=== PATIENT | female | born 1975 | race Two or more races ===

== ENCOUNTER → 2020-09-06 09:53 | Outpatient (BNVA) | payer MEDICAID, SELFPAY | PROVIDERS: Visit Provider Internal Medicine Pulmonary Disease | DX: R06.00 Dyspnea, unspecified (principal); R91.8 Other nonspecific abnormal finding of lung field | CPT/HCPCS: 99202 ==

== ENCOUNTER 2020-09-13 10:01 | Outpatient (REF) | payer MEDICAID, SELFPAY ==
--- NOTE | 2020-09-13 10:04 | CT_ITS ---
EXAMINATION: CT CHEST WITHOUT CONTRAST CLINICAL INFORMATION: Abnormal finding in the lung field. COMPARISON: Chest x-ray 01/03/2019 TECHNIQUE: Multidetector volumetric CT imaging of the chest was done. Axial MIP volume rendering provided. Sagittal and coronal reformatted images were obtained. This CT examination was performed using dose optimization techniques as appropriate, variously including the following: *Automated exposure control *Adjustment of mA and/or kV according to patient size (this includes techniques or standardized protocols for targeted exams where dose is matched to indication/reason for exam; i.e. extremities or head) *Use of iterative reconstruction technique DLP: 146 mGy-cm. 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 LUNGS: Lungs are hyperinflated but clear of acute pneumonic process. There is no pulmonary nodule, mass or consolidation. MEDIASTINUM: The heart size and the great vessels are normal caliber. Central trachea and the bronchi are widely patent. The thyroid lobes are symmetrical and normal. No abnormal-sized mediastinal lymph nodes or mass seen. PLEURA: There is no pleural effusion. No pleural mass or thickening. AXILLA: Small shotty lymph nodes are seen in bilateral axilla. UPPER ABDOMEN: Visualized liver, spleen, bilateral adrenal glands, gallbladder and upper kidneys are unremarkable. OSSEOUS STRUCTURES: Minimal ventral spondylosis upper dorsal spine. CT/CT chest wo con IMPRESSION: Essentially unremarkable CT chest exam with no acute process seen.
== END 2020-09-13 10:02 | disposition home or self-care (01) ==
LOC: HO.CT 10:01
PROVIDERS: Visit Provider Internal Medicine Pulmonary Disease
DX: R91.8 Other nonspecific abnormal finding of lung field (principal)
CPT/HCPCS: 71250

== ENCOUNTER 2020-09-27 09:26 | Outpatient (REF) | payer MEDICAID, SELFPAY ==
--- NOTE | 2020-09-27 17:39 | PFT_ITS ---
INDICATIONS: Dyspnea. SPIROMETRY: The FEV1 to FVC of 82% with FEV1 of 2.04 L, which is 68% of predicted and FVC of 2.47 L, which is 68% of predicted. No significant response to bronchodilators noted. Maximal voluntary ventilation is 96% predicted. LUNG VOLUMES: Total lung capacity 79% of predicted with a residual volume of 88% of predicted and the expiratory reserve volume of 65% of predicted. DIFFUSION CAPACITY: DLCO 69% of predicted. It does correct to normal when correcting for the alveolar volume. COMPARISONS: None available. INTERPRETATION: In addition, no obstructive ventilatory defect. No significant response to bronchodilators noted. Normal maximal voluntary ventilation. The patient does have a mild restrictive ventilatory defect of an unclear etiology. In addition to that, there is a mild diffusion impairment. We need to consider underlying parenchymal lung conditions and consider additional imaging studies. Clinical correlation warranted. Sean Martines MD MR/MODL / [id number]
== END 2020-09-27 09:27 | disposition home or self-care (01) ==
LOC: HO.RESP 09:26
PROVIDERS: Visit Provider Internal Medicine Pulmonary Disease
DX: R06.00 Dyspnea, unspecified (principal)
CPT/HCPCS: 94060; 94727; 94729; 99212

== ENCOUNTER → 2020-11-16 09:51 | Outpatient (BNVA) | payer MEDICAID, SELFPAY | PROVIDERS: PCP Internal Medicine; Visit Provider Student in an Organized Health Care Education/Training Program | DX: M79.7 Fibromyalgia (principal) | CPT/HCPCS: 99212 ==

== ENCOUNTER 2021-07-17 11:02 | Outpatient (REF) | payer MEDICAID, SELFPAY | END 2021-07-17 11:03 | disposition home or self-care (01) | LOC: HO.LAB 11:02 | PROVIDERS: Visit Provider Internal Medicine | DX: Z20.822 Contact with and (suspected) exposure to COVID-19 (principal) | CPT/HCPCS: C9803; U0003; U0005 ==

== ENCOUNTER → 2021-11-19 09:47 | Outpatient (BNVA) | payer MEDICAID, SELFPAY | PROVIDERS: PCP Internal Medicine; Visit Provider Nurse Practitioner Family | DX: M79.7 Fibromyalgia (principal); M25.562 Pain in left knee; M54.50 Low back pain, unspecified | CPT/HCPCS: 99212 ==

== ENCOUNTER 2022-02-25 15:32 | Emergency (ER) | payer MEDICAID, SELFPAY ==
[2022-02-25 17:10] VITALS: BP 129/86; PULSE 79; RESP 18; TEMP 37.1; O2SAT 97; BMI 29.7
[2022-02-25 17:44] LABS: MANUAL DIFF FLAG NO
[2022-02-25 17:49] LABS: Basophils Percent Auto 0.2 % (0-2); Eosinophils Absolute Auto 0.1 X10*3/uL (0.0-0.4); Eosinophils Percent Auto 1.8 % (0-4); Hematocrit 35.7 % (37.0-47.0); Hemoglobin 11.7 g/dl (12.0-16.0); Imm Gran Abs Auto 0.01 X10*3/uL (0.00-0.03); Imm Gran Pct Auto 0.2 % (0.0-0.4); Lymphocytes Absolute Auto 1.7 X10*3/uL (1.2-4.9); Mean Corpuscular HGB Conc 32.8 g/dl (31.0-35.0); Mean Corpuscular Hemoglobin 29.5 pg (27.0-33.0); Mean Corpuscular Volume 89.9 fL (80.0-98.0); Mean Platelet Volume 11.7 fL (9.4-12.3); Monocytes Absolute Auto 0.4 X10*3/uL (0.1-1.2); Monocytes Percent Auto 6.6 % (2-11); Neutrophils Absolute Auto 3.9 x10*3/uL (2.0-8.3); Neutrophils Percent Auto 63.2 % (45-73); Platelet Count 253 X10*3/uL (160-400); Red Blood Count 3.97 X10*6/uL (4.20-5.50); Red Cell Distribution Width 13.2 % (11.0-16.0); White Blood Count 6.2 X10*3/uL (4.8-10.8)
[2022-02-25 17:51] LABS: Appearance Urine CLOUDY; Color Urine BROWN; Glucose Urine UA NEG (NEG); Leukocyte Esterase Urine NEG (NEG); Nitrite Urine NEG (NEG); Specific Gravity - Urine 1.025 (1.005-1.025); UACC Culture Trigger NO; Urine Blood 3+ (NEG); Urine Ketones 5 MG/DL (NEG); Urine Protein 1+ MG/DL (NEG-TRACE)
[2022-02-25 17:59] LABS: UPreg QC Valid YES; Urine Pregnancy NEGATIVE (NEGATIVE)
[2022-02-25 18:10] LABS: Alanine Aminotransferase 14 U/L (0-31); Albumin Level 4.2 g/dL (3.5-5.0); Alkaline Phosphatase 46 U/L (39-117); Anion Gap 10 (12-20); Aspartate Amino Transferase 16 U/L (5-31); Bilirubin Total 0.2 mg/dL (0.0-1.0); Blood Urea Nitrogen 11 mg/dL (9-16); Calcium 8.9 mg/dL (8.4-10.2); Carbon Dioxide 27 mmol/L (22-29); Chloride 105 mmol/L (96-108); Creatinine Clr Calc Pharmacy 106.4; Estimated Glomerular Filt Rate > 60; Glucose Random 170 mg/dL (60-115); Potassium 4.2 mmol/L (3.3-5.1); Sodium 138 mmol/L (135-145)
[2022-02-25 18:42] LABS: RBC Urine TNTC /HPF (0); Squamous Epithelial Cell Urine 2+ /LPF; WBC Urine 0 /HPF (0-4)
[2022-02-25 19:17] LABS: Prothrombin Time 11.1 SEC (10.0-13.1)
== END 2022-02-26 01:29 | disposition left against medical advice (07) ==
PROVIDERS: Emergency Provider Emergency Medicine; PCP General Practice
DX: N93.9 Abnormal uterine and vaginal bleeding, unspecified (principal); R42 Dizziness and giddiness
CPT/HCPCS: 36415; 80053; 81001; 81025; 85025; 85610; 99282; 99283

== ENCOUNTER 2022-06-12 15:45 | Outpatient (REF) | payer MEDICAID, SELFPAY ==
--- NOTE | ~2022-06-12 | US_ITS ---
EXAMINATION: US PELVIS COMPLETE CLINICAL INFORMATION: Heavy bleeding COMPARISON: None TECHNIQUE: Transabdominal and transvaginal imaging was performed. FINDINGS: The uterus is of normal size and echogenicity measuring 9.8 x 4.8 x 5.2 cm. A somewhat heterogeneous, thickened endometrium is identified measuring 1.9 cm. Nabothian cysts in the cervix. A 3.6 x 2.5 x 3.4 cm left ovarian physiologic dominant follicle with a daughter cyst is seen, without minimal surrounding parenchymal ovarian tissue. The right ovary was not identified. No right adnexal mass. There is no pelvic free fluid. US/US pelvic and transvaginal IMPRESSION: 1. A 3.6 cm left ovarian physiologic dominant follicle with a daughter cyst, without minimal surrounding parenchymal ovarian tissue. No follow-up imaging recommended. The right ovary was not identified. No right adnexal mass. 2. A somewhat heterogeneous, thickened endometrium measuring 1.9 cm.
== END 2022-06-12 15:46 | disposition home or self-care (01) ==
LOC: HO.US 15:45
PROVIDERS: Visit Provider Internal Medicine
DX: N92.6 Irregular menstruation, unspecified (principal)
CPT/HCPCS: 76830; 76856

== ENCOUNTER 2022-09-30 08:40 | Outpatient (REF) | payer MEDICAID, SELFPAY ==
--- NOTE | ~2022-09-30 | MM_ITS ---
EXAMINATION: MM SCREENING DIGITAL BREAST TOMOSYNTHESIS, BILATERAL CLINICAL INFORMATION: Screening. Asymptomatic. The lifetime risk of breast cancer based on the Tyrer-Cuzick Model is 12%. COMPARISON: Mammography: 04/26/2019, 09/04/2017, 08/27/2017 TECHNIQUE: Digital breast tomosynthesis is performed in both the craniocaudal and mediolateral oblique views along with computer-aided detection (CAD). Synthesized 2D images are generated from the tomosynthesis. FINDINGS: The breasts are heterogeneously dense, which may obscure small masses (ACR BI-RADS breast composition Category c). There are no significant masses, abnormal calcifications, or other abnormalities. No architectural abnormality or developing density or significant change from prior studies. MM/MM tomosynthesis screening BI IMPRESSION: No mammographic evidence of malignancy. ASSESSMENT: BI-RADS 1: Negative RECOMMENDATION: Routine annual mammography screening. This patient's information was entered into a reminder system with a target due date for their next mammogram.
== END 2022-09-30 08:41 | disposition home or self-care (01) ==
LOC: HO.MAMMO 08:40
PROVIDERS: PCP General Practice; Visit Provider General Practice
DX: Z12.31 Encounter for screening mammogram for malignant neoplasm of breast (principal)
CPT/HCPCS: 77063; 77067

== ENCOUNTER → 2022-11-19 09:55 | Outpatient (BNVA) | payer MEDICAID, SELFPAY | PROVIDERS: PCP General Practice; Visit Provider Nurse Practitioner Family | DX: M79.7 Fibromyalgia (principal); M25.562 Pain in left knee; R51.9 Headache, unspecified; R20.2 Paresthesia of skin | CPT/HCPCS: 99212 ==

== ENCOUNTER 2022-11-19 11:11 | Outpatient (REF) | payer MEDICAID, SELFPAY ==
--- NOTE | ~2022-11-19 | XR_ITS ---
EXAMINATION: XR KNEE, LEFT CLINICAL INFORMATION: Reason for Exam M25.562 - Pain in left knee COMPARISON: Knee radiographs 03/23/2018 TECHNIQUE: 3 views of the knee FINDINGS: No acute fracture or dislocation. Mild degenerative changes of the knee with borderline loss of patellofemoral compartment joint space, progressed from prior. No joint effusion. Soft tissues are unremarkable. XR/XR knee LT 3V IMPRESSION: * No acute osseous abnormality. * Mild degenerative changes of the knee.
== END 2022-11-19 11:12 | disposition home or self-care (01) ==
LOC: HO.XRAY 11:11
PROVIDERS: Visit Provider Nurse Practitioner Family
DX: M25.562 Pain in left knee (principal); M79.7 Fibromyalgia; R51.9 Headache, unspecified; R20.2 Paresthesia of skin
CPT/HCPCS: 73562

== ENCOUNTER 2023-01-12 14:36 | Emergency (ER) | payer MEDICAID, SELFPAY ==
--- NOTE | ~2023-01-12 | US_ITS ---
EXAMINATION: US ABDOMEN COMPLETE CLINICAL INFORMATION: Right upper quadrant pain. Question cholecystitis. COMPARISON: None available. TECHNIQUE: Real-time imaging of the abdominal viscera. FINDINGS: PANCREAS: Head and body appear unremarkable. Tail not visualized. ABDOMINAL AORTA: The proximal, mid, and distal segments are normal in caliber. INFERIOR VENA CAVA: Visualized portions are normal. LIVER: The liver is normal in size. The liver contour is normal. Parenchymal echogenicity is normal. No focal hepatic lesion appreciated. There is no intrahepatic biliary duct dilatation seen. GALLBLADDER: Contracted. Cholelithiasis. No evidence of significant gallbladder wall thickening, pericholecystic fluid, or hyperemia. COMMON BILE DUCT: Normal in caliber measuring cm in diameter. RIGHT KIDNEY: No hydronephrosis. No renal calculi or focal parenchymal lesion identified. The kidney measures 10.9 cm in maximum dimension. LEFT KIDNEY: No hydronephrosis. 1.4 x 1.2 x 1.1 cm benign left lower pole parapelvic simple renal cyst for which no further dedicated follow up imaging is indicated. No renal calculi or suspicious focal parenchymal lesion identified. The kidney measures 11.8 cm in maximum dimension. SPLEEN: The spleen measures 12.7 cm in maximum dimension. FREE FLUID: None. US/US abdomen complete IMPRESSION: Cholelithiasis. Spleen upper normal in size to mildly enlarged.
[2023-01-12 14:45] VITALS: BP 123/78; PULSE 66; RESP 18; TEMP 36.6; O2SAT 100; BMI 27.0
--- NOTE | 2023-01-12 14:51 | ED.GENADULT ---
HPI - General Adult General Chief complaint: Abdominal Pain Stated complaint: Liver/ gal bladder problems Time Seen by Provider: 01/12/23 16:04 Source: patient and family Mode of arrival: ambulatory Limitations: language barrier History of Present Illness HPI narrative: Patient is a 47-year-old female with history of fibromyalgia and antiphospholipid antibody positive presenting to the emergency department with complaint of right mid back pain radiating around to her RLQ. She reports that her symptoms began around one month ago but that last Thursday her pain became more severe. She was evaluated in [place] for same symptoms on 01/09, noted to have elevated liver enzymes at that time and CT showed cholelithiasis and hepatic steatosis. She was given morphine in the hospital and discharged home with oxycodone. She reports nausea but denies any vomiting, diarrhea, or constipation. She reports one episode of hematuria and dysuria this morning but states she has not had any further episodes of these symptoms. She denies any fevers since onset of symptoms. She reports that her pain has been tolerable with the oxycodone she was prescribed however the pain returns when the medication wears off. She denies any chest pain, cough, or dyspnea. MD complaint: Right flank and abdominal pain Onset (ago): day(s) Location: back and abdomen Radiation: abdomen Severity: severe Quality: stabbing Pain Consistency: colicky Relieving factors: medication Associated symptoms: nausea/vomiting Treatments prior to arrival: other (oxycodone) Related Data Home Medications Medication Instructions Recorded Confirmed albuterol 90 mcg/actuation aerosol 90 mcg inhalation DAILY PRN 08/23/20 01/16/22 inhaler Wheezing cholecalciferol (vitamin D3) 50 50 mcg PO DAILY 08/23/20 01/16/22 mcg (2,000 unit) tablet (Vitamin D3) ibuprofen 600 mg tablet 600 mg PO Q6H PRN Pain 08/23/20 01/16/22 lidocaine 1.8 % topical patch 1 patch topical DAILY 08/23/20 01/16/22 omeprazole 20 mg capsule,delayed 20 mg PO DAILY 08/23/20 01/16/22 release fluticasone propionate 110 2 puff inhalation BID 09/06/20 01/16/22 mcg/actuation HFA aerosol inhaler (Flovent HFA) propranolol 40 mg tablet 1 tab PO BID migraine 01/16/22 01/16/22 dulaglutide 0.75 mg/0.5 mL 0.75 mg subcut QWEEK 11/19/22 subcutaneous pen injector (Trulicity) Previous Rx's Medication Instructions Recorded cyclobenzaprine 10 mg tablet 10 mg PO BEDTIME PRN muscle spasm 06/06/20 #30 tabs rivaroxaban 20 mg tablet 20 mg PO DAILY #10 tabs 01/16/22 Allergies Allergy/AdvReac Type Severity Reaction Status Date / Time penicillin G [PENICILLIN G] Allergy Unknown RASH, Verified 11/19/22 10:11 swelling, rash Review of Systems Review of Systems: As per HPI Yes all other systems are reviewed and are negative Constitutional: Constitutional: Reports as per HPI [facility] Past Medical History Medical History Antiphospholipid antibody syndrome Asthma Fibromyalgia GERD (gastroesophageal reflux disease) History of gestational diabetes Migraine Vitamin D deficiency Surgical History History of delivery History of elbow surgery Family History Family History Maternal Uncle Colon cancer Paternal Uncle Cancer of internal nose Social History Social History Household Members: Spouse and Children Housing: House Are you a primary healthcare administration intern to a significant other at home: No Do you presently have visiting nurse or other home services: No Alcohol intake: former Patient Tobacco Use Status: Never used Tobacco Advance Directives: No Advance Directives Information Provided: No service: No Current occupational status: employed Physical Exam ED Vital Signs: Vital Signs - 24 hr 01/12/23 14:45 01/12/23 16:42 Temperature 97.8 F 98.2 F Pulse Rate 66 67 Respiratory Rate 18 16 Blood Pressure 123/78 122/76 Pulse Oximetry 100 99 Oxygen Delivery Method Room Air Room Air BMI result Body Mass Index 27.0 Const General: cooperative, healthy appearing and no acute distress Orientation/consciousness: oriented to person, oriented to place, oriented to time and patient oriented x3 Limitations: no limitations HENMT Head: Yes normocephalic and Yes atraumatic Ears: external ears normal General nose exam: Normal external nose present Face and sinus: Yes face symmetric Mouth: oropharynx normal and moist mucous membranes Throat: Yes uvula midline Eyes Pupils: Equal, round and reactive pupils present Neck Neck: Yes normal visual inspection and Yes supple Resp Effort & Inspection: normal respiratory effort and able to speak in complete sentences Auscultation: clear to auscultation bilaterally Cardio Rate: regular rate Rhythm: regular rhythm Heart sounds: S1 normal heart sound present and S2 normal heart sound present GI Inspection: Yes normal to inspection Palpation (GI): Soft to palpation and Tenderness to palpation present (GI) in the RLQ and in the RUQ; with no rebound tenderness Auscultation: normoactive bowel sounds General: Yes CVA tenderness on the right Back/Spine/Pelvis Back: CVA tenderness Skin General skin exam: elasticity normal and turgor normal Neuro General: oriented to person, oriented to place, oriented to time, patient oriented x3, moves all extremities, no focal motor deficits and CN's II-XI intact bilaterally Cranial nerves: Yes Equal, round and reactive pupils present Cognition (Neuro): normal cognition Extrem General: Yes full ROM, Yes no pedal edema and Yes no calf tenderness Psych Mental Status: mental status grossly normal Affect: normal affect Thought process: Normal thought process present Course Course Course Narrative: RME: 47 yold female presents to the ED for Right sided abdominal pain. patient has known gallstones as per note from Krishna Miller. labs and US ordered. labs shows elevated liver enzymes and CT scan shows gallstones as per note from [place]. 17:41 Urine negative for UTI or blood. Ultrasound shows cholelithiasis with normal CBD. Patient's CT scan results from 01/09 show no evidence of renal stones or hydronephrosis. Feel patient is stable for discharge home at this time for follow up with general surgery. All results discussed with patient and and all questions answered. Patient agreeable to plan of care. Medical Decision Making Medical Decision Making MDM Narrative: Patient is a 47-year-old female with history of fibromyalgia and antiphospholipid antibody positive presenting to the emergency department with complaint of right mid back pain radiating around to her RLQ. On exam patient is awake, A+Ox3, nontoxic appearing, abdomen soft, TTP RUQ and RLQ as well as R CVA tenderness. LFTs elevated, labs otherwise unremarkable. Concern for cholecystitis vs choledocolithiasis vs renal colic/pyelonephritis/UTI. Less likely diverticulitis, appendicitis, uterine fibroid, ovarian cyst. Unlikely pneumonia, PE, bowel obstruction. Plan: abdominal US, UA, reassess Please refer to course for remaining clinical decision making. Differential Diagnosis Differential Diagnoses: The differential diagnosis associated with the presentation includes As above Admission/Observation Consideration of admission/observation: Escalation of care including admission/observation considered Lab Data MDM Lab Attestation statement: I reviewed the patient's lab results. 01/12/23 15:08 01/12/23 15:08 Labs: Lab Results 01/12/23 01/12/23 01/12/23 Range/Units 15:08 15:08 15:08 WBC 5.9 (4.8-10.8) X10*3/uL RBC 4.16 L (4.20-5.50) X10*6/uL Hgb 12.0 (12.0-16.0) g/dl Hct 37.5 (37.0-47.0) % MCV 90.1 (80.0-98.0) fL MCH 28.8 (27.0-33.0) pg MCHC 32.0 (31.0-35.0) g/dl RDW 14.3 (11.0-16.0) % Plt Count 213 (160-400) X10*3/uL MPV 11.9 (9.4-12.3) fL Immature Gran % (Auto) 0.5 H (0.0-0.4) % Neut % (Auto) 63.9 (45-73) % Lymph % (Auto) 28.2 (20-40) % [place] % (Auto) 5.7 (2-11) % Eos % (Auto) 1.5 (0-4) % Baso % (Auto) 0.2 (0-2) % Lymph # (Auto) 1.7 (1.2-4.9) X10*3/uL [place] # (Auto) 0.3 (0.1-1.2) X10*3/uL Eos # (Auto) 0.1 (0.0-0.4) X10*3/uL Baso # (Auto) 0.0 (0.0-0.2) X10*3/uL Abs Immat Gran (auto) 0.03 (0.00-0.03) X10*3/uL Absolute Neuts (auto) 3.8 (2.0-8.3) x10*3/uL Absolute Nucleated RBC 0.000 (0.0-0.012) X10*3/uL Nucleated RBC % (auto) 0.0 (0.0-0.2) /100WBC PT 14.0 H (10.0-13.1) SEC INR 1.2 H (0.9-1.1) APTT 38.3 H (26.0-36.4) SEC Sodium 141 (135-145) mmol/L Potassium 4.3 (3.3-5.1) mmol/L Chloride 103 (96-108) mmol/L Carbon Dioxide 29 (22-29) mmol/L Anion Gap 13 (12-20) BUN 10 (9-16) mg/dL Creatinine 0.76 (0.5-1.4) mg/dL Estim Creat Clear Calc 89.8 Estimated GFR > 60 Random Glucose 268 H (60-115) mg/dL Calcium 9.7 D (8.4-10.2) mg/dL Total Bilirubin 0.6 (0.0-1.0) mg/dL AST 33 H (5-31) U/L ALT 325 H (0-31) U/L Alkaline Phosphatase 114 (39-117) U/L Total Protein 6.9 (6.5-8.0) g/dL Albumin 4.1 (3.5-5.0) g/dL Lipase 70 (8-78) U/L Beta HCG, Quant mIU/mL Urine Color Urine Appearance Urine pH (5.0-9.0) Ur Specific [place] (1.005-1.025) Urine Protein (Neg-Trace) mg/dL Urine Glucose (UA) (Negative) mg/dL Urine Ketones (Negative) mg/dL Urine Blood (Negative) Urine Nitrite (Negative) Ur Leukocyte Esterase (Negative) Urine Test (NEGATIVE) 01/12/23 01/12/23 01/12/23 Range/Units 15:08 17:11 17:11 WBC (4.8-10.8) X10*3/uL RBC (4.20-5.50) X10*6/uL Hgb (12.0-16.0) g/dl Hct (37.0-47.0) % MCV (80.0-98.0) fL MCH (27.0-33.0) pg MCHC (31.0-35.0) g/dl RDW (11.0-16.0) % Plt Count (160-400) X10*3/uL MPV (9.4-12.3) fL Immature Gran % (Auto) (0.0-0.4) % Neut % (Auto) (45-73) % Lymph % (Auto) (20-40) % [place] % (Auto) (2-11) % Eos % (Auto) (0-4) % Baso % (Auto) (0-2) % Lymph # (Auto) (1.2-4.9) X10*3/uL [place] # (Auto) (0.1-1.2) X10*3/uL Eos # (Auto) (0.0-0.4) X10*3/uL Baso # (Auto) (0.0-0.2) X10*3/uL Abs Immat Gran (auto) (0.00-0.03) X10*3/uL Absolute Neuts (auto) (2.0-8.3) x10*3/uL Absolute Nucleated RBC (0.0-0.012) X10*3/uL Nucleated RBC % (auto) (0.0-0.2) /100WBC PT (10.0-13.1) SEC INR (0.9-1.1) APTT (26.0-36.4) SEC Sodium (135-145) mmol/L Potassium (3.3-5.1) mmol/L Chloride (96-108) mmol/L Carbon Dioxide (22-29) mmol/L Anion Gap (12-20) BUN (9-16) mg/dL Creatinine (0.5-1.4) mg/dL Estim Creat Clear Calc Estimated GFR Random Glucose (60-115) mg/dL Calcium (8.4-10.2) mg/dL Total Bilirubin (0.0-1.0) mg/dL AST (5-31) U/L ALT (0-31) U/L Alkaline Phosphatase (39-117) U/L Total Protein (6.5-8.0) g/dL Albumin (3.5-5.0) g/dL Lipase (8-78) U/L Beta HCG, Quant < 2 mIU/mL Urine Color Yellow Urine Appearance Clear Urine pH 6.0 (5.0-9.0) Ur Specific [place] 1.020 (1.005-1.025) Urine Protein Negative (Neg-Trace) mg/dL Urine Glucose (UA) Negative (Negative) mg/dL Urine Ketones Trace (Negative) mg/dL Urine Blood Negative (Negative) Urine Nitrite Negative (Negative) Ur Leukocyte Esterase Negative (Negative) Urine Test NEGATIVE (NEGATIVE) Independent Interpretation I performed an independent interpretation of an: Ultrasound Interpretation: I independently reviewed the ultrasound and agree with the radiologist's interpretation. Radiology Impression Discussion of test interpretation with radiology: I have reviewed the radiologist's reading. Radiologist Impression: FINDINGS: PANCREAS: Head and body appear unremarkable. Tail not visualized. ABDOMINAL AORTA: The proximal, mid, and distal segments are normal in caliber. INFERIOR VENA CAVA: Visualized portions are normal. LIVER: The liver is normal in size. The liver contour is normal. Parenchymal echogenicity is normal. No focal hepatic lesion appreciated. There is no intrahepatic biliary duct dilatation seen. GALLBLADDER: Contracted. Cholelithiasis. No evidence of significant gallbladder wall thickening, pericholecystic fluid, or hyperemia. COMMON BILE DUCT: Normal in caliber measuring cm in diameter. RIGHT KIDNEY: No hydronephrosis. No renal calculi or focal parenchymal lesion identified. The kidney measures 10.9 cm in maximum dimension. LEFT KIDNEY: No hydronephrosis. 1.4 x 1.2 x 1.1 cm benign left lower pole parapelvic simple renal cyst for which no further dedicated follow up imaging is indicated. No renal calculi or suspicious focal parenchymal lesion identified. The kidney measures 11.8 cm in maximum dimension. SPLEEN: The spleen measures 12.7 cm in maximum dimension. FREE FLUID: None. US/US abdomen complete IMPRESSION: ? Cholelithiasis. ? Spleen upper normal in size to mildly enlarged. Independent Historian Clinical information obtained from an independent historian. History obtained from or confirmed by: Spouse External Record Review External record reviewed: Inpatient record, Office record, Outpatient record, Prior outpatient labs, Prior outpatient radiology and Outside ED record Discharge Plan Discharge Clinical Impression: Cholelithiasis Patient Disposition: Home, Self-Care Instructions: Gallstones (ED) Additional Instructions: You have been evaluated in the emergency department today for abdominal pain. Your evaluation did not show evidence of medical conditions requiring emergent intervention at this time. Please call the general surgeons tomorrow to schedule an appointment. Return to the emergency department if you experience worsening or uncontrolled pain, fevers 100.4? F or greater, recurrent vomiting, inability to tolerate food or fluids by mouth, bloody stools or vomit, black or tarry stools, or any other concerning symptoms. Prescriptions: No Action cyclobenzaprine 10 mg tablet 10 mg PO BEDTIME PRN (Reason: muscle spasm) Qty: 30 5RF omeprazole 20 mg Capsule,Delayed Release(Dr/Ec) 20 mg PO DAILY ibuprofen 600 mg Tablet 600 mg PO Q6H PRN (Reason: Pain) cholecalciferol (vitamin D3) [Vitamin D3] 50 mcg (2,000 unit) Tablet 50 mcg PO DAILY lidocaine 1.8 % Adhesive Patch,Medicated 1 patch TOPICAL DAILY albuterol 90 mcg/actuation Aerosol 90 mcg INHALATION DAILY PRN (Reason: Wheezing) propranolol 40 mg tablet 1 tab PO BID rivaroxaban 20 mg Tablet 20 mg PO DAILY Qty: 10 0RF Rx Instructions: Take 1 one hour prior to travel. must administer with evening meal Flovent HFA 110 mcg/actuation HFA aerosol inhaler 2 puff inhalation BID Trulicity 0.75 mg/0.5 mL pen injector 0.75 mg subcut QWEEK Referrals: [facility] [place] General Surgeons [Provider Group] Print Language: Estonian
[2023-01-12 15:11] LABS: MANUAL DIFF FLAG NO
[2023-01-12 15:12] LABS: Basophils Percent Auto 0.2 % (0-2); Eosinophils Absolute Auto 0.1 X10*3/uL (0.0-0.4); Eosinophils Percent Auto 1.5 % (0-4); Hematocrit 37.5 % (37.0-47.0); Imm Gran Abs Auto 0.03 X10*3/uL (0.00-0.03); Imm Gran Pct Auto 0.5 % (0.0-0.4); Lymphocytes Absolute Auto 1.7 X10*3/uL (1.2-4.9); Lymphocytes Percent Auto 28.2 % (20-40); Mean Corpuscular Hemoglobin 28.8 pg (27.0-33.0); Mean Corpuscular Volume 90.1 fL (80.0-98.0); Mean Platelet Volume 11.9 fL (9.4-12.3); Monocytes Absolute Auto 0.3 X10*3/uL (0.1-1.2); Monocytes Percent Auto 5.7 % (2-11); Neutrophils Absolute Auto 3.8 x10*3/uL (2.0-8.3); Neutrophils Percent Auto 63.9 % (45-73); Platelet Count 213 X10*3/uL (160-400); Red Blood Count 4.16 X10*6/uL (4.20-5.50); Red Cell Distribution Width 14.3 % (11.0-16.0); White Blood Count 5.9 X10*3/uL (4.8-10.8)
[2023-01-12 15:18] LABS: INTERNATIONAL NORM RATIO 1.2 (0.9-1.1)
[2023-01-12 15:20] LABS: Partial Thromboplastin Time 38.3 SEC (26.0-36.4)
[2023-01-12 15:52] LABS: Alanine Aminotransferase 325 U/L (0-31); Albumin Level 4.1 g/dL (3.5-5.0); Alkaline Phosphatase 114 U/L (39-117); Anion Gap 13 (12-20); Aspartate Amino Transferase 33 U/L (5-31); Bilirubin Total 0.6 mg/dL (0.0-1.0); Blood Urea Nitrogen 10 mg/dL (9-16); Calcium 9.7 mg/dL (8.4-10.2); Carbon Dioxide 29 mmol/L (22-29); Chloride 103 mmol/L (96-108); Creatinine Clr Calc Pharmacy 89.8; Estimated Glomerular Filt Rate > 60; Glucose Random 268 mg/dL (60-115); Lipase 70 U/L (8-78); Potassium 4.3 mmol/L (3.3-5.1); Sodium 141 mmol/L (135-145); Total Protein 6.9 g/dL (6.5-8.0)
[2023-01-12 16:07] LABS: HCG Quantitative < 2 mIU/mL
[2023-01-12 16:42] VITALS: BP 122/76; PULSE 67; RESP 16; TEMP 36.8; O2SAT 99
[2023-01-12 17:27] LABS: Appearance Urine Clear; Color Urine Yellow; Glucose Urine UA Negative (Negative); Leukocyte Esterase Urine Negative (Negative); Nitrite Urine Negative (Negative); Urine Blood Negative (Negative); Urine Ketones Trace mg/dL (Negative); Urine Protein Negative (Neg-Trace)
[2023-01-12 17:31] LABS: Urine Pregnancy NEGATIVE (NEGATIVE)
[2023-01-12 17:32] LABS: UPreg QC Valid YES
== END 2023-01-12 18:14 | disposition home or self-care (01) ==
PROVIDERS: Physician Assistant; Emergency Provider Emergency Medicine; PCP General Practice
DX: K80.20 Calculus of gallbladder without cholecystitis without obstruction (principal); R10.31 Right lower quadrant pain; Z79.899 Other long term (current) drug therapy
CPT/HCPCS: 36415; 76700; 80053; 81003; 81025; 83690; 84702; 85025; 85610; 85730; 99284

== ENCOUNTER → 2023-01-20 09:59 | Outpatient (BNVA) | payer MEDICAID, SELFPAY | PROVIDERS: PCP General Practice; Visit Provider Surgery | DX: K80.50 Calculus of bile duct without cholangitis or cholecystitis without obstruction (principal); Z79.01 Long term (current) use of anticoagulants | CPT/HCPCS: 99202 ==

== ENCOUNTER 2023-01-30 01:41 | Day surgery (SDC) | payer MEDICAID, SELFPAY ==
[2023-01-30] VITALS (15 sets, daily range): BP systolic 116–191; BP diastolic 69–101; PULSE 56–72; RESP 12–20; TEMP 36.3–36.9; O2SAT 97–100; BMI 26.6
--- NOTE | ~2023-01-30 | US_ITS ---
EXAMINATION: US ABDOMEN LIMITED CLINICAL INFORMATION: Pain. COMPARISON: 01/12/2023 TECHNIQUE: Real-time imaging of the right upper quadrant abdominal viscera. FINDINGS: GALLBLADDER: Mobile stones present within the gallbladder. No significant gallbladder wall thickening or pericholecystic inflammation. COMMON BILE DUCT: Normal in caliber measuring 0.6 cm in diameter. No choledocholithiasis is evident. FREE FLUID: None. US/US abdomen limited IMPRESSION: Cholelithiasis without sonographic evidence of cholecystitis. No choledocholithiasis is evident, however the distal common bile duct is not well seen.
[2023-01-30] MEDS: ondansetron HCL 4 MG/2 ML VIAL IVPUSH (02:08)
[2023-01-30] MEDS: 0.9 % Sodium Chloride 1,000 ML 999 ML IV (02:09)
[2023-01-30] MEDS: Morphine Sulfate 4 MG/ML CARTRIDGE IVPUSH ×2 (02:09→06:33)
[2023-01-30 02:10] LABS: MANUAL DIFF FLAG NO
[2023-01-30 02:11] LABS: Basophils Percent Auto 0.1 % (0-2); Eosinophils Absolute Auto 0.1 X10*3/uL (0.0-0.4); Eosinophils Percent Auto 0.9 % (0-4); Hematocrit 35.6 % (37.0-47.0); Hemoglobin 11.8 g/dl (12.0-16.0); Imm Gran Abs Auto 0.02 X10*3/uL (0.00-0.03); Imm Gran Pct Auto 0.3 % (0.0-0.4); Lymphocytes Absolute Auto 1.7 X10*3/uL (1.2-4.9); Lymphocytes Percent Auto 24.7 % (20-40); Mean Corpuscular HGB Conc 33.1 g/dl (31.0-35.0); Mean Corpuscular Hemoglobin 29.4 pg (27.0-33.0); Mean Corpuscular Volume 88.6 fL (80.0-98.0); Mean Platelet Volume 11.9 fL (9.4-12.3); Monocytes Absolute Auto 0.4 X10*3/uL (0.1-1.2); Monocytes Percent Auto 5.3 % (2-11); Neutrophils Absolute Auto 4.7 x10*3/uL (2.0-8.3); Neutrophils Percent Auto 68.7 % (45-73); Platelet Count 229 X10*3/uL (160-400); Red Blood Count 4.02 X10*6/uL (4.20-5.50); Red Cell Distribution Width 13.8 % (11.0-16.0); White Blood Count 6.9 X10*3/uL (4.8-10.8)
[2023-01-30 02:27] LABS: Alanine Aminotransferase 23 U/L (0-31); Albumin Level 3.8 g/dL (3.5-5.0); Alkaline Phosphatase 63 U/L (39-117); Anion Gap 12 (12-20); Aspartate Amino Transferase 49 U/L (5-31); Bilirubin Total 0.5 mg/dL (0.0-1.0); Blood Urea Nitrogen 12 mg/dL (9-16); Calcium 9.1 mg/dL (8.4-10.2); Carbon Dioxide 29 mmol/L (22-29); Chloride 107 mmol/L (96-108); Creatinine Clr Calc Pharmacy 109.5; Estimated Glomerular Filt Rate > 60; Glucose Random 182 mg/dL (60-115); Lipase 58 U/L (8-78); Potassium 3.7 mmol/L (3.3-5.1); Sodium 144 mmol/L (135-145); Total Protein 6.6 g/dL (6.5-8.0)
[2023-01-30] MEDS: Ketorolac Tromethamine 30 MG/ML VIAL IVPUSH (03:23)
--- NOTE | 2023-01-30 04:08 | ED.ABDPAIN ---
HPI - Abdominal Pain General Chief Complaint: Urogenital-Female Stated Complaint: Kidney stone? Time Seen by Provider: 01/30/23 01:55 Source: patient Mode of arrival: ambulatory Limitations: no limitations History of Present Illness HPI narrative: Patient history of cholelithiasis in the scene in ultrasound done on 01/12 plan for surgery next week comes here for continuation of pain since then getting worse in last few days associated with nausea, patient vomited once when she arrived to the ER ,no fever no chills no urinary symptom Related Data Home Medications Medication Instructions Recorded Confirmed albuterol 90 mcg/actuation aerosol 90 mcg inhalation DAILY PRN 08/23/20 01/28/23 inhaler Wheezing cholecalciferol (vitamin D3) 50 50 mcg PO DAILY 08/23/20 01/28/23 mcg (2,000 unit) tablet (Vitamin D3) ibuprofen 600 mg tablet 600 mg PO Q6H PRN Pain 08/23/20 01/28/23 lidocaine 1.8 % topical patch 1 patch topical DAILY 08/23/20 01/28/23 omeprazole 20 mg capsule,delayed 20 mg PO DAILY 08/23/20 01/28/23 release fluticasone propionate 110 2 puff inhalation BID 09/06/20 01/28/23 mcg/actuation HFA aerosol inhaler (Flovent HFA) propranolol 40 mg tablet 1 tab PO BID migraine 01/16/22 01/28/23 dulaglutide 0.75 mg/0.5 mL 0.75 mg subcut QWEEK 11/19/22 01/28/23 subcutaneous pen injector (Trulicity) rivaroxaban 20 mg tablet (Xarelto) 20 mg PO DAILY PRN when traveling 01/20/23 01/20/23 Previous Rx's Medication Instructions Recorded cyclobenzaprine 10 mg tablet 10 mg PO BEDTIME PRN muscle spasm 06/06/20 #30 tabs Allergies Allergy/AdvReac Type Severity Reaction Status Date / Time penicillin G [PENICILLIN G] Allergy Unknown RASH, Verified 01/20/23 10:08 swelling, rash Review of Systems Review of Systems Yes all other systems are reviewed and are negative [facility] Past Medical History Medical History Abnormal uterine bleeding Antiphospholipid antibody syndrome Asthma Diabetes Fibromyalgia Fibromyalgia GERD (gastroesophageal reflux disease) Gingivitis History of gestational diabetes HTN (hypertension) Migraine Vitamin D deficiency Surgical History History of delivery History of elbow surgery Family History Family History Maternal Uncle Colon cancer Paternal Uncle Cancer of internal nose Social History Social History Household Members: Spouse and Children Housing: House Are you a primary care information associate to a significant other at home: No Do you presently have visiting nurse or other home services: No Alcohol intake: never Patient Tobacco Use Status: Never used Tobacco Smoked in Last 30 Days: No Use of substances other than those prescribed or required for medical reasons: No Advance Directives: No Advance Directives Information Provided: No Patient : No service: No Current occupational status: employed Physical Exam ED Vital Signs: Vital Signs - 24 hr 01/30/23 01:44 01/30/23 02:00 01/30/23 05:25 Temperature 98 F 98.2 F Pulse Rate 68 60 58 Respiratory Rate 18 18 18 Blood Pressure 157/81 H 132/79 116/69 Pulse Oximetry 100 98 98 Oxygen Delivery Method Room Air Room Air Room Air BMI result Body Mass Index 26.6 Appearance: Alert. Oriented X3. In moderate distress Eyes: No pallor or icterus ENT: Pharynx normal. Oral Mucosa moist Neck: Normal inspection. Neck supple. CVS: Normal heart rate and rhythm. Pulses normal. Respiratory: No respiratory distress. Equal air entry bilateral, no wheezing/rales/rhonchi Abdomen: Soft tender right upper quadrant with guarding. Bowel sounds are present, no mass palpable, no CVA tenderness Skin: Skin warm and dry. Normal skin color. Normal skin turgor. Extremities: No lower extremity edema. No calf tenderness Neuro: Oriented X 3. No motor deficit. Medical Decision Making Medical Decision Making MDM Narrative: Patient with biliary colic with cholelithiasis a normal WBC count normal liver function tests and lipase ultrasound showed cholelithiasis without any cholecystitis no significant CBD dilatation size 0.6 cm. Patient is still having pain 12/24 requesting to get the surgery sooner instead of waiting till 02/[address] Madsen. Case with Dr. Jeffrey surgeon will let Dr. Perez know who will see patient at 07:30 Lab Data MDM Lab Attestation statement: I reviewed the patient's lab results. 01/30/23 02:06 01/30/23 02:06 Labs: Lab Results 01/30/23 01/30/23 Range/Units 02:06 02:06 WBC 6.9 (4.8-10.8) X10*3/uL RBC 4.02 L (4.20-5.50) X10*6/uL Hgb 11.8 L (12.0-16.0) g/dl Hct 35.6 L (37.0-47.0) % MCV 88.6 (80.0-98.0) fL MCH 29.4 (27.0-33.0) pg MCHC 33.1 (31.0-35.0) g/dl RDW 13.8 (11.0-16.0) % Plt Count 229 (160-400) X10*3/uL MPV 11.9 (9.4-12.3) fL Immature Gran % (Auto) 0.3 (0.0-0.4) % Neut % (Auto) 68.7 (45-73) % Lymph % (Auto) 24.7 (20-40) % [place] % (Auto) 5.3 (2-11) % Eos % (Auto) 0.9 (0-4) % Baso % (Auto) 0.1 (0-2) % Lymph # (Auto) 1.7 (1.2-4.9) X10*3/uL [place] # (Auto) 0.4 (0.1-1.2) X10*3/uL Eos # (Auto) 0.1 (0.0-0.4) X10*3/uL Baso # (Auto) 0.0 (0.0-0.2) X10*3/uL Abs Immat Gran (auto) 0.02 (0.00-0.03) X10*3/uL Absolute Neuts (auto) 4.7 (2.0-8.3) x10*3/uL Absolute Nucleated RBC 0.000 (0.0-0.012) X10*3/uL Nucleated RBC % (auto) 0.0 (0.0-0.2) /100WBC Sodium 144 (135-145) mmol/L Potassium 3.7 (3.3-5.1) mmol/L Chloride 107 (96-108) mmol/L Carbon Dioxide 29 (22-29) mmol/L Anion Gap 12 (12-20) BUN 12 (9-16) mg/dL Creatinine 0.62 (0.5-1.4) mg/dL Estim Creat Clear Calc 109.5 Estimated GFR > 60 Random Glucose 182 H (60-115) mg/dL Calcium 9.1 D (8.4-10.2) mg/dL Total Bilirubin 0.5 (0.0-1.0) mg/dL AST 49 H (5-31) U/L ALT 23 (0-31) U/L Alkaline Phosphatase 63 (39-117) U/L Total Protein 6.6 (6.5-8.0) g/dL Albumin 3.8 (3.5-5.0) g/dL Lipase 58 (8-78) U/L Radiology Impression Discussion of test interpretation with radiology: I have reviewed the radiologist's reading. Radiologist Impression: [place] [id number] Ultrasound Report Signed Patient: Adriana Smith MR#: [id number] : 1975 Acct:[id number] Age/Sex: 47 / F ADM Date: 01/30/23 Loc: .ED Attending Dr: Ordering Physician: Chino Leiva MD Date of Service: 01/30/23 Procedure(s): US abdomen limited Accession Number(s): [id number] cc: Chino Leiva MD~ EXAMINATION: US ABDOMEN LIMITED CLINICAL INFORMATION: Pain. COMPARISON: 01/12/2023 TECHNIQUE: Real-time imaging of the right upper quadrant abdominal viscera. FINDINGS: GALLBLADDER: Mobile stones present within the gallbladder. No significant gallbladder wall thickening or pericholecystic inflammation. COMMON BILE DUCT: Normal in caliber measuring 0.6 cm in diameter. No choledocholithiasis is evident. FREE FLUID: None. US/US abdomen limited IMPRESSION: Cholelithiasis without sonographic evidence of cholecystitis. No choledocholithiasis is evident, however the distal common bile duct is not well seen. ? Dictated By: Ousmane Hinton MD Signed By: <Electronically signed by Ousmane Hinton MD in [place]> Medications Administered Discontinued Medications Generic Name Dose Route Start Last Admin Trade Name Freq PRN Reason Stop Dose Admin Sodium Chloride 1,000 mls @ 999 mls/hr 01/30/23 01:58 01/30/23 03:58 Ns IV 01/30/23 02:58 Infused .Q1H1M ONE Infusion Ketorolac Tromethamine 30 mg 01/30/23 03:18 01/30/23 03:23 Ketorolac Tromethamine 30 Mg/Ml Vial IVPUSH 01/30/23 03:19 30 mg ONCE ONE Administration Morphine Sulfate 4 mg 01/30/23 01:59 01/30/23 02:09 Morphine Sulfate 4 Mg/Ml Cartridge IVPUSH 01/30/23 02:00 4 mg ONCE ONE Administration Protocol Ondansetron HCl 4 mg 01/30/23 01:59 01/30/23 02:08 Ondansetron Hcl 4 Mg/2 Ml Vial IVPUSH 01/30/23 02:00 4 mg ONCE ONE Administration Discharge Plan Discharge Clinical Impression: Cholelithiasis, Biliary colic Patient Disposition: Still a Patient Prescriptions: No Action cyclobenzaprine 10 mg tablet 10 mg PO BEDTIME PRN (Reason: muscle spasm) Qty: 30 5RF omeprazole 20 mg Capsule,Delayed Release(Dr/Ec) 20 mg PO DAILY ibuprofen 600 mg Tablet 600 mg PO Q6H PRN (Reason: Pain) cholecalciferol (vitamin D3) [Vitamin D3] 50 mcg (2,000 unit) Tablet 50 mcg PO DAILY lidocaine 1.8 % Adhesive Patch,Medicated 1 patch TOPICAL DAILY albuterol 90 mcg/actuation Aerosol 90 mcg INHALATION DAILY PRN (Reason: Wheezing) propranolol 40 mg tablet 1 tab PO BID Flovent HFA 110 mcg/actuation HFA aerosol inhaler 2 puff inhalation BID Trulicity 0.75 mg/0.5 mL pen injector 0.75 mg subcut QWEEK Xarelto 20 mg tablet 20 mg PO DAILY PRN (Reason: when traveling) Rx Instructions: must administer with evening meal
--- NOTE | 2023-01-30 07:51 | PC.NURSE ---
pt changed into hospital attire, met with surgeon aware she is waiting to go to the OR this morning.
--- NOTE | 2023-01-30 08:01 | PC.NURSE ---
report given to surgery, pt to be taken shortly
--- NOTE | 2023-01-30 08:11 | PC.NURSE ---
pt taken to surgery at 0810
[2023-01-30 08:32] LABS: Glucose, Whole Blood 121 mg/dL (60-115)
[2023-01-30 08:34] LABS: UPreg QC Valid YES; Urine Pregnancy NEGATIVE (NEGATIVE)
--- NOTE | 2023-01-30 08:38 | P.CONAN_ITS ---
HPI - Anesthesia Eval Consult details Narrative: for reese musa PMFSH Active Problems Active Problems: All Active Problems (Updated 01/30/23 @ 04:59 by Chino Leiva MD) Antiphospholipid antibody positive (Acute) Dyspnea (Acute) Pulmonary nodules (Acute) Easy bruising (Acute) Biliary colic (Acute) Cholelithiasis (Acute) Biliary colic (Acute) Fibromyalgia (Acute) Past Medical History Medical History Abnormal uterine bleeding Antiphospholipid antibody syndrome Asthma Diabetes Fibromyalgia Fibromyalgia GERD (gastroesophageal reflux disease) Gingivitis History of gestational diabetes HTN (hypertension) Migraine Vitamin D deficiency Family History Family History Maternal Uncle Colon cancer Paternal Uncle Cancer of internal nose Family history of problems with anesthesia: No Surgical History Surgical History History of delivery History of elbow surgery History of Problems with Anesthesia: No Social History Social History Household Members: Spouse and Children Housing: House Are you a primary mall plant caretaker to a significant other at home: No Do you presently have visiting nurse or other home services: No Alcohol intake: never Patient Tobacco Use Status: Never used Tobacco Smoked in Last 30 Days: No Use of substances other than those prescribed or required for medical reasons: No Are you DNR?: No Advance Directives: No Advance Directives Information Provided: No Nutrition Risks: No Nutritional Risk Patient : No service: No Current occupational status: employed Meds Allergies Allergy/AdvReac Type Severity Reaction Status Date / Time penicillin G [PENICILLIN G] Allergy Unknown RASH, Verified 01/20/23 10:08 swelling, rash Home Medications Medication Instructions Recorded Confirmed Last Taken Type albuterol 90 mcg/actuation aerosol 90 mcg inhalation DAILY PRN 08/23/20 01/28/23 Unknown History inhaler Wheezing cholecalciferol (vitamin D3) 50 50 mcg PO DAILY 08/23/20 01/28/23 Unknown History mcg (2,000 unit) tablet (Vitamin D3) ibuprofen 600 mg tablet 600 mg PO Q6H PRN Pain 08/23/20 01/28/23 Unknown History lidocaine 1.8 % topical patch 1 patch topical DAILY 08/23/20 01/28/23 Unknown History omeprazole 20 mg capsule,delayed 20 mg PO DAILY 08/23/20 01/28/23 Unknown History release fluticasone propionate 110 2 puff inhalation BID 09/06/20 01/28/23 Unknown History mcg/actuation HFA aerosol inhaler (Flovent HFA) propranolol 40 mg tablet 1 tab PO BID migraine 01/16/22 01/28/23 Unknown History dulaglutide 0.75 mg/0.5 mL 0.75 mg subcut QWEEK 11/19/22 01/28/23 Unknown History subcutaneous pen injector (Trulicity) rivaroxaban 20 mg tablet (Xarelto) 20 mg PO DAILY PRN when traveling 01/20/23 01/20/23 Unknown History metformin 500 mg tablet 500 mg PO BID 01/30/23 01/30/23 Unknown History Exam Exam Date and Time: January 30, 2023 0838 Height,Weight and Vital Signs: Height 5 ft 5 in Weight 72.575 kg Last Vital Signs Temp 98.4 F 01/30/23 08:18 Pulse 57 01/30/23 08:18 Resp 20 01/30/23 08:18 BP 167/89 H 01/30/23 08:18 Pulse Ox 97 01/30/23 08:18 O2 Del Method Room Air 01/30/23 08:18 Pertinent Lab Results Pertinent Lab Results: Laboratory Tests 01/30/23 01/30/23 01/30/23 02:06 02:06 08:15 WBC 6.9 RBC 4.02 L Hgb 11.8 L Hct 35.6 L MCV 88.6 MCH 29.4 MCHC 33.1 RDW 13.8 Plt Count 229 MPV 11.9 Immature Gran % (Auto) 0.3 Neut % (Auto) 68.7 Lymph % (Auto) 24.7 [place] % (Auto) 5.3 Eos % (Auto) 0.9 Baso % (Auto) 0.1 Lymph # (Auto) 1.7 [place] # (Auto) 0.4 Eos # (Auto) 0.1 Baso # (Auto) 0.0 Abs Immat Gran (auto) 0.02 Absolute Neuts (auto) 4.7 Absolute Nucleated RBC 0.000 Nucleated RBC % (auto) 0.0 Sodium 144 Potassium 3.7 Chloride 107 Carbon Dioxide 29 Anion Gap 12 BUN 12 Creatinine 0.62 Estim Creat Clear Calc 109.5 Estimated GFR > 60 POC Glucose Random Glucose 182 H Calcium 9.1 D Total Bilirubin 0.5 AST 49 H ALT 23 Alkaline Phosphatase 63 Total Protein 6.6 Albumin 3.8 Lipase 58 Urine Test NEGATIVE 01/30/23 08:26 WBC RBC Hgb Hct MCV MCH MCHC RDW Plt Count MPV Immature Gran % (Auto) Neut % (Auto) Lymph % (Auto) [place] % (Auto) Eos % (Auto) Baso % (Auto) Lymph # (Auto) [place] # (Auto) Eos # (Auto) Baso # (Auto) Abs Immat Gran (auto) Absolute Neuts (auto) Absolute Nucleated RBC Nucleated RBC % (auto) Sodium Potassium Chloride Carbon Dioxide Anion Gap BUN Creatinine Estim Creat Clear Calc Estimated GFR POC Glucose 121 H Random Glucose Calcium Total Bilirubin AST ALT Alkaline Phosphatase Total Protein Albumin Lipase Urine Test Airway Mallampati Class: II TM Dist: >3cm Neck ROM: Full Heart: rrr Lungs: cta Assessment and Plan Assessment Anesthesia Assessment: Anesthesia Plan Discussed and Chart Reviewed Final Anesthetic Review Family History of Problems with Anesthesia: No History of Problems with Anesthesia: No NPO: Yes ASA Class: II Final Preanesthetic Review: No Changes in Pt Med Stat, Meds/Allgs Chart Reviewed, Consent Obtained/Reviewed and Anes Risks/Benef Reviewed Patient Risk: Intermediate Procedure Risk: Intermediate Anesthetic Plan Anesthetic Plan: GA Disposition: Standard PACU
[2023-01-30 08:44] LABS: Appearance Urine Clear; Color Urine Dark Yellow; Glucose Urine UA Negative (Negative); Leukocyte Esterase Urine Trace (Negative); Nitrite Urine Negative (Negative); PH 7.5 (5.0-9.0); Specific Gravity - Urine 1.025 (1.005-1.025); UMIC TRIGGER UA YES; Urine Blood Large (3+) (Negative); Urine Ketones Negative (Negative); Urine Protein Trace mg/dL (Neg-Trace)
[2023-01-30 08:45] LABS: Bacteria Urine None Seen (None Seen); Hyaline Casts Urine 0-2 /LPF (0-2); RBC Urine >20 /HPF (0-2); WBC Urine 0-5 /HPF (0-5)
--- NOTE | 2023-01-30 08:56 | MHC.SHP ---
Pre-Procedural Eval Section A Date of Service: 01/30/23 The patient is an INPATIENT: No Changes since office visit: No Cold of Flu in the past 2 weeks, No New Medical Problems, No Changes in Medication and No Patient answered all questions The History & Physical has been completed within 30 days and I have reviewed it.: Yes Section B Chief Complaint: Kidney stone? Allergies: Allergies Allergy/AdvReac Type Severity Reaction Status Date / Time penicillin G [PENICILLIN G] Allergy Unknown RASH, Verified 01/20/23 10:08 swelling, rash Plan I have reviewed the history and physical and performed a pertinent physical examination on my patient. No changes have occurred unless specified. Time Spent With Patient Time: Total time managing care of this patient today ____ minutes.
--- NOTE | 2023-01-30 10:14 | W.PM.OPN ---
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 She presented to the emergency department last evening because of a bout of acute cholecystitis. procedure. Patient had incidental finding of incarcerated umbilical hernia measuring approximately 2 cm which was used as the umbilical port The patient was brought to the operating room, placed on the operating table in supine position, and after an adequate level of general anesthesia was induced, the patient's abdomen was prepped and draped in usual sterile fashion. Using an infraumbilical curvilinear incision, this was carried down through skin, subcutaneous tissue with incarcerated hernia was encountered. Sac was from the posterior aspect of the umbilicus and dissected down to the fascia. Sac was opened were incarcerated omental contents along with the sac were amputated using Bovie. Using a sound technique, through the hernia defect, the abdominal cavity was infiltrated with 15 mm of CO2. Upper midline and right subcostal ports were placed under direct laparoscopic view, and the patient placed in reverse Trendelenburg position, and tilted to the left. Findings were as noted above. Gallbladder was grasped using laparoscopic graspers, and retracted superiorly and laterally. Soft omental adhesions were swept off the gallbladder . [place]um of the gallbladder was approached where the cystic artery, cystic duct, and, common Bile duct were all identified, the latter of which was preserved throughout the procedure. Cystic artery and cystic duct were each circumferentially skeletonized, traced directly to the gallbladder, and critical view obtained. Each was clipped proximally x2, distally x1, and transected. Gallbladder which was moderately intrahepatic was cauterized from the gallbladder fossa using Bovie.A small posterior ascending artery was encountered during dissection In the gallbladder fossa and similarly clipped uneventfully. Specimen was placed in an Endo-Catch bag, and retrieved through the umbilical port. The abdominal cavity was copiously irrigated, and secured hemostasis. All ports were removed under direct laparoscopic view. Wounds were closed in the following manner; umbilical wound which was also the site of the Incarcerated umbilical hernia was closed primarily using interrupted 0 Vicryl sutures. The skin wounds were closed using subcuticular 4-0 Vicryl sutures followed by Steri-Strips and sterile dressings. Wounds were infiltrated 0.5% Marcaine at completion. Sponge, needle, and instrument counts were reported to be correct. Patient tolerated procedure well emerged from anesthesia stable condition. EBL minimal
--- NOTE | 2023-01-30 10:57 | PC.NURSE ---
Dr. Madsen called from OR to inform that patient will be discharged home and will not be admitted
[2023-01-30] MEDS: fentaNYL citrate/PF 100 MCG/2 ML VIAL 25 MCG IVPUSH (11:11)
== END 2023-01-30 12:15 | disposition home or self-care (01) ==
LOC: HO.ED 04:59 → HO.SSS 07:40
PROVIDERS: Anesthesiology; Surgery; Emergency Provider Internal Medicine; PCP General Practice; Visit Provider Physician Assistant
PROC: 0FT44ZZ Resection of Gallbladder, Percutaneous Endoscopic Approach (ICD-10-PCS; CPT 47562; principal; 2023-01-30 09:00)
DX: K80.12 Calculus of gallbladder with acute and chronic cholecystitis without obstruction (principal); K82.8 Other specified diseases of gallbladder; K42.0 Umbilical hernia with obstruction, without gangrene; K21.9 Gastro-esophageal reflux disease without esophagitis; D68.61 Antiphospholipid syndrome; N93.9 Abnormal uterine and vaginal bleeding, unspecified; J45.909 Unspecified asthma, uncomplicated; I10 Essential (primary) hypertension; R06.00 Dyspnea, unspecified; R91.8 Other nonspecific abnormal finding of lung field; M79.7 Fibromyalgia; E55.9 Vitamin D deficiency, unspecified; E11.9 Type 2 diabetes mellitus without complications; Z79.85 Long-term (current) use of injectable non-insulin antidiabetic drugs; Z79.84 Long term (current) use of oral hypoglycemic drugs; Z79.01 Long term (current) use of anticoagulants; Z79.899 Other long term (current) drug therapy; Z79.1 Long term (current) use of non-steroidal anti-inflammatories (NSAID); Z79.51 Long term (current) use of inhaled steroids; Z88.0 Allergy status to penicillin
CPT/HCPCS: 47562; 49592; 36415; 76705; 80053; 81001; 81025; 82947; 83690; 85025; 88302; 88304; 96361; 96374; 96375; 96376; 99284; 99285; J1100; J1885; J2250; J2270; J2405; J3010

== ENCOUNTER → 2023-02-11 08:10 | Outpatient (BNVA) | payer MEDICAID, SELFPAY | PROVIDERS: PCP General Practice; Visit Provider Surgery ==

== ENCOUNTER 2023-02-23 14:57 | Outpatient (REF) | payer MEDICAID, SELFPAY ==
[2023-02-23 17:48] LABS: Appearance Urine Turbid; Color Urine Yellow; Glucose Urine UA Negative (Negative); Leukocyte Esterase Urine Negative (Negative); Nitrite Urine Negative (Negative); PH 5.5 (5.0-9.0); Specific Gravity - Urine >= 1.030 (1.005-1.025); Urine Blood Negative (Negative); Urine Ketones Trace mg/dL (Negative); Urine Protein Negative (Neg-Trace)
== END 2023-02-23 14:58 | disposition home or self-care (01) ==
LOC: HO.HHCL 14:57
PROVIDERS: Visit Provider General Practice
DX: R31.29 Other microscopic hematuria (principal)
CPT/HCPCS: 81003; 87086; 87147

== ENCOUNTER 2023-04-05 16:05 | Observation (INO) | payer MEDICAID, SELFPAY ==
--- NOTE | ~2023-04-05 | XR_ITS ---
EXAMINATION: XR CHEST CLINICAL INFORMATION: Chest pain COMPARISON: None available. TECHNIQUE: Frontal view of the chest was obtained. FINDINGS: No significant abnormality is noted involving the heart, lungs, mediastinum, bony thorax or soft tissues. XR/XR chest 1V IMPRESSION: Unremarkable examination.
--- NOTE | ~2023-04-05 | US_ITS ---
EXAMINATION: US VENOUS ULTRASOUND WITH DOPPLER LOWER EXTREMITY, LEFT CLINICAL INFORMATION: Left calf pain. COMPARISON: None available. TECHNIQUE: Ultrasound of the deep veins is performed from the hip to the calf with compression sonography and color and pulse Doppler assessment. Spectral analysis with color-flow imaging is performed. FINDINGS: There is normal venous compression and respiratory variation and augmented flow. The visualized common femoral vein, superficial femoral vein, profunda femoral vein, popliteal vein, and the trifurcation region shows no evidence of deep venous thrombosis. There is no significant popliteal fossa cyst. The right common femoral vein is widely patent. If the patient's symptoms persist, followup ultrasound in 5 days 7 days might be of value to exclude proximal propagation from a non-visualized calf vein. US/US venous duplex LE IMPRESSION: No DVT demonstrated in the left lower extremity.
--- NOTE | ~2023-04-05 | MR_ITS ---
EXAMINATION: MR ABDOMEN WITHOUT CONTRAST CLINICAL INFORMATION: Right upper quadrant pain. Elevated liver function tests. Postcholecystectomy. Rule out common bile duct stone. COMPARISON: Previous CT of the abdomen and pelvis from yesterday and chest CT August 2020 TECHNIQUE: MR abdomen is performed without gadolinium contrast. MRCP sequences were also performed. FINDINGS: LUNG BASES: The visualized lung bases are unremarkable. LIVER, GALLBLADDER, AND BILIARY TREE: The liver is normal in size, smooth in contour, and normal in signal. No focal hepatic lesion or biliary ductal dilatation is present. The gallbladder has been removed. No fluid collection in the gallbladder fossa is seen. There is no intra or extrahepatic biliary duct dilatation. The common bile duct measures 7 to 8 mm. No common bile duct stone is seen. PANCREAS: The body and tail the pancreas appear prominent, measuring up to 2.7 cm in AP dimension, upper normal in AP dimensions in this region is 1 cm. This does not appear appreciably changed from older chest chest CT August 2020 and may be a normal variant for this patient. The pancreas appears normal in signal. The main pancreatic duct appears normal. The peripancreatic fat is normal. SPLEEN: Unremarkable. ADRENAL GLANDS: Unremarkable. KIDNEYS AND URETERS: The kidneys are normal in size and shape. Mild hydronephrosis/fullness of the right renal collecting system. The right ureter does not appear dilated and appearance is questionable for mild congenital UPJ obstruction. The kidneys are otherwise normal. GASTROINTESTINAL TRACT: No bowel obstruction. No ascites or fluid collection. ABDOMINAL WALL: No significant hernia is appreciated. LYMPH NODES: No lymphadenopathy. VASCULAR: Unremarkable. Partially visualized right ovarian cyst on coronal T2 sequences and localizer sequences only. This is better visualized on yesterday's CT scan. OSSEOUS STRUCTURES: Marrow signal normal. MR/MR MRCP IMPRESSION: No common bile duct stone seen. Normal caliber intrahepatic and extrahepatic bile ducts, common bile duct measuring 7 to 8 mm. No fluid collection post cholecystectomy. Prominent body and tail the pancreas measuring up to 2.7 cm in AP dimension, upper normal in this region is 1 cm. This is unchanged from older chest CT from 2020 and may be a normal variant for this patient. Clinically correlate for pancreatitis. 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
--- NOTE | ~2023-04-05 | CT_ITS ---
EXAMINATION: CT ABDOMEN AND PELVIS WITH CONTRAST CLINICAL INFORMATION: Right-sided abdominal pain status post cholecystectomy. COMPARISON: Ultrasound of the pelvis dated 06/12/2022. CT of the abdomen dated 01/30/2023 TECHNIQUE: Multidetector volumetric images were obtained from the superior aspect of the liver through the pubic symphysis following administration 85 mL of Omnipaque 350 intravenous contrast. Sagittal and coronal reformatted images were obtained on the technologist's workstation. Oral contrast: No This CT examination was performed using dose optimization techniques as appropriate, variously including the following: *Automated exposure control *Adjustment of mA and/or kV according to patient size (this includes techniques or standardized protocols for targeted exams where dose is matched to indication/reason for exam; i.e. extremities or head) *Use of iterative reconstruction technique DLP: 566 mGy-cm FINDINGS: LUNG BASES: Mild dependent atelectasis. LIVER, GALLBLADDER, AND BILIARY TREE: The liver is normal in size, shape, and attenuation. No focal hepatic lesion. Gallbladder is surgically absent. Common bile duct measures 1 cm in diameter. PANCREAS: Unremarkable. SPLEEN: Unremarkable. ADRENAL GLANDS: Unremarkable. KIDNEYS AND URETERS: The kidneys are normal in size, shape, and attenuation. No hydronephrosis, hydroureter, or calculi seen. No perinephric stranding. BLADDER: Unremarkable. GASTROINTESTINAL TRACT: Stomach, small bowel, and colon are normal in caliber. No bowel wall thickening or surrounding inflammatory changes. Moderate volume of fecal material throughout the colon. Appendix is normal. No intraperitoneal free fluid or free air. ABDOMINAL WALL: No significant hernia is appreciated. Postoperative changes in the ventral abdomen in the pelvis, likely related to prior . LYMPH NODES: Normal. VASCULAR: Unremarkable. PELVIC VISCERA: There is a 5.2 cm right ovarian cyst which is simple in appearance on these images. Adnexa are otherwise unremarkable. Multiple nabothian cysts are noted in the first . scar is noted in the anterior uterine segment. OSSEOUS STRUCTURES: No acute osseous findings. Minimal left convex lumbar scoliosis. No acute fracture or malalignment. 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 CT/CT abdomen pelvis w IV con IMPRESSION: 1. No acute intra-abdominal or intrapelvic abnormalities are identified. 2. A 5.2 cm right ovarian cyst. This is simple in appearance on this contrast enhanced study. Follow-up pelvic ultrasound in 6-12 weeks is advised. 3. Moderate volume of fecal material throughout the colon. Fleischner guidelines were followed.
--- NOTE | 2023-04-05 16:10 | ECG_ITS ---
Test Reason : cp Blood Pressure : / mmHG Vent. Rate : 061 BPM Atrial Rate : 061 BPM P-R Int : 154 ms QRS Dur : 096 ms QT Int : 454 ms P-R-T Axes : 037 031 021 degrees QTc Int : 457 ms Normal sinus rhythm Normal ECG When compared with ECG of 03-JAN-2019 16:31, No significant change was found Referred By: Hector Latif Electronically Signed By:BLANCA RYAN
[2023-04-05 16:21] VITALS: BP 128/77; PULSE 62; RESP 18; TEMP 36.3; O2SAT 99; BMI 26.1
--- NOTE | 2023-04-05 16:23 | ED.GENADULT ---
HPI - General Adult General Chief complaint: Chest Pain Stated complaint: Chest pain/abd pain/v/n/d Time Seen by Provider: 04/05/23 20:51 Source: patient Mode of arrival: ambulatory Limitations: no limitations History of Present Illness HPI narrative: Patient is status post cholecystectomy and repair of a incarcerated umbilical hernia on 01/30/2023 comes in for 4 days of pain in the right upper quadrant with nausea and vomiting got worse in last 2 days also complained of pain in the left leg no shortness of breath no fever no chills patient was doing okay since the surgery done except for last few days no use of Tylenol. Related Data Home Medications Medication Instructions Recorded Confirmed cholecalciferol (vitamin D3) 50 50 mcg PO DAILY 08/23/20 04/06/23 mcg (2,000 unit) tablet (Vitamin D3) fluticasone propionate 110 2 puff inhalation BID 09/06/20 04/06/23 mcg/actuation HFA aerosol inhaler (Flovent HFA) propranolol 40 mg tablet 40 mg PO BID migraine 01/16/22 04/06/23 dulaglutide 0.75 mg/0.5 mL 0.75 mg subcut OZUNA 11/19/22 04/06/23 subcutaneous pen injector (Trulicity) rivaroxaban 20 mg tablet (Xarelto) 20 mg PO DAILY PRN when traveling 01/20/23 04/06/23 albuterol sulfate 90 mcg/actuation 1 inh inhalation DAILY PRN Wheezing 01/30/23 04/06/23 aerosol inhaler lidocaine 5 % topical patch 1 patch topical DAILY PRN Pain 01/30/23 04/06/23 metformin 500 mg tablet 500 mg PO BID 01/30/23 04/06/23 toxlooylac-bfbxpiwvgeluq-limgvxgh 1 tab PO Q12H PRN MIGRAINES 04/06/23 04/06/23 50 mg-325 mg-40 mg tablet Allergies Allergy/AdvReac Type Severity Reaction Status Date / Time penicillin G [PENICILLIN G] Allergy Unknown RASH, Verified 02/11/23 08:17 swelling, rash Review of Systems Review of Systems: Yes all other systems are reviewed and are negative [facility] Past Medical History Medical History Abnormal uterine bleeding Antiphospholipid antibody syndrome Asthma Diabetes Fibromyalgia Fibromyalgia GERD (gastroesophageal reflux disease) Gingivitis History of gestational diabetes HTN (hypertension) Migraine Vitamin D deficiency Surgical History History of delivery History of elbow surgery History of laparoscopic cholecystectomy (01/30/23) Family History Family History Maternal Uncle Colon cancer Paternal Uncle Cancer of internal nose Social History Social History Household Members: Spouse and Children Housing: House Are you a primary child care provider to a significant other at home: No Do you presently have visiting nurse or other home services: No Alcohol intake: never Patient Tobacco Use Status: Never used Tobacco Smoked in Last 30 Days: No Use of substances other than those prescribed or required for medical reasons: No Advance Directives: No Advance Directives Information Provided: No Nutrition Risks: No Nutritional Risk Patient : No service: No Current occupational status: employed Physical Exam ED Vital Signs: Vital Signs - 24 hr 04/05/23 16:21 04/05/23 19:36 04/05/23 22:49 Temperature 97.4 F 97.9 F 98.7 F Pulse Rate 62 58 58 Respiratory Rate 18 17 17 Blood Pressure 128/77 137/84 166/96 H Pulse Oximetry 99 99 100 Oxygen Delivery Method Room Air Room Air Room Air 04/05/23 23:11 Temperature Pulse Rate Respiratory Rate 16 Blood Pressure Pulse Oximetry Oxygen Delivery Method BMI result Body Mass Index 26.1 Appearance: Alert. Oriented X3. No acute distress. Eyes: PERRLA, No Nystagmus no icterus ENT: Pharynx normal. Oral Mucosa moist Neck: Normal inspection. Neck supple. CVS: Normal heart rate and rhythm. Pulses normal. Respiratory: No respiratory distress. Equal air entry bilateral, no wheezing/rales/rhonchi Abdomen: Soft , diffuse tenderness right upper quadrant area Bowel sounds are present, no mass palpable, no CVA tenderness Skin: Skin warm and dry. Normal skin color. Normal skin turgor. Extremities: No lower extremity edema. No calf tenderness Neuro: Oriented X 3. No motor deficit. No sensory deficit.No cerebellar signs , cranial nerves II-XII intact Course Course Course Narrative: RME: 47 yold daisha presents to the ED for chest pain, right sided flank/abdominal pain, and left calf pain since . Positive for left calf tendernes on palpation. labs ULtrasound of llq ordered. CHest xray ordered. Patient had Gall Bladder removal this past january. Medications Administered Generic Name Dose Route Start Last Admin Trade Name Freq PRN Reason Stop Dose Admin Enoxaparin Sodium 40 mg 04/06/23 09:00 04/06/23 10:34 Enoxaparin Sodium 40 Mg/0.4 Ml Syringe SUBCUT Not Given Q24H PENDING SALE TO [facility] Insulin Human Lispro 0 unit 04/06/23 07:30 04/06/23 07:32 Insulin Lispro 100 Unit/Ml 3 Ml Vial SUBCUT Not Given QIDACHS PENDING SALE TO [facility] Protocol Morphine Sulfate 4 mg 04/06/23 02:11 04/06/23 03:27 Morphine Sulfate 4 Mg/Ml Cartridge IVPUSH 4 mg Q4H PRN Administration Pain, Severe (Pain Scale 7-10) Protocol Sodium Chloride 3 ml 04/06/23 08:00 04/06/23 10:33 0.9 % Sodium Chloride Flush 3 Ml Syringe IVFLUSH 3 ml QSHIFT PENDING SALE TO [facility] Administration Discontinued Medications Generic Name Dose Route Start Last Admin Trade Name Freq PRN Reason Stop Dose Admin Hydromorphone HCl 1 mg 04/06/23 06:26 04/06/23 07:08 Hydromorphone Hcl 1 Mg/Ml Syringe IVPUSH 04/06/23 06:27 1 mg ONCE ONE Administration Protocol Sodium Chloride 1,000 mls @ 999 mls/hr 04/05/23 22:49 04/06/23 00:59 Ns IV 04/05/23 23:49 Infused .Q1H1M ONE Infusion Iohexol 85 ml 04/05/23 23:51 04/05/23 23:51 Iohexol 350 Mg/Ml 100 Ml Infus..Btl IV 04/05/23 23:52 85 ml ONCE ONE Administration Morphine Sulfate 4 mg 04/05/23 22:49 04/05/23 23:11 Morphine Sulfate 4 Mg/Ml Cartridge IVPUSH 04/05/23 22:50 4 mg ONCE ONE Administration Protocol Ondansetron HCl 4 mg 04/05/23 22:49 04/05/23 23:11 Ondansetron Hcl 4 Mg/2 Ml Vial IVPUSH 04/05/23 22:50 4 mg ONCE ONE Administration Medical Decision Making Medical Decision Making [facility] Narrative: Patient has elevated LFTs without hyperbilirubinemia etiology not very clear CT scan negative for acute except for the ovarian cyst with get ultrasound of the abdomen to rule out obstruction likely patient has autoimmune hepatitis plan to admit for evaluation hospitalist aware for possible admission Differential Diagnosis Differential Diagnoses: The differential diagnosis associated with the presentation includes CBD stone/hepatitis/colitis Consult Healthcare Provider Management of the patient was discussed with: Hospitalist Lab Data [facility] Lab Attestation statement: I reviewed the patient's lab results. 04/05/23 16:36 04/05/23 16:36 Labs: Lab Results 04/05/23 04/05/23 04/05/23 Range/Units 16:36 16:36 16:36 WBC 7.2 (4.8-10.8) X10*3/uL RBC 4.29 (4.20-5.50) X10*6/uL Hgb 12.7 (12.0-16.0) g/dl Hct 37.9 (37.0-47.0) % MCV 88.3 (80.0-98.0) fL MCH 29.6 (27.0-33.0) pg MCHC 33.5 (31.0-35.0) g/dl RDW 13.2 (11.0-16.0) % Plt Count TNP MPV 12.8 H (9.4-12.3) fL Immature Gran % (Auto) 0.4 (0.0-0.4) % Neut % (Auto) 62.3 (45-73) % Lymph % (Auto) 29.6 (20-40) % [place] % (Auto) 6.3 (2-11) % Eos % (Auto) 1.0 (0-4) % Baso % (Auto) 0.4 (0-2) % Lymph # (Auto) 2.1 (1.2-4.9) X10*3/uL [place] # (Auto) 0.5 (0.1-1.2) X10*3/uL Eos # (Auto) 0.1 (0.0-0.4) X10*3/uL Baso # (Auto) 0.0 (0.0-0.2) X10*3/uL Abs Immat Gran (auto) 0.03 (0.00-0.03) X10*3/uL Absolute Neuts (auto) 4.5 (2.0-8.3) x10*3/uL Absolute Nucleated RBC 0.000 (0.0-0.012) X10*3/uL Nucleated RBC % (auto) 0.0 (0.0-0.2) /100WBC Smear Tech's Comments VERIFIED PT 12.0 (11.1-13.3) SEC INR 1.0 (0.9-1.1) APTT 25.6 L D (26.0-36.4) SEC Sodium 138 (135-145) mmol/L Potassium 3.7 (3.3-5.1) mmol/L Chloride 107 (96-108) mmol/L Carbon Dioxide 21 L (22-29) mmol/L Anion Gap 14 (12-20) BUN 11 (9-16) mg/dL Creatinine 0.67 (0.5-1.4) mg/dL Estim Creat Clear Calc 100.5 Estimated GFR > 60 Random Glucose 148 H (60-115) mg/dL Calcium 9.5 (8.4-10.2) mg/dL Total Bilirubin 0.8 (0.0-1.0) mg/dL AST 512 H (5-31) U/L ALT 242 H (0-31) U/L Alkaline Phosphatase 89 (39-117) U/L Troponin I High Sens (<3.5-17.0) ng/L B-Natriuretic Peptide (<100) pg/mL Total Protein 7.0 (6.5-8.0) g/dL Albumin 4.0 (3.5-5.0) g/dL Lipase (8-78) U/L Urine Color Urine Appearance Urine pH (5.0-9.0) Ur Specific [place] (1.005-1.025) Urine Protein (Neg-Trace) mg/dL Urine Glucose (UA) (Negative) mg/dL Urine Ketones (Negative) mg/dL Urine Blood (Negative) Urine Nitrite (Negative) Ur Leukocyte Esterase (Negative) Urine Test (NEGATIVE) 04/05/23 04/05/23 04/05/23 Range/Units 16:36 16:36 16:36 WBC (4.8-10.8) X10*3/uL RBC (4.20-5.50) X10*6/uL Hgb (12.0-16.0) g/dl Hct (37.0-47.0) % MCV (80.0-98.0) fL MCH (27.0-33.0) pg MCHC (31.0-35.0) g/dl RDW (11.0-16.0) % Plt Count MPV (9.4-12.3) fL Immature Gran % (Auto) (0.0-0.4) % Neut % (Auto) (45-73) % Lymph % (Auto) (20-40) % [place] % (Auto) (2-11) % Eos % (Auto) (0-4) % Baso % (Auto) (0-2) % Lymph # (Auto) (1.2-4.9) X10*3/uL [place] # (Auto) (0.1-1.2) X10*3/uL Eos # (Auto) (0.0-0.4) X10*3/uL Baso # (Auto) (0.0-0.2) X10*3/uL Abs Immat Gran (auto) (0.00-0.03) X10*3/uL Absolute Neuts (auto) (2.0-8.3) x10*3/uL Absolute Nucleated RBC (0.0-0.012) X10*3/uL Nucleated RBC % (auto) (0.0-0.2) /100WBC Smear Tech's Comments PT (11.1-13.3) SEC INR (0.9-1.1) APTT (26.0-36.4) SEC Sodium (135-145) mmol/L Potassium (3.3-5.1) mmol/L Chloride (96-108) mmol/L Carbon Dioxide (22-29) mmol/L Anion Gap (12-20) BUN (9-16) mg/dL Creatinine (0.5-1.4) mg/dL Estim Creat Clear Calc Estimated GFR Random Glucose (60-115) mg/dL Calcium (8.4-10.2) mg/dL Total Bilirubin (0.0-1.0) mg/dL AST (5-31) U/L ALT (0-31) U/L Alkaline Phosphatase (39-117) U/L Troponin I High Sens < 2.7 (<3.5-17.0) ng/L B-Natriuretic Peptide 61 (<100) pg/mL Total Protein (6.5-8.0) g/dL Albumin (3.5-5.0) g/dL Lipase 49 (8-78) U/L Urine Color Urine Appearance Urine pH (5.0-9.0) Ur Specific [place] (1.005-1.025) Urine Protein (Neg-Trace) mg/dL Urine Glucose (UA) (Negative) mg/dL Urine Ketones (Negative) mg/dL Urine Blood (Negative) Urine Nitrite (Negative) Ur Leukocyte Esterase (Negative) Urine Test (NEGATIVE) 04/05/23 04/05/23 Range/Units 19:39 19:39 WBC (4.8-10.8) X10*3/uL RBC (4.20-5.50) X10*6/uL Hgb (12.0-16.0) g/dl Hct (37.0-47.0) % MCV (80.0-98.0) fL MCH (27.0-33.0) pg MCHC (31.0-35.0) g/dl RDW (11.0-16.0) % Plt Count MPV (9.4-12.3) fL Immature Gran % (Auto) (0.0-0.4) % Neut % (Auto) (45-73) % Lymph % (Auto) (20-40) % [place] % (Auto) (2-11) % Eos % (Auto) (0-4) % Baso % (Auto) (0-2) % Lymph # (Auto) (1.2-4.9) X10*3/uL [place] # (Auto) (0.1-1.2) X10*3/uL Eos # (Auto) (0.0-0.4) X10*3/uL Baso # (Auto) (0.0-0.2) X10*3/uL Abs Immat Gran (auto) (0.00-0.03) X10*3/uL Absolute Neuts (auto) (2.0-8.3) x10*3/uL Absolute Nucleated RBC (0.0-0.012) X10*3/uL Nucleated RBC % (auto) (0.0-0.2) /100WBC Smear Tech's Comments PT (11.1-13.3) SEC INR (0.9-1.1) APTT (26.0-36.4) SEC Sodium (135-145) mmol/L Potassium (3.3-5.1) mmol/L Chloride (96-108) mmol/L Carbon Dioxide (22-29) mmol/L Anion Gap (12-20) BUN (9-16) mg/dL Creatinine (0.5-1.4) mg/dL Estim Creat Clear Calc Estimated GFR Random Glucose (60-115) mg/dL Calcium (8.4-10.2) mg/dL Total Bilirubin (0.0-1.0) mg/dL AST (5-31) U/L ALT (0-31) U/L Alkaline Phosphatase (39-117) U/L Troponin I High Sens (<3.5-17.0) ng/L B-Natriuretic Peptide (<100) pg/mL Total Protein (6.5-8.0) g/dL Albumin (3.5-5.0) g/dL Lipase (8-78) U/L Urine Color Dark Yellow Urine Appearance Clear Urine pH 8.5 (5.0-9.0) Ur Specific [place] 1.025 (1.005-1.025) Urine Protein Negative (Neg-Trace) mg/dL Urine Glucose (UA) Negative (Negative) mg/dL Urine Ketones Trace (Negative) mg/dL Urine Blood Negative (Negative) Urine Nitrite Negative (Negative) Ur Leukocyte Esterase Negative (Negative) Urine Test NEGATIVE (NEGATIVE) Discharge Plan Discharge Clinical Impression: Transaminitis Patient Disposition: Admitted As Inpatient
[2023-04-05 16:51] LABS: Basophils Percent Auto 0.4 % (0-2); Eosinophils Absolute Auto 0.1 X10*3/uL (0.0-0.4); Hematocrit 37.9 % (37.0-47.0); Hemoglobin 12.7 g/dl (12.0-16.0); Imm Gran Abs Auto 0.03 X10*3/uL (0.00-0.03); Imm Gran Pct Auto 0.4 % (0.0-0.4); Lymphocytes Absolute Auto 2.1 X10*3/uL (1.2-4.9); Lymphocytes Percent Auto 29.6 % (20-40); MANUAL DIFF FLAG SCAN; Mean Corpuscular HGB Conc 33.5 g/dl (31.0-35.0); Mean Corpuscular Hemoglobin 29.6 pg (27.0-33.0); Mean Corpuscular Volume 88.3 fL (80.0-98.0); Mean Platelet Volume 12.8 fL (9.4-12.3); Monocytes Absolute Auto 0.5 X10*3/uL (0.1-1.2); Monocytes Percent Auto 6.3 % (2-11); Neutrophils Absolute Auto 4.5 x10*3/uL (2.0-8.3); Neutrophils Percent Auto 62.3 % (45-73); PLT CLUMP 1; Red Blood Count 4.29 X10*6/uL (4.20-5.50); Red Cell Distribution Width 13.2 % (11.0-16.0); SCAN SMEAR FLAG 1
[2023-04-05 16:55] LABS: Partial Thromboplastin Time 25.6 SEC (26.0-36.4)
[2023-04-05 16:59] LABS: Lipase 49 U/L (8-78)
[2023-04-05 17:01] LABS: Alanine Aminotransferase 242 U/L (0-31); Alkaline Phosphatase 89 U/L (39-117); Anion Gap 14 (12-20); Aspartate Amino Transferase 512 U/L (5-31); Bilirubin Total 0.8 mg/dL (0.0-1.0); Blood Urea Nitrogen 11 mg/dL (9-16); Calcium 9.5 mg/dL (8.4-10.2); Carbon Dioxide 21 mmol/L (22-29); Chloride 107 mmol/L (96-108); Creatinine Clr Calc Pharmacy 100.5; Estimated Glomerular Filt Rate > 60; Glucose Random 148 mg/dL (60-115); Potassium 3.7 mmol/L (3.3-5.1); Sodium 138 mmol/L (135-145)
[2023-04-05 17:05] LABS: White Blood Count 7.2 X10*3/uL (4.8-10.8)
[2023-04-05 17:06] LABS: B Type Natriuretic Peptide 61 pg/mL (<100)
[2023-04-05 17:12] LABS: Troponin-I High Sensitivity < 2.7 ng/L (<3.5-17.0)
[2023-04-05 18:18] LABS: SLIDE REVIEW VERIFIED
[2023-04-05 19:36] VITALS: BP 137/84; PULSE 58; RESP 17; TEMP 36.6; O2SAT 99
[2023-04-05 19:47] LABS: Appearance Urine Clear; Color Urine Dark Yellow; Glucose Urine UA Negative (Negative); Leukocyte Esterase Urine Negative (Negative); Nitrite Urine Negative (Negative); PH 8.5 (5.0-9.0); Specific Gravity - Urine 1.025 (1.005-1.025); UPreg QC Valid YES; Urine Blood Negative (Negative); Urine Ketones Trace mg/dL (Negative); Urine Pregnancy NEGATIVE (NEGATIVE); Urine Protein Negative (Neg-Trace)
--- NOTE | 2023-04-05 22:00 | PC.NURSE ---
Pt brought back from [facility], Pt A&Ox4, reports constant 10/10 right upper flank pain radiating to RUQ into umbilical region, reports pain is stabbing worsening x last Thursday, now N/V denies diarrhea. ABD tender to touch to RUQ, denies any pain/burning with urination. IV line established.
[2023-04-05 22:49] VITALS: BP 166/96; PULSE 58; RESP 17; TEMP 37.1; O2SAT 100
[2023-04-05 23:11] VITALS: RESP 16
[2023-04-05] MEDS: ondansetron HCL 4 MG/2 ML VIAL IVPUSH (23:11)
[2023-04-05] MEDS: Morphine Sulfate 4 MG/ML CARTRIDGE IVPUSH (23:11)
[2023-04-05] MEDS: 0.9 % Sodium Chloride 1,000 ML 999 ML IV (23:25)
[2023-04-05] MEDS: iohexoL 350 MG/ML 100 ML INFUS..BTL 85 ML IV (23:51)
[2023-04-06] VITALS (7 sets, daily range): BP systolic 108–145; BP diastolic 58–91; PULSE 53–57; RESP 14–18; TEMP 36.4–36.9; O2SAT 94–100; BMI 26.5
--- NOTE | 2023-04-06 02:13 | PM.IMHP ---
History of Present Illness Date of Service: 04/06/23 Chief Complaint: Abdominal Pain This is a 47-year-old female with pertinent history of antiphospholipid syndrome, fibromyalgia, cyl-tjxmgnb-udmstghyv diabetes mellitus who presents to the emergency department for evaluation of abdominal pain. Patient states it started about 5-6 days prior to presentation. It is located in the right upper quadrant, constant, progressive and without any relieving factors. No association with p.o. intake. Patient states she has associated nausea and generalized fatigability. Is status post cholecystectomy. Patient's states she takes p.r.n. Xarelto when traveling due to antiphospholipid syndrome. No fever or chills, chest discomfort, palpitations, shortness of breath, diarrhea, changes in urinary habits. In the emergency department, AST/ALT found to be elevated Review of Systems Constitutional: Constitutional: Reports fatigue, Reports lethargy and Reports malaise Cardiovascular: Cardiovascular: Reports no additional cardiovascular complaints Respiratory: Respiratory: Reports no additional respiratory complaints Gastrointestinal: Gastrointestinal: Reports abdominal pain and Reports nausea Genitourinary: Genitourinary: Reports no additional female genitourinary complaints Endocrine: Endocrine: Reports fatigue [facility] Medical History Abnormal uterine bleeding Antiphospholipid antibody syndrome Asthma Diabetes Fibromyalgia Fibromyalgia GERD (gastroesophageal reflux disease) Gingivitis History of gestational diabetes HTN (hypertension) Migraine Vitamin D deficiency Family History Maternal Uncle Colon cancer Paternal Uncle Cancer of internal nose Surgical History History of delivery History of elbow surgery History of laparoscopic cholecystectomy (01/30/23) Social History Household Members: Spouse and Children Housing: House Are you a primary acute care clinical nurse specialist to a significant other at home: No Do you presently have visiting nurse or other home services: No Alcohol intake: never Patient Tobacco Use Status: Never used Tobacco Smoked in Last 30 Days: No Use of substances other than those prescribed or required for medical reasons: No Advance Directives: No Advance Directives Information Provided: No Patient : No service: No Current occupational status: employed Meds Allergies Allergy/AdvReac Type Severity Reaction Status Date / Time penicillin G [PENICILLIN G] Allergy Unknown RASH, Verified 02/11/23 08:17 swelling, rash Home Medications Medication Instructions Recorded Confirmed Last Taken Type cholecalciferol (vitamin D3) 50 50 mcg PO DAILY 08/23/20 01/30/23 Unknown History mcg (2,000 unit) tablet (Vitamin D3) fluticasone propionate 110 2 puff inhalation BID 09/06/20 01/30/23 Unknown History mcg/actuation HFA aerosol inhaler (Flovent HFA) propranolol 40 mg tablet 40 mg PO BID migraine 01/16/22 01/30/23 Unknown History dulaglutide 0.75 mg/0.5 mL 0.75 mg subcut QWEEK 11/19/22 01/30/23 Unknown History subcutaneous pen injector (Trulicity) rivaroxaban 20 mg tablet (Xarelto) 20 mg PO DAILY PRN when traveling 01/20/23 01/20/23 01/13/23 History albuterol sulfate 90 mcg/actuation 1 inh inhalation DAILY PRN Wheezing 01/30/23 01/30/23 Unknown History aerosol inhaler ibuprofen 800 mg tablet 800 mg PO TIDWM 01/30/23 01/30/23 Unknown History lidocaine 5 % topical patch 1 patch topical DAILY 01/30/23 01/30/23 Unknown History metformin 500 mg tablet 500 mg PO BID 01/30/23 01/30/23 Unknown History Physical Exam Vital Signs and Narrative: Vital Signs: Last Vital Signs Temp 98.7 F 04/05/23 22:49 Pulse 58 04/05/23 22:49 Resp 16 04/05/23 23:11 BP 166/96 H 04/05/23 22:49 Pulse Ox 100 04/05/23 22:49 O2 Del Method Room Air 04/05/23 22:49 BMI result Body Mass Index 26.1 Middle-aged female lying in bed in no distress Neck supple, no JVD Regular rate and rhythm, S1-S2 heard Regular breath sounds bilaterally, no wheezing or crackles appreciated Abdomen with right upper quadrant tenderness, no guarding, no rigidity, no rebound tenderness Patient is awake, alert and oriented to self, place, time and person ; no focal motor deficit Psych: Normal mood No pedal edema Results Labs 04/05/23 16:36 04/05/23 16:36 Labs: Laboratory Results - last 24 hr 04/05/23 04/05/23 04/05/23 16:36 16:36 16:36 MCV 88.3 MCH 29.6 MCHC 33.5 RDW 13.2 Plt Count TNP MPV 12.8 H Immature Gran % (Auto) 0.4 Neut % (Auto) 62.3 Lymph % (Auto) 29.6 [place] % (Auto) 6.3 Eos % (Auto) 1.0 Baso % (Auto) 0.4 Lymph # (Auto) 2.1 [place] # (Auto) 0.5 Eos # (Auto) 0.1 Baso # (Auto) 0.0 Abs Immat Gran (auto) 0.03 Absolute Neuts (auto) 4.5 Absolute Nucleated RBC 0.000 Nucleated RBC % (auto) 0.0 Smear Tech's Comments VERIFIED PT 12.0 INR 1.0 APTT 25.6 L D Anion Gap 14 Estim Creat Clear Calc 100.5 Estimated GFR > 60 Random Glucose 148 H Calcium 9.5 Total Bilirubin 0.8 AST 512 H ALT 242 H Alkaline Phosphatase 89 B-Natriuretic Peptide Total Protein 7.0 Albumin 4.0 Lipase Urine Color Urine Appearance Urine pH Ur Specific [place] Urine Protein Urine Glucose (UA) Urine Ketones Urine Blood Urine Nitrite Ur Leukocyte Esterase Urine Test 04/05/23 04/05/23 04/05/23 16:36 16:36 19:39 MCV MCH MCHC RDW Plt Count MPV Immature Gran % (Auto) Neut % (Auto) Lymph % (Auto) [place] % (Auto) Eos % (Auto) Baso % (Auto) Lymph # (Auto) [place] # (Auto) Eos # (Auto) Baso # (Auto) Abs Immat Gran (auto) Absolute Neuts (auto) Absolute Nucleated RBC Nucleated RBC % (auto) Smear Tech's Comments PT INR APTT Anion Gap Estim Creat Clear Calc Estimated GFR Random Glucose Calcium Total Bilirubin AST ALT Alkaline Phosphatase B-Natriuretic Peptide 61 Total Protein Albumin Lipase 49 Urine Color Dark Yellow Urine Appearance Clear Urine pH 8.5 Ur Specific [place] 1.025 Urine Protein Negative Urine Glucose (UA) Negative Urine Ketones Trace Urine Blood Negative Urine Nitrite Negative Ur Leukocyte Esterase Negative Urine Test 04/05/23 19:39 MCV MCH MCHC RDW Plt Count MPV Immature Gran % (Auto) Neut % (Auto) Lymph % (Auto) [place] % (Auto) Eos % (Auto) Baso % (Auto) Lymph # (Auto) [place] # (Auto) Eos # (Auto) Baso # (Auto) Abs Immat Gran (auto) Absolute Neuts (auto) Absolute Nucleated RBC Nucleated RBC % (auto) Smear Tech's Comments PT INR APTT Anion Gap Estim Creat Clear Calc Estimated GFR Random Glucose Calcium Total Bilirubin AST ALT Alkaline Phosphatase B-Natriuretic Peptide Total Protein Albumin Lipase Urine Color Urine Appearance Urine pH Ur Specific [place] Urine Protein Urine Glucose (UA) Urine Ketones Urine Blood Urine Nitrite Ur Leukocyte Esterase Urine Test NEGATIVE Imaging Radiologist's Impressions: Impressions Chest X-Ray 04/05/23 16:45 IMPRESSION: Unremarkable examination. Venous Duplex 04/05/23 17:04 IMPRESSION: No DVT demonstrated in the left lower extremity. Abdomen/Pelvis CT 04/05/23 23:59 IMPRESSION: 1. No acute intra-abdominal or intrapelvic abnormalities are identified. 2. A 5.2 cm right ovarian cyst. This is simple in appearance on this contrast enhanced study. Follow-up pelvic ultrasound in 6-12 weeks is advised. 3. Moderate volume of fecal material throughout the colon. Fleischner guidelines were followed. Assessment and Plan (1) Transaminitis: Status: Acute Plan This is a 47-year-old female with pertinent history of antiphospholipid syndrome, fibromyalgia, xlv-wcwqstb-yjvpruavz diabetes mellitus who presents to the emergency department for evaluation of abdominal pain. #. Abdominal pain with transaminitis. Unclear etiology. With admit for pain control and consult Gastroenterology, appreciate assistance. CT abdomen without acute abnormalities. Repeat liver enzymes in a.m.. Patient not septic #. Qgx-dvxdxdx-gymlwymbj diabetes mellitus. Initiating Accu-Cheks with sliding scale insulin Med rec pending DVT prophylaxis: Lovenox Full code Time Spent With Patient Time: Total time managing care of this patient today ____ minutes. Quality Stroke Does the patient have a stroke diagnosis?: No VTE Prior VTE?: No VTE Risk Level:: Medical - moderate - high VTE Device Contraindication: Treatment Not Indicated VTE Drug Contraindication: N/A - Med Ordered
[2023-04-06] MEDS: Morphine Sulfate 4 MG/ML CARTRIDGE IVPUSH (03:27)
--- NOTE | 2023-04-06 04:14 | PC.NURSE ---
Pt reports 10/10 ABD pain, medicated per MAR, reports some effectiveness.
[2023-04-06 05:14] LABS: MANUAL DIFF FLAG NO
[2023-04-06 05:15] LABS: Basophils Percent Auto 0.5 % (0-2); Eosinophils Absolute Auto 0.1 X10*3/uL (0.0-0.4); Eosinophils Percent Auto 2.3 % (0-4); Hematocrit 36.6 % (37.0-47.0); Hemoglobin 11.9 g/dl (12.0-16.0); Imm Gran Abs Auto 0.01 X10*3/uL (0.00-0.03); Imm Gran Pct Auto 0.2 % (0.0-0.4); Lymphocytes Absolute Auto 1.8 X10*3/uL (1.2-4.9); Lymphocytes Percent Auto 30.3 % (20-40); Mean Corpuscular HGB Conc 32.5 g/dl (31.0-35.0); Mean Corpuscular Hemoglobin 29.8 pg (27.0-33.0); Mean Corpuscular Volume 91.7 fL (80.0-98.0); Mean Platelet Volume 12.7 fL (9.4-12.3); Monocytes Absolute Auto 0.4 X10*3/uL (0.1-1.2); Monocytes Percent Auto 6.1 % (2-11); Neutrophils Absolute Auto 3.5 x10*3/uL (2.0-8.3); Neutrophils Percent Auto 60.6 % (45-73); Platelet Count 184 X10*3/uL (160-400); Red Blood Count 3.99 X10*6/uL (4.20-5.50); Red Cell Distribution Width 13.5 % (11.0-16.0); White Blood Count 5.8 X10*3/uL (4.8-10.8)
[2023-04-06 05:34] LABS: Alanine Aminotransferase 348 U/L (0-31); Albumin Level 3.6 g/dL (3.5-5.0); Alkaline Phosphatase 85 U/L (39-117); Anion Gap 12 (12-20); Aspartate Amino Transferase 411 U/L (5-31); Bilirubin Total 0.3 mg/dL (0.0-1.0); Blood Urea Nitrogen 7 mg/dL (9-16); Calcium 8.6 mg/dL (8.4-10.2); Carbon Dioxide 23 mmol/L (22-29); Chloride 111 mmol/L (96-108); Creatinine Clr Calc Pharmacy 103.5; Estimated Glomerular Filt Rate > 60; Glucose Random 104 mg/dL (60-115); Sodium 142 mmol/L (135-145); Total Protein 6.2 g/dL (6.5-8.0)
--- NOTE | 2023-04-06 06:28 | PC.NURSE ---
Pt reports increasing worsening frontal headache, with tingling to face states she recently got a CT scan at [facility] and was put on a new medication and has not been taking, Provider Dr. Mcgrath notified.
[2023-04-06] MEDS: HYDROmorphone HCl 1 MG/ML SYRINGE IVPUSH (07:08)
[2023-04-06 07:30] LABS: Glucose, Whole Blood 114 mg/dL (60-115)
--- NOTE | 2023-04-06 07:36 | PHA.MEDREC ---
Pharmacy Consult ? Medication Reconciliation Pharmacy has completed the medication reconciliation. Pt takes prn xarelto when traveling [facility]
[2023-04-06] MEDS: 0.9 % Sodium Chloride Flush 3 ML SYRINGE IVFLUSH ×2 (10:33→23:54)
--- NOTE | 2023-04-06 11:55 | PC.NURSE ---
MRI called, clarifying with nursing when pt became NPO, alerted pt eating breakfast at 8am, which means she can be scanned after 2pm. MRI screening form also filled out
--- NOTE | 2023-04-06 12:22 | P.PNIM_ITS ---
Subjective Subjective Date of Service: 04/07/23 Review of Systems Follow-up abdominal pain, transaminitis Still reports some nausea but no vomiting or diarrhea Physical Exam Vital Signs: Vital Signs: Last Vital Signs Temp 98.1 F 04/06/23 08:30 Pulse 54 04/06/23 08:30 Resp 18 04/06/23 08:30 BP 145/91 H 04/06/23 08:30 Pulse Ox 94 04/06/23 08:30 O2 Del Method Room Air 04/06/23 08:30 BMI result Body Mass Index 26.1 Appearing in no acute distress lung sounds are clear to auscultation heart regular rate rhythm, clear S1, S2 positive bowel sounds, abdomen is soft, nontender neuro patient is alert x3, no focal deficits Objective Data Active Medications Acetaminophen (Acetaminophen 325 Mg Tablet) 650 mg PO Q6H PRN PRN Reason: Pain, Mild (Pain Scale 1-3) Dextrose (Dextrose 50 % 25 Gm/50 Ml Syringe) 25 gm IVPUSH Q15M PRN; Protocol PRN Reason: per Hypoglycemia Standing Ord. Enoxaparin Sodium (Enoxaparin Sodium 40 Mg/0.4 Ml Syringe) 40 mg SUBCUT Q24H [facility] Last Admin: 04/06/23 10:34 Dose: Not Given Documented By: VENUS Non-Admin Reason: Patient Refused Comments: risks explained to pt, pt refused. Glucose (Glucose Gel 15 Gm Gel..Gram.) 15 gm PO Q15M PRN; Protocol PRN Reason: per Hypoglycemia Standing Ord. Insulin Human Lispro (Insulin Lispro 100 Unit/Ml 3 Ml Vial) 0 unit SUBCUT QIDACHS [facility]; Protocol Last Admin: 04/06/23 07:32 Dose: Not Given Documented By: VENUS Non-Admin Reason: No Insulin Coverage Comments: POC 113. Melatonin (Melatonin 3 Mg Tablet) 6 mg PO BEDTIME PRN PRN Reason: Insomnia Morphine Sulfate (Morphine Sulfate 4 Mg/Ml Cartridge) 4 mg IVPUSH Q4H PRN; Protocol PRN Reason: Pain, Severe (Pain Scale 7-10) Last Admin: 04/06/23 03:27 Dose: 4 mg Documented By: LARA Ondansetron HCl (Ondansetron Hcl 4 Mg/2 Ml Vial) 4 mg IVPUSH Q8H PRN PRN Reason: Nausea and Vomiting Pharmacy Consult (Consult Rx Perform Med Rec) 1 each MISCELLANE ONCE PRN PRN Reason: Consult order Sodium Chloride (0.9 % Sodium Chloride Flush 3 Ml Syringe) 3 ml [facility]USH [facility] Last Admin: 04/06/23 10:33 Dose: 3 ml Documented By: VENUS Labs 04/06/23 04:57 04/06/23 04:57 Labs: Laboratory Results - last 24 hr 04/05/23 04/05/23 04/05/23 16:36 16:36 16:36 MCV 88.3 MCH 29.6 MCHC 33.5 RDW 13.2 Plt Count TNP MPV 12.8 H Immature Gran % (Auto) 0.4 Neut % (Auto) 62.3 Lymph % (Auto) 29.6 [place] % (Auto) 6.3 Eos % (Auto) 1.0 Baso % (Auto) 0.4 Lymph # (Auto) 2.1 [place] # (Auto) 0.5 Eos # (Auto) 0.1 Baso # (Auto) 0.0 Abs Immat Gran (auto) 0.03 Absolute Neuts (auto) 4.5 Absolute Nucleated RBC 0.000 Nucleated RBC % (auto) 0.0 Smear Tech's Comments VERIFIED PT 12.0 INR 1.0 APTT 25.6 L D Anion Gap 14 Estim Creat Clear Calc 100.5 Estimated GFR > 60 POC Glucose Random Glucose 148 H Calcium 9.5 Total Bilirubin 0.8 AST 512 H ALT 242 H Alkaline Phosphatase 89 B-Natriuretic Peptide Total Protein 7.0 Albumin 4.0 Lipase Urine Color Urine Appearance Urine pH Ur Specific [place] Urine Protein Urine Glucose (UA) Urine Ketones Urine Blood Urine Nitrite Ur Leukocyte Esterase Urine Test 04/05/23 04/05/23 04/05/23 16:36 16:36 19:39 MCV MCH MCHC RDW Plt Count MPV Immature Gran % (Auto) Neut % (Auto) Lymph % (Auto) [place] % (Auto) Eos % (Auto) Baso % (Auto) Lymph # (Auto) [place] # (Auto) Eos # (Auto) Baso # (Auto) Abs Immat Gran (auto) Absolute Neuts (auto) Absolute Nucleated RBC Nucleated RBC % (auto) Smear Tech's Comments PT INR APTT Anion Gap Estim Creat Clear Calc Estimated GFR POC Glucose Random Glucose Calcium Total Bilirubin AST ALT Alkaline Phosphatase B-Natriuretic Peptide 61 Total Protein Albumin Lipase 49 Urine Color Dark Yellow Urine Appearance Clear Urine pH 8.5 Ur Specific [place] 1.025 Urine Protein Negative Urine Glucose (UA) Negative Urine Ketones Trace Urine Blood Negative Urine Nitrite Negative Ur Leukocyte Esterase Negative Urine Test 04/05/23 04/06/23 04/06/23 19:39 04:57 04:57 MCV 91.7 MCH 29.8 MCHC 32.5 RDW 13.5 Plt Count 184 MPV 12.7 H Immature Gran % (Auto) 0.2 Neut % (Auto) 60.6 Lymph % (Auto) 30.3 [place] % (Auto) 6.1 Eos % (Auto) 2.3 Baso % (Auto) 0.5 Lymph # (Auto) 1.8 [place] # (Auto) 0.4 Eos # (Auto) 0.1 Baso # (Auto) 0.0 Abs Immat Gran (auto) 0.01 Absolute Neuts (auto) 3.5 Absolute Nucleated RBC 0.000 Nucleated RBC % (auto) 0.0 Smear Tech's Comments PT INR APTT Anion Gap 12 Estim Creat Clear Calc 103.5 Estimated GFR > 60 POC Glucose Random Glucose 104 Calcium 8.6 D Total Bilirubin 0.3 AST 411 H ALT 348 H Alkaline Phosphatase 85 B-Natriuretic Peptide Total Protein 6.2 L Albumin 3.6 Lipase Urine Color Urine Appearance Urine pH Ur Specific [place] Urine Protein Urine Glucose (UA) Urine Ketones Urine Blood Urine Nitrite Ur Leukocyte Esterase Urine Test NEGATIVE 04/06/23 07:27 MCV MCH MCHC RDW Plt Count MPV Immature Gran % (Auto) Neut % (Auto) Lymph % (Auto) [place] % (Auto) Eos % (Auto) Baso % (Auto) Lymph # (Auto) [place] # (Auto) Eos # (Auto) Baso # (Auto) Abs Immat Gran (auto) Absolute Neuts (auto) Absolute Nucleated RBC Nucleated RBC % (auto) Smear Tech's Comments PT INR APTT Anion Gap Estim Creat Clear Calc Estimated GFR POC Glucose 114 Random Glucose Calcium Total Bilirubin AST ALT Alkaline Phosphatase B-Natriuretic Peptide Total Protein Albumin Lipase Urine Color Urine Appearance Urine pH Ur Specific [place] Urine Protein Urine Glucose (UA) Urine Ketones Urine Blood Urine Nitrite Ur Leukocyte Esterase Urine Test Assessment and Plan (1) Transaminitis: Status: Acute Plan This is a 47-year-old female with pertinent history of antiphospholipid syndrome, fibromyalgia, fnl-tkewehv-jsyqjvcxa diabetes mellitus who presents to the emergency department for evaluation of abdominal pain.? Abdominal pain with transaminitis.? Unclear etiology.? consult Gastroenterology CT abdomen without acute abnormalities.? Repeat liver enzymes trending down Jab-jrlogkh-bnarzvymn diabetes mellitus.? Sliding scale, ADA diet Mild intermittent asthma No exacerbation Continue inhalers History of antiphospholipid antibody on Eliquis only during travel DVT prophylaxis: Shmuel attending Dr. Pugh Full code Time Spent With Patient Time: Total time managing care of this patient today ____ minutes. Quality Stroke Does the patient have a stroke diagnosis?: No VTE Prior VTE?: No VTE Risk Level:: Medical - moderate - high VTE Device Contraindication: Treatment Not Indicated VTE Drug Contraindication: N/A - Med Ordered
--- NOTE | 2023-04-06 12:33 | MHC.CM.PN ---
This sign writer letterer or painter met with patient and for CM assessment. From home no services prior to hospitalization. Obs notice delivered. HCP requestd. Patient and report being behind 1 month on rent- resources provided. Independent @ baseline. DCP- home no services, to transport.
[2023-04-06 12:34] LABS: Glucose, Whole Blood 106 mg/dL (60-115)
[2023-04-06] MEDS: LORazepam 2 MG/ML VIAL 0.5 MG IVPUSH (14:47)
--- NOTE | 2023-04-06 14:49 | PC.NURSE ---
Attempted to call report to Nurse taking patient, nurse currently changing shift, new nurse will call for report when done with hand over
--- NOTE | 2023-04-06 16:22 | PM.EVENT ---
Event Note Date of Service: 04/06/23 Event Note: GI consult dictated EGD planned for further evaluation of abdominal discomfort, pt understands risks and benefits and agrees to proceed. Time Spent With Patient Time: Total time managing care of this patient today ____ minutes.
[2023-04-06 16:24] LABS: Glucose, Whole Blood 83 mg/dL (60-115)
[2023-04-06] MEDS: oxyCODONE HCl Immed Release 5 MG TABLET PO ×2 (16:43→20:55)
[2023-04-06] MEDS: Omeprazole 40 MG CAPSULE.DR PO (16:43)
[2023-04-06] MEDS: Propranolol HCL 40 MG TABLET PO (16:44)
[2023-04-06] MEDS: Butalb/Acetamin/Caff 50/325/40 TABLET 1 TAB PO (16:45)
[2023-04-06] MEDS: Fluticasone Propionate 100 MCG BLST.W.DEV 2 PUFF INHALE (20:25)
[2023-04-06 20:32] LABS: Glucose, Whole Blood 166 mg/dL (60-115)
[2023-04-06] MEDS: Melatonin 3 MG TABLET 6 MG PO (20:55)
[2023-04-07] VITALS (9 sets, daily range): BP systolic 98–155; BP diastolic 51–80; PULSE 48–56; RESP 16; TEMP 36–36.2; O2SAT 96–100
[2023-04-07 01:16] LABS: Amphetamine Screen Urine Not Detected (Not Detect); Barbiturates, Urine POSITIVE (Not Detect); Benzodiazepines Screen Urine Not Detected (Not Detect); Cannabinoid Screen Urine Not Detected (Not Detect); Cocaine Screen Urine Not Detected (Not Detect); Opiate Screen Urine POSITIVE (Not Detect); Phencyclidine Screen Urine Not Detected (Not Detect)
[2023-04-07 01:26] LABS: Fentanyl, urine Not Detected (Not Detect)
--- NOTE | 2023-04-07 02:54 | CONS_ITS ---
DATE OF SERVICE: 04/06/2023 REFERRING PHYSICIAN: George Mcgrath MD REASON FOR CONSULTATION: Abdominal pain and elevated liver enzymes. HISTORY OF PRESENT ILLNESS: The patient is a pleasant 47-year-old woman who was admitted to the hospital after presenting to the emergency room with complaints of abdominal pain. She was found to have elevated liver function tests. She states she had right upper quadrant pain radiating from the back to the front, which waxed and waned over a period of several months. She finally underwent laparoscopic cholecystectomy with repair of an umbilical hernia on January 30, 2023. After that, she felt well, but then gradually developed right upper quadrant pain radiating from the back to the front. The pain is sometimes worse with food, but not any specific type. There are no other precipitating or relieving factors. Pathology from her gallbladder surgery showed acute on chronic cholecystitis with cholelithiasis. She has had some associated nausea and vomiting, but no fevers or chills. She has not noticed any jaundice. In the emergency room, she was evaluated with laboratory studies showing elevation of her chemistries with AST of 512 and ALT of 242. Repeat laboratory testing this morning showed improvement in her AST and a slight worsening of her ALT, bilirubin and alkaline phosphatase have been normal. Imaging was undertaken with CT scanning and MRI imaging, both of which are reviewed. No common bile duct stone is identified and the bile ducts are normal by MR imaging. PAST MEDICAL HISTORY: 1. Hypertension. 2. Fibromyalgia. 3. Gastroesophageal reflux disease. 4. Asthma. 5. Antiphospholipid antibody syndrome. 6. Migraine headaches. CURRENT MEDICATIONS: List is reviewed in the chart. ALLERGIES: PENICILLIN G. FAMILY HISTORY: This is reviewed with the patient and is noncontributory. SOCIAL HISTORY: There is no current tobacco, alcohol, or substance abuse. REVIEW OF SYSTEMS: SKIN: No pruritus. HEENT: Negative. CARDIOPULMONARY: No shortness of breath or chest pain. GASTROINTESTINAL: As above. GENITOURINARY: Negative. NEUROPSYCHIATRIC: Negative. PHYSICAL EXAMINATION: GENERAL: A pleasant female, lying comfortably in bed. VITAL SIGNS: Reviewed in the electronic medical record and are stable. SKIN: Anicteric. HEENT: Shows no scleral icterus. NECK: Without lymphadenopathy or thyromegaly. LUNGS: Clear. HEART: Shows a regular rate and rhythm. S1, S2. No murmur. ABDOMEN: Soft without focal masses or tenderness. She has well-healed incisions from her recent surgery. Bowel sounds are present. There is no organomegaly. EXTREMITIES: Without edema. LABORATORY DATA AND IMAGING STUDIES: Reviewed. IMPRESSION: Abdominal pain with elevated liver function tests. At this time, she appears to be stable with no evidence of GI bleeding. Her liver function test elevation is mostly hepatocellular and no common bile duct stone has been identified on imaging studies. She does have a history of peptic ulcer disease and has been using some ibuprofen, and I would recommend she undergo upper endoscopy to rule out peptic ulcer disease. I have discussed the risks and benefits of the procedure with her. She understands these and agrees to proceed. In the interim, I agree with treating her with a proton pump inhibitor. Thanks for asking me to see her. I will follow her in the hospital as needed. MD LAURA Richter/MARY / [phone]
[2023-04-07 07:07] LABS: Glucose, Whole Blood 128 mg/dL (60-115)
[2023-04-07 07:33] LABS: Alanine Aminotransferase 230 U/L (0-31); Albumin Level 3.5 g/dL (3.5-5.0); Alkaline Phosphatase 74 U/L (39-117); Anion Gap 11 (12-20); Aspartate Amino Transferase 129 U/L (5-31); Bilirubin Direct 0.2 mg/dL (0.0-0.5); Bilirubin Total 0.3 mg/dL (0.0-1.0); Blood Urea Nitrogen 9 mg/dL (9-16); Calcium 9.2 mg/dL (8.4-10.2); Carbon Dioxide 28 mmol/L (22-29); Chloride 107 mmol/L (96-108); Creatinine Clr Calc Pharmacy 96.7; Estimated Glomerular Filt Rate > 60; Glucose Random 128 mg/dL (60-115); Potassium 4.3 mmol/L (3.3-5.1); Sodium 142 mmol/L (135-145); Total Protein 6.2 g/dL (6.5-8.0)
[2023-04-07] MEDS: Morphine Sulfate 4 MG/ML CARTRIDGE IVPUSH ×2 (07:44→11:21)
[2023-04-07] MEDS: Propranolol HCL 40 MG TABLET PO (07:44)
[2023-04-07] MEDS: 0.9 % Sodium Chloride Flush 3 ML SYRINGE IVFLUSH ×2 (07:45→16:30)
[2023-04-07] MEDS: Omeprazole 40 MG CAPSULE.DR PO (07:45)
[2023-04-07] MEDS: Butalb/Acetamin/Caff 50/325/40 TABLET 1 TAB PO (08:06)
[2023-04-07] MEDS: ondansetron HCL 4 MG/2 ML VIAL IVPUSH (08:06)
[2023-04-07] MEDS: Fluticasone Propionate 100 MCG BLST.W.DEV 2 PUFF INHALE (08:45)
--- NOTE | 2023-04-07 11:00 | PM.OP ---
Brief Operative Note Date of Service: 04/07/23 <Pastor Riddle - Last Filed: 04/07/23 14:53> Pre-op diagnosis: ruq pain <Pastor Riddle - Last Filed: 04/07/23 14:53> Post-op diagnosis: same <Pastor Riddle - Last Filed: 04/07/23 14:53> Procedure: EGD <Pastor Riddle - Last Filed: 04/07/23 14:53> Surgeon: Pastor Riddle <Pastor Riddle - Last Filed: 04/07/23 14:53> Anesthesia: MAC <Pastor Riddle - Last Filed: 04/07/23 14:53> Was an Armature Winder Repairer used for this Procedure?: No <Aimee Houston MD - Last Filed: 04/07/23 12:42> No <Pastor Riddle - Last Filed: 04/07/23 14:53> Estimated blood loss (mL): 2 <Pastor Riddle - Last Filed: 04/07/23 14:53> Pathology: other <Pastor Riddle - Last Filed: 04/07/23 14:53> Condition: stable <Pastor Riddle - Last Filed: 04/07/23 14:53> Disposition: PACU <Pastor Riddle - Last Filed: 04/07/23 14:53>
[2023-04-07 11:25] LABS: Glucose, Whole Blood 122 mg/dL (60-115)
--- NOTE | 2023-04-07 12:43 | P.CONAN_ITS ---
[facility] Active Problems Active Problems: All Active Problems Transaminitis (Acute) Antiphospholipid antibody positive (Acute) Dyspnea (Acute) Pulmonary nodules (Acute) Easy bruising (Acute) Biliary colic (Acute) Fibromyalgia (Acute) Past Medical History Medical History Abnormal uterine bleeding Antiphospholipid antibody syndrome Asthma Diabetes Fibromyalgia Fibromyalgia GERD (gastroesophageal reflux disease) Gingivitis History of gestational diabetes HTN (hypertension) Migraine Vitamin D deficiency Family History Family History Maternal Uncle Colon cancer Paternal Uncle Cancer of internal nose Family history of problems with anesthesia: No Surgical History Surgical History History of delivery History of elbow surgery History of laparoscopic cholecystectomy (01/30/23) History of Problems with Anesthesia: No Social History Social History Household Members: Spouse and Children Housing: House Are you a primary youth care professional to a significant other at home: No Do you presently have visiting nurse or other home services: No Alcohol intake: never Patient Tobacco Use Status: Never used Tobacco Smoked in Last 30 Days: No Use of substances other than those prescribed or required for medical reasons: No Are you DNR?: No Advance Directives: No Advance Directives Information Provided: No Nutrition Risks: No Nutritional Risk Patient : No service: No Current occupational status: employed Meds Allergies Allergy/AdvReac Type Severity Reaction Status Date / Time penicillin G [PENICILLIN G] Allergy Unknown RASH, Verified 04/07/23 12:00 swelling, rash Active Medications: Current Medications Acetaminophen (Acetaminophen 325 Mg Tablet) 650 mg PO Q6H PRN PRN Reason: Pain, Mild (Pain Scale 1-3) Acetaminophen/Butalbital/Caffeine (Butalb/Acetamin/Caff 50/325/40 Tablet) 1 tab PO Q12H PRN PRN Reason: MIGRAINES Last Admin: 04/07/23 08:06 Dose: 1 tab Albuterol Sulfate (Albuterol Sulfate 90 Mcg 8 Gm Inhaler) 1 puff INHALE DAILY PRN PRN Reason: Wheezing Dextrose (Dextrose 50 % 25 Gm/50 Ml Syringe) 25 gm IVPUSH Q15M PRN; Protocol PRN Reason: per Hypoglycemia Standing Ord. Enoxaparin Sodium (Enoxaparin Sodium 40 Mg/0.4 Ml Syringe) 40 mg SUBCUT Q24H [facility] Last Admin: 04/06/23 10:34 Dose: Not Given Fluticasone Propionate (Fluticasone Propionate 100 Mcg Blst.W.Dev) 2 puff INHALE RBID [facility] Last Admin: 04/07/23 08:45 Dose: 2 puff Glucose (Glucose Gel 15 Gm Gel..Gram.) 15 gm PO Q15M PRN; Protocol PRN Reason: per Hypoglycemia Standing Ord. Insulin Human Lispro (Insulin Lispro 100 Unit/Ml 3 Ml Vial) 0 unit SUBCUT QIDACHS [facility]; Protocol Last Admin: 04/07/23 12:20 Dose: Not Given Melatonin (Melatonin 3 Mg Tablet) 6 mg PO BEDTIME PRN PRN Reason: Insomnia Last Admin: 04/06/23 20:55 Dose: 6 mg Morphine Sulfate (Morphine Sulfate 4 Mg/Ml Cartridge) 4 mg IVPUSH Q4H PRN; Protocol PRN Reason: Pain, Severe (Pain Scale 7-10) Last Admin: 04/07/23 11:21 Dose: 4 mg Omeprazole (Omeprazole 40 Mg Capsule.Dr) 40 mg PO DAILY@0630 [facility] Last Admin: 04/07/23 07:45 Dose: 40 mg Ondansetron HCl (Ondansetron Hcl 4 Mg/2 Ml Vial) 4 mg IVPUSH Q8H PRN PRN Reason: Nausea and Vomiting Last Admin: 04/07/23 08:06 Dose: 4 mg Oxycodone HCl (Oxycodone Hcl Immed Release 5 Mg Tablet) 5 mg PO Q4H PRN PRN Reason: Pain, Mild (Pain Scale 1-3) Last Admin: 04/06/23 20:55 Dose: 5 mg Propranolol HCl (Propranolol Hcl 40 Mg Tablet) 40 mg PO BID [facility]; Protocol Last Admin: 04/07/23 07:44 Dose: 40 mg Sodium Chloride (0.9 % Sodium Chloride Flush 3 Ml Syringe) 3 ml IVFLUSH QSHIFT [facility] Last Admin: 04/07/23 07:45 Dose: 3 ml Vitamin D (Cholecalciferol (Vitamin D3) 25 Mcg Tablet) 50 mcg PO DAILY [facility] Last Admin: 04/07/23 09:38 Dose: Not Given Home Medications Medication Instructions Recorded Confirmed Last Taken Type cholecalciferol (vitamin D3) 50 50 mcg PO DAILY 08/23/20 04/06/23 Unknown History mcg (2,000 unit) tablet (Vitamin D3) fluticasone propionate 110 2 puff inhalation BID 09/06/20 04/06/23 Unknown History mcg/actuation HFA aerosol inhaler (Flovent HFA) propranolol 40 mg tablet 40 mg PO BID migraine 01/16/22 04/06/23 Unknown History dulaglutide 0.75 mg/0.5 mL 0.75 mg subcut OZUNA 11/19/22 04/06/23 Unknown History subcutaneous pen injector (Trulicity) rivaroxaban 20 mg tablet (Xarelto) 20 mg PO DAILY PRN when traveling 01/20/23 04/06/23 01/13/23 History albuterol sulfate 90 mcg/actuation 1 inh inhalation DAILY PRN Wheezing 01/30/23 04/06/23 Unknown History aerosol inhaler lidocaine 5 % topical patch 1 patch topical DAILY PRN Pain 01/30/23 04/06/23 Unknown History metformin 500 mg tablet 500 mg PO BID 01/30/23 04/06/23 Unknown History [id number] 1 tab PO Q12H PRN MIGRAINES 04/06/23 04/06/23 Unknown History 50 mg-325 mg-40 mg tablet Exam Exam Date and Time: April 07, 2023 1243 Height,Weight and Vital Signs: Height 5 ft 5 in Weight 72.2 kg Last Vital Signs Temp 96.9 F 04/07/23 12:02 Pulse 48 L 04/07/23 12:02 Resp 16 04/07/23 12:02 BP 126/79 04/07/23 12:02 Pulse Ox 99 04/07/23 12:02 O2 Del Method Room Air 04/07/23 12:02 Pertinent Lab Results Pertinent Lab Results: Laboratory Tests 04/05/23 04/05/23 04/05/23 16:36 16:36 16:36 WBC 7.2 RBC 4.29 Hgb 12.7 Hct 37.9 MCV 88.3 MCH 29.6 MCHC 33.5 RDW 13.2 Plt Count TNP MPV 12.8 H Immature Gran % (Auto) 0.4 Neut % (Auto) 62.3 Lymph % (Auto) 29.6 [place] % (Auto) 6.3 Eos % (Auto) 1.0 Baso % (Auto) 0.4 Lymph # (Auto) 2.1 [place] # (Auto) 0.5 Eos # (Auto) 0.1 Baso # (Auto) 0.0 Abs Immat Gran (auto) 0.03 Absolute Neuts (auto) 4.5 Absolute Nucleated RBC 0.000 Nucleated RBC % (auto) 0.0 Smear Tech's Comments VERIFIED PT 12.0 INR 1.0 APTT 25.6 L D Sodium 138 Potassium 3.7 Chloride 107 Carbon Dioxide 21 L Anion Gap 14 BUN 11 Creatinine 0.67 Estim Creat Clear Calc 100.5 Estimated GFR > 60 POC Glucose Random Glucose 148 H Calcium 9.5 Total Bilirubin 0.8 Direct Bilirubin AST 512 H ALT 242 H Alkaline Phosphatase 89 Troponin I High Sens B-Natriuretic Peptide Total Protein 7.0 Albumin 4.0 Lipase Urine Color Urine Appearance Urine pH Ur Specific [place] Urine Protein Urine Glucose (UA) Urine Ketones Urine Blood Urine Nitrite Ur Leukocyte Esterase Urine Test Urine Opiates Screen Urine Fentanyl Screen Ur Barbiturates Screen Ur Phencyclidine Scrn Ur Amphetamines Screen U Benzodiazepines Scrn Urine Cocaine Screen U Marijuana (THC) Screen 04/05/23 04/05/23 04/05/23 16:36 16:36 16:36 WBC RBC Hgb Hct MCV MCH MCHC RDW Plt Count MPV Immature Gran % (Auto) Neut % (Auto) Lymph % (Auto) [place] % (Auto) Eos % (Auto) Baso % (Auto) Lymph # (Auto) [place] # (Auto) Eos # (Auto) Baso # (Auto) Abs Immat Gran (auto) Absolute Neuts (auto) Absolute Nucleated RBC Nucleated RBC % (auto) Smear Tech's Comments PT INR APTT Sodium Potassium Chloride Carbon Dioxide Anion Gap BUN Creatinine Estim Creat Clear Calc Estimated GFR POC Glucose Random Glucose Calcium Total Bilirubin Direct Bilirubin AST ALT Alkaline Phosphatase Troponin I High Sens < 2.7 B-Natriuretic Peptide 61 Total Protein Albumin Lipase 49 Urine Color Urine Appearance Urine pH Ur Specific [place] Urine Protein Urine Glucose (UA) Urine Ketones Urine Blood Urine Nitrite Ur Leukocyte Esterase Urine Test Urine Opiates Screen Urine Fentanyl Screen Ur Barbiturates Screen Ur Phencyclidine Scrn Ur Amphetamines Screen U Benzodiazepines Scrn Urine Cocaine Screen U Marijuana (THC) Screen 04/05/23 04/05/23 04/05/23 19:39 19:39 19:39 WBC RBC Hgb Hct MCV MCH MCHC RDW Plt Count MPV Immature Gran % (Auto) Neut % (Auto) Lymph % (Auto) [place] % (Auto) Eos % (Auto) Baso % (Auto) Lymph # (Auto) [place] # (Auto) Eos # (Auto) Baso # (Auto) Abs Immat Gran (auto) Absolute Neuts (auto) Absolute Nucleated RBC Nucleated RBC % (auto) Smear Tech's Comments PT INR APTT Sodium Potassium Chloride Carbon Dioxide Anion Gap BUN Creatinine Estim Creat Clear Calc Estimated GFR POC Glucose Random Glucose Calcium Total Bilirubin Direct Bilirubin AST ALT Alkaline Phosphatase Troponin I High Sens B-Natriuretic Peptide Total Protein Albumin Lipase Urine Color Dark Yellow Urine Appearance Clear Urine pH 8.5 Ur Specific [place] 1.025 Urine Protein Negative Urine Glucose (UA) Negative Urine Ketones Trace Urine Blood Negative Urine Nitrite Negative Ur Leukocyte Esterase Negative Urine Test NEGATIVE Urine Opiates Screen POSITIVE H Urine Fentanyl Screen Not Detected Ur Barbiturates Screen POSITIVE H Ur Phencyclidine Scrn Not Detected Ur Amphetamines Screen Not Detected U Benzodiazepines Scrn Not Detected Urine Cocaine Screen Not Detected U Marijuana (THC) Screen Not Detected 04/06/23 04/06/23 04/06/23 04:57 04:57 07:27 WBC 5.8 RBC 3.99 L Hgb 11.9 L Hct 36.6 L MCV 91.7 MCH 29.8 MCHC 32.5 RDW 13.5 Plt Count 184 MPV 12.7 H Immature Gran % (Auto) 0.2 Neut % (Auto) 60.6 Lymph % (Auto) 30.3 [place] % (Auto) 6.1 Eos % (Auto) 2.3 Baso % (Auto) 0.5 Lymph # (Auto) 1.8 [place] # (Auto) 0.4 Eos # (Auto) 0.1 Baso # (Auto) 0.0 Abs Immat Gran (auto) 0.01 Absolute Neuts (auto) 3.5 Absolute Nucleated RBC 0.000 Nucleated RBC % (auto) 0.0 Smear Tech's Comments PT INR APTT Sodium 142 Potassium 4.0 Chloride 111 H Carbon Dioxide 23 Anion Gap 12 BUN 7 L Creatinine 0.65 Estim Creat Clear Calc 103.5 Estimated GFR > 60 POC Glucose 114 Random Glucose 104 Calcium 8.6 D Total Bilirubin 0.3 Direct Bilirubin AST 411 H ALT 348 H Alkaline Phosphatase 85 Troponin I High Sens B-Natriuretic Peptide Total Protein 6.2 L Albumin 3.6 Lipase Urine Color Urine Appearance Urine pH Ur Specific [place] Urine Protein Urine Glucose (UA) Urine Ketones Urine Blood Urine Nitrite Ur Leukocyte Esterase Urine Test Urine Opiates Screen Urine Fentanyl Screen Ur Barbiturates Screen Ur Phencyclidine Scrn Ur Amphetamines Screen U Benzodiazepines Scrn Urine Cocaine Screen U Marijuana (THC) Screen 04/06/23 04/06/23 04/06/23 12:29 16:20 20:28 WBC RBC Hgb Hct MCV MCH MCHC RDW Plt Count MPV Immature Gran % (Auto) Neut % (Auto) Lymph % (Auto) [place] % (Auto) Eos % (Auto) Baso % (Auto) Lymph # (Auto) [place] # (Auto) Eos # (Auto) Baso # (Auto) Abs Immat Gran (auto) Absolute Neuts (auto) Absolute Nucleated RBC Nucleated RBC % (auto) Smear Tech's Comments PT INR APTT Sodium Potassium Chloride Carbon Dioxide Anion Gap BUN Creatinine Estim Creat Clear Calc Estimated GFR POC Glucose 106 83 166 H Random Glucose Calcium Total Bilirubin Direct Bilirubin AST ALT Alkaline Phosphatase Troponin I High Sens B-Natriuretic Peptide Total Protein Albumin Lipase Urine Color Urine Appearance Urine pH Ur Specific [place] Urine Protein Urine Glucose (UA) Urine Ketones Urine Blood Urine Nitrite Ur Leukocyte Esterase Urine Test Urine Opiates Screen Urine Fentanyl Screen Ur Barbiturates Screen Ur Phencyclidine Scrn Ur Amphetamines Screen U Benzodiazepines Scrn Urine Cocaine Screen U Marijuana (THC) Screen 04/07/23 04/07/23 04/07/23 05:44 05:44 06:57 WBC RBC Hgb Hct MCV MCH MCHC RDW Plt Count MPV Immature Gran % (Auto) Neut % (Auto) Lymph % (Auto) [place] % (Auto) Eos % (Auto) Baso % (Auto) Lymph # (Auto) [place] # (Auto) Eos # (Auto) Baso # (Auto) Abs Immat Gran (auto) Absolute Neuts (auto) Absolute Nucleated RBC Nucleated RBC % (auto) Smear Tech's Comments PT INR APTT Sodium 142 Potassium 4.3 Chloride 107 Carbon Dioxide 28 Anion Gap 11 L BUN 9 Creatinine 0.70 Estim Creat Clear Calc 96.7 Estimated GFR > 60 POC Glucose 128 H Random Glucose 128 H Calcium 9.2 D Total Bilirubin 0.3 Cancelled Direct Bilirubin 0.2 Cancelled AST 129 H Cancelled ALT 230 H Cancelled Alkaline Phosphatase 74 Cancelled Troponin I High Sens B-Natriuretic Peptide Total Protein 6.2 L Cancelled Albumin 3.5 Cancelled Lipase Urine Color Urine Appearance Urine pH Ur Specific [place] Urine Protein Urine Glucose (UA) Urine Ketones Urine Blood Urine Nitrite Ur Leukocyte Esterase Urine Test Urine Opiates Screen Urine Fentanyl Screen Ur Barbiturates Screen Ur Phencyclidine Scrn Ur Amphetamines Screen U Benzodiazepines Scrn Urine Cocaine Screen U Marijuana (THC) Screen 04/07/23 11:19 WBC RBC Hgb Hct MCV MCH MCHC RDW Plt Count MPV Immature Gran % (Auto) Neut % (Auto) Lymph % (Auto) [place] % (Auto) Eos % (Auto) Baso % (Auto) Lymph # (Auto) [place] # (Auto) Eos # (Auto) Baso # (Auto) Abs Immat Gran (auto) Absolute Neuts (auto) Absolute Nucleated RBC Nucleated RBC % (auto) Smear Tech's Comments PT INR APTT Sodium Potassium Chloride Carbon Dioxide Anion Gap BUN Creatinine Estim Creat Clear Calc Estimated GFR POC Glucose 122 H Random Glucose Calcium Total Bilirubin Direct Bilirubin AST ALT Alkaline Phosphatase Troponin I High Sens B-Natriuretic Peptide Total Protein Albumin Lipase Urine Color Urine Appearance Urine pH Ur Specific [place] Urine Protein Urine Glucose (UA) Urine Ketones Urine Blood Urine Nitrite Ur Leukocyte Esterase Urine Test Urine Opiates Screen Urine Fentanyl Screen Ur Barbiturates Screen Ur Phencyclidine Scrn Ur Amphetamines Screen U Benzodiazepines Scrn Urine Cocaine Screen U Marijuana (THC) Screen Airway Mallampati Class: II TM Dist: >3cm Neck ROM: Full Loose/Missing/Broken Teeth: No (RRR) Heart: RRR Lungs: CTA Assessment and Plan Assessment Anesthesia Assessment: Anesthesia Plan Discussed and Chart Reviewed Final Anesthetic Review Family History of Problems with Anesthesia: No History of Problems with Anesthesia: No NPO: Yes ASA Class: II Final Preanesthetic Review: Meds/Allgs Chart Reviewed, Consent Obtained/Reviewed and Anes Risks/Benef Reviewed Patient Risk: Low Procedure Risk: Intermediate Anesthetic Plan Anesthetic Plan: MAC: Disposition: Standard PACU
--- NOTE | 2023-04-07 13:55 | PM.EVENT ---
Event Note Date of Service: 04/07/23 Event Note: EGD note dictated EGD shows antral gastritis. Bx's obtained to r/o H pylori Rec: reg diet continue ppi add bentyl f/u bx results. Time Spent With Patient Time: Total time managing care of this patient today ____ minutes.
--- NOTE | 2023-04-07 14:17 | PM.DS ---
DS: Providers Provider Date of Service: 04/07/23 Date of admission: 04/06/23 02:11 Primary care physician: Yecenia Mauro MD Consults: 04/06/23 02:11 Consult to Gastroenterology Routine Consulting Provider: Cb Ramsay Reason for consultation: Abdominal pain and transamnitis DS: Diagnosis Discharge Diagnosis (1) Transaminitis: Status: Acute DS: Summary Hospital Course Hospital Course: history and physical as per admitting provider. This is a 47-year-old female with pertinent history of antiphospholipid syndrome, fibromyalgia, hhb-yoicdyw-bekdtiasl diabetes mellitus who presents to the emergency department for evaluation of abdominal pain.? Patient states it started about 5-6 days prior to presentation.? It is located in the right upper quadrant, constant, progressive and without any relieving factors.? No association with p.o. intake.? Patient states she has associated nausea and generalized fatigability.? Is status post cholecystectomy.? Patient's states she takes p.r.n. Xarelto when traveling due to antiphospholipid syndrome.? No fever or chills, chest discomfort, palpitations, shortness of breath, diarrhea, changes in urinary habits.In the emergency department, AST/ALT found to be elevated 47-year-old woman treated for abdominal pain likely secondary to gastritis. She is status post EGD today. Sample taken for H pylori sent and she can follow-up with her primary care provider for this. Her liver enzymes were quite elevated on admission possibly related to a stone that passed as no stone was seen on MRCP. Today her liver enzymes had trended down significantly and pain has decreased. She will continue on PPI and be started on Bentyl. Diabetes mellitus type 2. Continue home medications mild intermittent Asthma. No exacerbation. Continue medications History of migraine headaches. Continue home medications History of antiphospholipid antibody. On Eliquis as needed Time Spent with Patient Time attestation: Total time managing care of this patient today ____ minutes. Discharge coordination time: Greater than 30 minutes Quality: Safe Use of Opioids Does Pt have an Active Cancer Diagnosis on the Problem List?: No Quality: Stroke Does the patient have a stroke diagnosis?: No Physical Exam Vital Signs: Vital Signs: Last Vital Signs Temp 97.2 F 04/07/23 13:55 Pulse 50 04/07/23 14:10 Resp 16 04/07/23 14:10 BP 100/58 L 04/07/23 14:10 Pulse Ox 99 04/07/23 14:10 O2 Del Method Room Air 04/07/23 14:10 BMI result Body Mass Index 26.5 Appearing in no acute distress head is normocephalic atraumatic eyes pupils are PERRLA sclera is anicteric mouth throat mucous membranes are intact and moist neck is supple no lymphadenopathy, no JVD noted lung sounds are clear to auscultation heart regular rate rhythm, clear S1, S2 positive bowel sounds, abdomen is soft, nontender neuro patient is alert x3, no focal deficits DS: Data Data Completed and Pending Pending studies at discharge: Pending at discharge 04/07/23 13:41 Surgical [PTH] Routine Labs on day of discharge: Laboratory Results - last 24 hr 04/05/23 04/06/23 04/06/23 19:39 16:20 20:28 Sodium Potassium Chloride Carbon Dioxide Anion Gap BUN Creatinine Estim Creat Clear Calc Estimated GFR POC Glucose 83 166 H Random Glucose Calcium Total Bilirubin Direct Bilirubin AST ALT Alkaline Phosphatase Total Protein Albumin Urine Opiates Screen POSITIVE H Urine Fentanyl Screen Not Detected Ur Barbiturates Screen POSITIVE H Ur Phencyclidine Scrn Not Detected Ur Amphetamines Screen Not Detected U Benzodiazepines Scrn Not Detected Urine Cocaine Screen Not Detected U Marijuana (THC) Screen Not Detected 04/07/23 04/07/23 04/07/23 05:44 05:44 06:57 Sodium 142 Potassium 4.3 Chloride 107 Carbon Dioxide 28 Anion Gap 11 L BUN 9 Creatinine 0.70 Estim Creat Clear Calc 96.7 Estimated GFR > 60 POC Glucose 128 H Random Glucose 128 H Calcium 9.2 D Total Bilirubin 0.3 Cancelled Direct Bilirubin 0.2 Cancelled AST 129 H Cancelled ALT 230 H Cancelled Alkaline Phosphatase 74 Cancelled Total Protein 6.2 L Cancelled Albumin 3.5 Cancelled Urine Opiates Screen Urine Fentanyl Screen Ur Barbiturates Screen Ur Phencyclidine Scrn Ur Amphetamines Screen U Benzodiazepines Scrn Urine Cocaine Screen U Marijuana (THC) Screen 04/07/23 11:19 Sodium Potassium Chloride Carbon Dioxide Anion Gap BUN Creatinine Estim Creat Clear Calc Estimated GFR POC Glucose 122 H Random Glucose Calcium Total Bilirubin Direct Bilirubin AST ALT Alkaline Phosphatase Total Protein Albumin Urine Opiates Screen Urine Fentanyl Screen Ur Barbiturates Screen Ur Phencyclidine Scrn Ur Amphetamines Screen U Benzodiazepines Scrn Urine Cocaine Screen U Marijuana (THC) Screen Discharge Plan Discharge Anticipated Discharge Date/Time: 04/07/23 14:14 Patient Disposition: Home, Self-Care Discharge Diagnosis: abdominal pain Transaminitis Antral gastritis Referrals: Yecenia Mauro MD [Primary Care Provider] - 1 Week Discharge Medications: New omeprazole 40 mg Capsule,Delayed Release(Dr/Ec) 40 mg PO DAILY@0630 Qty: 30 0RF dicyclomine 10 mg Capsule 10 mg PO QIDACHS Qty: 40 0RF Continued cholecalciferol (vitamin D3) [Vitamin D3] 50 mcg (2,000 unit) Tablet 50 mcg PO DAILY propranolol 40 mg tablet 40 mg PO BID metformin 500 mg tablet 500 mg PO BID lidocaine 5 % adhesive patch,medicated 1 patch topical DAILY PRN (Reason: Pain) Rx Instructions: on 12 hrs off 12 hrs albuterol sulfate 90 mcg/actuation Hfa Aerosol Inhaler 1 inh INHALATION DAILY PRN (Reason: Wheezing) [id number]-vpqhegqfclteh-fcjv 50-325-40 mg tablet 1 tab PO Q12H PRN (Reason: MIGRAINES) Flovent HFA 110 mcg/actuation HFA aerosol inhaler 2 puff inhalation BID Trulicity 0.75 mg/0.5 mL pen injector 0.75 mg subcut OZUNA Xarelto 20 mg tablet 20 mg PO DAILY PRN (Reason: when traveling) Rx Instructions: must administer with evening meal Discharge Orders: Discharge Order (Routine); Ordered 04/07/23 Ordered By: Peng Mackenzie Diet: Advance to usual diet Activity on Discharge: As tolerated Stand Alone Forms: Patient Portal Discharge page Care Plan Goals: complete resolution of symptoms Health Concerns: abdominal pain Transaminitis Antral gastritis Plan of Treatment: Follow-up primary care provider as needed Take all medications as prescribed Assessment: see discharge summary Discharge Date/Time: 04/07/23 18:43
--- NOTE | 2023-04-07 15:36 | HO.PM.IMPN ---
Subjective Subjective Date of Service: 04/08/23 Review of Systems Follow-up abdominal pain, transaminitis some abd pain, no nausea Physical Exam Vital Signs: Vital Signs: Last Vital Signs Temp 97.2 F 04/07/23 14:24 Pulse 48 L 04/07/23 14:24 Resp 16 04/07/23 14:24 BP 122/69 04/07/23 14:24 Pulse Ox 100 04/07/23 14:24 O2 Del Method Room Air 04/07/23 14:24 BMI result Body Mass Index 26.5 Appearing in no acute distress lung sounds are clear to auscultation heart regular rate rhythm, clear S1, S2 positive bowel sounds, abdomen is soft, nontender neuro patient is alert x3, no focal deficits Objective Data Active Medications Acetaminophen (Acetaminophen 325 Mg Tablet) 650 mg PO Q6H PRN PRN Reason: Pain, Mild (Pain Scale 1-3) Acetaminophen/Butalbital/Caffeine (Butalb/Acetamin/Caff 50/325/40 Tablet) 1 tab PO Q12H PRN PRN Reason: MIGRAINES Last Admin: 04/07/23 08:06 Dose: 1 tab Documented By: SUE Albuterol Sulfate (Albuterol Sulfate 90 Mcg 8 Gm Inhaler) 1 puff INHALE DAILY PRN PRN Reason: Wheezing Dextrose (Dextrose 50 % 25 Gm/50 Ml Syringe) 25 gm IVPUSH Q15M PRN; Protocol PRN Reason: per Hypoglycemia Standing Ord. Dicyclomine HCl (Dicyclomine Hcl 10 Mg Capsule) 10 mg PO QIDACHS [facility] Enoxaparin Sodium (Enoxaparin Sodium 40 Mg/0.4 Ml Syringe) 40 mg SUBCUT Q24H [facility] Last Admin: 04/06/23 10:34 Dose: Not Given Documented By: VENUS Non-Admin Reason: Patient Refused Comments: risks explained to pt, pt refused. Fluticasone Propionate (Fluticasone Propionate 100 Mcg Blst.W.Dev) 2 puff INHALE RBID [facility] Last Admin: 04/07/23 08:45 Dose: 2 puff Documented By: ORIANA Glucose (Glucose Gel 15 Gm Gel..Gram.) 15 gm PO Q15M PRN; Protocol PRN Reason: per Hypoglycemia Standing Ord. Insulin Human Lispro (Insulin Lispro 100 Unit/Ml 3 Ml Vial) 0 unit SUBCUT QIDACHS [facility]; Protocol Last Admin: 04/07/23 12:20 Dose: Not Given Documented By: SUE Non-Admin Reason: No Insulin Coverage Melatonin (Melatonin 3 Mg Tablet) 6 mg PO BEDTIME PRN PRN Reason: Insomnia Last Admin: 04/06/23 20:55 Dose: 6 mg Documented By: SHITAL Morphine Sulfate (Morphine Sulfate 4 Mg/Ml Cartridge) 4 mg IVPUSH Q4H PRN; Protocol PRN Reason: Pain, Severe (Pain Scale 7-10) Last Admin: 04/07/23 11:21 Dose: 4 mg Documented By: SUE Omeprazole (Omeprazole 40 Mg Capsule.Dr) 40 mg PO DAILY@0630 [facility] Last Admin: 04/07/23 07:45 Dose: 40 mg Documented By: SUE Ondansetron HCl (Ondansetron Hcl 4 Mg/2 Ml Vial) 4 mg IVPUSH Q8H PRN PRN Reason: Nausea and Vomiting Last Admin: 04/07/23 08:06 Dose: 4 mg Documented By: SUE Oxycodone HCl (Oxycodone Hcl Immed Release 5 Mg Tablet) 5 mg PO Q4H PRN PRN Reason: Pain, Mild (Pain Scale 1-3) Last Admin: 04/06/23 20:55 Dose: 5 mg Documented By: SHITAL Propranolol HCl (Propranolol Hcl 40 Mg Tablet) 40 mg PO BID [facility]; Protocol Last Admin: 04/07/23 07:44 Dose: 40 mg Documented By: SUE Sodium Chloride (0.9 % Sodium Chloride Flush 3 Ml Syringe) [facility] Last Admin: 04/07/23 07:45 Dose: 3 ml Documented By: SUE Vitamin D (Cholecalciferol (Vitamin D3) 25 Mcg Tablet) 50 mcg PO DAILY [facility] Last Admin: 04/07/23 09:38 Dose: Not Given Documented By: SUE Non-Admin Reason: NPO Labs 04/06/23 04:57 04/07/23 05:44 Labs: Laboratory Results - last 24 hr 04/05/23 04/06/23 04/06/23 19:39 16:20 20:28 Anion Gap Estim Creat Clear Calc Estimated GFR POC Glucose 83 166 H Random Glucose Calcium Total Bilirubin Direct Bilirubin AST ALT Alkaline Phosphatase Total Protein Albumin Urine Opiates Screen POSITIVE H Urine Fentanyl Screen Not Detected Ur Barbiturates Screen POSITIVE H Ur Phencyclidine Scrn Not Detected Ur Amphetamines Screen Not Detected U Benzodiazepines Scrn Not Detected Urine Cocaine Screen Not Detected U Marijuana (THC) Screen Not Detected 04/07/23 04/07/23 04/07/23 05:44 05:44 06:57 Anion Gap 11 L Estim Creat Clear Calc 96.7 Estimated GFR > 60 POC Glucose 128 H Random Glucose 128 H Calcium 9.2 D Total Bilirubin 0.3 Cancelled Direct Bilirubin 0.2 Cancelled AST 129 H Cancelled ALT 230 H Cancelled Alkaline Phosphatase 74 Cancelled Total Protein 6.2 L Cancelled Albumin 3.5 Cancelled Urine Opiates Screen Urine Fentanyl Screen Ur Barbiturates Screen Ur Phencyclidine Scrn Ur Amphetamines Screen U Benzodiazepines Scrn Urine Cocaine Screen U Marijuana (THC) Screen 04/07/23 11:19 Anion Gap Estim Creat Clear Calc Estimated GFR POC Glucose 122 H Random Glucose Calcium Total Bilirubin Direct Bilirubin AST ALT Alkaline Phosphatase Total Protein Albumin Urine Opiates Screen Urine Fentanyl Screen Ur Barbiturates Screen Ur Phencyclidine Scrn Ur Amphetamines Screen U Benzodiazepines Scrn Urine Cocaine Screen U Marijuana (THC) Screen Assessment and Plan (1) Transaminitis: Status: Acute Plan This is a 47-year-old female with pertinent history of antiphospholipid syndrome, fibromyalgia, jwr-poxjbgr-nexaxfotp diabetes mellitus who presents to the emergency department for evaluation of abdominal pain.? Abdominal pain with transaminitis.? possibly related to stone that moved .? s/p EGD>showing gastritis Repeat liver enzymes trending down continue PPI added bentyl for pain Fgx-htkjqfy-pnywzpgmx diabetes mellitus.? Sliding scale, ADA diet Mild intermittent asthma No exacerbation Continue inhalers History of antiphospholipid antibody on Eliquis only during travel DVT prophylaxis: Lovenox attending Dr. Pugh Full code Continue hospitalization for treatment of abdominal pain and transaminitis Time Spent With Patient Time: Total time managing care of this patient today ____ minutes. Quality Stroke Does the patient have a stroke diagnosis?: No VTE Prior VTE?: No VTE Risk Level:: Medical - moderate - high VTE Device Contraindication: Treatment Not Indicated VTE Drug Contraindication: N/A - Med Ordered
[2023-04-07] MEDS: Dicyclomine HCl 10 MG CAPSULE PO (16:29)
[2023-04-07 16:48] LABS: Glucose, Whole Blood 131 mg/dL (60-115)
--- NOTE | 2023-04-08 00:30 | OP_ITS ---
DATE OF SERVICE: 04/07/2023 SURGEON: Pastor Riddle MD INDICATIONS: Right upper quadrant pain. PREOPERATIVE DIAGNOSIS: POSTOPERATIVE DIAGNOSIS: PROCEDURE PERFORMED: Upper endoscopy with biopsy. ESTIMATED BLOOD LOSS: COMPLICATIONS: ANESTHESIA: Monitored anesthesia care. ASSISTANTS: SPECIMENS: DESCRIPTION OF PROCEDURE: A history and physical was performed. The risks and benefits of the procedure were explained to the patient. An informed consent was obtained. The patient was placed in the left lateral decubitus position. The Olympus video gastroscope was introduced into the esophagus, stomach, and duodenum. Examination was performed. The scope was removed. She tolerated the procedure well, was returned to the recovery area in stable condition. FINDINGS: Esophagus: The esophagus was normal. Stomach: The stomach showed antral gastritis with a few very small superficial erosions. Antral biopsies were obtained to evaluate for H pylori. Duodenum: The bulb and second portion were normal. IMPRESSION: Gastritis. RECOMMENDATION: 1. Continue proton pump inhibitor. 2. Add dicyclomine for better control of right upper quadrant discomfort. 3. Follow up the biopsy results. MD LAURA Richter/GENIEL / [id number]
== END 2023-04-07 18:43 | disposition home or self-care (01) ==
LOC: HO.ED 04-06 02:10 → HO.EDOVER 04-06 03:04 → HO.S3 04-06 14:03
PROVIDERS: Internal Medicine Gastroenterology; Physician Assistant; Admitting Provider Student in an Organized Health Care Education/Training Program; Emergency Provider Internal Medicine; PCP General Practice; Visit Provider Nurse Practitioner Acute Care
PROC: 0DJ08ZZ Inspection of Upper Intestinal Tract, Via Natural or Artificial Opening Endoscopic (ICD-10-PCS; CPT 43235; principal; 2023-04-07 11:30)
DX: R74.01 Elevation of levels of liver transaminase levels (principal); K29.70 Gastritis, unspecified, without bleeding; R10.11 Right upper quadrant pain; R07.9 Chest pain, unspecified; R11.2 Nausea with vomiting, unspecified; E11.9 Type 2 diabetes mellitus without complications; I10 Essential (primary) hypertension; M79.605 Pain in left leg; N83.201 Unspecified ovarian cyst, right side; D68.61 Antiphospholipid syndrome; Z79.84 Long term (current) use of oral hypoglycemic drugs; Z79.899 Other long term (current) drug therapy
CPT/HCPCS: 43239; 36415; 71045; 74177; 74181; 80048; 80053; 80076; 80307; 81003; 81025; 82947; 83690; 83880; 84484; 85025; 85610; 85730; 88305; 88342; 93005; 93971; 94640; 96365; 96366; 96375; 96376; 99221; 99285; J1170; J2060; J2270; J2405; Q9967

== ENCOUNTER → 2023-04-05 16:30 | Outpatient (BNV) | payer MEDICAID, SELFPAY | PROVIDERS: Emergency Provider Internal Medicine; PCP General Practice; Visit Provider Student in an Organized Health Care Education/Training Program | DX: R74.01 Elevation of levels of liver transaminase levels (principal) | CPT/HCPCS: 99222; 99239; 99499 ==

== ENCOUNTER 2023-04-28 11:12 | Outpatient (REF) | payer MEDICAID, SELFPAY ==
[2023-04-28 12:48] LABS: C Reactive Protein 0.84 mg/dL (< or = 0.50)
[2023-04-28 12:53] LABS: Erythrocyte Sedimentation Rate 8 MM/HR (0-20)
== END 2023-04-28 11:13 | disposition home or self-care (01) ==
LOC: HO.LAB 11:12
PROVIDERS: Visit Provider Nurse Practitioner Family
DX: M25.50 Pain in unspecified joint (principal)
CPT/HCPCS: 36415; 85652; 86140

== ENCOUNTER 2023-04-30 09:14 | Outpatient (AMB) | payer MEDICAID, SELFPAY ==
[2023-04-30 09:27] VITALS: BP 120/64; PULSE 62; TEMP 36.5; O2SAT 98; BMI 25.3
--- NOTE | 2023-04-30 09:27 | A.OFFVIS_ITS ---
Intake Vital Signs 04/30/23 09:27 Height 5 ft 6 in Weight 156 lb 8.451 oz BMI 25.3 BP 120/64 Blood Pressure Location Rt brachial Position Sitting Pulse 62 Pulse Source Pulse Oximeter Temp 97.7 F Temp Source Skin Pulse Oximetry (%) 98 Intake Visit Reasons: Fibromyalgia Intake Note: Pt seen today for follow up. She states she manages pain with ibuprofen and cyclobenzaprine, however cyclobenzaprine was d/c by another office on 01/30/23 as it was reported pt not taking. Last time rx was written was 2019. She claims she is still taking this, unsure who the prescriber is. Prefinish Operator Required: Yes Prefinish Operator Name: Jose Alfredo Segura242 Accompanied by: Self / Same As Patient Allergies penicillin G [PENICILLIN G] Allergy (Unknown, Verified 04/30/23 09:28) RASH, swelling, rash Medication List - Last Reconciled 04/30/23 by Ishmael Kingsley MD albuterol sulfate 90 mcg/actuation 1 inh inhalation DAILY PRN dvlblynyhn-cpuqicesbdilu-gwmr 50-325-40 mg 1 tab PO Q12H PRN cholecalciferol (vitamin D3) 50 mcg PO QAM dicyclomine 10 mg PO QIDACHS dulaglutide (Trulicity) 0.75 mg subcut OZUNA fluticasone propionate 110 mcg/actuation (Flovent HFA) 2 puffs inhalation BID ibuprofen 800 mg PO TID lidocaine 5% 1 patch topical DAILY PRN metformin 500 mg PO BID PRN omeprazole 40 mg PO DAILY@0630 propranolol 40 mg PO BID rivaroxaban (Xarelto) 20 mg PO DAILY PRN HPI HPI Comments History of Present Illness Details 47-year-old female with fibromyalgia ret urns for follow-up. States that she continues to have diffuse pain from head to toe. She also gets intermittent pain and swelling in her knuckles. Her main complaint today is left knee burning and tingling pain. She uses a lidocaine patch and sometimes uses ibuprofen when needed. [facility] Medical History Diabetes Gingivitis Fibromyalgia HTN (hypertension) Abnormal uterine bleeding History of gestational diabetes GERD (gastroesophageal reflux disease) Vitamin D deficiency Migraine Asthma Fibromyalgia Antiphospholipid antibody syndrome Surgical History History of laparoscopic cholecystectomy (01/30/23) History of elbow surgery History of delivery Family History Maternal Uncle Colon cancer Paternal Uncle Cancer of internal nose Social History Household Members: Spouse and Children Housing: House Are you a primary pediatric care coordinator to a significant other at home: No Do you presently have visiting nurse or other home services: No Alcohol intake: never Patient Tobacco Use Status: Never used Tobacco service: No Current occupational status: employed Review of Systems Const Reports headache(s) ENT Reports headache(s) Musc Reports arthralgias and Reports tingling Neuro Reports headache(s) and Reports tingling Physical Exam Vital Signs: Last Vital Signs Temp 97.7 F 04/30/23 09:27 Pulse 62 04/30/23 09:27 BP 120/64 04/30/23 09:27 Pulse Ox 98 04/30/23 09:27 BMI result Body Mass Index 25.3 Const General: cooperative, healthy appearing and comfortable Nutritional Appearance: average body habitus Orientation/consciousness: patient oriented x3 Limitations: no limitations HEENT Head: Yes normocephalic and Yes atraumatic Mouth: moist mucous membranes Resp Effort & Inspection: normal respiratory effort and able to speak in complete sentences Auscultation: clear to auscultation bilaterally Cardio Rate: regular rate Rhythm: regular rhythm Neuro General: patient oriented x3 Extrem Other: No active synovitis Normal nailfold capillaroscopy No knee pain with full flexion bilaterally multiple fibromyalgia tender points Results Reviewed Results Reviewed: Laboratory Tests 02/25/22 02/25/22 17:40 17:40 WBC 6.2 Hgb 11.7 L Hct 35.7 L Plt Count 253 Sodium 138 Potassium 4.2 Chloride 105 Carbon Dioxide 27 BUN 11 Creatinine 0.68 Random Glucose 170 H Calcium 8.9 D AST 16 ALT 14 Laboratory Tests 09/07/18 01/16/22 Unknown 09:00 CARYN Screen Negative Anti-Cardiolipin IgG Ab 2.3 Anti-Cardiolipin IgM Ab <2.0 [facility] 04/02/2018 Rheumatoid factor <15.0, CCP <16, CARYN negative, normal complements, Sjogren's antibodies negative, double-stranded DNA negative. Assessment & Plan Assessment & Plan (1) Fibromyalgia: Code(s): M79.7 - Fibromyalgia Plan: This is a 47-year-old female with fibromyalgia who presents for follow-up. Symptoms are stable. Patient takes cyclobenzaprine as needed. Prescribed by PCP. Can continue use cyclobenzaprine if helpful. I recommended measures to help her sleep, reduce stress and try to incorporate light exercises. Follow-up with PCP Patient states that she gets intermittent swelling of her knuckles. I do not see any active synovitis on exam today. Patient was evaluated multiple times for autoimmune rheumatic disease. With negative serologies. Follow-up as needed ? (2) Left knee pain: Code(s): M25.562 - Pain in left knee Plan: Mild left knee osteoarthritis on exam. I suggested Tylenol Arthritis, Voltaren gel, can use ibuprofen sparingly Plan I spent 26 minutes reviewing patient's chart, evaluating patient, counseling patient and documenting in the chart Coding Level of Care Code Est Pt Level 4 (66663) Diagnoses Fibromyalgia M79.7 Left knee pain M25.562
== END 2023-04-30 10:09 | disposition home or self-care (01) ==
PROVIDERS: PCP General Practice; Visit Provider Student in an Organized Health Care Education/Training Program
DX: M79.7 Fibromyalgia (principal); M25.562 Pain in left knee
CPT/HCPCS: 99214

== ENCOUNTER → 2023-04-30 09:14 | Outpatient (BNVA) | payer MEDICAID, SELFPAY | PROVIDERS: PCP General Practice; Visit Provider Student in an Organized Health Care Education/Training Program | DX: M79.7 Fibromyalgia (principal); M25.562 Pain in left knee | CPT/HCPCS: 99212 ==

== ENCOUNTER 2023-06-15 12:15 | Outpatient (REF) | payer MEDICAID, SELFPAY ==
[2023-06-15 12:22] LABS: MANUAL DIFF FLAG NO
[2023-06-15 12:34] LABS: Basophils Percent Auto 0.3 % (0-2); Eosinophils Absolute Auto 0.1 X10*3/uL (0.0-0.4); Eosinophils Percent Auto 1.4 % (0-4); Hematocrit 42.5 % (37.0-47.0); Hemoglobin 13.6 g/dl (12.0-16.0); Imm Gran Abs Auto 0.02 X10*3/uL (0.00-0.03); Imm Gran Pct Auto 0.3 % (0.0-0.4); Lymphocytes Absolute Auto 1.9 X10*3/uL (1.2-4.9); Lymphocytes Percent Auto 31.8 % (20-40); Mean Corpuscular Hemoglobin 29.1 pg (27.0-33.0); Mean Platelet Volume 11.7 fL (9.4-12.3); Monocytes Absolute Auto 0.4 X10*3/uL (0.1-1.2); Monocytes Percent Auto 6.4 % (2-11); Neutrophils Absolute Auto 3.5 x10*3/uL (2.0-8.3); Neutrophils Percent Auto 59.8 % (45-73); Platelet Count 279 X10*3/uL (160-400); Red Blood Count 4.67 X10*6/uL (4.20-5.50); Red Cell Distribution Width 13.3 % (11.0-16.0); White Blood Count 5.9 X10*3/uL (4.8-10.8)
[2023-06-15 13:11] LABS: Erythrocyte Sedimentation Rate 7 MM/HR (0-20)
[2023-06-15 13:23] LABS: C Reactive Protein 0.83 mg/dL (< or = 0.50)
== END 2023-06-15 12:16 | disposition home or self-care (01) ==
LOC: HO.LAB 12:15
PROVIDERS: PCP General Practice; Visit Provider Psychiatry & Neurology Neurology
DX: G43.909 Migraine, unspecified, not intractable, without status migrainosus (principal)
CPT/HCPCS: 36415; 85025; 85652; 86140

== ENCOUNTER 2023-08-31 16:22 | Inpatient (IN) | payer MEDICAID, SELFPAY ==
--- NOTE | ~2023-08-31 | MR_ITS ---
EXAMINATION: MR ABDOMEN WITHOUT CONTRAST CLINICAL INFORMATION: Abdominal pain, transaminitis. COMPARISON: CT abdomen/pelvis 09/01/2023 at 12:06 AM. MRCP 04/06/2023. TECHNIQUE: MR abdomen is performed without gadolinium contrast. 3D MRCP images were processed on an independent workstation under concurrent supervision. FINDINGS: Examination is limited by motion. LUNG BASES: Lung bases are clear. LIVER, GALLBLADDER, AND BILIARY TREE: The noncontrast liver is normal in size, shape and signal intensity without lesion. Cholecystectomy. No biliary ductal dilatation. No choledocholithiasis, though MRCP images are essentially nondiagnostic due to motion. PANCREAS: Limited examination secondary to motion and lack of IV contrast. No significant peripancreatic fat stranding or free fluid. No main ductal dilatation. SPLEEN: Normal size. No lesion. ADRENAL GLANDS: No adrenal mass. KIDNEYS AND URETERS: Bilateral peripelvic simple cysts for which no imaging followup is recommended. No hydronephrosis. No perinephric fat stranding. GASTROINTESTINAL TRACT: No bowel obstruction. No ascites. ABDOMINAL WALL: No significant hernia is appreciated. LYMPH NODES: No lymphadenopathy. VASCULAR: Normal caliber abdominal aorta. OSSEOUS STRUCTURES: No acute or aggressive-appearing osseous findings. MR/MR MRCP IMPRESSION: The examination is very limited due to motion, although accounting for this limitation, no discrete acute abdominal finding is seen.
--- NOTE | ~2023-08-31 | FL_ITS ---
EXAMINATION: XR FLUOROSCOPY WITH IMAGES CLINICAL INFORMATION: Nondiagnostic MRCP. COMPARISON: MRCP/MRI abdomen 09/01/2023. TECHNIQUE: Fluoroscopy Supervised By: Dr. Riddle. Fluoroscopy Time: 273.4. Cumulative Dose: 70.67 mGy. Images: 2. FINDINGS: There are 2 digital images obtained during ERCP. There is contrast opacifying the CBD, right and left hepatic ducts. No intraluminal filling defects seen on these limited images. There are surgical mono in the right upper quadrant from previous cholecystectomy. FL/FL guidance in OR IMPRESSION: Fluoroscopy was provided to referring physician during ERCP.
--- NOTE | ~2023-08-31 | CT_ITS ---
EXAMINATION: CT ABDOMEN AND PELVIS WITH CONTRAST CLINICAL INFORMATION: 04/05/2023. COMPARISON: None available. TECHNIQUE: Multidetector volumetric images were obtained from the superior aspect of the liver through the pubic symphysis following administration 85 mL of Omnipaque 350 intravenous contrast. Sagittal and coronal reformatted images were obtained on the technologist's workstation. Oral contrast: No This CT examination was performed using dose optimization techniques as appropriate, variously including the following: *Automated exposure control *Adjustment of mA and/or kV according to patient size (this includes techniques or standardized protocols for targeted exams where dose is matched to indication/reason for exam; i.e. extremities or head) *Use of iterative reconstruction technique DLP: 563 mGy-cm FINDINGS: LUNG BASES: The visualized lung bases are unremarkable. LIVER, GALLBLADDER, AND BILIARY TREE: The liver is normal in size, shape, and attenuation. No focal hepatic lesion or biliary ductal dilatation is present. There has been a prior cholecystectomy. PANCREAS: Unremarkable. SPLEEN: Unremarkable. ADRENAL GLANDS: Unremarkable. KIDNEYS AND URETERS: The kidneys are normal in size, shape, and attenuation. No hydronephrosis, hydroureter, or calculi seen. No perinephric stranding. BLADDER: Unremarkable. GASTROINTESTINAL TRACT: The small and large bowel are unremarkable. The appendix is unremarkable. ABDOMINAL WALL: No significant hernia is appreciated. LYMPH NODES: Normal. VASCULAR: Unremarkable. PELVIC VISCERA: Unremarkable. OSSEOUS STRUCTURES: Unremarkable. CT/CT abdomen pelvis w IV con IMPRESSION: No significant abnormality. Fleischner guidelines were followed.
[2023-08-31 17:01] VITALS: BP 132/67; PULSE 82; RESP 18; TEMP 36.3; O2SAT 100; BMI 25.6
[2023-08-31 18:07] LABS: MANUAL DIFF FLAG NO
[2023-08-31 18:08] LABS: Basophils Percent Auto 0.1 % (0-2); Eosinophils Percent Auto 0.2 % (0-4); Hematocrit 30.8 % (37.0-47.0); Hemoglobin 10.1 g/dl (12.0-16.0); Imm Gran Abs Auto 0.03 X10*3/uL (0.00-0.03); Imm Gran Pct Auto 0.4 % (0.0-0.4); Lymphocytes Absolute Auto 1.3 X10*3/uL (1.2-4.9); Lymphocytes Percent Auto 15.5 % (20-40); Mean Corpuscular HGB Conc 32.8 g/dl (31.0-35.0); Mean Corpuscular Hemoglobin 28.9 pg (27.0-33.0); Mean Corpuscular Volume 88.3 fL (80.0-98.0); Mean Platelet Volume 11.5 fL (9.4-12.3); Monocytes Absolute Auto 0.4 X10*3/uL (0.1-1.2); Monocytes Percent Auto 4.4 % (2-11); Neutrophils Absolute Auto 6.5 x10*3/uL (2.0-8.3); Neutrophils Percent Auto 79.4 % (45-73); Platelet Count 256 X10*3/uL (160-400); Red Blood Count 3.49 X10*6/uL (4.20-5.50); Red Cell Distribution Width 12.2 % (11.0-16.0); White Blood Count 8.2 X10*3/uL (4.8-10.8)
[2023-08-31 18:21] LABS: Alanine Aminotransferase 253 U/L (0-31); Albumin Level 4.1 g/dL (3.5-5.0); Alkaline Phosphatase 110 U/L (39-117); Anion Gap 12 (12-20); Aspartate Amino Transferase 611 U/L (5-31); Bilirubin Total 0.8 mg/dL (0.0-1.0); Blood Urea Nitrogen 9 mg/dL (9-16); Calcium 9.2 mg/dL (8.4-10.2); Carbon Dioxide 27 mmol/L (22-29); Chloride 107 mmol/L (96-108); Creatinine Clr Calc Pharmacy 104.7; Estimated Glomerular Filt Rate > 60; Glucose Random 129 mg/dL (60-115); Lipase 52 U/L (8-78); Potassium 3.5 mmol/L (3.3-5.1); Sodium 142 mmol/L (135-145)
[2023-08-31 22:50] VITALS: BP 147/94; PULSE 72; RESP 20; TEMP 36.9; O2SAT 100
[2023-08-31 23:35] LABS: C Reactive Protein 0.82 mg/dL (< or = 0.50)
[2023-08-31] MEDS: droPERidol 5 MG/2 ML VIAL 0.625 MG IVPUSH (23:44)
[2023-08-31] MEDS: 0.9 % Sodium Chloride 1,000 ML 999 ML IV (23:48)
[2023-09-01] VITALS (7 sets, daily range): BP systolic 112–145; BP diastolic 64–80; PULSE 59–88; RESP 18; TEMP 36.3–36.7; O2SAT 96–100; BMI 26.6
[2023-09-01] MEDS: iohexoL 350 MG/ML 100 ML INFUS..BTL 85 ML IV (00:11)
--- NOTE | 2023-09-01 00:28 | ED_ITS ---
HPI - General Adult General Chief complaint: Abdominal Pain Stated complaint: abd pain Time Seen by Provider: 08/31/23 23:14 History of Present Illness HPI narrative: The patient is a 48-year-old female who had a cholecystectomy in January of [address] Madsen. Two months later the patient was hospitalized for abdominal pain similar to her biliary pain and had abnormal LFTs. During that hospitalization she had an MRCP that showed no ductal stones. No definite explanation for the patient's pain or elevated LFTs was made. The presumption was that she might have passed a stone prior to the MRCP. The patient says that since that hospitalization she continues to have fairly frequent abdominal pain of the same nature. She says this fairly chronic pain became much worse 2 days ago and finally she came to the emergency room today because of this pain. She feels the pain in her right upper abdomen radiating to the right side of her back. She has had nausea and vomiting. No diarrhea. No urinary symptoms. The patient says she has never used alcohol. Related Data Home Medications Medication Instructions Recorded Confirmed fluticasone propionate 110 2 puff inhalation BID 09/06/20 04/06/23 mcg/actuation HFA aerosol inhaler (Flovent HFA) propranolol 40 mg tablet 40 mg PO BID migraine 01/16/22 04/06/23 dulaglutide 0.75 mg/0.5 mL 0.75 mg subcut OZUNA 11/19/22 04/06/23 subcutaneous pen injector (Trulicity) rivaroxaban 20 mg tablet (Xarelto) 20 mg PO DAILY PRN when traveling 01/20/23 04/06/23 albuterol sulfate 90 mcg/actuation 1 inh inhalation DAILY PRN Wheezing 01/30/23 04/06/23 aerosol inhaler lidocaine 5 % topical patch 1 patch topical DAILY PRN Pain 01/30/23 04/06/23 raftvsmmlg-nmlgvenjbwafp-ugyvlygt 1 tab PO Q12H PRN MIGRAINES 04/06/23 04/06/23 50 mg-325 mg-40 mg tablet cholecalciferol (vitamin D3) 50 50 mcg PO QAM 04/30/23 mcg (2,000 unit) capsule ibuprofen 800 mg tablet 800 mg PO TID 04/30/23 metformin 500 mg tablet 500 mg PO BID PRN 04/30/23 Previous Rx's Medication Instructions Recorded dicyclomine 10 mg capsule 10 mg PO QIDACHS #40 caps 04/07/23 omeprazole 40 mg capsule,delayed 40 mg PO DAILY@0630 #30 caps 04/07/23 release Allergies Allergy/AdvReac Type Severity Reaction Status Date / Time penicillin G [PENICILLIN G] Allergy Unknown RASH, Verified 08/31/23 17:01 swelling, rash Review of Systems 2 Review of Systems: Yes all other systems are reviewed and are negative PMFSH Past Medical History Onset Date is defined in the Problem List Problems that require an onset date and time if occurred within 24 hrs of arrival to the ED Aortic Dissection and Rupture; Neurologic impairment; Cardiopulmonary Arrest; Endotracheal Intubation; Insertion or Replacement of Mechanical Circulatory Assist Device Medical History Diabetes Gingivitis Fibromyalgia HTN (hypertension) Abnormal uterine bleeding History of gestational diabetes GERD (gastroesophageal reflux disease) Vitamin D deficiency Migraine Asthma Fibromyalgia Antiphospholipid antibody syndrome Surgical History History of laparoscopic cholecystectomy (01/30/23) History of elbow surgery History of delivery Family History Family History Maternal Uncle Colon cancer Paternal Uncle Cancer of internal nose Social History Social History Household Members: Spouse and Children Housing: House Are you a primary respite care provider to a significant other at home: No Do you presently have visiting nurse or other home services: No Alcohol intake: never Patient Tobacco Use Status: Never used Tobacco Smoked in Last 30 Days: No Use of substances other than those prescribed or required for medical reasons: No Advance Directives: No Advance Directives Information Provided: No service: No Current occupational status: employed Physical Exam ED Vital Signs: Vital Signs - 24 hr 08/31/23 17:01 08/31/23 22:50 09/01/23 00:30 Temperature 97.3 F 98.4 F 97.9 F Pulse Rate 82 72 88 Respiratory Rate 18 20 18 Blood Pressure 132/67 147/94 H 140/80 H Pulse Oximetry 100 100 96 Oxygen Delivery Method Room Air Room Air Room Air BMI result Body Mass Index 25.6 Const Other: The patient is awake and alert looks uncomfortable. HENMT Other: The face is symmetrical. ?Mucous membranes moist. Eyes Other: Pupils are round equal, conjunctivae are clear, extraocular movements intact Neck Neck: Yes no JVD Resp Effort & Inspection: normal respiratory effort Auscultation: clear to auscultation bilaterally Cardio Rate: regular rate Rhythm: regular rhythm Heart sounds: S1 normal heart sound present and S2 normal heart sound present GI Other: The abdomen is quite tender diffusely. Most tender in the right upper quadrant. Back/Spine/Pelvis Other: No CVA percussion tenderness Skin Other: Skin is pale and dry Neuro Other: Awake and alert, speech clear, face symmetrical, moving her extremities normally, grossly neurologically intact Extrem Other: No peripheral edema Medications Administered Discontinued Medications Generic Name Dose Route Start Last Admin Trade Name Issaq PRN Reason Stop Dose Admin Droperidol 0.625 mg 08/31/23 23:23 08/31/23 23:44 Droperidol 5 Mg/2 Ml Vial IVPUSH 08/31/23 23:24 0.625 mg ONCE ONE Administration Sodium Chloride 1,000 mls @ 999 mls/hr 08/31/23 23:30 09/01/23 00:58 Ns IV 09/01/23 00:30 Infused .Q1H1M ASHLIE Infusion Iohexol 85 ml 09/01/23 00:07 09/01/23 00:11 Iohexol 350 Mg/Ml 100 Ml Infus..Btl IV 09/01/23 00:08 85 ml ONCE ONE Administration Ketorolac Tromethamine 15 mg 08/31/23 23:59 09/01/23 00:54 Ketorolac Tromethamine 15 Mg/Ml Vial IVPUSH 09/01/23 00:00 15 mg ONCE ONE Administration Morphine Sulfate 4 mg 08/31/23 23:23 09/01/23 00:57 Morphine Sulfate 4 Mg/Ml Cartridge IVPUSH 08/31/23 23:24 Not Given ONCE ONE Protocol Medical Decision Making Medical Decision Making MDM Narrative: The patient is a 48-year-old woman who had her gallbladder out 7 months ago in January of 2023. Subsequent to the surgery she was hospitalized 2 months later for right upper quadrant pain and was found to have elevated transaminases. She was his then had a negative MRCP and an unremarkable upper endoscopy. She was assumed to possibly have had a passed ductal stone. The patient now presents with 2 days of pain that I believe is quite similar to the pain for which she was hospitalized in March. Again her transaminases are elevated. Her AST is 600 and her ALT is 253. However her bilirubin is not elevated and her lipase is normal. She was quite tender in the right upper quadrant on exam. A CT scan of the abdomen and pelvis shows no ductal stones, ductal dilation, or other explanation for her symptoms. The patient felt better after a dose of ketorolac but remained quite tender in the right upper quadrant. Given the elevated transaminases and the degree of discomfort I think that hospitalization for observation and further evaluation by Gastroenterology is not unreasonable. The patient will therefore be admitted to the hospitalist service. Lab Data 08/31/23 18:02 08/31/23 18:02 Labs: Lab Results 08/31/23 Range/Units 18:02 WBC 8.2 (4.8-10.8) X10*3/uL RBC 3.49 L D (4.20-5.50) X10*6/uL Hgb 10.1 L D (12.0-16.0) g/dl Hct 30.8 L D (37.0-47.0) % MCV 88.3 (80.0-98.0) fL MCH 28.9 (27.0-33.0) pg MCHC 32.8 (31.0-35.0) g/dl RDW 12.2 (11.0-16.0) % Plt Count 256 (160-400) X10*3/uL MPV 11.5 (9.4-12.3) fL Immature Gran % (Auto) 0.4 (0.0-0.4) % Neut % (Auto) 79.4 H (45-73) % Lymph % (Auto) 15.5 L (20-40) % [place] % (Auto) 4.4 (2-11) % Eos % (Auto) 0.2 (0-4) % Baso % (Auto) 0.1 (0-2) % Lymph # (Auto) 1.3 (1.2-4.9) X10*3/uL [place] # (Auto) 0.4 (0.1-1.2) X10*3/uL Eos # (Auto) 0.0 (0.0-0.4) X10*3/uL Baso # (Auto) 0.0 (0.0-0.2) X10*3/uL Abs Immat Gran (auto) 0.03 (0.00-0.03) X10*3/uL Absolute Neuts (auto) 6.5 (2.0-8.3) x10*3/uL Absolute Nucleated RBC 0.000 (0.0-0.012) X10*3/uL Nucleated RBC % (auto) 0.0 (0.0-0.2) /100WBC Sodium 142 (135-145) mmol/L Potassium 3.5 (3.3-5.1) mmol/L Chloride 107 (96-108) mmol/L Carbon Dioxide 27 (22-29) mmol/L Anion Gap 12 (12-20) BUN 9 (9-16) mg/dL Creatinine 0.63 (0.5-1.4) mg/dL Estim Creat Clear Calc 104.7 Estimated GFR > 60 Random Glucose 129 H (60-115) mg/dL Calcium 9.2 (8.4-10.2) mg/dL Total Bilirubin 0.8 (0.0-1.0) mg/dL AST 611 H (5-31) U/L ALT 253 H (0-31) U/L Alkaline Phosphatase 110 (39-117) U/L C-Reactive Protein 0.82 H (< or = 0.50) mg/dL Total Protein 7.0 (6.5-8.0) g/dL Albumin 4.1 (3.5-5.0) g/dL Lipase 52 (8-78) U/L Ethyl Alcohol < 10 mg/dL Discharge Plan Discharge Clinical Impression: Right upper quadrant abdominal pain, Transaminitis Patient Disposition: Admitted As Inpatient
[2023-09-01] MEDS: Ketorolac Tromethamine 15 MG/ML VIAL IVPUSH (00:54)
[2023-09-01 01:35] LABS: Ethanol < 10 mg/dL
--- NOTE | 2023-09-01 02:00 | PM.IMHP ---
History of Present Illness Date of Service: 09/01/23 Chief Complaint: Abdominal Pain This is a 48-year-old female with pertinent history of antiphospholipid syndrome, fibromyalgia, vxq-dfrednw-cwtmnitua diabetes mellitus who presents to the emergency department for evaluation of abdominal discomfort. Patient had a cholecystectomy in January 2023. She was admitted in March 2023 for evaluation of abdominal discomfort and elevated transaminases. It was thought to be due to gastritis and elevated liver enzymes possibly related to a stone that passed as no stones seen on MRCP. Liver enzymes trended prior to discharge in March 2023. Patient states she has had similar pain that she had in March 2023 that started 2 days prior to presentation. It is in the epigastric /right upper quadrant region and radiates to the back. It is intermittent and without any relieving or aggravating factors. No relation of pain to food. Patient also has associated nausea and vomiting. It has been progressive over the last 48 hours. No fever or chills or diarrhea. No chest discomfort, palpitations, shortness of breath, changes in urinary habits. Denies alcohol use In the emergency department, AST/ ALT found to be elevated Review of Systems Constitutional: Constitutional: Reports no additional constitutional complaints Cardiovascular: Cardiovascular: Reports no additional cardiovascular complaints Respiratory: Respiratory: Reports no additional respiratory complaints Gastrointestinal: Gastrointestinal: Reports abdominal pain, Reports nausea and Reports vomiting Genitourinary: Genitourinary: Reports no additional female genitourinary complaints [facility] Medical History Diabetes Gingivitis Fibromyalgia HTN (hypertension) Abnormal uterine bleeding History of gestational diabetes GERD (gastroesophageal reflux disease) Vitamin D deficiency Migraine Asthma Fibromyalgia Antiphospholipid antibody syndrome Family History Maternal Uncle Colon cancer Paternal Uncle Cancer of internal nose Surgical History History of laparoscopic cholecystectomy (01/30/23) History of elbow surgery History of delivery Social History Household Members: Spouse and Children Housing: House Are you a primary ocular care technologist to a significant other at home: No Do you presently have visiting nurse or other home services: No Alcohol intake: never Patient Tobacco Use Status: Never used Tobacco Smoked in Last 30 Days: No Use of substances other than those prescribed or required for medical reasons: No Advance Directives: No Advance Directives Information Provided: No service: No Current occupational status: employed Meds Allergies Allergy/AdvReac Type Severity Reaction Status Date / Time penicillin G [PENICILLIN G] Allergy Unknown RASH, Verified 08/31/23 17:01 swelling, rash Home Medications Medication Instructions Recorded Confirmed Last Taken Type fluticasone propionate 110 2 puff inhalation BID 09/06/20 04/06/23 Unknown History mcg/actuation HFA aerosol inhaler (Flovent HFA) propranolol 40 mg tablet 40 mg PO BID migraine 01/16/22 04/06/23 Unknown History dulaglutide 0.75 mg/0.5 mL 0.75 mg subcut OZUNA 11/19/22 04/06/23 Unknown History subcutaneous pen injector (Trulicity) rivaroxaban 20 mg tablet (Xarelto) 20 mg PO DAILY PRN when traveling 01/20/23 04/06/23 01/13/23 History albuterol sulfate 90 mcg/actuation 1 inh inhalation DAILY PRN Wheezing 01/30/23 04/06/23 Unknown History aerosol inhaler lidocaine 5 % topical patch 1 patch topical DAILY PRN Pain 01/30/23 04/06/23 Unknown History qgjytdilua-pfqwyofsiymrn-dxzwkray 1 tab PO Q12H PRN MIGRAINES 04/06/23 04/06/23 Unknown History 50 mg-325 mg-40 mg tablet cholecalciferol (vitamin D3) 50 50 mcg PO QAM 04/30/23 Unknown History mcg (2,000 unit) capsule ibuprofen 800 mg tablet 800 mg PO TID 04/30/23 Unknown History metformin 500 mg tablet 500 mg PO BID PRN 04/30/23 Unknown History Physical Exam Vital Signs and Narrative: Vital Signs: Last Vital Signs Temp 97.9 F 09/01/23 00:30 Pulse 88 09/01/23 00:30 Resp 18 09/01/23 00:30 BP 140/80 H 09/01/23 00:30 Pulse Ox 96 09/01/23 00:30 O2 Del Method Room Air 09/01/23 00:30 BMI result Body Mass Index 25.6 Middle-aged female lying in bed in no distress Neck supple, no JVD Regular rate and rhythm, S1-S2 heard Regular breath sounds bilaterally, no wheezing or crackles appreciated Abdomen with epigastric/right upper quadrant tenderness to deep palpation, no guarding, no rigidity, no rebound tenderness Patient is awake, alert and oriented to self, place, time and person ; no focal motor deficit Psych: Normal mood No pedal edema Results Labs 08/31/23 18:02 08/31/23 18:02 Labs: Laboratory Results - last 24 hr 08/31/23 18:02 MCV 88.3 MCH 28.9 MCHC 32.8 RDW 12.2 Plt Count 256 MPV 11.5 Immature Gran % (Auto) 0.4 Neut % (Auto) 79.4 H Lymph % (Auto) 15.5 L [place] % (Auto) 4.4 Eos % (Auto) 0.2 Baso % (Auto) 0.1 Lymph # (Auto) 1.3 [place] # (Auto) 0.4 Eos # (Auto) 0.0 Baso # (Auto) 0.0 Abs Immat Gran (auto) 0.03 Absolute Neuts (auto) 6.5 Absolute Nucleated RBC 0.000 Nucleated RBC % (auto) 0.0 Anion Gap 12 Estim Creat Clear Calc 104.7 Estimated GFR > 60 Random Glucose 129 H Calcium 9.2 Total Bilirubin 0.8 AST 611 H ALT 253 H Alkaline Phosphatase 110 C-Reactive Protein 0.82 H Total Protein 7.0 Albumin 4.1 Lipase 52 Ethyl Alcohol < 10 Imaging Radiologist's Impressions: Impressions Abdomen/Pelvis CT 09/01/23 00:13 IMPRESSION: No significant abnormality. Fleischner guidelines were followed. Assessment and Plan (1) Transaminitis: Status: Acute Plan This is a 48-year-old female with pertinent history of antiphospholipid syndrome, fibromyalgia, yxq-sjubypl-zazahaygd diabetes mellitus who presents to the emergency department for evaluation of abdominal discomfort. #. Abdominal pain with elevated transaminases. Unclear etiology. With admit for pain control and consult Gastroenterology, appreciate assistance. CT abdomen without acute abnormalities. Repeat liver enzymes in a.m.. Patient not septic. Obtaining CK #. Wzx-wzbxsok-hlffpxufi diabetes mellitus. Initiating Accu-Cheks with sliding scale insulin #. Mild intermittent asthma : No exacerbation. Continue inhalers #. History of antiphospholipid antibody: on Xarelto prn during travel Med rec pending DVT prophylaxis: Mechanical Full code Quality Stroke Does the patient have a stroke diagnosis?: No VTE Prior VTE?: No VTE Risk Level:: Medical - moderate - high VTE Device Contraindication: N/A - Device Ordered VTE Drug Contraindication: Treatment Not Indicated
[2023-09-01 02:13] LABS: Glucose, Whole Blood 98 mg/dL (60-115)
[2023-09-01 07:16] LABS: MANUAL DIFF FLAG NO
[2023-09-01 07:26] LABS: Glucose, Whole Blood 113 mg/dL (60-115)
[2023-09-01] MEDS: 0.9 % Sodium Chloride Flush 3 ML SYRINGE IVFLUSH ×2 (07:26→23:29)
[2023-09-01 07:32] LABS: Basophils Percent Auto 0.4 % (0-2); Eosinophils Absolute Auto 0.1 X10*3/uL (0.0-0.4); Hematocrit 27.7 % (37.0-47.0); Imm Gran Abs Auto 0.01 X10*3/uL (0.00-0.03); Imm Gran Pct Auto 0.2 % (0.0-0.4); Lymphocytes Absolute Auto 1.4 X10*3/uL (1.2-4.9); Lymphocytes Percent Auto 26.9 % (20-40); Mean Corpuscular HGB Conc 32.5 g/dl (31.0-35.0); Mean Corpuscular Hemoglobin 28.8 pg (27.0-33.0); Mean Corpuscular Volume 88.8 fL (80.0-98.0); Mean Platelet Volume 12.9 fL (9.4-12.3); Monocytes Absolute Auto 0.3 X10*3/uL (0.1-1.2); Monocytes Percent Auto 6.4 % (2-11); Neutrophils Absolute Auto 3.4 x10*3/uL (2.0-8.3); Neutrophils Percent Auto 65.1 % (45-73); Platelet Count 205 X10*3/uL (160-400); Red Blood Count 3.12 X10*6/uL (4.20-5.50); Red Cell Distribution Width 12.6 % (11.0-16.0); White Blood Count 5.2 X10*3/uL (4.8-10.8)
[2023-09-01 07:50] LABS: Alanine Aminotransferase 517 U/L (0-31); Albumin Level 3.5 g/dL (3.5-5.0); Alkaline Phosphatase 103 U/L (39-117); Anion Gap 11 (12-20); Aspartate Amino Transferase 839 U/L (5-31); Bilirubin Total 0.5 mg/dL (0.0-1.0); Blood Urea Nitrogen 8 mg/dL (9-16); Calcium 8.3 mg/dL (8.4-10.2); Carbon Dioxide 24 mmol/L (22-29); Chloride 111 mmol/L (96-108); Creatinine Clr Calc Pharmacy 110.1; Estimated Glomerular Filt Rate > 60; Glucose Random 91 mg/dL (60-115); Potassium 3.7 mmol/L (3.3-5.1); Sodium 142 mmol/L (135-145); Total Protein 5.9 g/dL (6.5-8.0)
--- NOTE | 2023-09-01 09:03 | PHA.MEDREC ---
Pharmacy Consult ? Medication Reconciliation Pharmacy has completed the medication reconciliation. Utilized print production coordinator services. Pt confirmed meds. Pt states they take Provera 10 days a month - finished with this month's dose regimen. Leaving Provera off med rec.
--- NOTE | 2023-09-01 10:34 | PM.EVENT ---
Event Note Date of Service: 09/01/23 Event Note: This is a 48-year-old female with pertinent history of antiphospholipid syndrome, fibromyalgia, lzr-xnxghkf-yricgsxoj diabetes mellitus who presents to the emergency department for evaluation of abdominal discomfort. Had previous hospitalization with similar symptoms in 03/2023 with no obvious etiology. Previos CCY on 01/2023 Abdominal pain with elevated transaminases. Unclear etiology. consult Gastroenterology CT abdomen without acute abnormalities. MRCP ordered pain management NPO for now Transaminitis no obvious etiology Unremarkable pancreas on CT, no obvious abnormality noted on CT scan check hep panel Cmv-peuwpud-pozodtpqv diabetes mellitus. ss, ada diet when no longer NPO Mild intermittent asthma No exacerbation. Continue inhalers History of antiphospholipid antibody on Xarelto prn during travel DVT prophylaxis: Mechanical Attending Dr. Rush Full code Continue hospitalization for treatment of acute abdominal pain with transaminitis of unclear etiology pending specialty consultation Time Spent With Patient Time: Total time managing care of this patient today ____ minutes.
[2023-09-01] MEDS: diazePAM 10 MG/2 ML CARTRIDGE 2.5 MG IVPUSH (10:53)
--- NOTE | 2023-09-01 12:26 | MHC.CM.PN ---
CM met with patient, search specialist assisting. RUSSELL delivered. Patient is from home w/ . Functionally independent. PCP: Yecenia Mauro MD No HCP. CM provided education and offered assistance. Patient declined. DP: Goal is home self care. to transport. CM will continue to follow.
[2023-09-01] MEDS: Acetaminophen 325 MG TABLET 650 MG PO ×2 (13:21→23:29)
[2023-09-01 13:33] LABS: Glucose, Whole Blood 80 mg/dL (60-115)
[2023-09-01 13:39] LABS: Appearance Urine Clear; Color Urine Dark Yellow; Glucose Urine UA Negative (Negative); Leukocyte Esterase Urine Negative (Negative); Nitrite Urine Negative (Negative); PH 5.5 (5.0-9.0); Specific Gravity - Urine >= 1.030 (1.005-1.025); UMIC TRIGGER UACC YES; Urine Blood Small (1+) (Negative); Urine Ketones Trace mg/dL (Negative); Urine Protein Trace mg/dL (Neg-Trace)
[2023-09-01 13:46] LABS: Bacteria Urine None Seen (None Seen); Hyaline Casts Urine 0-2 /LPF (0-2); WBC Urine 0-5 /HPF (0-5)
[2023-09-01] MEDS: oxyCODONE HCl Immed Release 5 MG TABLET PO ×2 (14:47→23:29)
[2023-09-01 16:43] LABS: Prothrombin Time 12.1 SEC (11.1-13.3)
[2023-09-01 16:47] LABS: Acetaminophen LAB 7 mcg/mL (<30)
[2023-09-01 16:58] LABS: Monotest Negative (Negative)
--- NOTE | 2023-09-01 19:31 | PM.EVENT ---
Event Note Date of Service: 09/01/23 Event Note: GI Consult-Full note dictated-History from the patient with a medical billing manager, and from the EMR Imp: Biliary-type RUQ pain with associated elevated liver enzymes, although in a hepatocellular pattern with a normal TBili and Alk phos. She describes this as identical to her gallbladder pain prior to her CCY in 01/2023. She does describe yellow eyes at home last week. She had an admission in 03/2023 with RUQ pain and elevated LFT's with a negative MRCP and basically unremarkable EGD with Dr. Riddle. She describes that this pain has been intermittent since her CCY, but much more often than not.She currently appears well and her abdomen is benign. However, her LFT's remain higher today that on admission. Rec: Given her clinical history of the RUQ pain and significantly elevated LFT's, as well as self-reported jaundice last week, I suspect a biliary cause of her pain despite negative imaging studies. This may reperesent a CBD stone(s) or sphincter of Oddi disease with biliary dyskinesia. Given her ongoing symptoms since her CCY and this being her 2nd admission, I would recommend an ERCP with me or Dr. Riddle. Full consent has been obtained for this, including risks of bleeding, perforation, cholangitis, and pancreatitis. We will try to get this done on 09/02 or 09/03 depending on the OR schedule. D/W patient in detail and she is comfortable with this plan. Thanks Time Spent With Patient Time: Total time managing care of this patient today ____ minutes.
--- NOTE | 2023-09-01 19:43 | MHC.SHP ---
Pre-Procedural Eval Section A Date of Service: 09/02/23 The patient is an INPATIENT: Yes The History & Physical has been completed within 30 days and I have reviewed it.: Yes Section B Chief Complaint: abd pain Allergies: Allergies Allergy/AdvReac Type Severity Reaction Status Date / Time penicillin G [PENICILLIN G] Allergy Unknown RASH, Verified 08/31/23 17:01 swelling, rash Plan I have reviewed the history and physical and performed a pertinent physical examination on my patient. No changes have occurred unless specified. Time Spent With Patient Time: Total time managing care of this patient today ____ minutes.
[2023-09-01] MEDS: Insulin Lispro 100 UNIT/ML 3 ML VIAL SUBCUT (23:28)
[2023-09-01] MEDS: Melatonin 3 MG TABLET 6 MG PO (23:29)
[2023-09-01 23:32] LABS: Glucose, Whole Blood 172 mg/dL (60-115)
[2023-09-02] VITALS (12 sets, daily range): BP systolic 120–166; BP diastolic 62–95; PULSE 60–84; RESP 14–20; TEMP 36–37.2; O2SAT 96–100
--- NOTE | 2023-09-02 01:20 | CONS_ITS ---
DATE OF SERVICE: 09/01/2023 REASON FOR CONSULTATION: Right upper quadrant abdominal pain and elevated LFTs. HISTORY OF PRESENT ILLNESS: This has been obtained from the patient with a hospital medical biller, and from the medical record. The patient is a 48-year-old female who was admitted with right upper quadrant abdominal pain and elevated liver enzymes. Her history is notable for undergoing a cholecystectomy in January of 2023 for symptomatic gallstones. At that time, she had a preoperative ultrasound describing her gallstones and a normal common bile duct. At that time, the ultrasound described multiple stones in the gallbladder and the common duct of 6 mm. Laboratories preoperatively revealed a normal total bilirubin, normal liver enzymes, and a normal alkaline phosphatase. She describes that since her surgery, she was continuing to have right upper quadrant abdominal pain similar to her preoperative symptoms. She describes that the right upper quadrant pain was almost daily, although she would have occasional days in which the pain would go away. The pain was usually low-grade, but at times would become quite severe. She was admitted here in March with an episode of more severe pain, and at that time, had elevated LFTs with an AST of over 500 and ALT of over 300. At that time, her total bilirubin was normal, as was the alkaline phosphatase. Imaging studies at that time included a nonrevealing MRCP without any sign of choledocholithiasis and a nonrevealing CT scan as well. She did undergo an upper endoscopy in March during that admission, which was unremarkable other than some very minimal gastritis and gastric biopsies that were negative for H pylori. She was discharged with improving LFTs. However, she was readmitted currently due to recurrent symptoms and significant elevation of the liver enzymes. She denies any use of alcohol. She denies any previous history of liver disease in herself nor immediate relatives. She denies any significant heartburn nor dysphagia. She does have intermittent vomiting. She reports that her bowel movements have been regular and without melena nor hematochezia. She denies any fevers nor chills. However, she does describe an episode of yellow eyes last week at home. She did not notice any darkened urine, however. She denies using any new medication either by prescription or [id number]. She does take occasional ibuprofen, but not on a daily basis. She does not use any significant amounts of acetaminophen. She does not use any illicit drugs. MEDICATIONS: Medications at home included albuterol inhaler p.r.n., butalbital with acetaminophen. Vitamin D. Trulicity once a week. Medications here in the hospital include oxycodone p.r.n., Zofran p.r.n., morphine p.r.n., melatonin p.r.n., sliding scale insulin. PAST MEDICAL HISTORY: section, elbow surgery, cholecystectomy, and lipoma on her scalp. She has an underlying history of antiphospholipid syndrome, fibromyalgia, diabetes mellitus. She denies any history of RI, stroke, nor kidney disease. She does have asthma. Hypertension. Abnormal uterine bleeding, for which she is being followed by the erp specialist. Migraines. Vitamin D deficiency. SOCIAL HISTORY: She does not smoke nor use any significant amounts of alcohol. FAMILY HISTORY: Noncontributory. REVIEW OF SYSTEMS: CONSTITUTIONAL: In general, she feels well with good appetite. SKIN: No rash. No pruritus. CARDIAC: No chest pain. PULMONARY: No coughing or hemoptysis. GI: As above. URINARY: No dysuria. No hematuria. NEUROLOGIC: No seizures. She does have migraines. PHYSICAL EXAMINATION: GENERAL: The patient is a pleasant, alert, comfortable-appearing female. SKIN: Warm and dry. HEENT: Anicteric sclerae. NECK: Supple without lymphadenopathy. CHEST: Clear. CARDIAC: Normal S1, S2. ABDOMEN: Soft, nondistended, normal bowel sounds. She does have some mild right upper quadrant tenderness, but without palpable mass, rebound, nor guarding. EXTREMITIES: Without edema. LABORATORY DATA: As above. On this admission, she had a CT scan of the abdomen and pelvis, which again was nonrevealing. She also had another MRCP, which the report describes as somewhat suboptimal due to movement artifact, which did not yield optimal MRCP images. I did review the scan and do not visualize any definitive biliary filling defects. Her laboratories are notable for white blood cell count of 5.2, hemoglobin 9.0, MCV 89, platelets 205,000; PT 12.1 with INR 1.0; normal bilirubin and alkaline phosphatase, AST on admission was 611 and today was 839, ALT on admission was 253 and today was 517. Albumin 3.5. Lipase was 52. Monospot was negative. Ethanol level was nondetectable. Acetaminophen level is only 7. CARYN is pending. She had negative CARYN in 2019. Hepatitis C was negative in 2019. Hepatitis serology is currently pending. IMPRESSION: Overall given her clinical history of intermittent right upper quadrant pain, that she describes as similar to her previous gallbladder pain, and coupled with significant elevation of her liver enzymes on each admission, I am most suspicious for some biliary disease despite the negative imaging studies. I would want to rule out a common bile duct stone or stones and/or a component of sphincter of Oddi disease with associated biliary dyskinesia. Her significantly elevated liver enzymes with normal total bilirubin and alkaline phosphatase is atypical for biliary disease, but nonetheless given her ongoing history of the right upper quadrant pain, previous history of gallstones, and significantly elevated liver enzymes on each occasion, I am still most suspicious for some biliary process. As such, given no other clear etiology of her presentations, I did recommend she undergo endoscopic retrograde cholangiopancreatography with either myself or Dr. Riddle sometime later this week. This has been reviewed with her in detail with the hospital medical biller. Full consent has been obtained from her for this, including risks of bleeding, perforation, cholangitis, and pancreatitis. She will have followup laboratories tomorrow. This has all been discussed in detail with the patient. She is currently comfortable with the plan. Thank you for the consultation. MD GLADIS Haro/MARY / [id number] MTDD
[2023-09-02 05:55] LABS: Glucose, Whole Blood 136 mg/dL (60-115)
[2023-09-02 07:38] LABS: Glucose, Whole Blood 129 mg/dL (60-115)
[2023-09-02 08:07] LABS: Alanine Aminotransferase 347 U/L (0-31); Albumin Level 3.3 g/dL (3.5-5.0); Alkaline Phosphatase 86 U/L (39-117); Aspartate Amino Transferase 223 U/L (5-31); Bilirubin Direct < 0.2 mg/dL (0.0-0.5); Bilirubin Total 0.2 mg/dL (0.0-1.0); Total Protein 5.9 g/dL (6.5-8.0)
[2023-09-02 08:19] LABS: HBS Num1 35.43 mIU/mL (0-7.99); HBc Num1 0.06 S/CO (0.00-0.79); HBsAGNum1 0.26 S/CO (0.00-0.99); Hepatitis B Core Antibody Nonreactive (Nonreactive); Hepatitis B Surface Antigen Negative (Negative); ~HepC Num1 0.09 S/CO (0.00-0.79); ~Hepatitis A Antibody IgM Nonreactive (Nonreactive); ~Hepatitis B Surface Antibody REACTIVE (Nonreactive); ~Hepatitis C Antibody Nonreactive (Nonreactive)
[2023-09-02] MEDS: ondansetron HCL 4 MG/2 ML VIAL IVPUSH (09:20)
[2023-09-02] MEDS: oxyCODONE HCl Immed Release 5 MG TABLET PO (09:20)
[2023-09-02] MEDS: 0.9 % Sodium Chloride Flush 3 ML SYRINGE IVFLUSH ×2 (09:21→19:36)
--- NOTE | 2023-09-02 09:29 | HO.PM.IMPN ---
Subjective Subjective Date of Service: 09/02/23 Review of Systems Follow-up abdominal pain, transaminitis Still reports some nausea but no vomiting or diarrhea Physical Exam Vital Signs: Vital Signs: Last Vital Signs Temp 96.8 F 09/02/23 07:32 Pulse 63 09/02/23 07:32 Resp 18 09/02/23 07:32 BP 120/70 09/02/23 07:32 Pulse Ox 98 09/02/23 07:32 O2 Del Method Room Air 09/02/23 07:32 BMI result Body Mass Index 26.6 Appearing in no acute distress lung sounds are clear to auscultation heart regular rate rhythm, clear S1, S2 positive bowel sounds, abdomen is soft, nontender neuro patient is alert x3, no focal deficits Objective Data Active Medications Acetaminophen (Acetaminophen 325 Mg Tablet) 650 mg PO Q6H PRN PRN Reason: Pain, Mild (Pain Scale 1-3) Last Admin: 09/01/23 23:29 Dose: 650 mg Documented By: ANALI Dextrose (Dextrose 50 % 25 Gm/50 Ml Syringe) 25 gm IVPUSH Q15M PRN; Protocol PRN Reason: per Hypoglycemia Standing Ord. Glucose (Glucose Gel 15 Gm Gel..Gram.) 15 gm PO Q15M PRN; Protocol PRN Reason: per Hypoglycemia Standing Ord. Levofloxacin (Levaquin) 500 mg in 100 mls @ 100 mls/hr IV PREOP ONE Stop: 09/02/23 14:59 Insulin Human Lispro (Insulin Lispro 100 Unit/Ml 3 Ml Vial) 0 unit SUBCUT 0000,0600,1200,1800 ASHLIE; Protocol Last Admin: 09/02/23 05:53 Dose: Not Given Documented By: ANALI Non-Admin Reason: NPO Melatonin (Melatonin 3 Mg Tablet) 6 mg PO BEDTIME PRN PRN Reason: Insomnia Last Admin: 09/01/23 23:29 Dose: 6 mg Documented By: ANALI Ondansetron HCl (Ondansetron Hcl 4 Mg/2 Ml Vial) 4 mg IVPUSH Q8H PRN PRN Reason: Nausea and Vomiting Last Admin: 09/02/23 09:20 Dose: 4 mg Documented By: CHARIS Oxycodone HCl (Oxycodone Hcl Immed Release 5 Mg Tablet) 5 mg PO Q6H PRN PRN Reason: Pain, Moderate(Pain Scale 4-6) Last Admin: 09/02/23 09:20 Dose: 5 mg Documented By: CHARIS Sodium Chloride (0.9 % Sodium Chloride Flush 3 Ml Syringe) 3 ml IVFLUSH QSHIFT [facility] Last Admin: 09/02/23 09:21 Dose: 3 ml Documented By: CHARIS Labs 09/01/23 05:42 09/01/23 05:42 Labs: Laboratory Results - last 24 hr 09/01/23 09/01/23 09/01/23 12:29 13:29 13:31 Hold Purple Top PT INR POC Glucose 80 Total Bilirubin Direct Bilirubin AST ALT Alkaline Phosphatase Total Protein Albumin Urine Color Dark Yellow Urine Appearance Clear Urine pH 5.5 Ur Specific [place] >= 1.030 H Urine Protein Trace Urine Glucose (UA) Negative Urine Ketones Trace Urine Blood Small (1+) H Urine Nitrite Negative Ur Leukocyte Esterase Negative Urine RBC 3-5 H Urine WBC 0-5 Ur Squamous Epith Cells 3-5 Urine Bacteria None Seen Hyaline Casts 0-2 Acetaminophen Hepatitis A IgM Ab Nonreactive Hep Bs Antigen Negative Hep Bs Antibody REACTIVE Hep B Core Total Ab Nonreactive Hepatitis C Ab (EIA) Nonreactive Monoscreen 09/01/23 09/01/23 09/02/23 16:13 23:20 05:51 Hold Purple Top PT 12.1 INR 1.0 POC Glucose 172 H 136 H Total Bilirubin Direct Bilirubin AST ALT Alkaline Phosphatase Total Protein Albumin Urine Color Urine Appearance Urine pH Ur Specific [place] Urine Protein Urine Glucose (UA) Urine Ketones Urine Blood Urine Nitrite Ur Leukocyte Esterase Urine RBC Urine WBC Ur Squamous Epith Cells Urine Bacteria Hyaline Casts Acetaminophen 7 Hepatitis A IgM Ab Hep Bs Antigen Hep Bs Antibody Hep B Core Total Ab Hepatitis C Ab (EIA) Monoscreen Negative 09/02/23 09/02/23 07:10 07:31 Hold Purple Top SEE NOTE PT INR POC Glucose 129 H Total Bilirubin 0.2 Direct Bilirubin < 0.2 AST 223 H ALT 347 H Alkaline Phosphatase 86 Total Protein 5.9 L Albumin 3.3 L Urine Color Urine Appearance Urine pH Ur Specific [place] Urine Protein Urine Glucose (UA) Urine Ketones Urine Blood Urine Nitrite Ur Leukocyte Esterase Urine RBC Urine WBC Ur Squamous Epith Cells Urine Bacteria Hyaline Casts Acetaminophen Hepatitis A IgM Ab Hep Bs Antigen Hep Bs Antibody Hep B Core Total Ab Hepatitis C Ab (EIA) Monoscreen Assessment and Plan (1) Transaminitis: Status: Resolved Plan This is a 48-year-old female with pertinent history of antiphospholipid syndrome, fibromyalgia, log-shyewqs-uglyqpvqw diabetes mellitus who presents to the emergency department for evaluation of abdominal discomfort. Had previous hospitalization with similar symptoms in 03/2023 with no obvious etiology. Previos CCY on 01/2023 Abdominal pain with elevated transaminases. Unclear etiology. CT abdomen without acute abnormalities. MRCP neg pain management NPO for now consult Gastroenterology>rec ERCP symptoms seem likely biliary process despite neg imaging Transaminitis trending down no obvious etiology Unremarkable pancreas on CT, no obvious abnormality noted on CT scan hep panel negative Yza-dxmegmn-oglhzmwki diabetes mellitus. ss, ada diet when no longer NPO Mild intermittent asthma No exacerbation. Continue inhalers History of antiphospholipid antibody on Xarelto prn during travel DVT prophylaxis: Mechanical Attending Dr. Rush Full code Continue hospitalization for treatment of acute abdominal pain with transaminitis of unclear etiology pending specialty consultation Quality Stroke Does the patient have a stroke diagnosis?: No VTE Prior VTE?: No VTE Risk Level:: Medical - moderate - high VTE Device Contraindication: N/A - Device Ordered VTE Drug Contraindication: Treatment Not Indicated
[2023-09-02 11:39] LABS: Glucose, Whole Blood 100 mg/dL (60-115)
[2023-09-02 13:37] LABS: Glucose, Whole Blood 89 mg/dL (60-115)
--- NOTE | 2023-09-02 14:10 | PC.NURSE ---
pt states took last dose of trulicity on thursday08/30/22. dr king made aware and was told to refer to anesthesiologist that's going to do case. dr caro made aware and said ok'd to proceed.
--- NOTE | 2023-09-02 17:36 | P.CONAN_ITS ---
HPI - Anesthesia Eval Consult details Narrative: 48 yo female patient for ERCP. Only off dulaglutide for 3 days. Procedure deemed urgent by surgeon. Will proceed with full stomach precautions- RSI. Discussed with patient. Anesthesia Pre-Procedure Meds Is the patient on any of the following meds?: Dulaglutide (Trulicity) (Last dose 08/30/23) If Yes to any meds - educate patient: Pt education - increased risk of aspiration PMFSH Active Problems Active Problems: All Active Problems (Updated 09/02/23 @ 15:15 by Charo Chávez MD) Transaminitis (Acute) Right upper quadrant abdominal pain (Acute) Antiphospholipid antibody positive (Acute) Dyspnea (Acute) Pulmonary nodules (Acute) Easy bruising (Acute) Biliary colic (Acute) Fibromyalgia (Acute) Migraines HTN- Not taking medication as BP becomes too low DM. On trulicity (more for weight loss) Past Medical History Medical History Diabetes Gingivitis Fibromyalgia HTN (hypertension) Abnormal uterine bleeding History of gestational diabetes GERD (gastroesophageal reflux disease) Vitamin D deficiency Migraine Asthma Fibromyalgia Antiphospholipid antibody syndrome Family History Family History Maternal Uncle Colon cancer Paternal Uncle Cancer of internal nose Family history of problems with anesthesia: No Surgical History Surgical History History of laparoscopic cholecystectomy (01/30/23) History of elbow surgery History of delivery History of Problems with Anesthesia: No Social History Social History Household Members: Spouse and Children Housing: House Are you a primary home care companion to a significant other at home: No Do you presently have visiting nurse or other home services: No Alcohol intake: never Patient Tobacco Use Status: Never used Tobacco service: No Current occupational status: employed Meds Allergies Allergy/AdvReac Type Severity Reaction Status Date / Time penicillin G [PENICILLIN G] Allergy Unknown RASH, Verified 08/31/23 17:01 swelling, rash Active Medications: Current Medications Acetaminophen (Acetaminophen 325 Mg Tablet) 650 mg PO Q6H PRN PRN Reason: Pain, Mild (Pain Scale 1-3) Last Admin: 09/01/23 23:29 Dose: 650 mg Dextrose (Dextrose 50 % 25 Gm/50 Ml Syringe) 25 gm IVPUSH Q15M PRN; Protocol PRN Reason: per Hypoglycemia Standing Ord. Fentanyl (Fentanyl Citrate/Pf 100 Mcg/2 Ml Vial) 25 mcg IVPUSH Q5M PRN; Protocol PRN Reason: Pain, Moderate(Pain Scale 4-6) Glucose (Glucose Gel 15 Gm Gel..Gram.) 15 gm PO Q15M PRN; Protocol PRN Reason: per Hypoglycemia Standing Ord. Insulin Human Lispro (Insulin Lispro 100 Unit/Ml 3 Ml Vial) 0 unit SUBCUT 0000,0600,1200,1800 ASHLIE; Protocol Last Admin: 09/02/23 17:11 Dose: Not Given Melatonin (Melatonin 3 Mg Tablet) 6 mg PO BEDTIME PRN PRN Reason: Insomnia Last Admin: 09/01/23 23:29 Dose: 6 mg Morphine Sulfate (Morphine Sulfate 2 Mg/Ml Cartridge) 1 mg IVPUSH Q6H PRN; Protocol PRN Reason: Pain, Moderate(Pain Scale 4-6) Ondansetron HCl (Ondansetron Hcl 4 Mg/2 Ml Vial) 4 mg IVPUSH Q8H PRN PRN Reason: Nausea and Vomiting Last Admin: 09/02/23 09:20 Dose: 4 mg Ondansetron HCl (Ondansetron Hcl 4 Mg/2 Ml Vial) 4 mg IVPUSH ONCE PRN PRN Reason: Nausea and Vomiting Oxycodone HCl (Oxycodone Hcl Immed Release 5 Mg Tablet) 5 mg PO Q6H PRN PRN Reason: Pain, Moderate(Pain Scale 4-6) Last Admin: 09/02/23 09:20 Dose: 5 mg Sodium Chloride (0.9 % Sodium Chloride Flush 3 Ml Syringe) 3 ml IVFLUSH QSHIFT [facility] Last Admin: 09/02/23 15:34 Dose: Not Given Home Medications Medication Instructions Recorded Confirmed Last Taken Type fluticasone propionate 110 2 puff inhalation BID PRN 09/06/20 09/01/23 Unknown History mcg/actuation HFA aerosol inhaler Shortness Of Breath Or Wheezing (Flovent HFA) dulaglutide 0.75 mg/0.5 mL 0.75 mg subcut OZUNA@0900 11/19/22 09/01/23 08/30/23 History subcutaneous pen injector (Trulicity) rivaroxaban 20 mg tablet (Xarelto) 20 mg PO DAILY PRN when traveling 01/20/23 09/01/23 01/13/23 History albuterol sulfate 90 mcg/actuation 1 inh inhalation DAILY PRN Wheezing 01/30/23 09/01/23 Unknown History aerosol inhaler vrnxhcaumi-obggljwupyicl-xhaartpu 1 tab PO Q12H PRN MIGRAINES 04/06/23 09/01/23 Unknown History 50 mg-325 mg-40 mg tablet cholecalciferol (vitamin D3) 50 50 mcg PO DAILY 04/30/23 09/01/23 Unknown History mcg (2,000 unit) capsule ibuprofen 800 mg tablet 800 mg PO TID PRN Pain 04/30/23 09/01/23 08/27/23 History metformin 500 mg tablet 500 mg PO BID PRN high glucose 04/30/23 09/01/23 1 Month Ago History ~08/01/23 omeprazole 40 mg capsule,delayed 40 mg PO DAILY@0630 PRN Acid Reflux 09/01/23 09/01/23 Unknown History release Exam Height,Weight and Vital Signs: Height 5 ft 5 in Weight 72.5 kg Last Vital Signs Temp 97.8 F 09/02/23 13:25 Pulse 62 09/02/23 13:25 Resp 15 09/02/23 13:25 BP 139/85 09/02/23 13:25 Pulse Ox 98 09/02/23 13:25 O2 Del Method Room Air 09/02/23 13:25 Vital Signs Temp Pulse Resp BP Pulse Ox O2 Del Method 09/02/23 13:25 97.8 F 62 15 139/85 98 Room Air 09/02/23 07:32 96.8 F 63 18 120/70 98 Room Air 09/02/23 03:59 97.2 F 70 18 130/62 96 Room Air 09/01/23 23:15 97.3 F 74 18 119/65 98 Room Air 09/01/23 19:32 97.7 F 67 18 129/75 98 Room Air Pertinent Lab Results Pertinent Lab Results: Laboratory Tests 08/31/23 09/01/23 09/01/23 18:02 02:00 02:09 WBC 8.2 RBC 3.49 L D Hgb 10.1 L D Hct 30.8 L D MCV 88.3 MCH 28.9 MCHC 32.8 RDW 12.2 Plt Count 256 MPV 11.5 Immature Gran % (Auto) 0.4 Neut % (Auto) 79.4 H Lymph % (Auto) 15.5 L [place] % (Auto) 4.4 Eos % (Auto) 0.2 Baso % (Auto) 0.1 Lymph # (Auto) 1.3 [place] # (Auto) 0.4 Eos # (Auto) 0.0 Baso # (Auto) 0.0 Abs Immat Gran (auto) 0.03 Absolute Neuts (auto) 6.5 Absolute Nucleated RBC 0.000 Nucleated RBC % (auto) 0.0 Hold Purple Top PT INR Sodium 142 Potassium 3.5 Chloride 107 Carbon Dioxide 27 Anion Gap 12 BUN 9 Creatinine 0.63 Estim Creat Clear Calc 104.7 Estimated GFR > 60 POC Glucose 98 Random Glucose 129 H Calcium 9.2 Total Bilirubin 0.8 Direct Bilirubin AST 611 H ALT 253 H Alkaline Phosphatase 110 Total Creatine Kinase 44 C-Reactive Protein 0.82 H Total Protein 7.0 Albumin 4.1 Lipase 52 Urine Color Urine Appearance Urine pH Ur Specific [place] Urine Protein Urine Glucose (UA) Urine Ketones Urine Blood Urine Nitrite Ur Leukocyte Esterase Urine RBC Urine WBC Ur Squamous Epith Cells Urine Bacteria Hyaline Casts Acetaminophen Ethyl Alcohol < 10 Hepatitis A IgM Ab Hep Bs Antigen Hep Bs Antibody Hep B Core Total Ab Hepatitis C Ab (EIA) Monoscreen 09/01/23 09/01/23 09/01/23 05:42 07:20 12:29 WBC 5.2 RBC 3.12 L Hgb 9.0 L Hct 27.7 L MCV 88.8 MCH 28.8 MCHC 32.5 RDW 12.6 Plt Count 205 MPV 12.9 H Immature Gran % (Auto) 0.2 Neut % (Auto) 65.1 Lymph % (Auto) 26.9 [place] % (Auto) 6.4 Eos % (Auto) 1.0 Baso % (Auto) 0.4 Lymph # (Auto) 1.4 [place] # (Auto) 0.3 Eos # (Auto) 0.1 Baso # (Auto) 0.0 Abs Immat Gran (auto) 0.01 Absolute Neuts (auto) 3.4 Absolute Nucleated RBC 0.000 Nucleated RBC % (auto) 0.0 Hold Purple Top PT INR Sodium 142 Potassium 3.7 Chloride 111 H Carbon Dioxide 24 Anion Gap 11 L BUN 8 L Creatinine 0.61 Estim Creat Clear Calc 110.1 Estimated GFR > 60 POC Glucose 113 Random Glucose 91 Calcium 8.3 L D Total Bilirubin 0.5 Direct Bilirubin AST 839 H ALT 517 H Alkaline Phosphatase 103 Total Creatine Kinase C-Reactive Protein Total Protein 5.9 L Albumin 3.5 Lipase Urine Color Urine Appearance Urine pH Ur Specific [place] Urine Protein Urine Glucose (UA) Urine Ketones Urine Blood Urine Nitrite Ur Leukocyte Esterase Urine RBC Urine WBC Ur Squamous Epith Cells Urine Bacteria Hyaline Casts Acetaminophen Ethyl Alcohol Hepatitis A IgM Ab Nonreactive Hep Bs Antigen Negative Hep Bs Antibody REACTIVE Hep B Core Total Ab Nonreactive Hepatitis C Ab (EIA) Nonreactive Monoscreen 09/01/23 09/01/23 09/01/23 13:29 13:31 16:13 WBC RBC Hgb Hct MCV MCH MCHC RDW Plt Count MPV Immature Gran % (Auto) Neut % (Auto) Lymph % (Auto) [place] % (Auto) Eos % (Auto) Baso % (Auto) Lymph # (Auto) [place] # (Auto) Eos # (Auto) Baso # (Auto) Abs Immat Gran (auto) Absolute Neuts (auto) Absolute Nucleated RBC Nucleated RBC % (auto) Hold Purple Top PT 12.1 INR 1.0 Sodium Potassium Chloride Carbon Dioxide Anion Gap BUN Creatinine Estim Creat Clear Calc Estimated GFR POC Glucose 80 Random Glucose Calcium Total Bilirubin Direct Bilirubin AST ALT Alkaline Phosphatase Total Creatine Kinase C-Reactive Protein Total Protein Albumin Lipase Urine Color Dark Yellow Urine Appearance Clear Urine pH 5.5 Ur Specific [place] >= 1.030 H Urine Protein Trace Urine Glucose (UA) Negative Urine Ketones Trace Urine Blood Small (1+) H Urine Nitrite Negative Ur Leukocyte Esterase Negative Urine RBC 3-5 H Urine WBC 0-5 Ur Squamous Epith Cells 3-5 Urine Bacteria None Seen Hyaline Casts 0-2 Acetaminophen 7 Ethyl Alcohol Hepatitis A IgM Ab Hep Bs Antigen Hep Bs Antibody Hep B Core Total Ab Hepatitis C Ab (EIA) Monoscreen Negative 09/01/23 09/02/23 09/02/23 23:20 05:51 07:10 WBC RBC Hgb Hct MCV MCH MCHC RDW Plt Count MPV Immature Gran % (Auto) Neut % (Auto) Lymph % (Auto) [place] % (Auto) Eos % (Auto) Baso % (Auto) Lymph # (Auto) [place] # (Auto) Eos # (Auto) Baso # (Auto) Abs Immat Gran (auto) Absolute Neuts (auto) Absolute Nucleated RBC Nucleated RBC % (auto) Hold Purple Top SEE NOTE PT INR Sodium Potassium Chloride Carbon Dioxide Anion Gap BUN Creatinine Estim Creat Clear Calc Estimated GFR POC Glucose 172 H 136 H Random Glucose Calcium Total Bilirubin 0.2 Direct Bilirubin < 0.2 AST 223 H ALT 347 H Alkaline Phosphatase 86 Total Creatine Kinase C-Reactive Protein Total Protein 5.9 L Albumin 3.3 L Lipase Urine Color Urine Appearance Urine pH Ur Specific [place] Urine Protein Urine Glucose (UA) Urine Ketones Urine Blood Urine Nitrite Ur Leukocyte Esterase Urine RBC Urine WBC Ur Squamous Epith Cells Urine Bacteria Hyaline Casts Acetaminophen Ethyl Alcohol Hepatitis A IgM Ab Hep Bs Antigen Hep Bs Antibody Hep B Core Total Ab Hepatitis C Ab (EIA) Monoscreen 09/02/23 09/02/23 09/02/23 07:31 11:35 13:22 WBC RBC Hgb Hct MCV MCH MCHC RDW Plt Count MPV Immature Gran % (Auto) Neut % (Auto) Lymph % (Auto) [place] % (Auto) Eos % (Auto) Baso % (Auto) Lymph # (Auto) [place] # (Auto) Eos # (Auto) Baso # (Auto) Abs Immat Gran (auto) Absolute Neuts (auto) Absolute Nucleated RBC Nucleated RBC % (auto) Hold Purple Top PT INR Sodium Potassium Chloride Carbon Dioxide Anion Gap BUN Creatinine Estim Creat Clear Calc Estimated GFR POC Glucose 129 H 100 89 Random Glucose Calcium Total Bilirubin Direct Bilirubin AST ALT Alkaline Phosphatase Total Creatine Kinase C-Reactive Protein Total Protein Albumin Lipase Urine Color Urine Appearance Urine pH Ur Specific [place] Urine Protein Urine Glucose (UA) Urine Ketones Urine Blood Urine Nitrite Ur Leukocyte Esterase Urine RBC Urine WBC Ur Squamous Epith Cells Urine Bacteria Hyaline Casts Acetaminophen Ethyl Alcohol Hepatitis A IgM Ab Hep Bs Antigen Hep Bs Antibody Hep B Core Total Ab Hepatitis C Ab (EIA) Monoscreen Airway Mallampati Class: II TM Dist: >3cm Neck ROM: Full Loose/Missing/Broken Teeth: Yes (Missing molars and some teeth back) Heart: RRR Lungs: CTAB Assessment and Plan Assessment Anesthesia Assessment: Anesthesia Plan Discussed and Chart Reviewed Final Anesthetic Review Family History of Problems with Anesthesia: No History of Problems with Anesthesia: No NPO: Yes ASA Class: III and Emergency Final Preanesthetic Review: No Changes in Pt Med Stat, Meds/Allgs Chart Reviewed, Consent Obtained/Reviewed and Anes Risks/Benef Reviewed Patient Risk: Intermediate Procedure Risk: Intermediate Assessment/Block/Sedation in SS: Assess/Block/Sedation-SS Anesthetic Plan Anesthetic Plan: GA Disposition: Standard PACU
--- NOTE | 2023-09-02 18:23 | P.BOP_ITS ---
Brief Operative Note Date of Service: 09/02/23 Pre-op diagnosis: ruq pain elevated lfts Post-op diagnosis: same Procedure: ERCP Surgeon: Pastor Riddle MD Anesthesia: GETA Was an Mail List Librarian used for this Procedure?: No Estimated blood loss (mL): 0 Pathology: none sent Condition: stable Disposition: PACU
--- NOTE | 2023-09-02 18:24 | PM.EVENT ---
Event Note Date of Service: 09/02/23 Event Note: ERCP dictated normal papilla with good bile drainage pancreatogram shows mild ductal dilation and no stricture. cbd could not be cannulated, no sphincterotomy done Rec: clear liquids tonight advance diet and dc in am if stable. I will arrange outpt f/u at tertiary care center for consideration of repeat ERCP. Time Spent With Patient Time: Total time managing care of this patient today ____ minutes.
[2023-09-02] MEDS: fentaNYL citrate/PF 100 MCG/2 ML VIAL 25 MCG IVPUSH ×2 (18:40→18:45)
[2023-09-02] MEDS: Lactated Ringers 1,000 ML 100 ML IVCONT (19:28)
[2023-09-02 20:09] LABS: Glucose, Whole Blood 169 mg/dL (60-115)
[2023-09-02] MEDS: Morphine Sulfate 2 MG/ML CARTRIDGE 1 MG IVPUSH (20:43)
--- NOTE | 2023-09-02 21:54 | OP_ITS ---
DATE OF SERVICE: 09/02/2023 SURGEON: Pastor Riddle MD INDICATIONS: Elevated liver function tests and right upper quadrant pain. PREOPERATIVE DIAGNOSIS: POSTOPERATIVE DIAGNOSIS: PROCEDURE PERFORMED: ERCP. ESTIMATED BLOOD LOSS: COMPLICATIONS: ANESTHESIA: General anesthesia. ASSISTANTS: SPECIMENS: DESCRIPTION OF PROCEDURE: A history and physical was performed. The risks and benefits of the procedure were explained to the patient and informed consent was obtained. The patient was placed in the left lateral decubitus position with a wedge under the right shoulder. The Olympus therapeutic duodenum scope was introduced into the esophagus, stomach, and duodenum. Examination was performed. The scope was removed. She tolerated the procedure well and was taken to the recovery area in stable condition. FINDINGS: Endoscopy: Limited examination of the esophagus, stomach, and duodenum was within normal limits. The major papilla was identified and clear yellow bile was noted to drain from the major papilla during the procedure. Cannulation of the common bile duct was attempted. Fluoroscopy showed a probable dilated pancreatic duct without stone or stricture. No sphincterotomy was performed. IMPRESSION: 1. Abdominal pain. 2. Elevated liver enzymes. RECOMMENDATION: Clear liquids tonight. Advance diet and discharge in the morning if stable. I will arrange for outpatient followup at a tertiary care center for consideration of repeat ERCP. MD LAURA Richter/MODL / [id number] Addendum: I have reviewed the imaging studies, and based on this, the CBD likely was imaged at the time of ERCP with no filling of the right hepatic duct and a dominant left hepatic duct system that extended across the midline. No stones were seen, but the suspicion of SOD is still high. Tertiary care referral is to be arranged. JEANA
[2023-09-02 23:32] LABS: Glucose, Whole Blood 177 mg/dL (60-115)
[2023-09-03] VITALS (7 sets, daily range): BP systolic 95–136; BP diastolic 54–78; PULSE 56–71; RESP 16–18; TEMP 35.9–36.9; O2SAT 96–98
[2023-09-03] MEDS: oxyCODONE HCl Immed Release 5 MG TABLET PO ×2 (00:07→05:41)
[2023-09-03] MEDS: Acetaminophen 325 MG TABLET 650 MG PO ×3 (00:07→21:49)
--- NOTE | 2023-09-03 00:11 | MHC.PIE ---
p; pt c/o gas, asking for medication to help with gas i; dr wakefield notified e; will cont to monitor
[2023-09-03] MEDS: Morphine Sulfate 2 MG/ML CARTRIDGE 1 MG IVPUSH ×2 (04:24→13:23)
[2023-09-03] MEDS: Calcium Carbonate 750 MG TAB.CHEW PO (04:24)
[2023-09-03] MEDS: Lactated Ringers 1,000 ML 100 ML IVCONT ×2 (04:25→13:23)
[2023-09-03 05:48] LABS: Glucose, Whole Blood 117 mg/dL (60-115)
[2023-09-03 06:37] LABS: Hemoglobin 8.6 g/dl (12.0-16.0); Mean Corpuscular HGB Conc 33.1 g/dl (31.0-35.0); Mean Corpuscular Hemoglobin 28.8 pg (27.0-33.0); Mean Platelet Volume 12.2 fL (9.4-12.3); Platelet Count 240 X10*3/uL (160-400); Red Blood Count 2.99 X10*6/uL (4.20-5.50); Red Cell Distribution Width 11.9 % (11.0-16.0); White Blood Count 5.9 X10*3/uL (4.8-10.8)
[2023-09-03 06:51] LABS: Alanine Aminotransferase 342 U/L (0-31); Albumin Level 3.5 g/dL (3.5-5.0); Alkaline Phosphatase 109 U/L (39-117); Aspartate Amino Transferase 271 U/L (5-31); Bilirubin Direct 0.2 mg/dL (0.0-0.5); Bilirubin Total 0.3 mg/dL (0.0-1.0)
[2023-09-03 07:18] LABS: Glucose, Whole Blood 182 mg/dL (60-115)
[2023-09-03] MEDS: ondansetron HCL 4 MG/2 ML VIAL IVPUSH (08:48)
[2023-09-03] MEDS: 0.9 % Sodium Chloride Flush 3 ML SYRINGE IVFLUSH ×2 (08:50→16:09)
--- NOTE | 2023-09-03 09:05 | PM.DS ---
DS: Providers Provider Date of Service: 09/03/23 Date of admission: 09/01/23 01:59 Date of discharge: 09/03/23 Primary care physician: Yecenia Mauro MD Attending physician on admission: George Mcgrath Consults: 09/01/23 01:59 Consult to Gastroenterology Routine Consulting Provider: Cb Ramsay Reason for consultation: Abdominal Pain with transamnitis Attending physician on discharge: [facility] Discharging clinician: Tamela Rodriguez DS: Diagnosis Discharge Diagnosis (1) Transaminitis: Status: Resolved DS: Summary Hospital Course Hospital Course: HPI on admission by Dr. Mcgrath on 09/01: Chief Complaint: Abdominal Pain This is a 48-year-old female with pertinent history of antiphospholipid syndrome, fibromyalgia, yjf-yvdwhnz-evxvrfcyf diabetes mellitus who presents to the emergency department for evaluation of abdominal discomfort. Patient had a cholecystectomy in January 2023. She was admitted in March 2023 for evaluation of abdominal discomfort and elevated transaminases. It was thought to be due to gastritis and elevated liver enzymes possibly related to a stone that passed as no stones seen on MRCP. Liver enzymes trended prior to discharge in March 2023. Patient states she has had similar pain that she had in March 2023 that started 2 days prior to presentation. It is in the epigastric /right upper quadrant region and radiates to the back. It is intermittent and without any relieving or aggravating factors. No relation of pain to food. Patient also has associated nausea and vomiting. It has been progressive over the last 48 hours. No fever or chills or diarrhea. No chest discomfort, palpitations, shortness of breath, changes in urinary habits. Denies alcohol use In the emergency department, AST/ ALT found to be elevated Hospital course: Pt observed for elevated transaminases and RUQ pain ongoing for several months intermittently but worsening over several days. On admission, AST 611, ALT 252. LFTs gradually trended down. GI as consulted and patinet underwent ERCP on 09/02 showing normal papilla with good bile drainage. Pancreatogram shows mild ductal dilation wihtout stricture. CBD unable to be dilated, no sphincterectomy performed. Diet was advanced with good tolerance. Patient will be discharged home and GI will arrange for outpt ERCP at tertiary care facility. Will discahrge with short course oxycodone for severe pain only as well as zofran. Follow up with GI and PCP soon. Hospital course otherwise uneventful. Continue all other home medications. Abdominal pain with elevated transaminases. Unclear etiology. CT abdomen without acute abnormalities. MRCP neg pain management NPO for now consult Gastroenterology> ERCP as above. OUpt follow up to consider referral to tertiary care center for repeat ERCP repeat liver panel 1 week Transaminitis trending down no obvious etiology Unremarkable pancreas on CT, no obvious abnormality noted on CT scan hep panel negative Acute on chronic normocytic anemia above transfusion threshold repeat cbc 1 week Uwz-xhifkgn-savkifpbj diabetes mellitus. ss, ada diet when no longer NPO Mild intermittent asthma No exacerbation. Continue inhalers History of antiphospholipid antibody on Xarelto prn during travel Status at Discharge Functional status at discharge: independent ambulation Overall status at discharge: patient is progressing back to baseline Time Attestation Discharge coordination time: Greater than 30 minutes Quality: Safe Use of Opioids Does Pt have an Active Cancer Diagnosis on the Problem List?: No Quality: Stroke Does the patient have a stroke diagnosis?: No Physical Exam Vital Signs: Vital Signs: Last Vital Signs Temp 97.4 F 09/03/23 07:00 Pulse 56 09/03/23 07:00 Resp 16 09/03/23 07:00 BP 101/56 L 09/03/23 07:00 Pulse Ox 96 09/03/23 07:00 O2 Del Method Room Air 09/03/23 07:00 BMI result Body Mass Index 26.6 DS: Data Data Completed and Pending Labs on day of discharge: Laboratory Results - last 24 hr 09/02/23 09/02/23 09/02/23 11:35 13:22 19:27 WBC RBC Hgb Hct MCV MCH MCHC RDW Plt Count MPV Absolute Nucleated RBC Nucleated RBC % (auto) POC Glucose 100 89 169 H Total Bilirubin Direct Bilirubin AST ALT Alkaline Phosphatase Total Protein Albumin 09/02/23 09/03/23 09/03/23 23:27 05:41 05:43 WBC 5.9 RBC 2.99 L Hgb 8.6 L Hct 26.0 L MCV 87.0 MCH 28.8 MCHC 33.1 RDW 11.9 Plt Count 240 MPV 12.2 Absolute Nucleated RBC 0.000 Nucleated RBC % (auto) 0.0 POC Glucose 177 H 117 H Total Bilirubin 0.3 Direct Bilirubin 0.2 AST 271 H ALT 342 H Alkaline Phosphatase 109 Total Protein 6.0 L Albumin 3.5 09/03/23 07:12 WBC RBC Hgb Hct MCV MCH MCHC RDW Plt Count MPV Absolute Nucleated RBC Nucleated RBC % (auto) POC Glucose 182 H Total Bilirubin Direct Bilirubin AST ALT Alkaline Phosphatase Total Protein Albumin Discharge Plan Discharge Anticipated Discharge Date/Time: 09/03/23 10:48 Patient Disposition: Home, Self-Care Discharge Diagnosis: RUQ pain, transaminitis Referrals: Yecenia Mauro MD [Primary Care Provider] - 1 Week Cb Ramsay MD [Physician] - 1 Week Discharge Medications: New oxycodone 5 mg Tablet 5 mg PO Q6H PRN (Reason: Pain, Moderate(Pain Scale 4-6)) Qty: 10 0RF Rx Instructions: Partial Fill upon patient request. ondansetron 4 mg tablet,disintegrating 4 mg PO Q8H PRN (Reason: nausea and vomiting) Qty: 20 0RF Continued albuterol sulfate 90 mcg/actuation Hfa Aerosol Inhaler 1 inh INHALATION DAILY PRN (Reason: Wheezing) metformin 500 mg tablet 500 mg PO BID PRN (Reason: high glucose) yevhsqnqvn-tvbhsnmmrwrwg-phkd 50-325-40 mg tablet 1 tab PO Q12H PRN (Reason: MIGRAINES) omeprazole 40 mg capsule,delayed release(DR/EC) 40 mg PO DAILY@0630 PRN (Reason: Acid Reflux) Flovent HFA 110 mcg/actuation HFA aerosol inhaler 2 puff inhalation BID PRN (Reason: Shortness Of Breath Or Wheezing) Trulicity 0.75 mg/0.5 mL pen injector 0.75 mg subcut OZUNA@0900 ibuprofen 800 mg tablet 800 mg PO TID PRN (Reason: Pain) cholecalciferol (vitamin D3) 50 mcg (2,000 unit) capsule 50 mcg PO DAILY Xarelto 20 mg tablet 20 mg PO DAILY PRN (Reason: when traveling) Rx Instructions: must administer with evening meal Diet: Advance to usual diet Activity on Discharge: As tolerated Stand Alone Forms: Patient Portal Discharge page Other Ambulatory Orders: Complete Blood Count Auto Diff (Routine) Timeframe: 1 Week Facility: [facility] - Location: Laboratory Ordered By: Tamela Rodriguez Liver Panel (Routine) Timeframe: 1 Week Facility: [facility] - Location: Laboratory Ordered By: Tamela Rodriguez Care Plan Goals: resolve pain Health Concerns: Right upper quadrant pain of unclear etiology Elevated liver enzymes Plan of Treatment: Follow up soon with Dr. Ramsay/Venkatesh who will be setting up an outpatient ERCP at a tertiary care hospital (such as [facility]) wt additional resources Take pain medication and zofran only as needed Advance diet as tolerated Assessment: See above. See discharge summary Patient Instructions: ERCP (Endoscopic Retrograde Cholangiopancreatography) (GEN)
[2023-09-03 11:05] LABS: Glucose, Whole Blood 117 mg/dL (60-115)
--- NOTE | 2023-09-03 11:05 | P.PNGI_ITS ---
Subjective Subjective Date of Service: 09/03/23 Interval History: some nausea this am tolerating diet Critical Care Time (minutes): 0 Physical Exam 2 Vital Signs: Vital Signs: Last Vital Signs Temp 97.9 F 09/03/23 10:54 Pulse 71 09/03/23 10:54 Resp 16 09/03/23 10:54 BP 95/54 L 09/03/23 10:54 Pulse Ox 98 09/03/23 10:54 O2 Del Method Room Air 09/03/23 10:54 BMI result Body Mass Index 26.6 GI: Other: abdomen is soft, mild epigastric tenderness Objective Data Labs 09/03/23 05:41 09/01/23 05:42 Labs: Laboratory Results - last 24 hr 09/02/23 09/02/23 09/02/23 11:35 13:22 19:27 WBC RBC Hgb Hct MCV MCH MCHC RDW Plt Count MPV Absolute Nucleated RBC Nucleated RBC % (auto) POC Glucose 100 89 169 H Total Bilirubin Direct Bilirubin AST ALT Alkaline Phosphatase Total Protein Albumin 09/02/23 09/03/23 09/03/23 23:27 05:41 05:43 WBC 5.9 RBC 2.99 L Hgb 8.6 L Hct 26.0 L MCV 87.0 MCH 28.8 MCHC 33.1 RDW 11.9 Plt Count 240 MPV 12.2 Absolute Nucleated RBC 0.000 Nucleated RBC % (auto) 0.0 POC Glucose 177 H 117 H Total Bilirubin 0.3 Direct Bilirubin 0.2 AST 271 H ALT 342 H Alkaline Phosphatase 109 Total Protein 6.0 L Albumin 3.5 09/03/23 07:12 WBC RBC Hgb Hct MCV MCH MCHC RDW Plt Count MPV Absolute Nucleated RBC Nucleated RBC % (auto) POC Glucose 182 H Total Bilirubin Direct Bilirubin AST ALT Alkaline Phosphatase Total Protein Albumin Procedures Date of Service Date of Service: 09/03/23 Progress Note: A&P Assessment and plan (1) Transaminitis: Start date: 09/03/23 Status: Acute Plan lfts are stable zofran for nausea advance diet as tolerated. Time Spent With Patient Time: Total time managing care of this patient today ____ minutes. Quality Stroke Does the patient have a stroke diagnosis?: No VTE Prior VTE?: No VTE Risk Level:: Medical - moderate - high VTE Device Contraindication: N/A - Device Ordered VTE Drug Contraindication: Treatment Not Indicated
[2023-09-03] MEDS: Butalb/Acetamin/Caff 50/325/40 TABLET 1 TAB PO (11:52)
--- NOTE | 2023-09-03 12:43 | HO.POSTANES ---
Post Anesthesia Evaluation Post Anesthesia Evaluation Date of Service: 09/03/23 Vital Signs: Vital Signs Temp Pulse Resp BP Pulse Ox O2 Del Method 09/03/23 10:54 97.9 F 71 16 95/54 L 98 Room Air 09/03/23 07:00 97.4 F 56 16 101/56 L 96 Room Air 09/03/23 03:00 96.7 F L 59 16 136/77 97 Room Air Anesthesia: General Endotracheal-GETA Mental Status: Awake Pain Control: Satisfactory Nausea/Vomiting: Mild Hydration: Adequate Anesthesia-Related Issues: No Anes. Related Issues
[2023-09-03] MEDS: Omeprazole 20 MG CAPSULE.DR PO (14:33)
--- NOTE | 2023-09-03 14:51 | HO.PM.IMPN ---
Subjective Subjective Date of Service: 09/03/23 Interval History: Review of Systems Follow-up abdominal pain, transaminitis Still reports some nausea but no vomiting or diarrhea. Worse with diet advancement Review of Systems: Yes all other systems are reviewed and are negative Physical Exam Vital Signs: Vital Signs: Last Vital Signs Temp 97.9 F 09/03/23 10:54 Pulse 71 09/03/23 10:54 Resp 16 09/03/23 10:54 BP 95/54 L 09/03/23 10:54 Pulse Ox 98 09/03/23 14:32 O2 Del Method Room Air 09/03/23 14:32 BMI result Body Mass Index 26.6 Constitutional - Awake and Alert, No apparent distress Eyes - PERRLA, EOMI Cardiovascular - S1S2, RRR, No edema Respiratory - Normal lung expansion, Normal respiratory effort, No respiratory distress, CTA bilaterally Gastrointestinal - RUQ and epigastric ttp, ND; +BS; No rebound or guarding Extremities - no calf tenderness bilaterally, no swelling Skin - Warm/Dry Neurological - Alert & oriented x3 Psychological - Appropriate affect Objective Data Active Medications Acetaminophen (Acetaminophen 325 Mg Tablet) 650 mg PO Q6H PRN PRN Reason: Pain, Mild (Pain Scale 1-3) Last Admin: 09/03/23 05:40 Dose: 650 mg Documented By: ANALI Acetaminophen/Butalbital/Caffeine (Butalb/Acetamin/Caff 50/325/40 Tablet) 1 tab PO Q12H PRN PRN Reason: MIGRAINES Last Admin: 09/03/23 11:52 Dose: 1 tab Documented By: DOUGLAS Calcium Carbonate (Calcium Carbonate 750 Mg Tab.Chew) 750 mg PO Q6H PRN PRN Reason: Gas Last Admin: 09/03/23 04:24 Dose: 750 mg Documented By: ANALI Dextrose (Dextrose 50 % 25 Gm/50 Ml Syringe) 25 gm IVPUSH Q15M PRN; Protocol PRN Reason: per Hypoglycemia Standing Ord. Fentanyl (Fentanyl Citrate/Pf 100 Mcg/2 Ml Vial) 25 mcg IVPUSH Q5M PRN; Protocol PRN Reason: Pain, Moderate(Pain Scale 4-6) Last Admin: 09/02/23 18:45 Dose: 25 mcg Documented By: DELMA Glucose (Glucose Gel 15 Gm Gel..Gram.) 15 gm PO Q15M PRN; Protocol PRN Reason: per Hypoglycemia Standing Ord. Lactated Ringer's (Lr) 1,000 mls @ 100 mls/hr IVCONT .Q10H [facility] Last Admin: 09/03/23 13:23 Dose: 100 mls/hr Documented By: DOUGLAS Insulin Human Lispro (Insulin Lispro 100 Unit/Ml 3 Ml Vial) 0 unit SUBCUT 0000,0600,1200,1800 [facility]; Protocol Last Admin: 09/03/23 11:18 Dose: Not Given Documented By: DOUGLAS Non-Admin Reason: No Insulin Coverage Melatonin (Melatonin 3 Mg Tablet) 6 mg PO BEDTIME PRN PRN Reason: Insomnia Last Admin: 09/01/23 23:29 Dose: 6 mg Documented By: ANALI Morphine Sulfate (Morphine Sulfate 2 Mg/Ml Cartridge) 1 mg IVPUSH Q6H PRN; Protocol PRN Reason: Pain, Moderate(Pain Scale 4-6) Last Admin: 09/03/23 13:23 Dose: 1 mg Documented By: DOUGLAS Omeprazole (Omeprazole 20 Mg Capsule.Dr) 20 mg PO BID@0630,1630 [facility] Last Admin: 09/03/23 14:33 Dose: 20 mg Documented By: DOUGLAS Ondansetron HCl (Ondansetron Hcl 4 Mg/2 Ml Vial) 4 mg IVPUSH Q8H PRN PRN Reason: Nausea and Vomiting Last Admin: 09/03/23 08:48 Dose: 4 mg Documented By: DOUGLAS Ondansetron HCl (Ondansetron Hcl 4 Mg/2 Ml Vial) 4 mg IVPUSH ONCE PRN PRN Reason: Nausea and Vomiting Oxycodone HCl (Oxycodone Hcl Immed Release 5 Mg Tablet) 5 mg PO Q6H PRN PRN Reason: Pain, Moderate(Pain Scale 4-6) Last Admin: 09/03/23 05:41 Dose: 5 mg Documented By: ANALI Sodium Chloride (0.9 % Sodium Chloride Flush 3 Ml Syringe) [address] [facility] Last Admin: 09/03/23 08:50 Dose: 3 ml Documented By: DOUGLAS Labs 09/03/23 05:41 09/01/23 05:42 Labs: Laboratory Results - last 24 hr 09/02/23 09/02/23 09/03/23 19:27 23:27 05:41 MCV 87.0 MCH 28.8 MCHC 33.1 RDW 11.9 Plt Count 240 MPV 12.2 Absolute Nucleated RBC 0.000 Nucleated RBC % (auto) 0.0 POC Glucose 169 H 177 H Total Bilirubin 0.3 Direct Bilirubin 0.2 AST 271 H ALT 342 H Alkaline Phosphatase 109 Total Protein 6.0 L Albumin 3.5 09/03/23 09/03/23 09/03/23 05:43 07:12 10:54 MCV MCH MCHC RDW Plt Count MPV Absolute Nucleated RBC Nucleated RBC % (auto) POC Glucose 117 H 182 H 117 H Total Bilirubin Direct Bilirubin AST ALT Alkaline Phosphatase Total Protein Albumin Assessment and Plan (1) Transaminitis: Status: Resolved Plan This is a 48-year-old female with pertinent history of antiphospholipid syndrome, fibromyalgia, nez-nfcapuo-uixrukxol diabetes mellitus who presents to the emergency department for evaluation of abdominal discomfort. Had previous hospitalization with similar symptoms in 03/2023 with no obvious etiology. Pre[facility]ios CCY on 01/2023 Abdominal pain with elevated transaminases. Unclear etiology. CT abdomen without acute abnormalities. MRCP neg pain management NPO for now consult Gastroenterology>rec ERCP symptoms seem likely biliary process despite neg imaging. May need outpt ECRP at tertiary care center for possible sphincterecomy Transaminitis trending down no obvious etiology Unremarkable pancreas on CT, no obvious abnormality noted on CT scan hep panel negative Post-ERCP pancreatitis -increase LR to 125ml/hr -downgrade to clear liquid diet. -check amylase/lipase -pain management Qsw-herlmxf-hodtmfhmj diabetes mellitus. ss, ada diet when no longer NPO Mild intermittent asthma No exacerbation. Continue inhalers History of antiphospholipid antibody on Xarelto prn during travel DVT prophylaxis: Mechanical Attending Dr. Rush Full code Continue hospitalization for treatment of acute abdominal pain with transaminitis with post ercp pancreatitis requiring aggressive IVF resuscitation as well as diet downgrade due to intolerance Quality Stroke Does the patient have a stroke diagnosis?: No VTE Prior VTE?: No VTE Risk Level:: Medical - moderate - high VTE Device Contraindication: N/A - Device Ordered VTE Drug Contraindication: Treatment Not Indicated
[2023-09-03 15:30] LABS: Lipase 92 U/L (8-78)
[2023-09-03 15:37] LABS: Amylase 76 U/L (28-100)
[2023-09-03] MEDS: Lactated Ringers 1,000 ML 125 ML IVCONT ×2 (16:10→23:49)
[2023-09-03 16:59] LABS: Glucose, Whole Blood 130 mg/dL (60-115)
[2023-09-03 19:56] LABS: Glucose, Whole Blood 140 mg/dL (60-115)
[2023-09-04] VITALS (8 sets, daily range): BP systolic 109–145; BP diastolic 60–73; PULSE 57–84; RESP 16–20; TEMP 36.1–36.9; O2SAT 96–99
[2023-09-04 00:26] LABS: Glucose, Whole Blood 176 mg/dL (60-115)
[2023-09-04] MEDS: Insulin Lispro 100 UNIT/ML 3 ML VIAL SUBCUT (00:31)
[2023-09-04] MEDS: oxyCODONE HCl Immed Release 5 MG TABLET PO ×2 (00:33→14:36)
[2023-09-04] MEDS: Morphine Sulfate 2 MG/ML CARTRIDGE 1 MG IVPUSH (05:46)
[2023-09-04 05:53] LABS: MANUAL DIFF FLAG NO
[2023-09-04 06:07] LABS: Glucose, Whole Blood 96 mg/dL (60-115)
[2023-09-04 06:12] LABS: Basophils Percent Auto 0.2 % (0-2); Eosinophils Absolute Auto 0.1 X10*3/uL (0.0-0.4); Hematocrit 27.2 % (37.0-47.0); Hemoglobin 8.5 g/dl (12.0-16.0); Imm Gran Abs Auto 0.02 X10*3/uL (0.00-0.03); Imm Gran Pct Auto 0.4 % (0.0-0.4); Lymphocytes Absolute Auto 1.9 X10*3/uL (1.2-4.9); Lymphocytes Percent Auto 36.5 % (20-40); Mean Corpuscular HGB Conc 31.3 g/dl (31.0-35.0); Mean Corpuscular Hemoglobin 28.6 pg (27.0-33.0); Mean Corpuscular Volume 91.6 fL (80.0-98.0); Mean Platelet Volume 12.5 fL (9.4-12.3); Monocytes Absolute Auto 0.3 X10*3/uL (0.1-1.2); Monocytes Percent Auto 6.6 % (2-11); Neutrophils Absolute Auto 2.8 x10*3/uL (2.0-8.3); Neutrophils Percent Auto 55.3 % (45-73); Platelet Count 201 X10*3/uL (160-400); Red Blood Count 2.97 X10*6/uL (4.20-5.50); Red Cell Distribution Width 12.4 % (11.0-16.0); White Blood Count 5.1 X10*3/uL (4.8-10.8)
[2023-09-04 06:22] LABS: Alanine Aminotransferase 213 U/L (0-31); Albumin Level 3.3 g/dL (3.5-5.0); Alkaline Phosphatase 83 U/L (39-117); Anion Gap 8 (12-20); Aspartate Amino Transferase 64 U/L (5-31); Bilirubin Direct < 0.2 mg/dL (0.0-0.5); Bilirubin Total 0.2 mg/dL (0.0-1.0); Blood Urea Nitrogen 12 mg/dL (9-16); Calcium 8.2 mg/dL (8.4-10.2); Carbon Dioxide 29 mmol/L (22-29); Chloride 111 mmol/L (96-108); Creatinine Clr Calc Pharmacy 103.3; Estimated Glomerular Filt Rate > 60; Glucose Random 93 mg/dL (60-115); Lipase 112 U/L (8-78); Sodium 144 mmol/L (135-145); Total Protein 5.6 g/dL (6.5-8.0)
[2023-09-04 07:14] LABS: Glucose, Whole Blood 106 mg/dL (60-115)
--- NOTE | 2023-09-04 08:51 | PM.GIPN ---
Subjective Subjective Date of Service: 09/04/23 Interval History: feels better mild discomfort Critical Care Time (minutes): 0 Physical Exam Vital Signs: Vital Signs: Last Vital Signs Temp 97.9 F 09/04/23 07:09 Pulse 57 09/04/23 07:09 Resp 16 09/04/23 07:09 BP 136/73 09/04/23 07:09 Pulse Ox 98 09/04/23 07:09 O2 Del Method Room Air 09/04/23 07:09 BMI result Body Mass Index 26.6 GI: Other: abdomen is soft and nontendedr Objective Data Labs 09/04/23 05:13 09/04/23 05:13 Labs: Laboratory Results - last 24 hr 09/03/23 09/03/23 09/03/23 05:41 10:54 16:08 WBC RBC Hgb Hct MCV MCH MCHC RDW Plt Count MPV Immature Gran % (Auto) Neut % (Auto) Lymph % (Auto) Bremer % (Auto) Eos % (Auto) Baso % (Auto) Lymph # (Auto) Bremer # (Auto) Eos # (Auto) Baso # (Auto) Abs Immat Gran (auto) Absolute Neuts (auto) Absolute Nucleated RBC Nucleated RBC % (auto) Sodium Potassium Chloride Carbon Dioxide Anion Gap BUN Creatinine Estim Creat Clear Calc Estimated GFR POC Glucose 117 H 130 H Random Glucose Calcium Total Bilirubin Direct Bilirubin AST ALT Alkaline Phosphatase Total Protein Albumin Amylase 76 Lipase 92 H 09/03/23 09/04/23 09/04/23 19:52 00:17 05:13 WBC 5.1 RBC 2.97 L Hgb 8.5 L Hct 27.2 L MCV 91.6 MCH 28.6 MCHC 31.3 RDW 12.4 Plt Count 201 MPV 12.5 H Immature Gran % (Auto) 0.4 Neut % (Auto) 55.3 Lymph % (Auto) 36.5 Bremer % (Auto) 6.6 Eos % (Auto) 1.0 Baso % (Auto) 0.2 Lymph # (Auto) 1.9 Bremer # (Auto) 0.3 Eos # (Auto) 0.1 Baso # (Auto) 0.0 Abs Immat Gran (auto) 0.02 Absolute Neuts (auto) 2.8 Absolute Nucleated RBC 0.000 Nucleated RBC % (auto) 0.0 Sodium 144 Potassium 4.0 Chloride 111 H Carbon Dioxide 29 Anion Gap 8 L BUN 12 Creatinine 0.65 Estim Creat Clear Calc 103.3 Estimated GFR > 60 POC Glucose 140 H 176 H Random Glucose 93 Calcium 8.2 L Total Bilirubin 0.2 Direct Bilirubin < 0.2 AST 64 H ALT 213 H Alkaline Phosphatase 83 Total Protein 5.6 L Albumin 3.3 L Amylase Lipase 112 H 09/04/23 09/04/23 06:03 07:07 WBC RBC Hgb Hct MCV MCH MCHC RDW Plt Count MPV Immature Gran % (Auto) Neut % (Auto) Lymph % (Auto) Bremer % (Auto) Eos % (Auto) Baso % (Auto) Lymph # (Auto) Bremer # (Auto) Eos # (Auto) Baso # (Auto) Abs Immat Gran (auto) Absolute Neuts (auto) Absolute Nucleated RBC Nucleated RBC % (auto) Sodium Potassium Chloride Carbon Dioxide Anion Gap BUN Creatinine Estim Creat Clear Calc Estimated GFR POC Glucose 96 106 Random Glucose Calcium Total Bilirubin Direct Bilirubin AST ALT Alkaline Phosphatase Total Protein Albumin Amylase Lipase Procedures Date of Service Date of Service: 09/04/23 Progress Note: A&P Assessment and plan (1) Transaminitis: Status: Acute Assessment and Plan: clinically doing well labs stable advance diet to lo fat, if tolerated, ok to d/c later today my office to arrange f/u. discussed with Adriana with [employer] Time Spent With Patient Time: Total time managing care of this patient today ____ minutes. Quality Stroke Does the patient have a stroke diagnosis?: No VTE Prior VTE?: No VTE Risk Level:: Medical - moderate - high VTE Device Contraindication: N/A - Device Ordered VTE Drug Contraindication: Treatment Not Indicated
[2023-09-04] MEDS: Lactated Ringers 1,000 ML 125 ML IVCONT (09:24)
[2023-09-04 11:48] LABS: Glucose, Whole Blood 106 mg/dL (60-115)
[2023-09-04 12:13] LABS: Anti Nuclear Antibody Screen NEGATIVE (NEGATIVE)
--- NOTE | 2023-09-04 14:34 | P.PNIM_ITS ---
Subjective Subjective Date of Service: 09/04/23 Interval History: Slowly improving. Still some nausea with diet Review of Systems Denies chest pain Denies shortness of breath Admits to nausea denies vomiting diarrhea Denies fever chills Physical Exam 2 Vital Signs: Vital Signs: Last Vital Signs Temp 97.2 F 09/04/23 11:46 Pulse 59 09/04/23 11:46 Resp 18 09/04/23 11:46 BP 145/70 H 09/04/23 11:46 Pulse Ox 98 09/04/23 11:46 O2 Del Method Room Air 09/04/23 11:46 BMI result Body Mass Index 26.6 Const: Other: Awake alert no acute distress Resp: Other: Clear to auscultation bilaterally no rales rhonchi or wheezes Cardio: Other: No S4; positive S1-S2; no S3 murmurs rubs or gallops GI: Other: Soft nontender nondistended normoactive bowel sounds Extrem: Other: No edema bilaterally Objective Data Active Medications Acetaminophen (Acetaminophen 325 Mg Tablet) 650 mg PO Q6H PRN PRN Reason: Pain, Mild (Pain Scale 1-3) Last Admin: 09/03/23 21:49 Dose: 650 mg Documented By: LUPE Acetaminophen/Butalbital/Caffeine (Butalb/Acetamin/Caff 50/325/40 Tablet) 1 tab PO Q12H PRN PRN Reason: MIGRAINES Last Admin: 09/03/23 11:52 Dose: 1 tab Documented By: DOUGLAS Calcium Carbonate (Calcium Carbonate 750 Mg Tab.Chew) 750 mg PO Q6H PRN PRN Reason: Gas Last Admin: 09/03/23 04:24 Dose: 750 mg Documented By: ANALI Dextrose (Dextrose 50 % 25 Gm/50 Ml Syringe) 25 gm IVPUSH Q15M PRN; Protocol PRN Reason: per Hypoglycemia Standing Ord. Fentanyl (Fentanyl Citrate/Pf 100 Mcg/2 Ml Vial) 25 mcg IVPUSH Q5M PRN; Protocol PRN Reason: Pain, Moderate(Pain Scale 4-6) Last Admin: 09/02/23 18:45 Dose: 25 mcg Documented By: DELMA Glucose (Glucose Gel 15 Gm Gel..Gram.) 15 gm PO Q15M PRN; Protocol PRN Reason: per Hypoglycemia Standing Ord. Lactated Ringer's (Lr) 1,000 mls @ 125 mls/hr IVCONT .Q8H [facility] Last Admin: 09/04/23 09:24 Dose: 125 mls/hr Documented By: DOUGLAS Insulin Human Lispro (Insulin Lispro 100 Unit/Ml 3 Ml Vial) 0 unit SUBCUT 0000,0600,1200,1800 [facility]; Protocol Last Admin: 09/04/23 11:51 Dose: Not Given Documented By: DOUGLAS Non-Admin Reason: No Insulin Coverage Melatonin (Melatonin 3 Mg Tablet) 6 mg PO BEDTIME PRN PRN Reason: Insomnia Last Admin: 09/01/23 23:29 Dose: 6 mg Documented By: ANALI Morphine Sulfate (Morphine Sulfate 2 Mg/Ml Cartridge) 1 mg IVPUSH Q6H PRN; Protocol PRN Reason: Pain, Moderate(Pain Scale 4-6) Last Admin: 09/04/23 05:46 Dose: 1 mg Documented By: NILSA Ondansetron HCl (Ondansetron Hcl 4 Mg/2 Ml Vial) 4 mg IVPUSH Q8H PRN PRN Reason: Nausea and Vomiting Last Admin: 09/03/23 08:48 Dose: 4 mg Documented By: DOUGLAS Ondansetron HCl (Ondansetron Hcl 4 Mg/2 Ml Vial) 4 mg IVPUSH ONCE PRN PRN Reason: Nausea and Vomiting Oxycodone HCl (Oxycodone Hcl Immed Release 5 Mg Tablet) 5 mg PO Q6H PRN PRN Reason: Pain, Moderate(Pain Scale 4-6) Last Admin: 09/04/23 00:33 Dose: 5 mg Documented By: SHITAL Sodium Chloride (0.9 % Sodium Chloride Flush 3 Ml Syringe) 3 ml IVFLUSH QSHIFT [facility] Last Admin: 09/04/23 07:36 Dose: Not Given Documented By: DOUGLAS Non-Admin Reason: IV Running Labs 09/04/23 05:13 09/04/23 05:13 Labs: Laboratory Results - last 24 hr 09/01/23 09/03/23 09/03/23 16:13 05:41 16:08 MCV MCH MCHC RDW Plt Count MPV Immature Gran % (Auto) Neut % (Auto) Lymph % (Auto) [place] % (Auto) Eos % (Auto) Baso % (Auto) Lymph # (Auto) [place] # (Auto) Eos # (Auto) Baso # (Auto) Abs Immat Gran (auto) Absolute Neuts (auto) Absolute Nucleated RBC Nucleated RBC % (auto) Anion Gap Estim Creat Clear Calc Estimated GFR POC Glucose 130 H Random Glucose Calcium Total Bilirubin Direct Bilirubin AST ALT Alkaline Phosphatase Total Protein Albumin Amylase 76 Lipase 92 H CARYN Screen NEGATIVE 09/03/23 09/04/23 09/04/23 19:52 00:17 05:13 MCV 91.6 MCH 28.6 MCHC 31.3 RDW 12.4 Plt Count 201 MPV 12.5 H Immature Gran % (Auto) 0.4 Neut % (Auto) 55.3 Lymph % (Auto) 36.5 [place] % (Auto) 6.6 Eos % (Auto) 1.0 Baso % (Auto) 0.2 Lymph # (Auto) 1.9 [place] # (Auto) 0.3 Eos # (Auto) 0.1 Baso # (Auto) 0.0 Abs Immat Gran (auto) 0.02 Absolute Neuts (auto) 2.8 Absolute Nucleated RBC 0.000 Nucleated RBC % (auto) 0.0 Anion Gap 8 L Estim Creat Clear Calc 103.3 Estimated GFR > 60 POC Glucose 140 H 176 H Random Glucose 93 Calcium 8.2 L Total Bilirubin 0.2 Direct Bilirubin < 0.2 AST 64 H ALT 213 H Alkaline Phosphatase 83 Total Protein 5.6 L Albumin 3.3 L Amylase Lipase 112 H CARYN Screen 09/04/23 09/04/23 09/04/23 06:03 07:07 11:43 MCV MCH MCHC RDW Plt Count MPV Immature Gran % (Auto) Neut % (Auto) Lymph % (Auto) [place] % (Auto) Eos % (Auto) Baso % (Auto) Lymph # (Auto) [place] # (Auto) Eos # (Auto) Baso # (Auto) Abs Immat Gran (auto) Absolute Neuts (auto) Absolute Nucleated RBC Nucleated RBC % (auto) Anion Gap Estim Creat Clear Calc Estimated GFR POC Glucose 96 106 106 Random Glucose Calcium Total Bilirubin Direct Bilirubin AST ALT Alkaline Phosphatase Total Protein Albumin Amylase Lipase CARYN Screen Assessment and Plan (1) Right upper quadrant abdominal pain: Status: Acute (2) Transaminitis: Status: Acute Plan This is a 48-year-old female with pertinent history of antiphospholipid syndrome, fibromyalgia, pxj-oxbclra-wljvcramf diabetes mellitus who presents to the emergency department for evaluation of abdominal discomfort. Had previous hospitalization with similar symptoms in 03/2023 with no obvious etiology. [facility] CCY on 01/2023 1.Abdominal pain with elevated transaminases. -ERCP not completed secondary to abnormal anatomy -advance diet as tolerated. . . -to follow-up with [facility] as per Dr. Riddle's recommendation 2.Transaminitis -trending down -follow clinically -LFTs daily 3.Tyz-ikfnwqn-tyjvluhyn diabetes mellitus. -acceptable control on current therapies -lispro correctional scale -adjust as indicated Mechanical Full code Requires ongoing hospitalization for supplemental IV fluids until able to take adequate orals Quality Stroke Does the patient have a stroke diagnosis?: No VTE Prior VTE?: No VTE Risk Level:: Medical - moderate - high VTE Device Contraindication: N/A - Device Ordered VTE Drug Contraindication: Treatment Not Indicated
[2023-09-04] MEDS: Calcium Carbonate 750 MG TAB.CHEW PO (14:36)
[2023-09-04] MEDS: Butalb/Acetamin/Caff 50/325/40 TABLET 1 TAB PO (14:39)
[2023-09-04 16:22] LABS: Glucose, Whole Blood 124 mg/dL (60-115)
[2023-09-04 20:12] LABS: Glucose, Whole Blood 149 mg/dL (60-115)
[2023-09-04 23:56] LABS: Glucose, Whole Blood 137 mg/dL (60-115)
[2023-09-05] VITALS (7 sets, daily range): BP systolic 120–142; BP diastolic 62–73; PULSE 51–66; RESP 16–18; TEMP 36–36.9; O2SAT 96–98
[2023-09-05] MEDS: 0.9 % Sodium Chloride Flush 3 ML SYRINGE IVFLUSH ×4 (00:01→19:37)
[2023-09-05 06:10] LABS: MANUAL DIFF FLAG NO
[2023-09-05 06:15] LABS: Glucose, Whole Blood 115 mg/dL (60-115)
[2023-09-05 06:16] LABS: Basophils Percent Auto 0.2 % (0-2); Eosinophils Absolute Auto 0.1 X10*3/uL (0.0-0.4); Eosinophils Percent Auto 1.9 % (0-4); Hemoglobin 8.4 g/dl (12.0-16.0); Imm Gran Abs Auto 0.01 X10*3/uL (0.00-0.03); Imm Gran Pct Auto 0.2 % (0.0-0.4); Lymphocytes Absolute Auto 1.5 X10*3/uL (1.2-4.9); Lymphocytes Percent Auto 34.8 % (20-40); Mean Corpuscular HGB Conc 31.1 g/dl (31.0-35.0); Mean Corpuscular Hemoglobin 28.3 pg (27.0-33.0); Mean Corpuscular Volume 90.9 fL (80.0-98.0); Mean Platelet Volume 12.4 fL (9.4-12.3); Monocytes Absolute Auto 0.3 X10*3/uL (0.1-1.2); Monocytes Percent Auto 6.7 % (2-11); Neutrophils Absolute Auto 2.4 x10*3/uL (2.0-8.3); Neutrophils Percent Auto 56.2 % (45-73); Platelet Count 207 X10*3/uL (160-400); Red Blood Count 2.97 X10*6/uL (4.20-5.50); Red Cell Distribution Width 12.2 % (11.0-16.0); White Blood Count 4.2 X10*3/uL (4.8-10.8)
[2023-09-05 06:36] LABS: Alanine Aminotransferase 147 U/L (0-31); Albumin Level 3.3 g/dL (3.5-5.0); Alkaline Phosphatase 72 U/L (39-117); Anion Gap 11 (12-20); Aspartate Amino Transferase 28 U/L (5-31); Bilirubin Total 0.2 mg/dL (0.0-1.0); Blood Urea Nitrogen 12 mg/dL (9-16); Calcium 8.8 mg/dL (8.4-10.2); Carbon Dioxide 30 mmol/L (22-29); Chloride 108 mmol/L (96-108); Creatinine Clr Calc Pharmacy 108.3; Estimated Glomerular Filt Rate > 60; Glucose Fasting 126 mg/dL (60-99); Potassium 4.3 mmol/L (3.3-5.1); Sodium 145 mmol/L (135-145); Total Protein 5.7 g/dL (6.5-8.0)
[2023-09-05 07:37] LABS: Glucose, Whole Blood 111 mg/dL (60-115)
[2023-09-05] MEDS: ondansetron HCL 4 MG/2 ML VIAL IVPUSH (09:38)
[2023-09-05 11:15] LABS: Glucose, Whole Blood 159 mg/dL (60-115)
[2023-09-05] MEDS: Insulin Lispro 100 UNIT/ML 3 ML VIAL SUBCUT (12:19)
[2023-09-05] MEDS: Butalb/Acetamin/Caff 50/325/40 TABLET 1 TAB PO ×2 (12:19)
--- NOTE | 2023-09-05 15:11 | P.PNIM_ITS ---
Subjective Subjective Date of Service: 09/05/23 Interval History: Still with pain and nausea after eating any p.o. Review of Systems Denies chest pain Denies shortness of breath Admits to nausea denies vomiting diarrhea Denies fever chills Physical Exam 2 Vital Signs: Vital Signs: Last Vital Signs Temp 97.6 F 09/05/23 11:02 Pulse 62 09/05/23 11:02 Resp 18 09/05/23 11:02 BP 133/73 09/05/23 11:02 Pulse Ox 98 09/05/23 13:46 O2 Del Method Room Air 09/05/23 13:46 BMI result Body Mass Index 26.6 Const: Other: Awake alert no acute distress Resp: Other: Clear to auscultation bilaterally no rales rhonchi or wheezes Cardio: Other: No S4; positive S1-S2; no S3 murmurs rubs or gallops GI: Other: Soft nontender nondistended normoactive bowel sounds Extrem: Other: No edema bilaterally Objective Data Active Medications Acetaminophen (Acetaminophen 325 Mg Tablet) 650 mg PO Q6H PRN PRN Reason: Pain, Mild (Pain Scale 1-3) Last Admin: 09/03/23 21:49 Dose: 650 mg Documented By: LUPE Acetaminophen/Butalbital/Caffeine (Butalb/Acetamin/Caff 50/325/40 Tablet) 1 tab PO Q12H PRN PRN Reason: MIGRAINES Last Admin: 09/05/23 12:19 Dose: 1 tab Documented By: DOUGLAS Calcium Carbonate (Calcium Carbonate 750 Mg Tab.Chew) 750 mg PO Q6H PRN PRN Reason: Gas Last Admin: 09/04/23 14:36 Dose: 750 mg Documented By: DOUGLAS Dextrose (Dextrose 50 % 25 Gm/50 Ml Syringe) 25 gm IVPUSH Q15M PRN; Protocol PRN Reason: per Hypoglycemia Standing Ord. Fentanyl (Fentanyl Citrate/Pf 100 Mcg/2 Ml Vial) 25 mcg IVPUSH Q5M PRN; Protocol PRN Reason: Pain, Moderate(Pain Scale 4-6) Last Admin: 09/02/23 18:45 Dose: 25 mcg Documented By: DELMA Glucose (Glucose Gel 15 Gm Gel..Gram.) 15 gm PO Q15M PRN; Protocol PRN Reason: per Hypoglycemia Standing Ord. Insulin Human Lispro (Insulin Lispro 100 Unit/Ml 3 Ml Vial) 0 unit SUBCUT 0000,0600,1200,1800 [facility]; Protocol Last Admin: 09/05/23 12:19 Dose: 2 unit Documented By: DOUGLAS Melatonin (Melatonin 3 Mg Tablet) 6 mg PO BEDTIME PRN PRN Reason: Insomnia Last Admin: 09/01/23 23:29 Dose: 6 mg Documented By: ANALI Morphine Sulfate (Morphine Sulfate 2 Mg/Ml Cartridge) 1 mg IVPUSH Q6H PRN; Protocol PRN Reason: Pain, Moderate(Pain Scale 4-6) Last Admin: 09/04/23 05:46 Dose: 1 mg Documented By: NILSA Ondansetron HCl (Ondansetron Hcl 4 Mg/2 Ml Vial) 4 mg IVPUSH Q8H PRN PRN Reason: Nausea and Vomiting Last Admin: 09/05/23 09:38 Dose: 4 mg Documented By: DOUGLAS Ondansetron HCl (Ondansetron Hcl 4 Mg/2 Ml Vial) 4 mg IVPUSH ONCE PRN PRN Reason: Nausea and Vomiting Oxycodone HCl (Oxycodone Hcl Immed Release 5 Mg Tablet) 5 mg PO Q6H PRN PRN Reason: Pain, Moderate(Pain Scale 4-6) Last Admin: 09/04/23 14:36 Dose: 5 mg Documented By: DOUGLAS Sodium Chloride (0.9 % Sodium Chloride Flush 3 Ml Syringe) 3 ml IVFLUSH [facility] Last Admin: 09/05/23 09:38 Dose: 3 ml Documented By: DOUGLAS Labs 09/05/23 05:12 09/05/23 05:12 Labs: Laboratory Results - last 24 hr 09/01/23 09/04/23 09/04/23 16:13 16:13 20:03 MCV MCH MCHC RDW Plt Count MPV Immature Gran % (Auto) Neut % (Auto) Lymph % (Auto) [place] % (Auto) Eos % (Auto) Baso % (Auto) Lymph # (Auto) [place] # (Auto) Eos # (Auto) Baso # (Auto) Abs Immat Gran (auto) Absolute Neuts (auto) Absolute Nucleated RBC Nucleated RBC % (auto) Anion Gap Estim Creat Clear Calc Estimated GFR POC Glucose 124 H 149 H Fasting Glucose Calcium Total Bilirubin AST ALT Alkaline Phosphatase Total Protein Albumin CARYN Titer TNP CARYN Titer 2 TNP CARYN Titer 3 TNP CARYN Pattern TNP CARYN Pattern 2 TNP CARYN Pattern 3 TNP 09/04/23 09/05/23 09/05/23 23:51 05:12 06:10 MCV 90.9 MCH 28.3 MCHC 31.1 RDW 12.2 Plt Count 207 MPV 12.4 H Immature Gran % (Auto) 0.2 Neut % (Auto) 56.2 Lymph % (Auto) 34.8 [place] % (Auto) 6.7 Eos % (Auto) 1.9 Baso % (Auto) 0.2 Lymph # (Auto) 1.5 [place] # (Auto) 0.3 Eos # (Auto) 0.1 Baso # (Auto) 0.0 Abs Immat Gran (auto) 0.01 Absolute Neuts (auto) 2.4 Absolute Nucleated RBC 0.000 Nucleated RBC % (auto) 0.0 Anion Gap 11 L Estim Creat Clear Calc 108.3 Estimated GFR > 60 POC Glucose 137 H 115 Fasting Glucose 126 H Calcium 8.8 D Total Bilirubin 0.2 AST 28 ALT 147 H Alkaline Phosphatase 72 Total Protein 5.7 L Albumin 3.3 L CARYN Titer CARYN Titer 2 CARYN Titer 3 CARYN Pattern CARYN Pattern 2 CARYN Pattern 3 09/05/23 09/05/23 07:02 10:58 MCV MCH MCHC RDW Plt Count MPV Immature Gran % (Auto) Neut % (Auto) Lymph % (Auto) [place] % (Auto) Eos % (Auto) Baso % (Auto) Lymph # (Auto) [place] # (Auto) Eos # (Auto) Baso # (Auto) Abs Immat Gran (auto) Absolute Neuts (auto) Absolute Nucleated RBC Nucleated RBC % (auto) Anion Gap Estim Creat Clear Calc Estimated GFR POC Glucose 111 159 H Fasting Glucose Calcium Total Bilirubin AST ALT Alkaline Phosphatase Total Protein Albumin CARYN Titer CARYN Titer 2 CARYN Titer 3 CARYN Pattern CARYN Pattern 2 CARYN Pattern 3 Assessment and Plan (1) Right upper quadrant abdominal pain: Status: Acute (2) Transaminitis: Status: Acute Plan This is a 48-year-old female with pertinent history of antiphospholipid syndrome, fibromyalgia, wgt-ogollaz-iihdegwhq diabetes mellitus who presents to the emergency department for evaluation of abdominal discomfort. Had previous hospitalization with similar symptoms in 03/2023 with no obvious etiology. [facility] CCY on 01/2023 1.Abdominal pain with elevated transaminases. -ERCP not completed secondary to abnormal anatomy -still with significant discomfort and nausea after any p.o. intake -advance diet as tolerated. . . -will discuss plan with GI in a.m. 2.Transaminitis -trending down -follow clinically -LFTs daily 3.Usi-cpkcfmq-hqyscscbp diabetes mellitus. -acceptable control on current therapies -lispro correctional scale -adjust as indicated Mechanical Full code Requires ongoing hospitalization for supplemental IV fluids until able to take adequate orals Quality Stroke Does the patient have a stroke diagnosis?: No VTE Prior VTE?: No VTE Risk Level:: Medical - moderate - high VTE Device Contraindication: N/A - Device Ordered VTE Drug Contraindication: Treatment Not Indicated
[2023-09-05 16:10] LABS: Glucose, Whole Blood 149 mg/dL (60-115)
[2023-09-05] MEDS: oxyCODONE HCl Immed Release 5 MG TABLET PO (18:31)
[2023-09-05 20:48] LABS: Glucose, Whole Blood 142 mg/dL (60-115)
[2023-09-06] MEDS: Calcium Carbonate 750 MG TAB.CHEW PO (00:36)
[2023-09-06] MEDS: oxyCODONE HCl Immed Release 5 MG TABLET PO ×4 (00:36→17:23)
[2023-09-06 03:45] VITALS: BP 135/71; PULSE 64; RESP 18; TEMP 36.8; O2SAT 98
[2023-09-06 05:56] LABS: MANUAL DIFF FLAG NO
[2023-09-06 06:03] LABS: Basophils Percent Auto 0.4 % (0-2); Eosinophils Absolute Auto 0.1 X10*3/uL (0.0-0.4); Eosinophils Percent Auto 1.6 % (0-4); Hematocrit 28.9 % (37.0-47.0); Hemoglobin 9.3 g/dl (12.0-16.0); Imm Gran Abs Auto 0.01 X10*3/uL (0.00-0.03); Imm Gran Pct Auto 0.2 % (0.0-0.4); Lymphocytes Percent Auto 34.8 % (20-40); Mean Corpuscular HGB Conc 32.2 g/dl (31.0-35.0); Mean Corpuscular Hemoglobin 28.6 pg (27.0-33.0); Mean Corpuscular Volume 88.9 fL (80.0-98.0); Mean Platelet Volume 12.2 fL (9.4-12.3); Monocytes Absolute Auto 0.4 X10*3/uL (0.1-1.2); Monocytes Percent Auto 7.3 % (2-11); Neutrophils Absolute Auto 3.1 x10*3/uL (2.0-8.3); Neutrophils Percent Auto 55.7 % (45-73); Platelet Count 245 X10*3/uL (160-400); Red Blood Count 3.25 X10*6/uL (4.20-5.50); Red Cell Distribution Width 11.9 % (11.0-16.0); White Blood Count 5.6 X10*3/uL (4.8-10.8)
[2023-09-06 06:15] LABS: Glucose, Whole Blood 122 mg/dL (60-115)
[2023-09-06 06:17] LABS: Alanine Aminotransferase 114 U/L (0-31); Albumin Level 3.7 g/dL (3.5-5.0); Alkaline Phosphatase 72 U/L (39-117); Anion Gap 11 (12-20); Aspartate Amino Transferase 19 U/L (5-31); Bilirubin Direct < 0.2 mg/dL (0.0-0.5); Bilirubin Total 0.2 mg/dL (0.0-1.0); Blood Urea Nitrogen 17 mg/dL (9-16); Calcium 9.2 mg/dL (8.4-10.2); Carbon Dioxide 28 mmol/L (22-29); Chloride 107 mmol/L (96-108); Estimated Glomerular Filt Rate > 60; Glucose Fasting 121 mg/dL (60-99); Lipase 104 U/L (8-78); Potassium 4.3 mmol/L (3.3-5.1); Sodium 142 mmol/L (135-145); Total Protein 6.4 g/dL (6.5-8.0)
[2023-09-06] MEDS: Butalb/Acetamin/Caff 50/325/40 TABLET 1 TAB PO ×2 (06:18→16:57)
[2023-09-06 07:26] VITALS: BP 110/59; PULSE 55; RESP 15; TEMP 36.1; O2SAT 96
[2023-09-06] MEDS: 0.9 % Sodium Chloride Flush 3 ML SYRINGE IVFLUSH (07:43)
--- NOTE | 2023-09-06 11:04 | PM.DS ---
DS: Providers Provider Date of Service: 09/06/23 Date of admission: 09/03/23 15:16 Date of discharge: 09/06/23 Primary care physician: Yecenia Mauro MD Consults: 09/01/23 01:59 Consult to Gastroenterology Routine Consulting Provider: Cb Ramsay Reason for consultation: Abdominal Pain with transamnitis DS: Diagnosis Discharge Diagnosis (1) Right upper quadrant abdominal pain: Status: Acute (2) Transaminitis: Status: Acute DS: Summary Hospital Course Hospital Course: HPI on admission by Dr. Mcgrath on 09/01: Chief Complaint: Abdominal Pain This is a 48-year-old female with pertinent history of antiphospholipid syndrome, fibromyalgia, ivr-fqnyspv-kulllzzpa diabetes mellitus who presents to the emergency department for evaluation of abdominal discomfort. Patient had a cholecystectomy in January 2023. She was admitted in March 2023 for evaluation of abdominal discomfort and elevated transaminases. It was thought to be due to gastritis and elevated liver enzymes possibly related to a stone that passed as no stones seen on MRCP. Liver enzymes trended prior to discharge in March 2023. Patient states she has had similar pain that she had in March 2023 that started 2 days prior to presentation. It is in the epigastric /right upper quadrant region and radiates to the back. It is intermittent and without any relieving or aggravating factors. No relation of pain to food. Patient also has associated nausea and vomiting. It has been progressive over the last 48 hours. No fever or chills or diarrhea. No chest discomfort, palpitations, shortness of breath, changes in urinary habits. Denies alcohol use In the emergency department, AST/ ALT found to be elevated Hospital course: Pt observed for elevated transaminases and RUQ pain ongoing for several months intermittently but worsening over several days. On admission, AST 611, ALT 252. LFTs gradually trended down. GI as consulted and patinet underwent ERCP on 09/02 showing normal papilla with good bile drainage. Pancreatogram shows mild ductal dilation wihtout stricture. CBD unable to be dilated, no sphincterectomy performed. Diet was advanced with good tolerance. Patient will be discharged home and GI will arrange for outpt ERCP at tertiary care facility. Will discahrge with short course oxycodone for severe pain only as well as zofran. Follow up with GI and PCP soon. Hospital course otherwise uneventful. Continue all other home medications. Abdominal pain with elevated transaminases. Unclear etiology. CT abdomen without acute abnormalities. MRCP neg pain management NPO for now consult Gastroenterology> ERCP as above. OUpt follow up to consider referral to tertiary care center for repeat ERCP repeat liver panel 1 week Transaminitis trending down no obvious etiology Unremarkable pancreas on CT, no obvious abnormality noted on CT scan hep panel negative Acute on chronic normocytic anemia above transfusion threshold repeat cbc 1 week Vat-crhzlvq-fodhojhte diabetes mellitus. ss, ada diet when no longer NPO Mild intermittent asthma No exacerbation. Continue inhalers History of antiphospholipid antibody on Xarelto prn during travel Time Attestation Discharge coordination time: Greater than 30 minutes Quality: Safe Use of Opioids Does Pt have an Active Cancer Diagnosis on the Problem List?: No Quality: Stroke Does the patient have a stroke diagnosis?: No Physical Exam Vital Signs: Vital Signs: Last Vital Signs Temp 97.0 F 09/06/23 07:26 Pulse 55 09/06/23 07:26 Resp 15 09/06/23 07:26 BP 110/59 L 09/06/23 07:26 Pulse Ox 96 09/06/23 07:26 O2 Del Method Room Air 09/06/23 07:26 BMI result Body Mass Index 26.6 Const: Other: Awake alert no acute distress Resp: Other: Clear to auscultation bilaterally no rales rhonchi or wheezes Cardio: Other: No S4; positive S1-S2; no S3 murmurs rubs or gallops GI: Other: Soft nontender nondistended normoactive bowel sounds Extrem: Other: No edema bilaterally DS: Data Data Completed and Pending Labs on day of discharge: Laboratory Results - last 24 hr 09/05/23 09/05/23 09/05/23 10:58 15:35 20:39 WBC RBC Hgb Hct MCV MCH MCHC RDW Plt Count MPV Immature Gran % (Auto) Neut % (Auto) Lymph % (Auto) [place] % (Auto) Eos % (Auto) Baso % (Auto) Lymph # (Auto) [place] # (Auto) Eos # (Auto) Baso # (Auto) Abs Immat Gran (auto) Absolute Neuts (auto) Absolute Nucleated RBC Nucleated RBC % (auto) Sodium Potassium Chloride Carbon Dioxide Anion Gap BUN Creatinine Estim Creat Clear Calc Estimated GFR POC Glucose 159 H 149 H 142 H Fasting Glucose Calcium Total Bilirubin Direct Bilirubin AST ALT Alkaline Phosphatase Total Protein Albumin Lipase 09/06/23 09/06/23 05:09 06:11 WBC 5.6 RBC 3.25 L Hgb 9.3 L Hct 28.9 L MCV 88.9 MCH 28.6 MCHC 32.2 RDW 11.9 Plt Count 245 MPV 12.2 Immature Gran % (Auto) 0.2 Neut % (Auto) 55.7 Lymph % (Auto) 34.8 [place] % (Auto) 7.3 Eos % (Auto) 1.6 Baso % (Auto) 0.4 Lymph # (Auto) 2.0 [place] # (Auto) 0.4 Eos # (Auto) 0.1 Baso # (Auto) 0.0 Abs Immat Gran (auto) 0.01 Absolute Neuts (auto) 3.1 Absolute Nucleated RBC 0.000 Nucleated RBC % (auto) 0.0 Sodium 142 Potassium 4.3 Chloride 107 Carbon Dioxide 28 Anion Gap 11 L BUN 17 H Creatinine 0.73 Estim Creat Clear Calc 92.0 Estimated GFR > 60 POC Glucose 122 H Fasting Glucose 121 H Calcium 9.2 Total Bilirubin 0.2 Direct Bilirubin < 0.2 AST 19 ALT 114 H Alkaline Phosphatase 72 Total Protein 6.4 L Albumin 3.7 Lipase 104 H Discharge Plan Discharge Anticipated Discharge Date/Time: 09/03/23 10:48 Patient Disposition: Home, Self-Care Discharge Diagnosis: RUQ pain, transaminitis Referrals: Yecenia Mauro MD [Primary Care Provider] - 1 Week Cb Ramsay MD [Physician] - 1 Week Discharge Medications: New oxycodone 5 mg Tablet 5 mg PO Q6H PRN (Reason: Pain, Moderate(Pain Scale 4-6)) Qty: 10 0RF Rx Instructions: Partial Fill upon patient request. ondansetron 4 mg tablet,disintegrating 4 mg PO Q8H PRN (Reason: nausea and vomiting) Qty: 20 0RF Continued albuterol sulfate 90 mcg/actuation Hfa Aerosol Inhaler 1 inh INHALATION DAILY PRN (Reason: Wheezing) metformin 500 mg tablet 500 mg PO BID PRN (Reason: high glucose) hvipqdorkd-uphzvakzcrcqm-hque 50-325-40 mg tablet 1 tab PO Q12H PRN (Reason: MIGRAINES) omeprazole 40 mg capsule,delayed release(DR/EC) 40 mg PO DAILY@0630 PRN (Reason: Acid Reflux) Flovent HFA 110 mcg/actuation HFA aerosol inhaler 2 puff inhalation BID PRN (Reason: Shortness Of Breath Or Wheezing) Trulicity 0.75 mg/0.5 mL pen injector 0.75 mg subcut OZUNA@0900 ibuprofen 800 mg tablet 800 mg PO TID PRN (Reason: Pain) cholecalciferol (vitamin D3) 50 mcg (2,000 unit) capsule 50 mcg PO DAILY Xarelto 20 mg tablet 20 mg PO DAILY PRN (Reason: when traveling) Rx Instructions: must administer with evening meal Discharge Orders: Discharge Order (Routine); Ordered 09/06/23 Ordered By: Peng Mackenzie Diet: Advance to usual diet Activity on Discharge: As tolerated Stand Alone Forms: Patient Portal Discharge page Other Ambulatory Orders: Complete Blood Count Auto Diff (Routine) Timeframe: 1 Week Facility: [facility] - Location: Laboratory Ordered By: Tamela Rodriguez Liver Panel (Routine) Timeframe: 1 Week Facility: [facility] - Location: Laboratory Ordered By: Tamela Rodriguez Care Plan Goals: resolve pain Health Concerns: Right upper quadrant pain of unclear etiology Elevated liver enzymes Plan of Treatment: Follow up soon with Dr. Ramsay/Venkatesh who will be setting up an outpatient ERCP at a tertiary care hospital (such as [facility]) [facility] additional resources Take pain medication and zofran only as needed Advance diet as tolerated Assessment: See above. See discharge summary Patient Instructions: ERCP (Endoscopic Retrograde Cholangiopancreatography) (GEN)
--- NOTE | 2023-09-06 11:21 | MHC.CM.PN ---
EMR reviewed. Patient is medically cleared for dc home self care. will transport home at approx 5pm. RN aware.
[2023-09-06 11:36] VITALS: BP 128/69; PULSE 70; TEMP 36.4; O2SAT 98
[2023-09-06 11:54] LABS: Glucose, Whole Blood 119 mg/dL (60-115)
[2023-09-06 14:00] VITALS: O2SAT 97
[2023-09-06 16:00] VITALS: BP 112/78; PULSE 62; RESP 18; TEMP 36.1; O2SAT 97
== END 2023-09-06 18:03 | disposition home or self-care (01) | DRG 282 ==
LOC: HO.ED 09-01 01:45 → HO.EDOVER 09-01 02:03 → HO.S3 09-01 02:22
PROVIDERS: Internal Medicine; Internal Medicine Gastroenterology; Nurse Practitioner Acute Care; Physician Assistant; Admitting Provider Student in an Organized Health Care Education/Training Program; Emergency Provider Emergency Medicine; PCP General Practice; Visit Provider Hospitalist
PROC: 0FJB8ZZ Inspection of Hepatobiliary Duct, Via Natural or Artificial Opening Endoscopic (ICD-10-PCS; CPT 43260; principal; 2023-09-02 15:30)
DX: K86.89 Other specified diseases of pancreas (principal); D68.61 Antiphospholipid syndrome; E11.9 Type 2 diabetes mellitus without complications; J45.20 Mild intermittent asthma, uncomplicated; M79.7 Fibromyalgia; D50.9 Iron deficiency anemia, unspecified; R74.01 Elevation of levels of liver transaminase levels; Z88.0 Allergy status to penicillin; Z79.84 Long term (current) use of oral hypoglycemic drugs; Z79.899 Other long term (current) drug therapy
CPT/HCPCS: 36415; 74177; 74181; 80048; 80053; 80076; 80143; 80307; 81001; 82150; 82550; 82947; 83690; 85025; 85027; 85610; 86038; 86140; 86308; 86704; 86706; 86709; 86803; 87340; 99285; C1769; J0330; J1100; J1610; J1790; J1885; J1956; J2250; J2270; J2405; J2704; J3010; J3360; J7120; Q9967

== ENCOUNTER → 2023-09-01 01:59 | Outpatient (BNV) | payer MEDICAID, SELFPAY | PROVIDERS: Admitting Provider Student in an Organized Health Care Education/Training Program; Emergency Provider Emergency Medicine; PCP General Practice; Visit Provider Student in an Organized Health Care Education/Training Program | DX: R10.11 Right upper quadrant pain (principal); R74.01 Elevation of levels of liver transaminase levels | CPT/HCPCS: 99222; 99232; 99239; 99499 ==

== ENCOUNTER 2023-09-18 13:36 | Outpatient (REF) | payer MEDICAID, SELFPAY ==
[2023-09-18 16:33] LABS: Basophils Percent Auto 0.5 % (0-2); Eosinophils Absolute Auto 0.1 X10*3/uL (0.0-0.4); Eosinophils Percent Auto 1.2 % (0-4); Hematocrit 33.8 % (37.0-47.0); Hemoglobin 10.8 g/dl (12.0-16.0); Imm Gran Abs Auto 0.01 X10*3/uL (0.00-0.03); Imm Gran Pct Auto 0.2 % (0.0-0.4); Lymphocytes Percent Auto 35.1 % (20-40); MANUAL DIFF FLAG SCAN; Mean Corpuscular Hemoglobin 27.6 pg (27.0-33.0); Mean Corpuscular Volume 86.2 fL (80.0-98.0); Mean Platelet Volume 13.4 fL (9.4-12.3); Monocytes Absolute Auto 0.4 X10*3/uL (0.1-1.2); Monocytes Percent Auto 6.2 % (2-11); Neutrophils Absolute Auto 3.2 x10*3/uL (2.0-8.3); Neutrophils Percent Auto 56.8 % (45-73); PLT CLUMP 1; Red Blood Count 3.92 X10*6/uL (4.20-5.50); SCAN SMEAR FLAG 1
[2023-09-18 16:34] LABS: Platelet Count 207 X10*3/uL (160-400); White Blood Count 5.6 X10*3/uL (4.8-10.8)
[2023-09-18 16:47] LABS: Alanine Aminotransferase 15 U/L (0-31); Albumin Level 4.3 g/dL (3.5-5.0); Alkaline Phosphatase 49 U/L (39-117); Anion Gap 14 (12-20); Aspartate Amino Transferase 17 U/L (5-31); Bilirubin Direct 0.1 mg/dL (0.0-0.5); Bilirubin Total 0.4 mg/dL (0.0-1.0); Blood Urea Nitrogen 11 mg/dL (9-16); Calcium 9.3 mg/dL (8.4-10.2); Carbon Dioxide 24 mmol/L (22-29); Chloride 104 mmol/L (96-108); Estimated Glomerular Filt Rate > 60; Glucose Random 140 mg/dL (60-115); Potassium 4.7 mmol/L (3.3-5.1); Sodium 137 mmol/L (135-145); Total Protein 7.6 g/dL (6.5-8.0)
[2023-09-18 17:21] LABS: SLIDE REVIEW VERIFIED
== END 2023-09-18 13:37 | disposition home or self-care (01) ==
LOC: HO.HHCL 13:36
PROVIDERS: Visit Provider General Practice
DX: D64.9 Anemia, unspecified (principal); R74.01 Elevation of levels of liver transaminase levels
CPT/HCPCS: 36415; 80053; 80076; 82248; 85025

== ENCOUNTER 2023-12-14 15:30 | Outpatient (REF) | payer MEDICAID, SELFPAY ==
[2023-12-14 16:14] LABS: MANUAL DIFF FLAG NO
[2023-12-14 16:22] LABS: Appearance Urine Cloudy; Color Urine Yellow; Glucose Urine UA Negative (Negative); Leukocyte Esterase Urine Negative (Negative); Nitrite Urine Negative (Negative); PH 5.5 (5.0-9.0); Specific Gravity - Urine >= 1.030 (1.005-1.025); Urine Blood Negative (Negative); Urine Ketones Trace mg/dL (Negative); Urine Protein Negative (Neg-Trace)
[2023-12-14 16:45] LABS: Basophils Percent Auto 0.1 % (0-2); Eosinophils Absolute Auto 0.1 X10*3/uL (0.0-0.4); Hematocrit 35.2 % (37.0-47.0); Hemoglobin 10.7 g/dl (12.0-16.0); Imm Gran Abs Auto 0.02 X10*3/uL (0.00-0.03); Imm Gran Pct Auto 0.3 % (0.0-0.4); Lymphocytes Absolute Auto 1.8 X10*3/uL (1.2-4.9); Lymphocytes Percent Auto 26.3 % (20-40); Mean Corpuscular HGB Conc 30.4 g/dl (31.0-35.0); Mean Corpuscular Hemoglobin 23.5 pg (27.0-33.0); Mean Corpuscular Volume 77.2 fL (80.0-98.0); Mean Platelet Volume 12.4 fL (9.4-12.3); Monocytes Absolute Auto 0.5 X10*3/uL (0.1-1.2); Monocytes Percent Auto 7.2 % (2-11); Neutrophils Absolute Auto 4.4 x10*3/uL (2.0-8.3); Neutrophils Percent Auto 65.1 % (45-73); Platelet Count 223 X10*3/uL (160-400); Red Blood Count 4.56 X10*6/uL (4.20-5.50); Red Cell Distribution Width 16.2 % (11.0-16.0); White Blood Count 6.8 X10*3/uL (4.8-10.8)
[2023-12-14 16:47] LABS: Bacteria Urine 1+ (None Seen); Hyaline Casts Urine 0-2 /LPF (0-2); RBC Urine 0-2 /HPF (0-2); WBC Urine 0-5 /HPF (0-5)
[2023-12-14 17:36] LABS: Creatinine Urine 187.23 mg/dL; Microalbum/Creatinine Ratio Ur 5.8 ug/mg cr (<30)
[2023-12-14 18:25] LABS: Alanine Aminotransferase 16 U/L (0-31); Albumin Level 4.1 g/dL (3.5-5.0); Alkaline Phosphatase 35 U/L (39-117); Anion Gap 14 (12-20); Aspartate Amino Transferase 21 U/L (5-31); Bilirubin Total 0.2 mg/dL (0.0-1.0); Blood Urea Nitrogen 11 mg/dL (9-16); Calcium 9.2 mg/dL (8.4-10.2); Carbon Dioxide 24 mmol/L (22-29); Chloride 109 mmol/L (96-108); Cholesterol 190 mg/dL (<200); Estimated Glomerular Filt Rate > 60; Glucose Random 108 mg/dL (60-115); HDL Cholesterol 61 mg/dL (>40); LDL Cholesterol Calculated 103 mg/dL (<100); Potassium 4.1 mmol/L (3.3-5.1); Sodium 143 mmol/L (135-145); Total Protein 7.2 g/dL (6.5-8.0); Triglycerides 134 mg/dL (<150)
[2023-12-16 20:28] LABS: C. trachomatis RNA TMA NOT DETECTED (NOT DETECTED); Candida glabrata RNA NOT DETECTED (NOT DETECTED); Candida species RNA NOT DETECTED (NOT DETECTED); N. gonorrhoeae RNA TMA NOT DETECTED (NOT DETECTED); Trichomonas vaginalis RNA NOT DETECTED (NOT DETECTED)
== END 2023-12-14 15:31 | disposition home or self-care (01) ==
LOC: HO.HHCL 15:30
PROVIDERS: Visit Provider General Practice
DX: R11.0 Nausea (principal); E11.9 Type 2 diabetes mellitus without complications; N89.8 Other specified noninflammatory disorders of vagina
CPT/HCPCS: 36415; 80053; 80061; 81001; 81513; 82043; 82570; 85025; 87481; 87491; 87591; 87661

== ENCOUNTER 2024-02-02 09:58 | Outpatient (REF) | payer MEDICAID, SELFPAY | END 2024-02-02 09:59 | disposition home or self-care (01) | LOC: HO.MAMMO 09:58 | PROVIDERS: PCP General Practice; Visit Provider General Practice | DX: Z12.31 Encounter for screening mammogram for malignant neoplasm of breast (principal) | CPT/HCPCS: 77063; 77067 ==

== ENCOUNTER → 2024-02-02 10:15 | Outpatient (BNV) | payer MEDICAID, SELFPAY | PROVIDERS: PCP General Practice; Visit Provider Radiology Diagnostic Radiology | DX: Z12.31 Encounter for screening mammogram for malignant neoplasm of breast (principal) | CPT/HCPCS: 77063; 77067 ==

== ENCOUNTER 2024-05-13 10:29 | Outpatient (REF) | payer MEDICAID, SELFPAY ==
--- NOTE | ~2024-05-13 | XR_ITS ---
EXAMINATION: XR CERVICAL SPINE CLINICAL INFORMATION: Neck pain and instability COMPARISON: None available. TECHNIQUE: 5views of the cervical spine were obtained. FINDINGS: Mild reversal of cervical lordosis. The cervical vertebral bodies demonstrate normal height. Overall sagittal alignment is maintained. Small endplate osteophytes at C5-C6. The posterior elements appear intact. The atlantodental interval is maintained. Normal alignment of lateral masses of C1 over C2. On the oblique views, there is no evidence of foraminal narrowing. XR/XR cervical spine 4V IMPRESSION: No radiographic evidence of acute abnormality involving the cervical spine. Mild degenerative changes at C5-C6. No significant foraminal narrowing on the oblique views. Electronically signed by: Camilo Alamo MD 05/13/2024 12:33 PM EDT
== END 2024-05-13 10:30 | disposition home or self-care (01) ==
LOC: HO.HHCX 10:29
PROVIDERS: Visit Provider General Practice
DX: M54.2 Cervicalgia (principal)
CPT/HCPCS: 72050

== ENCOUNTER 2024-07-07 16:35 | Observation (INO) | payer MEDICAID, SELFPAY ==
--- NOTE | ~2024-07-07 | XR_ITS ---
EXAMINATION: XR CHEST CLINICAL INFORMATION: Syncope COMPARISON: 04/05/2023 TECHNIQUE: Frontal view of the chest was obtained. FINDINGS: No significant abnormality is noted involving the heart, lungs, mediastinum, bony thorax or soft tissues. XR/XR chest 1V IMPRESSION: Unremarkable examination. Electronically signed by: Ilya Conde MD 07/07/2024 11:09 PM [facility] [place] [place]
--- NOTE | ~2024-07-07 | XR_ITS ---
EXAMINATION: XR KNEE, LEFT CLINICAL INFORMATION: Fall. Pain. COMPARISON: Left knee radiographs dated 11/19/2022. TECHNIQUE: Four views of the left knee. FINDINGS: No acute fracture or dislocation. No joint space narrowing or marginal osteophytes. No osseous erosion. No abnormal soft tissue calcification. Moderate joint effusion. XR/XR knee LT 4V IMPRESSION: Moderate joint effusion. No acute fracture or dislocation. Electronically signed by: Radames Hogan MD 07/07/2024 08:37 PM [facility] [place]
--- NOTE | ~2024-07-07 | CT_ITS ---
EXAMINATION: CT HEAD WITHOUT CONTRAST CT CERVICAL SPINE WITHOUT CONTRAST CLINICAL INFORMATION: Fall. COMPARISON: Brain MRI from 11/04/2022. TECHNIQUE: Contiguous axial imaging was performed from the skull base to vertex without intravenous administration of contrast. Contiguous axial imaging was performed from the upper chest through the skull base without intravenous administration of contrast. Coronal and sagittal reformats were obtained at the acquisition workstation. This CT examination was performed using dose optimization techniques as appropriate, variously including the following: *Automated exposure control. *Adjustment of mA and/or kV according to patient size (this includes techniques or standardized protocols for targeted exams where dose is matched to indication/reason for exam; i.e. extremities or head). *Use of iterative reconstruction technique. DLP: 957 mGy-cm FINDINGS: Head: There is no evidence of acute intracranial hemorrhage or edematous territorial infarction. Concepcion-white matter differentiation is preserved. There is no abnormal attenuation within the brain parenchyma. The ventricles are normal in morphology and size. No evidence for obstructive hydrocephalus. No abnormal mass effect or midline shift. No extra-axial fluid collections. No acute soft tissue or osseous abnormalities. Mild mucosal thickening of the paranasal sinuses. The mastoid air cells and middle ear cavities are clear. Moderate degenerative arthropathy of the temporomandibular joints. Cervical Spine: The atlantooccipital and atlantoaxial articulations remain well aligned. Moderate degenerative arthropathy of the atlantodental articulation. Straightening of the normal cervical lordosis. Otherwise, there is anatomic alignment of the vertebral bodies and posterior elements. No evidence of acute fracture or subluxation. The vertebral body heights and disc spaces are maintained. There is no prevertebral soft tissue swelling. The thyroid gland and remaining cervical soft tissues are within normal limits. The lung apices demonstrate no abnormalities. CT/CT cervical spine wo IV con IMPRESSION: 1. No evidence of acute intracranial hemorrhage or edematous territorial infarction. 2. No evidence of acute fracture or traumatic subluxation of the cervical spine. Electronically signed by: Sameer Mahmood DO 07/07/2024 07:49 PM EST
[2024-07-07 17:24] VITALS: BP 137/92; PULSE 87; RESP 18; TEMP 36.8; O2SAT 100; BMI 26.1
--- NOTE | 2024-07-07 17:29 | ECG_ITS ---
Test Reason : FALL Blood Pressure : / mmHG Vent. Rate : 082 BPM Atrial Rate : 082 BPM P-R Int : 142 ms QRS Dur : 090 ms QT Int : 392 ms P-R-T Axes : 052 020 055 degrees QTc Int : 457 ms Normal sinus rhythm Nonspecific ST abnormality Abnormal ECG When compared with ECG of 05-APR-2023 16:17, No significant change was found Referred By: Hector Latif Electronically Signed By:ROCKY ARROYO MD
--- NOTE | 2024-07-07 17:31 | ED.GENADULT ---
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 Millan HPI narrative: A 48-year-old female came in for evaluation after sustained a fall with questionable syncopal episode. Patient lately been getting dizziness spells then she falls down patient reports that she loose consciousness for probably less than a 2nd then she find herself on the floor patient also was complaining of intermittent chest pain that is happening for the past few weeks, no clear aggravating factor for her dizziness or relieving factors. Patient suddenly today felt dizzy then fell down hitting her left knee patient not sure if she hit her head, reported short period of LOC, patient is taking Xarelto 20 mg daily for history of antiphospholipid syndrome. Related Data Home Medications ?Medication ?Instructions ?Recorded ?Confirmed rivaroxaban 20 mg tablet (Xarelto) 20 mg PO DAILY PRN when traveling 01/20/23 07/07/24 albuterol sulfate 90 mcg/actuation 1 inh inhalation DAILY PRN Wheezing 01/30/23 07/07/24 aerosol inhaler pvyhljwbso-nwrvkajpymixt-ogcrkiuc 1 tab PO Q12H PRN MIGRAINES 04/06/23 07/07/24 50 mg-325 mg-40 mg tablet cholecalciferol (vitamin D3) 50 50 mcg PO DAILY 04/30/23 07/07/24 mcg (2,000 unit) capsule ibuprofen 800 mg tablet 800 mg PO TID PRN Pain 04/30/23 07/07/24 metformin 500 mg tablet 500 mg PO BID PRN high glucose 04/30/23 07/07/24 omeprazole 40 mg capsule,delayed 40 mg PO DAILY@0630 PRN Acid Reflux 09/01/23 07/07/24 release bisacodyl 5 mg tablet 5 mg PO DAILY PRN Constipation 07/07/24 07/07/24 cyclobenzaprine 5 mg tablet 5 mg PO DAILY PRN Muscle Spasms 07/07/24 07/07/24 dicyclomine 10 mg capsule 10 mg PO BID 07/07/24 07/07/24 fluticasone propionate 50 2 spray intranasal DAILY PRN 07/07/24 07/07/24 mcg/actuation nasal allergies spray,suspension propranolol 40 mg tablet 40 mg PO DAILY 07/07/24 07/07/24 ursodiol 300 mg capsule 300 mg PO BID 07/07/24 07/07/24 Previous Rx's ?Medication ?Instructions ?Recorded ondansetron HCl 4 mg tablet 4 mg PO QID PRN nausea and 09/06/23 vomiting #30 tabs Allergies Allergy/AdvReac Type Severity Reaction Status Date / Time penicillin G [PENICILLIN G] Allergy Unknown RASH, Verified 07/07/24 17:28 swelling, rash Review of Systems Review of Systems: All other systems are reviewed and are negative Constitutional: Reports as per HPI and Reports no additional constitutional complaints Eyes: Reports as per HPI and Reports no additional eye complaints Reports system reviewed and no additional complaints, except as documented Cardiovascular: Reports as per HPI and Reports no additional cardiovascular complaints Respiratory: Reports as per HPI and Reports no additional respiratory complaints Gastrointestinal: Reports as per HPI and Reports no additional gastrointestinal complaints Genitourinary: Reports no additional female genitourinary complaints Musculoskeletal: Reports no additional musculoskeletal complaints Skin/Breast: Reports system reviewed and no additional complaints, except as docu Psychiatric: Reports no additional psychiatric complaints Endocrine: Reports no additional endocrine complaints Hematologic/Lymphatic: Reports no additional hematologic/lymphatic complaints Allergic/Immunologic: Reports no additional allergic/immunologic complaints Reports system reviewed and no additional complaints, except as documented and Reports Abnormal speech present [facility] Past Medical History Medical History Diabetes Gingivitis Fibromyalgia HTN (hypertension) Abnormal uterine bleeding History of gestational diabetes GERD (gastroesophageal reflux disease) Vitamin D deficiency Migraine Asthma Fibromyalgia Antiphospholipid antibody syndrome Surgical History History of laparoscopic cholecystectomy (01/30/23) History of elbow surgery History of delivery Family History Family History Maternal Uncle Colon cancer Paternal Uncle Cancer of internal nose Social History Social History Household Members: Spouse and Children Housing: House Are you a primary rn complex care to a significant other at home: No Do you presently have visiting nurse or other home services: No Alcohol intake: never Patient Tobacco Use Status: Never used Tobacco service: No Current occupational status: employed Physical Exam ED Vital Signs: Vital Signs - 24 hr 07/07/24 17:24 07/07/24 20:44 Temperature 98.2 F 97.9 F Pulse Rate 87 82 Respiratory Rate 18 14 Blood Pressure 137/92 H 140/73 H Pulse Oximetry 100 98 Oxygen Delivery Method Room Air Room Air BMI result Body Mass Index 26.1 Vital signs have been reviewed and appear to be correct. Blood pressure elevated. Heart rate normal. Respiratory rate normal. Temperature normal. Oxygen saturation normal. Appearance: Alert. Oriented X3. No acute distress. Head: Normal external exam. Normocephalic. Atraumatic. No Cunha signs noted. No raccoon eyes noted Eyes: PERRLA. EOMI. Conjunctiva and sclera normal. Eyelids normal. ENT: TM's Normal. Pharynx normal. Uvula midline. Moist mucous membranes. No trismus noted. No drooling noted. No muffled voice noted. Neck: Normal inspection. Neck supple. FROM. No adenopathy. Thyroid Normal. No meningeal signs. No neck mass noted. CVS: Normal heart rate and rhythm. Heart sound normal. No murmurs noted. Pulses normal throughout. Respiratory: No respiratory distress. Painless inspiration. Breath sounds normal. No wheezes/rales/rhonchi noted. Chest nontender. No accessory muscle usage noted or decreased air movement noted. Abdomen: Soft and nontender. Bowel sounds normal in all 4 quadrants. No distention noted. No organomegaly noted. No visible injury noted. Back: No CVA tenderness. Full range of motion noted. Skin: Skin warm and dry. Normal skin color. Normal skin turgor. No rashes/lesions/lacerations noted. Extremities: Left knee tenderness held in extension position was tender flexion, mild joint effusion, no deformity. Neuro exam: Mental status: Normal attention, orientation, memory, and affect. Cranial nerves: Pupils are equal, round and reactive to light, EOMI, visual oden are fall, face is symmetric, facial sensations are normal. Motor examination normal muscle tone, strength to 4 extremities. DTR are +2, planter's are flexor. Sensory exam; normal coordination, no ataxia, gait stable. Cerebellar exam: Guwxas-ju-hlyh and ypkc-mg-xckn is normal. Extrapyramidal system: No tremors, no rigidity with normal facial expressions. Pronator drift not present Course Course Course Narrative: RME: 48-year-old female presents to ED for knee pain. Patient states she felt dizzy and fell in her kitchen and passed out. Patient has left knee pain. Left knee is swollen. We will do EKG labs imaging ordered. Reevaluation(s) Reevaluation #1: 48-year-old female s/p syncopal episode and falls, negative radiographic study for head/cervical spine/left knee. Patient reported frequent chest pain for the past few weeks and frequent dizziness spells followed by syncopal and collapse episodes. Negative troponin, EKG is normal sinus rhythm with nonspecific ST abnormalities. Will admit for further evaluation. Time: 22:00 Medications Administered Generic Name Dose Route Start Last Admin Trade Name Freq PRN Reason Stop Dose Admin Acetaminophen 650 mg 07/07/24 22:53 07/07/24 23:48 Acetaminophen 325 Mg Tablet PO 650 mg Q6H PRN Administration Pain, Mild (Pain Scale 1-3), fever or headache Enoxaparin Sodium 40 mg 07/07/24 23:00 07/07/24 23:48 Enoxaparin Sodium 40 Mg/0.4 Ml Syringe SUBCUT 40 mg Q24H ASHLIE Administration Insulin Human Lispro 0 unit 07/08/24 07:30 07/08/24 07:38 Insulin Lispro 100 Unit/Ml 3 Ml Vial SUBCUT Not Given QIDACHS [facility] Protocol Melatonin 6 mg 07/07/24 22:53 07/07/24 23:48 Melatonin 3 Mg Tablet PO 6 mg BEDTIME PRN Administration Insomnia Sodium Chloride 3 ml 07/08/24 00:00 07/08/24 09:29 0.9 % Sodium Chloride Flush 3 Ml Syringe IVFLUSH 3 ml QSHIFT ASHLIE Administration Discontinued Medications Generic Name Dose Route Start Last Admin Trade Name Freq PRN Reason Stop Dose Admin Sodium Chloride 1,000 mls @ 999 mls/hr 07/07/24 22:36 07/08/24 00:49 Ns IV 07/07/24 23:36 Infused .Q1H1M ONE Infusion Ketorolac Tromethamine 15 mg 07/08/24 09:37 07/08/24 09:56 Ketorolac Tromethamine 15 Mg/Ml Vial IVPUSH 07/08/24 09:38 15 mg ONCE ONE Administration Tramadol HCl 25 mg 07/08/24 01:46 07/08/24 02:16 Tramadol Hcl 50 Mg Tablet PO 07/08/24 01:47 25 mg ONCE ONE Administration Medical Decision Making Differential Diagnosis Differential Diagnoses: The differential diagnosis associated with the presentation includes (Syncope, ACS, dizziness, dehydration, electrolyte derangement, severe anemia, left knee fracture, left knee dislocation, intracranial bleed, cervical spine injury.) Admission/Observation Consideration of admission/observation: Escalation of care including admission/observation considered Lab Data [facility] Lab Attestation statement: I reviewed the patient's lab results. 07/08/24 06:36 07/08/24 06:36 Labs: Lab Results 07/07/24 Range/Units 18:30 WBC 8.1 (4.8-10.8) X10*3/uL RBC 4.64 (4.20-5.50) X10*6/uL Hgb 12.8 (12.0-16.0) g/dl Hct 38.1 (37.0-47.0) % MCV 82.1 (80.0-98.0) fL MCH 27.6 (27.0-33.0) pg MCHC 33.6 (31.0-35.0) g/dl RDW 13.1 (11.0-16.0) % Plt Count 240 (160-400) X10*3/uL MPV 11.8 (9.4-12.3) fL Immature Gran % (Auto) 0.2 (0.0-0.4) % Neut % (Auto) 69.5 (45-73) % Lymph % (Auto) 24.8 (20-40) % [place] % (Auto) 4.8 (2-11) % Eos % (Auto) 0.6 (0-4) % Baso % (Auto) 0.1 (0-2) % Lymph # (Auto) 2.0 (1.2-4.9) X10*3/uL [place] # (Auto) 0.4 (0.1-1.2) X10*3/uL Eos # (Auto) 0.1 (0.0-0.4) X10*3/uL Baso # (Auto) 0.0 (0.0-0.2) X10*3/uL Abs Immat Gran (auto) 0.02 (0.00-0.03) X10*3/uL Absolute Neuts (auto) 5.6 (2.0-8.3) x10*3/uL Absolute Nucleated RBC 0.000 (0.0-0.012) X10*3/uL Nucleated RBC % (auto) 0.0 (0.0-0.2) /100WBC PT 11.6 (10.9-12.4) SEC INR 1.0 (0.9-1.1) APTT 31.8 (26.0-36.8) SEC Sodium 142 (135-145) mmol/L Potassium 3.9 (3.3-5.1) mmol/L Chloride 104 (96-108) mmol/L Carbon Dioxide 28 (22-29) mmol/L Anion Gap 14 (12-20) BUN 15 (9-16) mg/dL Creatinine 0.68 (0.5-1.4) mg/dL Estim Creat Clear Calc 97.9 Estimated GFR > 60 Random Glucose 204 H (60-115) mg/dL Calcium 9.6 (8.4-10.2) mg/dL Total Bilirubin 0.2 (0.0-1.0) mg/dL AST 21 (5-31) U/L ALT 23 (0-31) U/L Alkaline Phosphatase 63 (39-117) U/L Troponin I High Sens < 2.7 (<3.5-17.0) ng/L Total Protein 7.4 (6.5-8.0) g/dL Albumin 4.3 (3.5-5.0) g/dL Independent Interpretation I performed an independent interpretation of an: Plain X-Ray (Left knee:Moderate joint effusion. No acute fracture or dislocation.) and CT Scan (Head and cervical spine:1. No evidence of acute intracranial hemorrhage or edematous territorial infarction. 2. No evidence of acute fracture or traumatic subluxation of the cervical spine. ) Radiology Impression Discussion of test interpretation with radiology: I have reviewed the radiologist's reading. Discharge Plan Discharge Clinical Impression: Syncope and collapse, Contusion of knee, left Patient Disposition: Admitted As Inpatient Interventions: Admission Worksheet (ED) Last Done: 07/08/24 00:34 Discharge Date/Time: 07/08/24 01:26
[2024-07-07 18:36] LABS: MANUAL DIFF FLAG NO
[2024-07-07 18:37] LABS: Basophils Percent Auto 0.1 % (0-2); Eosinophils Absolute Auto 0.1 X10*3/uL (0.0-0.4); Eosinophils Percent Auto 0.6 % (0-4); Hematocrit 38.1 % (37.0-47.0); Hemoglobin 12.8 g/dl (12.0-16.0); Imm Gran Abs Auto 0.02 X10*3/uL (0.00-0.03); Imm Gran Pct Auto 0.2 % (0.0-0.4); Lymphocytes Percent Auto 24.8 % (20-40); Mean Corpuscular HGB Conc 33.6 g/dl (31.0-35.0); Mean Corpuscular Hemoglobin 27.6 pg (27.0-33.0); Mean Corpuscular Volume 82.1 fL (80.0-98.0); Mean Platelet Volume 11.8 fL (9.4-12.3); Monocytes Absolute Auto 0.4 X10*3/uL (0.1-1.2); Monocytes Percent Auto 4.8 % (2-11); Neutrophils Absolute Auto 5.6 x10*3/uL (2.0-8.3); Neutrophils Percent Auto 69.5 % (45-73); Platelet Count 240 X10*3/uL (160-400); Red Blood Count 4.64 X10*6/uL (4.20-5.50); Red Cell Distribution Width 13.1 % (11.0-16.0); White Blood Count 8.1 X10*3/uL (4.8-10.8)
[2024-07-07 18:42] LABS: Prothrombin Time 11.6 SEC (10.9-12.4)
[2024-07-07 18:45] LABS: Partial Thromboplastin Time 31.8 SEC (26.0-36.8)
[2024-07-07 18:53] LABS: Alanine Aminotransferase 23 U/L (0-31); Albumin Level 4.3 g/dL (3.5-5.0); Alkaline Phosphatase 63 U/L (39-117); Anion Gap 14 (12-20); Aspartate Amino Transferase 21 U/L (5-31); Bilirubin Total 0.2 mg/dL (0.0-1.0); Blood Urea Nitrogen 15 mg/dL (9-16); Calcium 9.6 mg/dL (8.4-10.2); Carbon Dioxide 28 mmol/L (22-29); Chloride 104 mmol/L (96-108); Creatinine Clr Calc Pharmacy 97.9; Estimated Glomerular Filt Rate > 60; Glucose Random 204 mg/dL (60-115); Potassium 3.9 mmol/L (3.3-5.1); Sodium 142 mmol/L (135-145); Total Protein 7.4 g/dL (6.5-8.0)
[2024-07-07 19:13] LABS: Troponin-I High Sensitivity < 2.7 ng/L (<3.5-17.0)
[2024-07-07 20:44] VITALS: BP 140/73; PULSE 82; RESP 14; TEMP 36.6; O2SAT 98
--- NOTE | 2024-07-07 22:25 | PHA.MEDREC ---
Addendum entered by Manuela Ford [facility] 07/08/24 10:43: Med rec was followed up and reviewed. Addendum entered by Jessica Negron 07/08/24 09:36: Following up from 07/07/24 Called [facility] to confirm claims for Xarelto 20 mg. [facility] states there are no claims for Xarelto 20 mg at all. Propanolol 40 mg was last filled 04/05/23 and Metformin 500 mg last filled 04/01/23. left on med list because patient and family at bedside confirmed that patient is still taking. Addendum entered by Ariella Tirado [facility] 07/07/24 22:39: reviewed by [facility], to be followed up on by Darlin in the morning of 07/08. Original Note: Pharmacy Consult ? Medication Reconciliation Pharmacy has completed the medication reconciliation. Confirmed medications with patient and family members at bedside. Patient confirmed she is not taking the Trulicity 0.75 mg/0.5 mL and the patient and family confirmed she has not taken it in about a year despite there being recent fills in our claims, they stated they pick it up but don't use it . The patient confirmed her Albuterol Sulfate Inh 1 puff daily as needed for Wheezing, Bisacodyl 5mg 1 daily as needed for Constipation, Ibuprofen 800mg 1 daily as needed for pain, Metformin 500mg 1 BID as needed for high Glucose, Omeprazole 40mg 1 daily as needed for acid reflux and Xarelto 20mg once daily as needed when traveling and stated she is taking Propanolol 40mg tabs once daily, Dicyclomine 10mg tabs 1 BID and Cyclobenzaprine 5mg 1 daily as needed for muscle spasms but looking in claims none of those medications were found but the patient and family states she has been filling that at [facility] on [address] in [place].
--- NOTE | 2024-07-07 22:55 | PM.IMHP ---
History of Present Illness Date of Service: 07/07/24 Chief Complaint: Syncope This is a 48-year-old female with pertinent history of antiphospholipid syndrome, fibromyalgia, kow-zkqxbes-ezpdwstnz diabetes mellitus who presents to the emergency department for evaluation of syncope. Patient states she had a syncopal episode while she was standing up in the kitchen. Loss of consciousness was brief and sudden. It was preceded by dizziness and lightheadedness. No chest pain or palpitations prior to the syncopal event but patient states she has been having intermittent palpitations through most of the nights. No jerking movement of extremities. at bedside states patient has lost weight and is with poor p.o. intake. No vomiting or diarrhea. Denies fever, chills, shortness of breath, changes in urinary or bowel habits. In the emergency department, patient resuscitated with IV crystalloids Review of Systems Constitutional: Constitutional: Reports weight loss ENT: Reports dizziness Cardiovascular: Cardiovascular: Reports syncope and Reports rapid heart rate Respiratory: Respiratory: Reports no additional respiratory complaints Gastrointestinal: Gastrointestinal: Reports no additional gastrointestinal complaints Genitourinary: Genitourinary: Reports no additional female genitourinary complaints Neurologic: Reports dizziness and Reports syncope [facility] Medical History Diabetes Gingivitis Fibromyalgia HTN (hypertension) Abnormal uterine bleeding History of gestational diabetes GERD (gastroesophageal reflux disease) Vitamin D deficiency Migraine Asthma Fibromyalgia Antiphospholipid antibody syndrome Family History Maternal Uncle Colon cancer Paternal Uncle Cancer of internal nose Surgical History History of laparoscopic cholecystectomy (01/30/23) History of elbow surgery History of delivery Social History Household Members: Spouse and Children Housing: House Are you a primary child care provider to a significant other at home: No Do you presently have visiting nurse or other home services: No Alcohol intake: never Patient Tobacco Use Status: Never used Tobacco Smoked in Last 30 Days: No Use of substances other than those prescribed or required for medical reasons: No Advance Directives: No Advance Directives Information Provided: No Do you have a plan to hurt others: No Plan Patient : No service: No Current occupational status: employed Meds Allergies Allergy/AdvReac Type Severity Reaction Status Date / Time penicillin G [PENICILLIN G] Allergy Unknown RASH, Verified 07/07/24 17:28 swelling, rash Active Medications: Current Medications Sodium Chloride (Ns) 1,000 mls @ 999 mls/hr IV .Q1H1M ONE Stop: 07/07/24 23:36 Home Medications ?Medication ?Instructions ?Recorded ?Confirmed ?Last Taken ?Type rivaroxaban 20 mg tablet (Xarelto) 20 mg PO DAILY PRN when traveling 01/20/23 07/07/24 01/13/23 History albuterol sulfate 90 mcg/actuation 1 inh inhalation DAILY PRN Wheezing 01/30/23 07/07/24 Unknown History aerosol inhaler ajjhukprlt-uqdarxqkqdqqw-lunqoiay 1 tab PO Q12H PRN MIGRAINES 04/06/23 07/07/24 Unknown History 50 mg-325 mg-40 mg tablet cholecalciferol (vitamin D3) 50 50 mcg PO DAILY 04/30/23 07/07/24 07/06/24 History mcg (2,000 unit) capsule ibuprofen 800 mg tablet 800 mg PO TID PRN Pain 04/30/23 07/07/24 08/27/23 History metformin 500 mg tablet 500 mg PO BID PRN high glucose 04/30/23 07/07/24 1 Month Ago History ~08/01/23 omeprazole 40 mg capsule,delayed 40 mg PO DAILY@0630 PRN Acid Reflux 09/01/23 07/07/24 Unknown History release bisacodyl 5 mg tablet 5 mg PO DAILY PRN Constipation 07/07/24 07/07/24 Unknown History cyclobenzaprine 5 mg tablet 5 mg PO DAILY PRN Muscle Spasms 07/07/24 07/07/24 Unknown History dicyclomine 10 mg capsule 10 mg PO BID 07/07/24 07/07/24 07/06/24 History fluticasone propionate 50 2 spray intranasal DAILY PRN 07/07/24 07/07/24 Unknown History mcg/actuation nasal allergies spray,suspension propranolol 40 mg tablet 40 mg PO DAILY 07/07/24 07/07/24 07/06/24 History ursodiol 300 mg capsule 300 mg PO BID 07/07/24 07/07/24 07/06/24 History Physical Exam Vital Signs and Narrative: Vital Signs: Last Vital Signs Temp 97.9 F 07/07/24 20:44 Pulse 82 07/07/24 20:44 Resp 14 07/07/24 20:44 BP 140/73 H 07/07/24 20:44 Pulse Ox 98 07/07/24 20:44 O2 Del Method Room Air 07/07/24 20:44 BMI result Body Mass Index 26.1 Middle-aged female lying in bed in no distress Neck supple, no JVD Regular rate and rhythm, S1-S2 heard Regular breath sounds bilaterally, no wheezing or crackles appreciated Abdomen without tenderness Patient is awake, alert and oriented to self, place, time and person ; no focal motor deficit Psych: Normal mood No pedal edema Results Labs 07/07/24 18:30 07/07/24 18:30 Labs: Laboratory Results - last 24 hr 07/07/24 18:30 MCV 82.1 MCH 27.6 MCHC 33.6 RDW 13.1 Plt Count 240 MPV 11.8 Immature Gran % (Auto) 0.2 Neut % (Auto) 69.5 Lymph % (Auto) 24.8 [place] % (Auto) 4.8 Eos % (Auto) 0.6 Baso % (Auto) 0.1 Lymph # (Auto) 2.0 [place] # (Auto) 0.4 Eos # (Auto) 0.1 Baso # (Auto) 0.0 Abs Immat Gran (auto) 0.02 Absolute Neuts (auto) 5.6 Absolute Nucleated RBC 0.000 Nucleated RBC % (auto) 0.0 PT 11.6 INR 1.0 APTT 31.8 Anion Gap 14 Estim Creat Clear Calc 97.9 Estimated GFR > 60 Random Glucose 204 H Calcium 9.6 Total Bilirubin 0.2 AST 21 ALT 23 Alkaline Phosphatase 63 Troponin I High Sens < 2.7 Total Protein 7.4 Albumin 4.3 Imaging Radiologist's Impressions: Impressions Knee X-Ray 07/07/24 17:29 IMPRESSION: Moderate joint effusion. No acute fracture or dislocation. Electronically signed by: Radames Hogan MD 07/07/2024 08:37 PM [facility] Cervical Spine CT 07/07/24 18:07 IMPRESSION: 1. No evidence of acute intracranial hemorrhage or edematous territorial infarction. 2. No evidence of acute fracture or traumatic subluxation of the cervical spine. Electronically signed by: Sameer Timoteo STOLL 07/07/2024 07:49 PM EST RP Head CT 07/07/24 18:07 IMPRESSION: 1. No evidence of acute intracranial hemorrhage or edematous territorial infarction. 2. No evidence of acute fracture or traumatic subluxation of the cervical spine. Electronically signed by: Sameer Timoteo STOLL 07/07/2024 07:49 PM EST RP Assessment and Plan (1) Syncope: Status: Acute (2) Dizziness: Status: Acute Plan This is a 48-year-old female with pertinent history of antiphospholipid syndrome, fibromyalgia, yru-nwleiwb-gearhalks diabetes mellitus who presents to the emergency department for evaluation of syncope. #. Syncope: Concern for orthostatic etiology. Resuscitating with IV crystalloids. Obtain orthostatics in a.m. Does complain of intermittent palpitations occasionally (no palpitations prior to syncopal episode). Will place on monitoring manager. #. Ngl-vjwnljq-nvnejxeiu diabetes mellitus with hyperglycemia. Initiating Accu-Cheks with sliding scale insulin #. Mild intermittent asthma : No exacerbation. Continue inhalers #. History of antiphospholipid antibody: on Xarelto prn during travel Med rec pending DVT prophylaxis: Lovenox Full code Quality Stroke Does the patient have a stroke diagnosis?: No VTE Prior VTE?: No VTE Risk Level:: Medical - moderate - high VTE Device Contraindication: Treatment Not Indicated VTE Drug Contraindication: N/A - Med Ordered
[2024-07-07 23:37] VITALS: BP 132/80; PULSE 75; RESP 14; TEMP 36.5; O2SAT 100
[2024-07-07] MEDS: Acetaminophen 325 MG TABLET 650 MG PO (23:48)
[2024-07-07] MEDS: 0.9 % Sodium Chloride 1,000 ML 999 ML IV (23:48)
[2024-07-07] MEDS: Enoxaparin Sodium 40 MG/0.4 ML SYRINGE SUBCUT (23:48)
[2024-07-07] MEDS: Melatonin 3 MG TABLET 6 MG PO (23:48)
[2024-07-07] MEDS: 0.9 % Sodium Chloride Flush 3 ML SYRINGE IVFLUSH (23:49)
[2024-07-08 01:36] VITALS: BMI 27.0
[2024-07-08 01:38] VITALS: BP 144/83; PULSE 69; RESP 16; TEMP 36.4; O2SAT 99
[2024-07-08] MEDS: traMADoL HCL 50 MG TABLET 25 MG PO (02:16)
[2024-07-08 04:00] VITALS: BP 128/66; PULSE 91; RESP 16; TEMP 36.3; O2SAT 97
[2024-07-08 07:25] LABS: MANUAL DIFF FLAG NO
[2024-07-08 07:32] VITALS: BP 124/75; PULSE 73; RESP 20; TEMP 36.6; O2SAT 97
[2024-07-08 07:36] LABS: Basophils Percent Auto 0.2 % (0-2); Eosinophils Absolute Auto 0.1 X10*3/uL (0.0-0.4); Eosinophils Percent Auto 1.5 % (0-4); Hematocrit 33.7 % (37.0-47.0); Imm Gran Abs Auto 0.02 X10*3/uL (0.00-0.03); Imm Gran Pct Auto 0.4 % (0.0-0.4); Lymphocytes Absolute Auto 1.6 X10*3/uL (1.2-4.9); Lymphocytes Percent Auto 29.9 % (20-40); Mean Corpuscular HGB Conc 32.6 g/dl (31.0-35.0); Mean Corpuscular Hemoglobin 27.7 pg (27.0-33.0); Mean Corpuscular Volume 84.9 fL (80.0-98.0); Monocytes Absolute Auto 0.4 X10*3/uL (0.1-1.2); Monocytes Percent Auto 7.1 % (2-11); Neutrophils Absolute Auto 3.3 x10*3/uL (2.0-8.3); Neutrophils Percent Auto 60.9 % (45-73); Platelet Count 196 X10*3/uL (160-400); Red Blood Count 3.97 X10*6/uL (4.20-5.50); Red Cell Distribution Width 13.4 % (11.0-16.0); White Blood Count 5.5 X10*3/uL (4.8-10.8)
[2024-07-08 07:36] LABS: Glucose, Whole Blood 126 mg/dL (60-115)
[2024-07-08 08:02] LABS: Anion Gap 12 (12-20); Blood Urea Nitrogen 13 mg/dL (9-16); Calcium 8.9 mg/dL (8.4-10.2); Carbon Dioxide 25 mmol/L (22-29); Chloride 110 mmol/L (96-108); Creatinine Clr Calc Pharmacy 125.2; Estimated Glomerular Filt Rate > 60; Glucose Random 136 mg/dL (60-115); Potassium 4.3 mmol/L (3.3-5.1); Sodium 143 mmol/L (135-145)
[2024-07-08 08:15] VITALS: BP 141/74; PULSE 71
[2024-07-08 08:16] VITALS: BP 136/86; BP 138/83; PULSE 71; PULSE 78
--- NOTE | 2024-07-08 08:51 | MHC.CM.PN ---
CM met with Patient at bedside with the assist of a [facility] Cable Installer. RUSSELL was addressed with Patient and the original was given to her and a copy has been placed on the chart. Patient lives in a house with her and 2 Daughters, ages 18 & 12 years of age. Home/self care is the goal and CM has initiated and will follow for dc planning. PCP is Dr. Yecenia Mauro and Patient's will transport to home.
[2024-07-08] MEDS: 0.9 % Sodium Chloride Flush 3 ML SYRINGE IVFLUSH (09:29)
[2024-07-08] MEDS: Ketorolac Tromethamine 15 MG/ML VIAL IVPUSH (09:56)
--- NOTE | 2024-07-08 10:51 | P.CONCA_ITS ---
History of Present Illness History of Present Illness Date of Service: 07/08/24 Requesting physician: Valentina Marlow Consult reason: other ( syncope) Chief complaint: Syncope Narrative: I was consulted to see Adriana in cardiology consultation for syncope. Patient is a pleasant 48-year-old female with prior history of diabetes for 4-5 years, antiphospholipid antibody syndrome on Xarelto as need be, prior history of pancreatitis related to gallstones unclear, prior history of anemia, currently not. Came to the hospital with syncopal episode. History was obtained with help of cane flume watchman at bedside. Patient's sister was at bedside as well. Patient said yesterday she had been upright walking towards the kitchen near the refrigerator she started noticing heart rate going fast and then she got lightheaded and then she fell down and passed out injuring the left side of her body. She has some pain related to it. No clear seizure-like activity was noted. 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 She did not seek medical attention at that time. However says ever since she has had her pancreatitis Lasix episode she is having more episodes of orthostatic lightheadedness. She has no history of neuropathy noted. She has no history of diabetic gastroparesis. Not able to elucidate if she had this symptoms in the past. She otherwise is active and functional has no clear other cardiac symptoms of exertional chest pain or shortness of breath. No heart failure symptoms. Recently she was noted to have slightly elevated blood pressure was prescribed propranolol by her primary care physician but she did not start taking it for the fear of low blood pressure. She was no cardiac arrhythmias in the past. She drinks caffeine. She says she drinks about 1.5 L of water every day. She has normal amount of salt. She is currently not on a blood thinner. There has been no overt bleeding. No recent viral syndrome of gastroenteritis or any other illness. Review of Systems 2 Constitutional: Constitutional: Reports no additional constitutional complaints Eyes: Eyes: Reports no additional eye complaints Cardiovascular: Cardiovascular: Denies chest pain, Reports rapid heart rate, Reports lightheadedness, Reports Loss of Consciousness and Denies dyspnea Respiratory: Respiratory: Reports no additional respiratory complaints and Denies dyspnea Gastrointestinal: Gastrointestinal: Reports no additional gastrointestinal complaints Genitourinary: Genitourinary: Reports no additional female genitourinary complaints Musculoskeletal: Musculoskeletal: Reports no additional musculoskeletal complaints Neurologic: Reports system reviewed and no additional complaints, except as documented [facility] Past Medical History Medical History Diabetes Gingivitis Fibromyalgia HTN (hypertension) Abnormal uterine bleeding History of gestational diabetes GERD (gastroesophageal reflux disease) Vitamin D deficiency Migraine Asthma Fibromyalgia Antiphospholipid antibody syndrome Family History Family History Maternal Uncle Colon cancer Paternal Uncle Cancer of internal nose Surgical History Surgical History History of laparoscopic cholecystectomy (01/30/23) History of elbow surgery History of delivery Social History Social History Household Members: Spouse and Children Housing: House Are you a primary nanny caregiver to a significant other at home: No Do you presently have visiting nurse or other home services: No Alcohol intake: never Patient Tobacco Use Status: Never used Tobacco service: No Current occupational status: employed Meds Allergies Allergy/AdvReac Type Severity Reaction Status Date / Time penicillin G [PENICILLIN G] Allergy Unknown RASH, Verified 07/07/24 17:28 swelling, rash Active Medications: Current Medications Acetaminophen (Acetaminophen 325 Mg Tablet) 650 mg PO Q6H PRN PRN Reason: Pain, Mild (Pain Scale 1-3), fever or headache Last Admin: 07/07/24 23:48 Dose: 650 mg Calcium Carbonate (Calcium Carbonate 750 Mg Tab.Chew) 750 mg PO Q4H PRN PRN Reason: Heartburn Enoxaparin Sodium (Enoxaparin Sodium 40 Mg/0.4 Ml Syringe) 40 mg SUBCUT Q24H ASHLIE Last Admin: 07/07/24 23:48 Dose: 40 mg Glucose (Glucose Gel 15 Gm Gel..Gram.) 15 gm PO Q15M PRN; Protocol PRN Reason: per Hypoglycemia Standing Ord. Dextrose (D10) 250 mls @ 750 mls/hr IV Q15M PRN; Protocol PRN Reason: per Hypoglycemia Standing Ord. Insulin Human Lispro (Insulin Lispro 100 Unit/Ml 3 Ml Vial) 0 unit SUBCUT QIDACHS ASHLIE; Protocol Last Admin: 07/08/24 07:38 Dose: Not Given Magnesium Hydroxide (Milk Of Magnesia 30 Ml Oral.Susp) 30 ml PO DAILY PRN PRN Reason: Constipation Melatonin (Melatonin 3 Mg Tablet) 6 mg PO BEDTIME PRN PRN Reason: Insomnia Last Admin: 07/07/24 23:48 Dose: 6 mg Ondansetron HCl (Ondansetron Hcl 4 Mg/2 Ml Vial) 4 mg IVPUSH Q8H PRN PRN Reason: Nausea and Vomiting Sodium Chloride (0.9 % Sodium Chloride Flush 3 Ml Syringe) [facility] Last Admin: 07/08/24 09:29 Dose: 3 ml Home Medications ?Medication ?Instructions ?Recorded ?Confirmed ?Last Taken ?Type rivaroxaban 20 mg tablet (Xarelto) 20 mg PO DAILY PRN when traveling 01/20/23 07/07/24 01/13/23 History albuterol sulfate 90 mcg/actuation 1 inh inhalation DAILY PRN Wheezing 01/30/23 07/07/24 Unknown History aerosol inhaler emuqdurmrq-wgzoljdzuhali-tiyskakw 1 tab PO Q12H PRN MIGRAINES 04/06/23 07/07/24 Unknown History 50 mg-325 mg-40 mg tablet cholecalciferol (vitamin D3) 50 50 mcg PO DAILY 04/30/23 07/07/24 07/06/24 History mcg (2,000 unit) capsule ibuprofen 800 mg tablet 800 mg PO TID PRN Pain 04/30/23 07/07/24 08/27/23 History metformin 500 mg tablet 500 mg PO BID PRN high glucose 04/30/23 07/07/24 1 Month Ago History ~08/01/23 omeprazole 40 mg capsule,delayed 40 mg PO DAILY@0630 PRN Acid Reflux 09/01/23 07/07/24 Unknown History release bisacodyl 5 mg tablet 5 mg PO DAILY PRN Constipation 07/07/24 07/07/24 Unknown History cyclobenzaprine 5 mg tablet 5 mg PO DAILY PRN Muscle Spasms 07/07/24 07/07/24 Unknown History dicyclomine 10 mg capsule 10 mg PO BID 07/07/24 07/07/24 07/06/24 History fluticasone propionate 50 2 spray intranasal DAILY PRN 07/07/24 07/07/24 Unknown History mcg/actuation nasal allergies spray,suspension propranolol 40 mg tablet 40 mg PO DAILY 07/07/24 07/07/24 07/06/24 History ursodiol 300 mg capsule 300 mg PO BID 07/07/24 07/07/24 07/06/24 History Physical Exam 2 Vital Signs: Vital Signs: Last Vital Signs Temp 97.9 F 07/08/24 07:32 Pulse 78 07/08/24 08:16 Resp 20 07/08/24 07:32 BP 136/86 07/08/24 08:16 Pulse Ox 97 07/08/24 07:32 O2 Del Method Room Air 07/08/24 07:32 BMI result Body Mass Index 27.0 Const: General: cooperative, comfortable, no acute distress, well developed, alert and awake Nutritional Appearance: average body habitus and well nourished Orientation/consciousness: patient oriented x3 Limitations: no limitations HEENT: Head: Yes normocephalic and Yes atraumatic Neck: Neck: Yes trachea midline, Yes supple and Yes no JVD Resp: Effort & Inspection: normal respiratory effort Auscultation: clear to auscultation bilaterally Cardio: Jugular venous distension: no JVD Palpation: normal PMI Rate: r egular rate Rhythm: regular rhythm Heart sounds: S1 normal heart sound present, S2 normal heart sound present, no click, no gallops and no murmurs GI: Auscultation: normal bowel sounds Skin: General skin exam: no rashes or lesions noted Neuro: General: patient oriented x3 and no focal motor deficits Extrem: General: Yes no clubbing, cyanosis or edema Psych: Appearance: grossly normal Objective Labs and Meds 07/08/24 06:36 07/08/24 06:36 Lab results: Laboratory Results - last 24 hr 07/07/24 07/08/24 07/08/24 18:30 06:36 07:32 WBC 8.1 5.5 RBC 4.64 3.97 L Hgb 12.8 11.0 L Hct 38.1 33.7 L MCV 82.1 84.9 MCH 27.6 27.7 MCHC 33.6 32.6 RDW 13.1 13.4 Plt Count 240 196 MPV 11.8 12.0 Immature Gran % (Auto) 0.2 0.4 Neut % (Auto) 69.5 60.9 Lymph % (Auto) 24.8 29.9 [place] % (Auto) 4.8 7.1 Eos % (Auto) 0.6 1.5 Baso % (Auto) 0.1 0.2 Lymph # (Auto) 2.0 1.6 [place] # (Auto) 0.4 0.4 Eos # (Auto) 0.1 0.1 Baso # (Auto) 0.0 0.0 Abs Immat Gran (auto) 0.02 0.02 Absolute Neuts (auto) 5.6 3.3 Absolute Nucleated RBC 0.000 0.000 Nucleated RBC % (auto) 0.0 0.0 PT 11.6 INR 1.0 APTT 31.8 Sodium 142 143 Potassium 3.9 4.3 Chloride 104 110 H Carbon Dioxide 28 25 Anion Gap 14 12 BUN 15 13 Creatinine 0.68 0.54 Estim Creat Clear Calc 97.9 125.2 Estimated GFR > 60 > 60 POC Glucose 126 H Random Glucose 204 H 136 H Calcium 9.6 8.9 D Total Bilirubin 0.2 AST 21 ALT 23 Alkaline Phosphatase 63 Troponin I High Sens < 2.7 Total Protein 7.4 Albumin 4.3 Imaging Radiologist's impression: Impressions Knee X-Ray 07/07/24 17:29 IMPRESSION: Moderate joint effusion. No acute fracture or dislocation. Electronically signed by: Radames Hogan MD 07/07/2024 08:37 PM EST RP Cervical Spine CT 07/07/24 18:07 IMPRESSION: 1. No evidence of acute intracranial hemorrhage or edematous territorial infarction. 2. No evidence of acute fracture or traumatic subluxation of the cervical spine. Electronically signed by: Sameer Mahmood DO 07/07/2024 07:49 PM EST RP Head CT 07/07/24 18:07 IMPRESSION: 1. No evidence of acute intracranial hemorrhage or edematous territorial infarction. 2. No evidence of acute fracture or traumatic subluxation of the cervical spine. Electronically signed by: Sameer Mahmood DO 07/07/2024 07:49 PM EST RP Chest X-Ray 07/07/24 21:46 IMPRESSION: Unremarkable examination. Electronically signed by: Ilya Conde MD 07/07/2024 11:09 PM EST RP Assessment and Plan (1) Syncope: Status: Acute Syncope from historical account appears to be orthostatic syncope. Neurocardiogenic syncope can not be ruled out although less likely. Cause of this is unclear. Could be dysautonomia related to diabetes or other causes. Although this is not clear from the history. I had a very long discussion about her cause of syncope as well as potential cause of orthostatic syncope. Management was discussed. Most important we discussed about identifying his symptoms and orthostatic precautions to be pursued. She understands. I have advised her to liberalize her water intake to 2-2.5 L and cut down her caffeine intake as well as liberalize her salt intake. Difficulty is going to be if she has significant labile blood pressure related to dysautonomia. Advise closely to monitor blood pressure at home. Will pursue outpatient workup with structural evaluation with echocardiogram as well as arrhythmic evaluation with event monitor and a tilt-table test to evaluate her autonomic function. This was discussed with the details. Patient can be discharged home and will set up for outpatient follow-up. Thank you for allowing me to partake in his care Procedures Date of Service Date of Service: 07/08/24
[2024-07-08 11:01] LABS: Glucose, Whole Blood 212 mg/dL (60-115)
[2024-07-08 11:04] VITALS: BP 148/77; PULSE 80; RESP 18; TEMP 36.2; O2SAT 94
[2024-07-08] MEDS: Insulin Lispro 100 UNIT/ML 3 ML VIAL SUBCUT (11:33)
--- NOTE | 2024-07-08 13:04 | P.DS_ITS ---
DS: Providers Provider Date of Service: 07/08/24 Date of admission: 07/07/24 22:53 Date of discharge: 07/08/24 Primary care physician: Yecenia Mauro MD Consults: 07/08/24 08:42 Consult to Cardiology Routine Consulting Provider: [facility] Reason for consultation: near syncope with palpitations Attending physician on discharge: Don Pugh Discharging clinician: Valetnina Marlow DS: Diagnosis Discharge Diagnosis (1) Syncope: Status: Acute DS: Summary Hospital Course Hospital Course: From H&P on the day of admission This is a 48-year-old female with pertinent history of antiphospholipid syndrome, fibromyalgia, pfz-vcbxwna-dzwamhoeh diabetes mellitus who presents to the emergency department for evaluation of syncope. Patient states she had a syncopal episode while she was standing up in the kitchen. Loss of consciousness was brief and sudden. It was preceded by dizziness and lightheadedness. No chest pain or palpitations prior to the syncopal event but patient states she has been having intermittent palpitations through most of the nights. No jerking movement of extremities. at bedside states patient has lost weight and is with poor p.o. intake. No vomiting or diarrhea. Denies fever, chills, shortness of breath, changes in urinary or bowel habits. Near syncope/dizziness. Patient denies LOC. Syncope from historical account appears to be orthostatic syncope. orthostatic vitals signs were negative but were checked after IVF resuscitation. Neurocardiogenic syncope can not be ruled out although less likely. Could be dysautonomia related to diabetes or other causes. Discussed about identifying symptoms and orthostatic precautions. Cardiology recommended to liberalize her water intake to 2-2.5 L and cut down her caffeine intake as well as liberalize her salt intake. Advised to closely monitor blood pressure at home. Recommend outpatient workup with structural evaluation with echocardiogram as well as arrhythmic evaluation with event monitor and a tilt-table test to evaluate her autonomic function. patient states she does not take any of her meds on a regular basis. will discontinue propranolol. left kene effusion from fall. recommend to wrap with jane bandage. and treat symptomatically. if no improvement can follow up with PCP as outaptient Time Attestation Discharge Coordination Time (in mins): 35 Quality: Safe Use of Opioids Does Pt have an Active Cancer Diagnosis on the Problem List?: No Quality: Stroke Does the patient have a stroke diagnosis?: No Physical Exam Vital Signs: Vital Signs: Last Vital Signs Temp 97.1 F 07/08/24 11:04 Pulse 80 07/08/24 11:04 Resp 18 07/08/24 11:04 BP 148/77 H 07/08/24 11:04 Pulse Ox 94 07/08/24 11:04 O2 Del Method Room Air 07/08/24 11:04 BMI result Body Mass Index 27.0 Const: General: cooperative, comfortable, no acute distress, alert and awake Nutritional Appearance: average body habitus Orientation/consciousness: patient oriented x3 Resp: Effort & Inspection: normal respiratory effort, able to speak in complete sentences, no respiratory distress and no use of accessory muscles Cardio: Rate: regular rate GI: Inspection: No distended Palpation (GI): Soft to palpation and nontender Neuro: General: patient oriented x3, moves all extremities and CN's II-XI intact bilaterally Extrem: Other: left knee joint effusion, no open wound, no erythema DS: Data Data Completed and Pending Completed studies during hospitalization [Text1]: Procedures Inspection of Hepatobiliary Duct, Via Natural or Artificial Opening Endoscopic (09/03/23) Labs on day of discharge: Laboratory Results - last 24 hr 07/07/24 07/08/24 07/08/24 18:30 06:36 07:32 WBC 8.1 5.5 RBC 4.64 3.97 L Hgb 12.8 11.0 L Hct 38.1 33.7 L MCV 82.1 84.9 MCH 27.6 27.7 MCHC 33.6 32.6 RDW 13.1 13.4 Plt Count 240 196 MPV 11.8 12.0 Immature Gran % (Auto) 0.2 0.4 Neut % (Auto) 69.5 60.9 Lymph % (Auto) 24.8 29.9 [place] % (Auto) 4.8 7.1 Eos % (Auto) 0.6 1.5 Baso % (Auto) 0.1 0.2 Lymph # (Auto) 2.0 1.6 [place] # (Auto) 0.4 0.4 Eos # (Auto) 0.1 0.1 Baso # (Auto) 0.0 0.0 Abs Immat Gran (auto) 0.02 0.02 Absolute Neuts (auto) 5.6 3.3 Absolute Nucleated RBC 0.000 0.000 Nucleated RBC % (auto) 0.0 0.0 PT 11.6 INR 1.0 APTT 31.8 Sodium 142 143 Potassium 3.9 4.3 Chloride 104 110 H Carbon Dioxide 28 25 Anion Gap 14 12 BUN 15 13 Creatinine 0.68 0.54 Estim Creat Clear Calc 97.9 125.2 Estimated GFR > 60 > 60 POC Glucose 126 H Random Glucose 204 H 136 H Calcium 9.6 8.9 D Total Bilirubin 0.2 AST 21 ALT 23 Alkaline Phosphatase 63 Troponin I High Sens < 2.7 Total Protein 7.4 Albumin 4.3 07/08/24 10:51 WBC RBC Hgb Hct MCV MCH MCHC RDW Plt Count MPV Immature Gran % (Auto) Neut % (Auto) Lymph % (Auto) [place] % (Auto) Eos % (Auto) Baso % (Auto) Lymph # (Auto) [place] # (Auto) Eos # (Auto) Baso # (Auto) Abs Immat Gran (auto) Absolute Neuts (auto) Absolute Nucleated RBC Nucleated RBC % (auto) PT INR APTT Sodium Potassium Chloride Carbon Dioxide Anion Gap BUN Creatinine Estim Creat Clear Calc Estimated GFR POC Glucose 212 H Random Glucose Calcium Total Bilirubin AST ALT Alkaline Phosphatase Troponin I High Sens Total Protein Albumin Discharge Plan Discharge Anticipated Discharge Date/Time: 07/08/24 13:10 Patient Disposition: Home, Self-Care Discharge Diagnosis: dizziness/near syncope Referrals: Yecenia Mauro MD [Primary Care Provider] - 1 Week Phani Jackson MD [Physician] - 1 Week Discharge Medications: Continued albuterol sulfate 90 mcg/actuation Hfa Aerosol Inhaler 1 inh INHALATION DAILY PRN (Reason: Wheezing) metformin 500 mg tablet 500 mg PO BID PRN (Reason: high glucose) abygiwckaf-eoeywltqeqcqv-byij 50-325-40 mg tablet 1 tab PO Q12H PRN (Reason: MIGRAINES) ursodiol 300 mg capsule 300 mg PO BID fluticasone propionate 50 mcg/actuation [place],Suspension 2 spray INTRANASAL DAILY PRN (Reason: allergies) Rx Instructions: administer into each nostril bisacodyl 5 mg tablet 5 mg PO DAILY PRN (Reason: Constipation) dicyclomine 10 mg Capsule 10 mg PO BID omeprazole 40 mg capsule,delayed release(DR/EC) 40 mg PO DAILY@0630 PRN (Reason: Acid Reflux) ondansetron HCl 4 mg tablet 4 mg PO QID PRN (Reason: nausea and vomiting) Qty: 30 0RF ibuprofen 800 mg tablet 800 mg PO TID PRN (Reason: Pain) cholecalciferol (vitamin D3) 50 mcg (2,000 unit) capsule 50 mcg PO DAILY Xarelto 20 mg tablet 20 mg PO DAILY PRN (Reason: when traveling) Rx Instructions: must administer with evening meal Discontinued cyclobenzaprine 5 mg tablet 5 mg PO DAILY PRN (Reason: Muscle Spasms) propranolol 40 mg Tablet 40 mg PO DAILY Discharge Orders: Discharge Order (Routine); Ordered 07/08/24 Ordered By: Valentina Marlow Activity on Discharge: As tolerated Stand Alone Forms: Patient Portal Discharge page Print Language: Qatari Care Plan Goals: see below Health Concerns: dizziness/near syncope left knee effusion Plan of Treatment: dizziness - call to schedule outpatient follow up with cardiology for further work up into cause of dizziness including likely echo, cardiac event monitor etc. fluid intake 2-2.5 L; liberalize salt intake; orthostatic precautions - Get up slowly from bed or after sitting for a long time. If you are in bed, roll to your side and swing your legs over the edge of the bed and onto the floor. Push your body up to a sitting position. Wait for a while before you slowly stand up. minimize alcohol intake stop propranolol knee effusion - wrap daily with jane bandage; take tylenol or motrin prn as needed for pain; keep elevated when able; if no improvement in the next few days call to schedule follow up with PCP Assessment: see discharge summary
--- NOTE | 2024-07-08 13:33 | MHC.CM.PN ---
Patient has been medically cleared for dc to home today, self care.
[2024-07-08] MEDS: Acetaminophen 325 MG TABLET 650 MG PO (13:40)
== END 2024-07-08 14:03 | disposition home or self-care (01) ==
LOC: HO.ED 21:45 → HO.EDOVER 22:57 → HO.IMC 23:38
PROVIDERS: Physician Assistant; Admitting Provider Student in an Organized Health Care Education/Training Program; Emergency Provider Emergency Medicine; PCP General Practice; Visit Provider Physician Assistant Medical
DX: R55 Syncope and collapse (principal); R42 Dizziness and giddiness; R07.9 Chest pain, unspecified; D68.61 Antiphospholipid syndrome; I10 Essential (primary) hypertension; M25.562 Pain in left knee; S80.02XA Contusion of left knee, initial encounter; S09.90XA Unspecified injury of head, initial encounter; W18.30XA Fall on same level, unspecified, initial encounter; Y93.9 Activity, unspecified; Y92.9 Unspecified place or not applicable; Y99.9 Unspecified external cause status; E11.8 Type 2 diabetes mellitus with unspecified complications; J45.20 Mild intermittent asthma, uncomplicated; K21.9 Gastro-esophageal reflux disease without esophagitis; Z79.01 Long term (current) use of anticoagulants; Z79.899 Other long term (current) drug therapy
CPT/HCPCS: 36415; 70450; 71045; 72125; 73564; 80048; 80053; 82947; 84484; 85025; 85610; 85730; 93005; 96361; 96372; 96374; 99222; 99285; J1650; J1885

== ENCOUNTER → 2024-07-07 17:29 | Outpatient (BNV) | payer MEDICAID, SELFPAY | PROVIDERS: Admitting Provider Student in an Organized Health Care Education/Training Program; Emergency Provider Emergency Medicine; PCP General Practice; Visit Provider Internal Medicine Cardiovascular Disease | DX: R42 Dizziness and giddiness (principal); R94.31 Abnormal electrocardiogram [ECG] [EKG] | CPT/HCPCS: 93010 ==

== ENCOUNTER → 2024-07-07 22:53 | Outpatient (BNV) | payer MEDICAID, SELFPAY | PROVIDERS: Admitting Provider Student in an Organized Health Care Education/Training Program; Emergency Provider Emergency Medicine; PCP General Practice; Visit Provider Student in an Organized Health Care Education/Training Program | DX: R55 Syncope and collapse (principal); R42 Dizziness and giddiness; E11.65 Type 2 diabetes mellitus with hyperglycemia | CPT/HCPCS: 99222; 99239 ==

== ENCOUNTER → 2024-07-07 22:53 | Outpatient (BNV) | payer MEDICAID, SELFPAY | PROVIDERS: Admitting Provider Student in an Organized Health Care Education/Training Program; Emergency Provider Emergency Medicine; PCP General Practice; Visit Provider Internal Medicine Cardiovascular Disease | DX: R55 Syncope and collapse (principal) | CPT/HCPCS: 99222 ==

== ENCOUNTER → 2024-08-03 09:32 | Outpatient (REF) | payer MEDICAID, SELFPAY ==
--- NOTE | 2024-08-03 09:36 | CA_ITS ---
Transthoracic Echocardiogram Patient (Last, First, Middle): Adriana Smith, Gender: Female Date of : 1975 Age: 49 Procedure Date: 08/03/2024 Procedure Type: Transthoracic Echocardiogram Location: OP Height: 165.1 cm Weight: 71.22 kg BSA: 1.78 m2 Heart Rate: bpm BP: 130 / 86 mmHg Pipe Assembly Worker: JASE Referring MD: Phani Jackson MD Symptoms: R55 - Syncope and collapse Study Quality: Adequate ECG Rhythm: Sinus Conclusions: - The left ventricular systolic function is low normal. The visually estimated ejection fraction is between 50-55%. - No obvious valvular pathology seen on this study. Findings Left Ventricle Normal left ventricular cavity size. There is normal left ventricular wall thickness. The left ventricular systolic function is low normal. The visually estimated ejection fraction is between 50-55%. There is no evidence of regional wall motion abnormalities. Diastolic function is normal for age. LV peak GLS -18.8%. Right Ventricle Normal right ventricular cavity size. There is low normal right ventricular systolic function. Atria Both atria are normal in size. Aortic Valve There is a normal trileaflet aortic valve. There is no aortic valve stenosis. There is no aortic valve regurgitation. Mitral Valve The mitral valve appears normal. There is no mitral valve regurgitation. There is no mitral valve stenosis. Pulmonic Valve The pulmonic valve is likely normal. Tricuspid Valve There is trace tricuspid valve regurgitation. There is no evidence of pulmonary hypertension. Great Vessels The asc aorta and aortic arch are normal in size. Venous The inferior vena cava is normal in size and collapses greater than 50% with inspiration. Pericardium/Pleural There is a trivial pericardial effusion. Prior Study Comparison No prior study available for comparison. Recommendations, Care & Conclusions No obvious valvular pathology seen on this study. Measurements 2D Linear Measurements IVSd: 0.99 0.6-0.9/0.6-1.0 cm LVIDd: 4.24 3.9-5.3/4.2-5.9 cm LVIDd Index: 2.38 2.4-3.2/2.2-3.1 cm/m2 LVIDs: 2.85 2.0-3.6 cm LVPWd: 0.97 0.7-1.1 cm LA Diam: 3.10 2.7-3.8/3.0-4.0 cm LAIDs Index: 1.74 1.5-2.3 cm/m2 LV Mass: 168.71 67-162/88-224 g LV Mass Index: 94.78 43-95/49-115 g/m2 LVOT Diam: 1.90 3.0+(-)1.3 cm 2D Systolic Function EF 4C: 61.00 >55% EF 2C: 55.90 >55% EF BiP: 59.20 >55% Mitral Valve MV Pk E: 0.79 MV PK A: 0.83 MV Decel Time: 198.00 E/A: 1.00 E'Lateral: 12.00 E'Medial: 6.74 E/E' Med: 11.80 E/E' Lat: 6.60 PHT: 58.00 MVA PHT: 3.79 Decel Carter: 4.00 Aortic Valve AoV Pk Justin: 1.33 AoV Mn Justin: 0.90 AoV VTI: 0.26 AoV Pk Grad: 7.00 Aov Mn Grad: 4.00 AHMET Cont.VTI: 2.49 LVOT LVOT Pk Justin: 1.19 LVOT Mn Justin: 0.85 LVOT VTI: 0.23 LVOT Pk Grad: 6.00 LVOT Mn Grad: 3.00 LVOT Diam: 1.90 LVOT Area: 2.84 Diastolic Function MV Pk E: 0.79 MV Pk A: 0.83 E/A: 1.00 E'Medial: 6.74 E/E' Med: 11.80 E' Laterial: 12.00 E/E' Lat: 6.60 Right Ventricle TAPSE (mm): 16.90 TVS' Justin: 9.79 Tricuspid Valve TR Pk Justin: 2.22 TR Pk Grad: 20.00 RA Press: 3.00 RVSP: 23.00 Great Vessels Aorta Sinus of Valsalva: 3.05 2.0-3.[address] [place]: 2.40 1.7-3.4 cm Ao Asc: 2.90 2.1-3.4 cm Ao Arch: 2.60 Updated in Other Vendor System with Status of Final Andrew Grayson MD electronically signed on 08/05/2024 2:09:27 PM with status of Final
== END ==
LOC: HO.CARD 09:32
PROVIDERS: PCP General Practice; Visit Provider Internal Medicine Cardiovascular Disease
DX: R55 Syncope and collapse (principal); R42 Dizziness and giddiness
CPT/HCPCS: 93270; 93306; 93356

== ENCOUNTER → 2024-08-03 09:36 | Outpatient (BNV) | payer MEDICAID, SELFPAY | PROVIDERS: PCP General Practice; Visit Provider Internal Medicine | DX: R55 Syncope and collapse (principal) | CPT/HCPCS: 93306; 93356 ==

== ENCOUNTER 2024-09-27 10:56 | Outpatient (REF) | payer MEDICAID, SELFPAY ==
--- NOTE | ~2024-09-27 | XR_ITS ---
EXAMINATION: XR SHOULDER, LEFT CLINICAL INFORMATION: pain with decreased ROM of left shoulder x2 months COMPARISON: None available. TECHNIQUE: Three views of the left shoulder. FINDINGS: No fracture, dislocation, or suspicious bone lesion. Normal alignment. Mild degenerative arthritis in the glenohumeral joint. AC joint appears normal. Subacromial space is normal. No soft tissue abnormalities. XR/XR shoulder LT min 2V IMPRESSION: No acute findings left shoulder. Mild osteoarthrosis glenohumeral joint. Electronically signed by: Lai Truong MD 09/27/2024 01:07 PM JONH
--- OUTSIDE RECORDS SUMMARY | 2024-09-27 12:20 | XMS_ITS ---
Author Organization [facility] Address [address] [place] [id number] Care Team Providers Care Baby Formula Worker Name Role Phone Yecenia Mauro M.D. Primary Care Provider Ricarda Riddle Jr, Pastor Unavailable Encounters Encounter Location Date Provider Diagnosis [facility] [address] [place] [address] 09/07/2023 Pastor Riddle Jr PLAN OF TREATMENT No Information
--- OUTSIDE RECORDS SUMMARY | 2024-09-27 12:20 | XMS_ITS ---
Author Organization [facility] Address [address] [place] [id number] Care Team Providers Care Composing Room Machinist Apprentice Name Role Phone Yecenia Mauro M.D. Primary Care Provider Pastor Hernadez Jr Unavailable REASON FOR VISIT records faxed 09/07/23 Encounters Encounter Location Date Provider Diagnosis [facility] [address] [place] [address] 09/07/2023 Pastor Riddle Jr PLAN OF TREATMENT No Information
--- OUTSIDE RECORDS SUMMARY | 2024-09-27 12:21 | XMS_ITS | Clinical Summary ---
Author Organization [facility] Address [address] [place] [address] Phone Care Team Providers Care Data Modeling Specialist Name Role Phone Physician, No Pcp Primary Care Provider Unavaila ble Encounters Date Type Department Care Team Description 08/23/2024 1:00 PM EST - 08/23/2024 11:59 PM EST Hospital Encounter [facility] Xray [address] [place] [address] Syncope and collapse Discharge Disposition: Home or Self Care from Last 3 Months Social History Tobacco Use Types Packs/Day Years Used Date Smoking Tobacco: Never Assessed Comments Unknown Sex and Gender Information Value Date Recorded Sex Assigned at Not on file Legal Sex Female 3:34 PM EST Gender Identity Not on file Sexual Orientation Not on file Plan of Treatment Health Maintenance Due Date Last Done Comments Breast Cancer Screening 1973 Diabetes: Annual Foot Exam 1983 Diabetes: Annual Retina Eye Exam 1983 Hepatitis B Vaccines (1 of 3 - 19+ 3-dose series) 1992 Pneumococcal Vaccine: 50+ Years (1 of 2 - PCV) 1992 Pneumococcal Vaccine: Pediatrics (0 to 5 Years) and At-Risk Patients (6 to 64 Years) (1 of 2 - PCV) 1992 Cervical Cancer Screening: P ap Smear 1994 DTaP,Tdap,and Td Vaccines (2 - Td or Tdap) 10/27/2022 09/29/2022 Zoster Vaccines (1 of 2) 2023 Colorectal Cancer Screening: Colonoscopy 09/15/2023 HIV Screening 09/15/2023 Hepatitis C Screening 09/15/2023 Social Influencers of Health Screening 09/15/2023 COVID-19 Vaccine (2023-2 5 season) 2024 08/22/2022, 09/03/2021, 11/12/2020 Influenza Vaccine (#1) 2024 Diabetes: Annual Urine Albumin-Creatinine Ratio (uACR) 08/23/2024 Depression Screening 09/18/2024 09/18/2023 Diabetes: Blood Sugar Contro l Test (HGBA1C) 11/10/2024 05/13/2024 Diabetes: Annual GFR (Glomerular Filtration Rate) 07/07/2025 07/07/2024 Hypertension/CHF/CAD Annual BMP Blood Test 07/07/2025 07/07/2024 Cholesterol Screening (Lipid Panel) 12/13/2028 12/14/2023 HIB Vaccines Aged Out No longer eligi ble based on patient's age to complete this topic HPV Vaccines Aged Out No longer eligi ble based on patient's age to complete this topic Hepatitis A Vaccines Aged Out No long er eligible based on patient's age to complete this topic IPV Vaccines Aged Out No longer eligi ble based on patient's age to complete this topic MMR Vaccines Aged Out No longer eligi ble based on patient's age to complete this topic Meningococcal ACWY Vaccine Aged Out N o longer eligible based on patient's age to complete this topic Meningococcal B Vacine Aged Out No lo nger eligible based on patient's age to complete this topic RSV Immunization Patients Under 20 months Aged Out No longer eligible b ased on patient's age to complete this topic Varicella Vaccines Aged Out No longer eligible based on patient's age to complete this topic Procedures Procedure Name Priority Date/Time Associated Diagnosis Comments TILT TABLE Routine 08/23/2024 1:56 PM EST Syncope and collapse from Last 3 Months Results * Tilt table (08/23/2024 1:56 PM EST) Anatomical Region Laterality Modality Radiographic Dinora ging Narrative 08/23/2024 2:31 PM EST Tilt Table The patient was brought to lab in fasting state. Patient lied supine for 5 minutes for equilibrium. Baseline ECG showed normal sinus rhythm. Baseline supine minimum BP: 139/65 mmHg Baseline supine minimum HR: 66 bpm Patient tilted to 70 degrees. Tilt maintained for 20 minutes. Minimum BP during tilt: 109/78 mmHg Maximum BP during tilt: 148/85 mmHg Minimum heart rate during tilt: 68 bpm Maximum heart rate during tilt: 76 bpm Rhythm during tilt: normal sinus rhythm Patient experienced no HR increase with tilt. No symptoms reported. pt presented with a migraine so I did not use Ntg Conclusion: Negative tilt test. Phani Jackson MD [facility] PROCEDURES F inal Result from Last 3 Months Insurance MEDICAID - [place] Care Teams Data Modeling Specialist Relationship Specialty Start Date End Date Physician, No Pcp PCP - General 08/23/24
--- OUTSIDE RECORDS SUMMARY | 2024-09-27 12:21 | XMS_ITS | Patient Health Record ---
Author Organization [facility] Address [address] [place] [address] Care Team Providers Care Restaurant Culinary Manager Name Role Phone Yecenia Mauro M.D. Primary Care Provider Pastor Hernadez Jr Unavailable [phone] REASON FOR REFERRAL No Information SOCIAL HISTORY Sex Assigned At : Social History Observation Description Sex Assigned At Unknown PROBLEMS Problem Type ICD Code Onset Dates Problem Status W/U Status Risk SNOMED Code Notes Problem Gastritis (K29.70) Active confirmed Gastritis (1569334) PLAN OF TREATMENT No Information Insurance Providers Payer Name Payer Address Payer Phone Subscriber Number Group Number Insured Name Patient Relationship to Insured Coverage Start Date Coverage End Date [facility] [address] [place] [address] [id number] SHERYL RYAN Self - patient is the insured
--- OUTSIDE RECORDS SUMMARY | 2024-09-27 12:21 | XMS_ITS ---
Author Organization [facility] Address [address] [place] [address] Care Team Providers Care Radio Installer Automobile Name Role Phone Yecenia Mauro M.D. Primary Care Provider Unava blanca Riddle Jr, Pastor Unavailable REASON FOR VISIT pathology Encounters Encounter Location Date Provider Diagnosis [facility] [address] [place] [address] 04/15/2023 Pastor Riddle Jr PLAN OF TREATMENT No Information
[2024-09-27 13:05] LABS: MANUAL DIFF FLAG NO
[2024-09-27 13:23] LABS: White Blood Count 5.2 X10*3/uL (4.8-10.8)
[2024-09-27 13:24] LABS: Basophils Percent Auto 0.4 % (0-2); Eosinophils Absolute Auto 0.1 X10*3/uL (0.0-0.4); Eosinophils Percent Auto 1.7 % (0-4); Hematocrit 39.8 % (37.0-47.0); Hemoglobin 12.8 g/dl (12.0-16.0); Imm Gran Abs Auto 0.01 X10*3/uL (0.00-0.03); Imm Gran Pct Auto 0.2 % (0.0-0.4); Lymphocytes Absolute Auto 1.9 X10*3/uL (1.2-4.9); Lymphocytes Percent Auto 36.7 % (20-40); Mean Corpuscular HGB Conc 32.2 g/dl (31.0-35.0); Mean Corpuscular Hemoglobin 27.6 pg (27.0-33.0); Mean Platelet Volume 12.4 fL (9.4-12.3); Monocytes Absolute Auto 0.3 X10*3/uL (0.1-1.2); Monocytes Percent Auto 6.2 % (2-11); Neutrophils Absolute Auto 2.8 x10*3/uL (2.0-8.3); Neutrophils Percent Auto 54.8 % (45-73); Platelet Count 241 X10*3/uL (160-400); Red Blood Count 4.63 X10*6/uL (4.20-5.50); Red Cell Distribution Width 12.8 % (11.0-16.0)
[2024-09-27 14:00] LABS: Alanine Aminotransferase 25 U/L (0-31); Albumin Level 4.3 g/dL (3.5-5.0); Alkaline Phosphatase 65 U/L (39-117); Anion Gap 11 (12-20); Aspartate Amino Transferase 24 U/L (5-31); Bilirubin Total 0.5 mg/dL (0.0-1.0); Blood Urea Nitrogen 12 mg/dL (9-16); Calcium 9.6 mg/dL (8.4-10.2); Carbon Dioxide 27 mmol/L (22-29); Chloride 106 mmol/L (96-108); Cholesterol 181 mg/dL (<200); Estimated Glomerular Filt Rate > 60; Glucose Random 154 mg/dL (60-115); HDL Cholesterol 60 mg/dL (>40); LDL Cholesterol Calculated 99 mg/dL (<100); Sodium 140 mmol/L (135-145); TSH reflex Free T4 < 0.01 uIU/mL (0.32-4.0); Total Protein 7.9 g/dL (6.5-8.0); Triglycerides 112 mg/dL (<150)
[2024-09-27 15:51] LABS: Free T4 (Free Thyroxine) 1.57 ng/dL (0.71-1.85)
== END 2024-09-27 10:57 | disposition home or self-care (01) ==
LOC: HO.HHCL 10:56
PROVIDERS: Visit Provider General Practice
DX: M19.012 Primary osteoarthritis, left shoulder (principal); E11.9 Type 2 diabetes mellitus without complications
CPT/HCPCS: 36415; 73030; 80053; 80061; 84439; 84443; 85025

== ENCOUNTER → 2024-09-27 11:39 | Outpatient (BNV) | payer MEDICAID, SELFPAY | PROVIDERS: Visit Provider Radiology Diagnostic Radiology | DX: M25.512 Pain in left shoulder (principal) | CPT/HCPCS: 73030 ==

== ENCOUNTER → 2025-04-18 13:20 | Outpatient (BNV) | payer MEDICAID, SELFPAY | PROVIDERS: PCP General Practice; Referring Provider General Practice; Visit Provider Internal Medicine Medical Oncology | DX: D68.312 Antiphospholipid antibody with hemorrhagic disorder (principal) | CPT/HCPCS: 99204 ==

== ENCOUNTER 2025-05-26 10:22 | Outpatient (REF) | payer MEDICAID, SELFPAY ==
[2025-05-26 13:03] LABS: MANUAL DIFF FLAG NO
[2025-05-26 13:06] LABS: Hematocrit 41.4 % (37.0-47.0); Hemoglobin 13.6 g/dl (12.0-16.0); Imm Gran Abs Auto 0.01 X10*3/uL (0.00-0.03); Imm Gran Pct Auto 0.2 % (0.0-0.4); Lymphocytes Absolute Auto 1.7 X10*3/uL (1.2-4.9); Mean Corpuscular HGB Conc 32.9 g/dl (31.0-35.0); Mean Corpuscular Hemoglobin 28.3 pg (27.0-33.0); Mean Corpuscular Volume 86.1 fL (80.0-98.0); NRBC Abs Auto 0.000 X10*3/uL (0.0-0.012); NRBC Pct Auto 0.0 /100WBC (0.0-0.2); Platelet Count 254 X10*3/uL (160-400); Red Blood Count 4.81 X10*6/uL (4.20-5.50); White Blood Count 5.1 X10*3/uL (4.8-10.8)
[2025-05-26 13:11] LABS: Appearance Urine Clear; Glucose Urine UA Negative (Negative); PH 6.0 (5.0-9.0); Specific Gravity - Urine >= 1.030 (1.005-1.025)
[2025-05-26 13:40] LABS: Alanine Aminotransferase 25 U/L (0-31); Albumin Level 4.7 g/dL (3.5-5.0); Alkaline Phosphatase 57 U/L (39-117); Anion Gap 10 (12-20); Aspartate Amino Transferase 25 U/L (5-31); Blood Urea Nitrogen 12 mg/dL (9-16); Calcium 10.0 mg/dL (8.4-10.2); Carbon Dioxide 30 mmol/L (22-29); Chloride 105 mmol/L (96-108); Estimated Glomerular Filt Rate > 60; Lipase 49 U/L (8-78); Potassium 4.2 mmol/L (3.3-5.1); Sodium 141 mmol/L (135-145); Total Protein 7.6 g/dL (6.5-8.0)
[2025-05-26 13:43] LABS: Microalbum/Creatinine Ratio Ur 5.1 ug/mg cr (<30)
[2025-05-26 17:32] LABS: Free T4 (Free Thyroxine) 1.73 ng/dL (0.71-1.85)
[2025-05-27 08:36] LABS: ~HepC Num1 0.10 S/CO (0.00-0.79); ~Hepatitis C Antibody Nonreactive (Nonreactive)
== END 2025-05-26 10:23 | disposition home or self-care (01) ==
LOC: HO.HHCL 10:22
PROVIDERS: PCP General Practice; Visit Provider General Practice
DX: E11.9 Type 2 diabetes mellitus without complications (principal); R10.11 Right upper quadrant pain
CPT/HCPCS: 36415; 80053; 81001; 82043; 82570; 83690; 84439; 84443; 85025; 86803

== ENCOUNTER 2025-06-07 09:42 | Outpatient (REF) | payer MEDICAID, SELFPAY ==
--- NOTE | ~2025-06-07 | US_ITS ---
CLINICAL HISTORY: R sided pain, colicky US renal with Color Doppler Comparison: None Findings: Right kidney normal size and echotexture, 10.4 cm length. No hydronephrosis calculus or mass. Normal color flow. Left kidney normal size and echotexture, 10.5 cm length. No hydronephrosis calculus or mass. Normal color flow. Impression: 1. Normal renal ultrasound This document has been electronically signed by: Quoc Palmer MD on 06/08/2025 12:07:15
--- OUTSIDE RECORDS SUMMARY | 2025-06-07 11:23 | XMS_ITS | Clinical Summary ---
Author Organization [facility] Address [address] [place] [address] Phone Care Team Providers Care Pear Picker Name Role Phone Physician, No Pcp Primary Care Provider Unavaila ble Social History Tobacco Use Types Packs/Day Years Used Date Smoking Tobacco: Never Assessed Comments Unknown Sex and Gender Information Value Date Recorded Sex Assigned at Not on file Legal Sex Female 3:34 PM EST Gender Identity Not on file Sexual Orientation Not on file Plan of Treatment Health Maintenance Due Date Last Done Comments Breast Cancer Screening 1973 Colorectal Cancer Screening: Colonoscopy 1973 Diabetes: Annual Foot Exam 1983 Diabetes: Annual Retina Eye Exam 1983 Hepatitis B Vaccines (1 of 3 - 19+ 3-dose series) 1992 Pneumococcal Vaccine: 50+ Years (1 of 2 - PCV) 1992 Cervical Cancer Screening: P ap Smear 1994 RSV Immunization Adult Patients (1 - Risk 50-74 years 1-dose series) 2023 Zoster Vaccines (1 of 2) 2023 HIV Screening 09/15/2023 Hepatitis C Screening 09/15/2023 Social Influencers of Health Screening 09/15/2023 Depression Screening 08/17/2024 Diabetes: Annual Urine Albumin-Creatinine Ratio (uACR) 08/23/2024 Diabetes: Blood Sugar Contro l Test (HGBA1C) 11/10/2024 05/13/2024 COVID-19 Vaccine ( - 2024-2 6 season) 2025 08/22/2022, 09/03/2021, 11/12/2020 Influenza Vaccine (#1) 2025 Diabetes: Annual GFR (Glomerular Filtration Rate) 07/07/2025 07/07/2024 Hypertension/CHF/CAD Annual BMP Blood Test 07/07/2025 07/07/2024 Cholesterol Screening (Lipid Panel) 12/13/2028 12/14/2023 DTaP,Tdap,and Td Vaccines (2 - Td or Tdap) 09/29/2032 09/29/2022 HIB Vaccines Aged Out No longer eligi [...] age to complete this topic Meningococcal B Vaccine Aged Out No l onger eligible based on patient's age to complete this topic RSV Immunization Patients Under 20 months Aged Out No longer eligible b ased on patient's age to complete this topic Varicella Vaccines Aged Out No longer eligible based on patient's age to complete this topic Insurance MEDICAID - [place] Care Teams Pear Picker Relationship Specialty Start Date End Date Physician, No Pcp PCP - General 08/23/24
--- OUTSIDE RECORDS SUMMARY | 2025-06-07 11:23 | XMS_ITS | Encounter Summary ---
Author Organization [employer] Address [address] [facility] 7t [place] [address] Care Team Providers Care Moccasin Sewer Name Role Phone Yecenia Mauro MD Primary Care Provider [phone] Encounter Details Date Type Department Care Team (Late st Contact Info) Description 08/07/2023 Orders Only [facility] MEDICINE [address] [place], [place] [phone] Yecenia Mauro MD [address] [place], [place] [phone] Abnormal uterine bleeding (Primary Dx) Social History Tobacco Use Types Packs/Day Years Used Date Smoking Tobacco: Never Smokeless Tobacco: Never Alcohol Use Standard Drinks/Week Comments Never 0 (1 standard drink = 0.6 oz pur e alcohol) Housing Stability Answer Date Recorded What is your housing situation today? I have gennymaikel watkins 06/01/[address] you li ve. Do you have problems with any of the following? None of the above 06/01/2023 Food Insecurity Answer Date Recorded Within the past 12 months, y ou worried that your food would run out before you got money to buy more: Never True 06/01/2023 Within the past 12 months,th e food you bought just didn't last and you didn't have enough money to get more: Never True Transportation Answer Date Recorded In the past 12 months, has l ack of transportation kept you from medical appts, meetings, work or from getting things needed for daily living? Yes, it has kept me from medical appointments or getting medications. 05/24/2023 Utilities Answer Date Recorded In the past 12 months, has t he electric, gas, oil or water [employer] threatened to shut off services in your home? No 06/01/2023 Depression Answer Date Recorded Patient Health Questionnaire-2 Score 0 09/29/2022 Comments Unknown Sex and Gender Information Value Date Recorded Sex Assigned at Female 06/16/2022 10:20 AM EDT Legal Sex Female 10:20 AM EDT Gender Identity Female 06/16/2022 10:20 AM EDT Sexual Orientation Straight 06/16/2022 10 :20 AM EDT documented as of this encounter Plan of Treatment Not on file documented as of this encounter Visit Diagnoses Diagnosis Abnormal uterine bleeding- Primary Unspecified disorder of menstruation and other abnormal bleeding from female genital tract documented in this encounter Care Teams Moccasin Sewer Relationship Specialty Start Date End Date Yecenia Mauro MD [address] [place] [id number] PCP - General Family Medicine 04/09/21 documented as of this encounter
--- OUTSIDE RECORDS SUMMARY | 2025-06-07 11:23 | XMS_ITS | Encounter Summary ---
Author Organization [employer] Address [address] [facility] [address]t [place] [address] Care Team Providers Care Silk Examiner Name Role Phone Yecenia Mauro MD Primary Care Provider [phone] Reason for Visit * Reason Onset Date Comments Med Refill 08/23/2024 Encounter Details Date Type Department Care Team ([facility] st Contact Info) Description 08/23/2024 Telephone [facility] MEDICINE [address] [place], [place] [phone] Yecenia Mauro MD [address] [place] [address] Med Refill Social History Tobacco Use Types Packs/Day Years Used Date Smoking Tobacco: Never Smokeless Tobacco: Never Alcohol Use Standard Drinks/Week Comments Never 0 (1 standard drink = 0.6 oz pur e alcohol) Depression Answer Date Recorded Patient Health Questionnaire-9 Score 0 09/18/2023 Patient Health Questionnaire-9 Score 0 09/18/2023 Last PHQ-9: Questionnaire Data Not on file 0 09/18/2023 Housing Stability Answer Date Recorded What is your housing situation today? I have genny watkins 06/01/[address] you [...] from getting things needed for daily living? No 09/18/2023 Utilities Answer Date Recorded In the past 12 months, has t he electric, gas, oil or water company threatened to shut off services in your home? No 06/01/2023 Depression Answer Date Recorded Patient Health Questionnaire-2 Score 0 09/18/2023 Comments Unknown Sex and Gender Information Value Date Recorded Sex Assigned at Female 06/16/2022 10:20 AM EDT Legal Sex Female 10:20 AM EDT Gender Identity Female 06/16/2022 10:20 AM EDT Sexual Orientation Straight 06/16/2022 10 :20 AM EDT documented as of this encounter Miscellaneous Notes * Telephone Encounter - Anel Townsend LPN - 08/23/2024 10:23 AM EST Trulicity was sent to [id number] on 08/02/24 with 1 refill other medications pended to PCP. * Telephone Encounter - Morelia Potter - 08/23/2024 10:16 AM EST TC from pt requesting medication refill. Medications needing refill : - Trulicity 0.75 MG/0.5ML solution auto-injector - [id number]-[id number]-pekbxlhg 50-325-40 MG tablet - ketoconazole (NIZOral) 2 % shampoo To be sent to: [facility][id number] - [address] documented in this encounter Plan of Treatment Not on file documented as of this encounter Visit Diagnoses Not on filedocumented in this encounter Additional Health Concerns Assessment Noted Time PHQ-9 Depression Total Score: 0 09/18/19 24 1:08 PM EST documented as of this encounter Care Teams Silk Examiner Relationship Specialty Start Date End Date Yecenia Mauro MD [address] [place] [address] PCP - General Family Medicine 04/09/21 documented as of this encounter
--- OUTSIDE RECORDS SUMMARY | 2025-06-07 11:23 | XMS_ITS | Encounter Summary ---
Author Organization [employer] Address [address] [facility] [address] [place] [address] Care Team Providers Care Tin Pot Operator Name Role Phone Yecenia Mauro MD Primary Care Provider [phone] Encounter Details Date Type Department Care Team (Late st Contact Info) Description 08/23/2024 Orders Only [facility] MEDICINE [address] [place], [place] [phone] Yecenia Mauro MD [address] [place], [place] [phone] Chronic migraine with aura and with status migrainosus, not intractable Social History Tobacco Use Types Packs/Day Years [...] as of this encounter Visit Diagnoses Diagnosis Chronic migraine with aura and with status migrainosus, not intractable documented in this encounter Additional Health Concerns Assessment Noted Time PHQ-9 Depression Total Score: 0 09/18/19 24 1:08 PM EST documented as of this encounter Care Teams Tin Pot Operator Relationship Specialty Start Date End Date Yecenia Mauro MD [address] [place] [address] PCP - General Family Medicine 04/09/21 documented as of this encounter
--- OUTSIDE RECORDS SUMMARY | 2025-06-07 11:23 | XMS_ITS | Encounter Summary ---
Author Organization [employer] [facility] Address [address] [facility] [address] [place] [address] Care Team Providers Care Rolling Machine Tender Name Role Phone Yecenia Mauro MD Primary Care Provider [phone] Reason for Visit * Reason Comments Med Refill Encounter Details Date Type Department Care Team ([facility] st Contact Info) Description 03/23/2023 Refill [facility] [address] [place], [place] [phone] Anel Ledesma DO [address] [place] [address] Social History Tobacco Use Types Packs/Day Years Used Date Smoking Tobacco: Never Smokeless Tobacco: Never Alcohol Use Standard Drinks/Week Comments Never 0 (1 standard drink = 0.6 oz pur e alcohol) Depression Answer Date Recorded Patient Health Questionnaire-2 [...] Diagnoses Not on filedocumented in this encounter Care Teams Rolling Machine Tender Relationship Specialty Start Date End Date Yecenia Mauro MD [address] [place], [place] [phone] PCP - General Family Medicine 04/09/21 documented as of this encounter
--- OUTSIDE RECORDS SUMMARY | 2025-06-07 11:23 | XMS_ITS | Encounter Summary ---
Author Organization [employer] Address [address] [facility] [address] [place] [address] Care Team Providers Care Supervisor Backfilling Name Role Phone Yecenia Mauro MD Primary Care Provider [phone] Reason for Visit * Reason Comments Med Refill Encounter Details Date Type Department Care Team ([facility] st Contact Info) Description 01/05/2024 Refill [facility] MEDICINE [address] [place], [place] [phone] Yecenia Mauro MD [address] [place], [place] [phone] Migraine without status migrainosus, not intractable, unspecified migraine type Social History Tobacco Use Types Packs/Day Years [...] as of this encounter Visit Diagnoses Diagnosis Migraine without status migrainosus, not intractable, unspecified migraine type documented in this encounter Additional Health Concerns Assessment Noted Time PHQ-9 Depression Total Score: 0 09/18/19 24 1:08 PM EST documented as of this encounter Care Teams Supervisor Backfilling Relationship Specialty Start Date End Date Yecenia Mauro MD [address] [place] [address] PCP - General Family Medicine 04/09/21 documented as of this encounter
--- OUTSIDE RECORDS SUMMARY | 2025-06-07 11:23 | XMS_ITS | Encounter Summary ---
Author Organization [employer] Address [address] [facility] [address] [place] [address] Care Team Providers Care Manager Assessment Name Role Phone Yecenia Mauro MD Primary Care Provider [phone] Reason for Visit * Reason Onset Date Comments Med Change Request Care Coordination 08/27/2022 Encounter Details Date Type Department Care Team (Late st Contact Info) Description 08/27/2022 Refill [facility] MEDICINE [address] [place] [address] Rhianna Samaniego FNP Type 2 diabetes mellitus without complication, without long-term current use of insulin ([facility]) Social History Tobacco Use Types Packs/Day Years Used Date Smoking Tobacco: Never Assessed Comments Unknown Sex and Gender Information Value Date Recorded Sex Assigned at Female 06/16/2022 10:20 AM EDT Legal Sex Female 10:20 AM EDT Gender Identity Female 06/16/2022 10:20 AM EDT Sexual Orientation Straight 06/16/2022 10 :20 AM EDT COVID-19 Exposure Response Date Recorded In the last 10 days, have yo u been in contact with someone who was confirmed or suspected to have Coronavirus/COVID-19? No / Unsure 08/25/2022 3:07 PM EST documented as of this encounter Miscellaneous Notes * Telephone Encounter - Kody Peterson RN - 08/28/2022 4:46 PM EST T/C to [phone] through [employer] UG id - [id number] for message below. Pt. Wants to send metformin rx to [facility] for 3 months supply because it is near to her house and will coal picker glucometer from [facility] pharmacy. please review and advise if needed. Please call Pt and notify her that Metformin required a high quantity of pills. PCP sent new Rx. Glucometer was not covered by insurance at [facility] Provider sent another glucometer to [facility] Pharmacy and Metformin to [facility] Pharmacy to ease coal picker. [facility]. Please check at pharmacy tomorrow 08/29/22 to coal picker Metformin and Glucometer documented in this encounter Plan of Treatment Not on file documented as of this encounter Visit Diagnoses Diagnosis Type 2 diabetes mellitus without complication, without long-term current use of insulin (HCC) documented in this encounter Care Teams Manager Assessment Relationship Specialty Start Date End Date Yecenia Mauro MD [address] [place] [address] PCP - General Family Medicine 04/09/21 documented as of this encounter
--- OUTSIDE RECORDS SUMMARY | 2025-06-07 11:23 | XMS_ITS | Encounter Summary ---
Author Organization [employer] [facility] Address [address] [facility] [address] [place] [address] Care Team Providers Care Short Piece Handler Name Role Phone Yecenia Mauro MD Primary Care Provider [phone] Reason for Visit * Reason Onset Date Comments Results 12/16/2023 Encounter Details Date Type Department Care Team ([facility] Contact Info) Description 12/16/2023 Telephone [facility] MEDICINE [address] [place], [place] [phone] Yecenia Mauro MD [address] [place], [place] [phone] Results Social History Tobacco Use Types Packs/Day Years [...] encounter Miscellaneous Notes * Telephone Encounter - Alda Hill - 12/16/2023 11:23 AM EDT Tc from pt requesting a call back with results from 12/13 documented in this encounter Plan of Treatment Not on file documented as of this encounter Visit Diagnoses Not on filedocumented in this encounter Additional Health Concerns Assessment Noted Time PHQ-9 Depression Total Score: 0 09/18/19 24 1:08 PM EST documented as of this encounter Care Teams Short Piece Handler Relationship Specialty Start Date End Date Yecenia Mauro MD [address] [place] [address] PCP - General Family Medicine 04/09/21 documented as of this encounter
--- OUTSIDE RECORDS SUMMARY | 2025-06-07 11:23 | XMS_ITS | Encounter Summary ---
Author Organization [employer] Address [address] [facility] 7t [place] [address] Care Team Providers Care Sr. Director Product Management Name Role Phone Yecenia Mauro MD Primary Care Provider [phone] Encounter Details Date Type Department Care Team (Late st Contact Info) Description 11/17/2024 Orders Only [facility] MED[facility]INE [address] [place], [place] [phone] Yecenia Mauro MD [address] [place] [address] Osteoma of skull (Primary Dx); Type 2 diabetes mellitus without complication, without long-term current use of insulin ([facility]) Social History Tobacco Use Types Packs/Day Years Used Date Smoking Tobacco: Never Smokeless Tobacco: Never Alcohol Use Standard Drinks/Week Comments Never 0 (1 standard drink = 0.6 oz pur e alcohol) Alcohol Answer Date Recorded How often do you have a drink containing alcohol ? 0 10/03/2024 How many drinks containing a lcohol do you have on a typical day when you are drinking? 0 10/03/2024 How often do you have six or more drinks on one occasion? 0 10/03/2024 Depression Answer Date Recorded Patient Health Questionnaire-9 [...] to shut off services in your home? I am not sure 09/15/2024 Depression Answer Date Recorded Patient Health Questionnaire-2 Score 0 09/18/2023 Internet Access Answer Date Recorded Internet Access Q1 Yes 09/15/2024 Internet Access Q2 Not on file 09/15/2024 Comments Unknown Sex and Gender Information Value Date Recorded Sex Assigned at Female 06/16/2022 10:20 AM EDT Legal Sex Female 10:20 AM EDT Gender Identity Female 06/16/2022 10:20 AM EDT Sexual Orientation Straight 06/16/2022 10 :20 AM EDT documented as of this encounter Plan of Treatment Not on file documented as of this encounter Procedures Procedure Name Priority Date/Time Associated Diagnosis Comments TSH W/REFLEX TO FT4 Routine 05/26/2025 1 0:31 AM EDT Type 2 diabetes mellitus without complication, without long-term current use of insulin (HCC) documented in this encounter Results * (ABNORMAL) TSH W/Reflex to FT4 (05/26/2025 10:31 AM EDT) TSH reflex Free T4 <0.01(L) 0.32 - 4.0 uIU/mL [facility] Blood Venous blood specimen / Unknown 05/26/2025 10:31 AM EDT 05/26/2025 12:50 PM EDT us Yecenia Mauro MD LAB BLOOD ORDERABLES Final Res ult [facility] [address] [place] [phone] documented in this encounter Visit Diagnoses Diagnosis Osteoma of skull- Primary Benign neoplasm of bones of skull and face Type 2 diabetes mellitus without complication, without long-term current use of insulin (HCC) documented in this encounter Additional Health Concerns Assessment Noted Time PHQ-9 Depression Total Score: 0 09/18/19 24 1:08 PM EST documented as of this encounter Care Teams Sr. Director Product Management Relationship Specialty Start Date End Date Yecenia Mauro MD [address] [place] [address] PCP - General Family Medicine 04/09/21 documented as of this encounter
--- OUTSIDE RECORDS SUMMARY | 2025-06-07 11:23 | XMS_ITS | Encounter Summary ---
Author Organization [employer] Address [address] [facility] 7t [place] [address] Care Team Providers Care [employer] Solutions Workflow Consultant Name Role Phone Yecenia Mauro MD Primary Care Provider [phone] Reason for Visit * Reason Onset Date Comments Lab Orders 10/02/2022 Encounter Details Date Type Department Care Team ([facility] st Contact Info) Description 10/02/2022 Telephone [facility] MEDICINE [address] [place], [place] [phone] Yecenia Mauro MD [address] [place] [address] Lab Orders Social History Tobacco Use Types Packs/Day Years [...] suspected to have Coronavirus/COVID-19? No / Unsure 09/29/2022 2:01 PM EST documented as of this encounter Miscellaneous Notes * Telephone Encounter - Dion Loco - 10/02/2022 4:12 PM EST Tc from pt requesting a call back regarding MRI order. States gets anxiety attacks going into the MRI tunnel machine. Pt is requesting to have an alternative way to have MRI done Please contact pt at [phone] documented in this encounter Plan of Treatment Not on file documented as of this encounter Visit Diagnoses Not on filedocumented in this encounter Care Teams [employer] Workflow Consultant Relationship Specialty Start Date End Date Yecenia Mauro MD [address] [place] [phone] PCP - General Family Medicine 04/09/21 documented as of this encounter
--- OUTSIDE RECORDS SUMMARY | 2025-06-07 11:23 | XMS_ITS | Encounter Summary ---
Author Organization [facility] Address [address] [facility] 7t [place] [address] Care Team Providers Care Pull Worker Name Role Phone Yecenia Mauro MD Primary Care Provider [phone] Reason for Visit * Reason Comments Med Change Request Encounter Details Date Type Department Care Team ([facility] Contact Info) Description 09/02/2022 Refill [facility] MED[facility]INE [address] [place], [place] [phone] Rhianna Samaniego FNP Type 2 diabetes mellitus without complication, without long-term current use of insulin ([facility]) Social History Tobacco Use Types Packs/Day Years [...] PM EST documented as of this encounter Plan of Treatment Not on file documented as of this encounter Visit Diagnoses Diagnosis Type 2 diabetes mellitus without complication, without long-term current use of insulin ([facility]) documented in this encounter Care Teams Pull Worker Relationship Specialty Start Date End Date Yecenia Mauro MD [address] [place] [address] PCP - General Family Medicine 04/09/21 documented as of this encounter
--- OUTSIDE RECORDS SUMMARY | 2025-06-07 11:23 | XMS_ITS | Encounter Summary ---
Author Organization [employer] Address [address] [facility] 7t [place] [address] Care Team Providers Care Board Liner Operator Name Role Phone Yecenia Mauro MD Primary Care Provider [phone] Encounter Details Date Type Department Care Team ([facility] st Contact Info) Description 02/11/2023 Orders Only [facility] [address] [place] [address] [phone] Nguyễn Castelan MD [address] [place] [address] [phone] Microscopic hematuria (Primary Dx) Social History Tobacco Use Types [...] as of this encounter Plan of Treatment Scheduled Orders Name Type Priority Associated Diagnoses Orde r Schedule Urinalysis Complete Lab Routine Microscopic hematuria Expected: 02/11/2023 (Approximate), Expires: 02/12/2024 documented as of this encounter Visit Diagnoses Diagnosis Microscopic hematuria- Primary documented in this encounter Care Teams Board Liner Operator Relationship Specialty Start Date End Date Yecenia Mauro MD [address] [place] [address] [phone] PCP - General Family Medicine 04/09/21 documented as of this encounter
--- OUTSIDE RECORDS SUMMARY | 2025-06-07 11:24 | XMS_ITS | Encounter Summary ---
Author Organization [employer] Address [address] [facility] [address] [place] [address] Care Team Providers Care Environmental Specialist Name Role Phone Yecenia Mauro MD Primary Care Provider [phone] Reason for Visit * Reason Onset Date Comments Med Refill 12/22/2024 Encounter Details Date Type Department Care Team ([facility] st Contact Info) Description 12/22/2024 Telephone [facility] MEDICINE [address] [place], [place] [phone] Yecenia Mauro MD [address] [place] [address] Med Refill Social History Tobacco Use Types [...] the past 12 months, has t he [employer], [employer], oil or water [employer] threatened to shut off services in your [...] Telephone Encounter - Anel Townsend LPN - 12/22/2024 10:01 AM EDT Medication pended to PCP. * Telephone Encounter - Meño Durbin - 12/22/2024 9:50 AM EDT TC from pt requesting medication refill. Medications needing refill : [id number] [id number] MG tablet To be sent to: [facility]/pharmacy #[id number] - [place], [place] - [address] [place] [address] documented in this encounter Plan of Treatment Not on file documented as of this encounter Visit Diagnoses Not on filedocumented in this encounter Additional Health Concerns Assessment Noted Time PHQ-9 Depression Total Score: 0 09/18/19 24 1:08 PM EST documented as of this encounter Care Teams Environmental Specialist Relationship Specialty Start Date End Date Yecenia Mauro MD [address] [place] [address] PCP - General Family Medicine 04/09/21 documented as of this encounter
--- OUTSIDE RECORDS SUMMARY | 2025-06-07 11:24 | XMS_ITS | Encounter Summary ---
Author Organization [employer] Address [address] [facility] [address]t [place] [address] Care Team Providers Care Supervising Floorperson Name Role Phone Yecenia Mauro MD Primary Care Provider [phone] Encounter Details Date Type Department Care Team (Late st Contact Info) Description 09/09/2023 Orders Only [facility] MEDICINE [address] [place], [place] [phone] Yecenia Mauro MD [address] [place], [place] [phone] Constipation, unspecified constipation type (Primary Dx) Social History Tobacco Use Types [...] t he electric, gas, oil or water [employer] threatened to shut off services in your [...] as of this encounter Visit Diagnoses Diagnosis Constipation, unspecified constipation type- Primary documented in this encounter Care Teams Supervising Floorperson Relationship Specialty Start Date End Date Yecenia Mauro MD [address] [place] [id number] PCP - General Family Medicine 04/09/21 documented as of this encounter
--- OUTSIDE RECORDS SUMMARY | 2025-06-07 11:24 | XMS_ITS | Clinical Summary ---
Author Organization [employer] Address [address] [facility] [address] [place] [address] Care Team Providers Care Mold Checker Name Role Phone Yecenia Mauro MD Primary Care Provider [phone] Allergies Active Allergy Reactions Criticality Noted Date Comments Lidocaine 09/30/2022 01/05/2019 Pt. states her throat starts to close , cant breath, she mentioned she starts shaking like convulsion. Also per pt. her allergy told her she doesnt break out in any skin rash or hives. Penicillins 12/08/2012 Medications Xarelto 20 MG tablet TAKE 1 TABLET BY MOUTH 1 HOUR BEFORE TRAVEL WITH EVENING MEAL 01/18/20 22 Active Blood Glucose Monitoring Suppl (FreeStyle Lynndyl) kitIndications: Type 2 diabetes mellitus without complication, without long-term current use of insulin (HCC) USE TO TEST BLOOD SUGAR 2 TIMES DAILY 1 kit 08/28/19 23 Active Lancets 30G miscIndications :Type 2 diabetes mellitus without complication, without long-term current use of insulin (HCC) Apply 1 each topically 2 times daily. Freestyle Lite brand 100 each 11 08/29/19 23 Active Pulmicort Flexhaler 180 MCG/ACT inhaler Inhale 1 puff 2 times daily. 09/07/19 24 Active Spacer/Aero-Hol ding Chambers (OptiChamber Shanna) misc USE DIRECTED 08/25/19 24 Active Flovent HFA 110 MCG/ACT inhaler INHALE 2 PUFFS 2 TIMES A DAY 10/15/19 24 Active Dulaglutide (Trulicity) 1.5 MG/0.5ML solution auto-injector Inject 1.5 mg under the skin 1 (one) time per week. 2 mL 11 09/27/19 25 Active cholecalciferol VITAMIN D (Vitamin D-3) 50 MCG (1999 UT) capsuleIndicati ons:Vitamin D deficiency TAKE 1 CAPSULE (50 MCG) BY MOUTH IN THE MORNING 90 capsule 3 10/25/19 25 Active FREESTYLE LITE test stripIndication s:Type 2 diabetes mellitus without complication, without long-term current use of insulin (HCC) USE TO TEST BLOOD SUGAR TWICE A DAY 100 strip 11 10/25/19 25 Active ketoconazole (NIZOral) 2 % shampooIndicati ons:Seborrheic dermatitis APPLY TOPICALLY EVERY DAY TO THE SCALP WEEKLY, LATHER, LEAVE IN PLACE 5 MINS & RINSE OFF W/ WATER 120 mL 02/21/20 25 Active lidocaine (Lidoderm) 5 % patch APPLY 1 PATCH TOPICALLY IN THE MORNING. LEAVE ON 12 HOURS, AND OFF 12 HOURS 30 patch 3 04/03/20 25 Active butalbital-acet aminophen-caffe ine 50-325-40 MG tabletIndicatio ns:Migraine without status migrainosus, not intractable, unspecified migraine type TAKE 1 TABLET BY MOUTH EVERY 12 HOURS. NOT TO EXCEED 8 TABLETS PER MONTH 8 tablet 3 04/19/20 25 Active ibuprofen 600 MG tablet TAKE 1 TABLET BY MOUTH EVERY 6 TO 8 HOURS 01/22/20 25 Active PARoxetine (Paxil) 10 MG tabletIndicatio ns:Postmenopaus al Take 1 tablet (10 mg) by mouth at bedtime. 90 tablet 3 05/26/20 25 026 Active ibuprofen 800 MG tablet TAKE 1 TABLET BY MOUTH THREE TIMES A DAY WITH FOOD 30 tablet 05/01/20 23 025 Discontinued( erapy completed) ondansetron (Zofran) 4 MG tablet TAKE 1 TABLET BY MOUTH 4 TIMES A DAY NEEDED FOR NAUSEA AND VOMITING 20 tablet 1 12/16/19 24 025 Discontinued( erapy completed) ursodiol (Actigall) 300 MG capsule Take 300 mg by mouth 2 times daily. 025 Discontinued( erapy completed) mirtazapine (Remeron) 15 MG tablet Take 15 mg by mouth at bedtime. 09/12/19 25 025 Discontinued( erapy completed) PARoxetine (Paxil) 10 MG tablet Take 1 tablet (10 mg) by mouth at bedtime. 90 tablet 3 09/27/19 25 025 Discontinued(Re order (will not trigger notification to Pharmacy)) Bisacodyl EC 5 MG EC tabletIndicatio ns:Constipation , unspecified constipation type TAKE 1 TABLET BY MOUTH IF NEEDED EACH DAY FOR CONSTIPATION . DO NOT CRUSH, CHEW, OR SPLIT. 90 tablet 3 10/25/19 25 025 Discontinued(Th erapy completed) cyclobenzaprine (Flexeril) 5 MG tablet TAKE 1 TABLET BY MOUTH 3 TIMES DAILY. 90 tablet 10/25/19 25 025 Discontinued( erapy completed) Active Problems Problem Noted Date Diagnosed Date Right upper quadrant abdominal pain 12/16/2023 Assessment & Plan (12/16/2023 9:36 AM EDT): History of cholecystectomy and brief elevation in transaminases Will recheck today, abdomen non-surgical History of cholecystectomy 09/18/2023 Assessment & Plan (09/18/2023 1:53 PM EST): With elevations of liver enzymes s/p cholecystectomy 01/2023 Will check liver enzymes again today, see if she needs sooner ERCP than 10/13/23 Will hold Trulicity for the time being due to reports of liver/gallbladder disease Asthma 09/30/2022 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 Assessment & Plan (04/03/2023 8:03 AM EDT): MRI completed 10/2022 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 2018 Refer to neurology for white matter changes related to chronic migraines, for consideration of other treatment options Assessment & Plan (09/30/2022 3:52 PM EST): Operated on in 2013 No further followup With chronic migraines Fibromyalgia 08/25/2022 Type 2 diabetes mellitus wit hout complication, without long-term current use of insulin 08/25/2022 Assessment & Plan (12/16/2023 9:38 AM EDT): A1C 6.5 Hold Trulicity due to liver disease REYNA without DM2 changes Normal monofilament 09/2022 Assessment & Plan (09/18/2023 1:53 PM EST): A1C 5.7 Hold Trulicity due to liver disease REYNA without DM2 changes Normal monofilament 09/2022 Assessment & Plan (08/07/2023 11:13 AM EST): A1C 5.7 continue Trulicity weekly REYNA without DM2 changes Normal monofilament 09/2022 Assessment & Plan (04/03/2023 8:04 AM EDT): A1C 5.9 continue Trulicity weekly Use Metformin if fasting >110 (almost never has to do this) REYNA without DM2 changes Normal monofilament 09/2022 If sugars are decreased in followup, will discontinue Trulicity Assessment & Plan (09/30/2022 3:51 PM EST): A1C 7 here today continue Trulicity weekly Use Metformin if fasting >110 REYNA next week Normal monofilament today Antiphospholipid antibody syndrome 08/25/2022 Assessment & Plan (12/16/2023 9:37 AM EDT): Raynaud's phenomenon that she is describing is related to this Assessment & Plan (08/07/2023 11:14 AM EST): Miguel Li for travel Assessment & Plan (04/03/2023 8:03 AM EDT): Miguel Li for travel Abnormal uterine bleeding (AUB) 06/30/2022 Assessment & Plan (12/16/2023 9:37 AM EDT): Anemic again, with Hg of 10.7 Zofran miguel Assessment & Plan (08/07/2023 11:13 AM EST): benign path results from [facility] current reoccurrence of heavy bleeding with normal Hg Prefers to continue followup at [facility], next appt in 08/19/23 Continue progesterone and transxemic acid for now Assessment & Plan (04/03/2023 8:03 AM EDT): benign path results from [facility] No further reoccurrence of heavy bleeding Prefers to continue followup at [facility] Assessment & Plan (09/30/2022 3:50 PM EST): followup with [facility] obstetrics and gynecology professor next week for path results from [facility] Benign essential HTN 11/15/2018 Assessment & Plan (12/16/2023 9:38 AM EDT): At goal < 140/90 here and at home Consider meds if elevated at home Assessment & Plan (08/07/2023 11:12 AM EST): At goal at home, elevated diastolic here Consider meds if elevated at home Assessment & Plan (04/03/2023 8:02 AM EDT): At goal at home, elevated diastolic here Assessment & Plan (09/30/2022 3:50 PM EST): At goal at home, elevated diastolic here Vitamin D deficiency 06/13/2016 Gingivitis 11/22/2013 Chronic GERD 07/22/2013 Migraine 07/22/2013 Overview (05/13/2024): History of cranial osteoma in 2018, no f/u with NSG since then. Sees Dr Casper for Neurology Limited use of [facility] MRI 10/2022 at [facility] New scarring with the high left paramedian scalp related to excision of previous lesions without evidence of reoccurrence Re-demonstrated sessile 1.0cm osteoma along the outer table of high left frontal calvarium Minimal nonspecific supratentorial white matter lesions, some of which may be attributable to chronic migraine headaches head CT 05/2018 COMPARISON: CT head 11/24/2013 FINDINGS: There is no acute intracranial hemorrhage or abnormal extra-axial collection. No intracranial mass effect or midline shift. Lateral and third ventricles are normal. No hydrocephalus. Concepcion-white matter differentiation is grossly preserved and there is no evidence of acute territorial infarct. The calvarium and skull base are intact. Mastoid air cells and middle ear cavities are well-aerated. There are mucous retention cysts within both maxillary sinuses. A superficial subcutaneous lesion is visualized within the frontal scalp just to the left of midline near the vertex and there is a small osteoma involving the outer table of the left frontal bone near the coronal suture best illustrated on axial image 20 of 34 series 4. IMPRESSION: No acute territorial infarct or hemorrhage. There is a well marginated superficial subcutaneous lesion involving the frontal scalp that presumably represents an epidermal inclusion cysts and there is a small osteoma involving the left frontal bone near the coronal suture. Assessment & Plan (05/13/2024 10:30 AM EDT): Trial Pamelor 10mg nightly for prophylaxis Will await C spine xrays to observe for atlanto-axial instability or other possible degenerative causes of pain or instability Assessment & Plan (09/18/2023 1:54 PM EST): MRI completed 10/2022 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 [address] Siegel for neuro Very limited use of Fioricet Assessment & Plan (08/07/2023 11:14 AM EST): MRI completed 10/2022 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 [address] Siegel for neuro Very limited use of Fioricet Resolved Problems Problem Noted Date Diagnosed Date Resolved Date Diabetes due to undrl condit ion w oth diabetic neuro comp 04/01/2023 05/26/2025 Obesity 09/30/2022 05/26/2025 Encounters Date Type Department Care Team Description 05/26/2025 9:45 AM EDT Office Visit [facility] [address] [place] [address] Yecenia Mauro MD Type 2 diabetes mellitus without complication, without long-term current use of insulin (HCC) (Primary Dx); Encounter for screening mammogram for malignant neoplasm of breast; Hyperthyroidism; Right upper quadrant abdominal pain; Benign essential HTN; Antiphospholipid antibody syndrome (CMS/HCC); History of cholecystectomy; Postmenopausal; Chronic migraine without aura without status migrainosus, not intractable 05/26/2025 Orders Only [facility] [address] [place] [address] Yecenia Mauro MD 05/26/2025 Travel 05/25/2025 Telephone [facility] [address] [place] [address] Yecenia Mauro MD Chart Prep 05/18/2025 Patient Outreach [address] [address] Vicenta Parvin Pre-visit Planning (SDOH screening completed on 09/15/2024) 04/19/2025 Refill [facility] [address] [place] [phone] Yecenia Mauro MD Migraine without status migrainosus, not intractable, unspecified migraine type 04/01/[address] [address] Yecenia Mauro MD 03/07/2025 Patient Outreach [address] [address] Yecenia Mauro MD Pre-visit Planning (SDOH screening completed on 09/15/2024) from Last 3 Months Immunizations Immunization Administration Dates Next Due Pfizer Covid-19 Vaccine 12+ Bivalent 08/22/2022 Tdap 09/29/2022 Social History Tobacco Use Types Packs/Day Years [...] Answer Date Recorded Patient Health Questionnaire-9 Score 1 05/26/2025 Patient Health Questionnaire-9 Score 1 05/26/2025 Last PHQ-9: Questionnaire Data Not on file 1 Housing Stability Answer Date Recorded What is [...] the past 12 months, has t he [employer], [employer], oil or water company threatened to shut off services in your home? I am not sure 09/15/2024 Depression Answer Date Recorded Patient Health Questionnaire-2 Score 0 05/26/2025 Internet Access Answer Date Recorded Internet Access Q1 Yes 09/15/2024 Internet Access Q2 Not on file 09/15/2024 Comments Unknown Intention Date Recorded No desire to become (finding) 0 09/27/2024 Sex and Gender Information Value Date Recorded Sex Assigned at Female 06/16/2022 10:20 AM EDT Legal Sex Female 10:20 AM EDT Gender Identity Female 06/16/2022 10:20 AM EDT Sexual Orientation Straight 06/16/2022 10 :20 AM EDT Last Filed Vital Signs Vital Sign Reading Time Taken Comments Blood Pressure 122/72 05/26/2025 9:40 AM EDT Pulse 60 05/26/2025 9:40 AM EDT Temperature 36.2 C (97.1 F) 05/26/2025 9:40 AM EDT Respiratory Rate 16 05/26/2025 9:40 AM EDT Oxygen Saturation 99% 09/27/2024 10: 05 AM EST Inhaled Oxygen Concentration - - Weight 68.4 kg (150 lb 12.8 oz) 05/26/2025 9:40 AM EDT Height 165.1 cm (5' 5 ) 05/26/2025 9:40 AM EDT Body Mass Index 25.09 05/26/2025 9:40 AM EDT Plan of Treatment Health Maintenance Due Date Last Done Comments CT Colonography 1973 Colonoscopy 1973 Colorectal Cancer Screening 1973 FIT DNA/Cologuard 1973 FIT 1973 FOBT 1973 HIV Screening 1973 Sigmoidoscopy 1973 Eye Exam 1983 Hepatitis B Vaccines (1 of 3 - 19+ 3-dose series) 1992 Pneumococcal Vaccine: 50+ Years (1 of 2 - PCV) 1992 Zoster Vaccines (1 of 2) 2023 Mammogram 02/01/2025 02/02/2024, 09/17, 09/30/2022, Additional history exists COVID-19 Vaccine ( season) 2025 08/22/2022, 09/03/2021, 11/12/2020 Influenza Vaccine (#1) 2025 Pap Smear 06/12/2025 06/12/2022 Diabetes: Hemoglobin A1C 08/26/2025 025, 09/27/2024, 05/13/2024, Additional history exists SDOH Screening 09/15/2025 09/15/2024 Lipid Panel 09/27/2025 09/27/2024, 04/2 04/2024, 08/22/2022, Additional history exists Alcohol/Substance Use Screening 10/03/2025 10/03/2024 Family Planning (PISQ) 10/03/2025 10/03/2024 Depression Screening 05/26/2026 05/26/2025, 05/26/20 25 Diabetes: Foot Exam 05/26/2026 05/26/2025, 05/26/2025, 05/26/2025, Additional history exists Diabetes: Urine Protein Screening 05/26/2026 05/26/2025, 12/14/2023, 08/22/2022 Disability Screening 05/26/2026 05/26/2025 Tobacco Screening 05/26/2026 05/26/2025 Cervical Cancer Screening 06/12/2027 HPV/Cotest 06/12/2027 06/12/2022 DTaP/Tdap/Td Vaccines (2 - Td or Tdap) 09/29/2032 09/29/2022 RSV Patients and Patients Aged 60 years or older (1 - 1-dose 75+ series) 2048 Hepatitis C Screening Completed 05/26/2025 HIB Vaccines Aged Out No longer eligi [...] patient's age to complete this topic Meningococcal Vaccine Aged Out No yo karie eligible based on patient's age to complete this topic RSV under 20 months Aged Out No longe r eligible based on patient's age to complete this topic Rotavirus Vaccines Aged Out No longer eligible based on patient's age to complete this topic Procedures Procedure Name Priority Date/Time Associated Diagnosis Comments T4, FREE Routine 05/26/2025 10:31 AM EDT CBC WITH AUTO DIFFERENTIAL Routine 05/26/2025 10:31 AM EDT Right upper quadrant abdominal pain URINALYSIS, COMPLETE, WITH REFLEX TO CULTURE Routine 05/26/2025 10:31 AM EDT Right upper quadrant abdominal pain HEPATITIS C AB W/REFL TO HCV RNA, QN, PCR Routine 05/26/2025 10:31 AM EDT Right upper quadrant abdominal pain LIPASE Routine 05/26/2025 10:31 AM EDT Right upper quadrant abdominal pain COMPREHENSIVE METABOLIC PANEL Routine 05/26/2025 10:31 AM EDT Type 2 diabetes mellitus without complication, without long-term current use of insulin (HCC) TSH W/REFLEX TO FT4 Routine 05/26/2025 1 0:31 AM EDT Type 2 diabetes mellitus without complication, without long-term current use of insulin (HCC) ALBUMIN, RANDOM URINE W/CREATININE Routine 05/26/2025 10:13 AM EDT Type 2 diabetes mellitus without complication, without long-term current use of insulin (HCC) POCT GLYCATED HEMOGLOBIN, TOTAL Routine 05/26/2025 9:44 AM EDT Type 2 diabetes mellitus without complication, without long-term current use of insulin ([facility]) POCT GLUCOSE Routine 05/26/2025 9:42 AM EDT Type 2 diabetes mellitus without complication, without long-term current use of insulin ([facility]) LIPID PANEL, STANDARD Routine 09/27/2024 10:58 AM EST Type 2 diabetes mellitus without complication, without long-term current use of insulin ([facility]/HCC) BI MAMMOGRAM SCREENING TOMOSYNTHESIS BILATERAL Routine 02/02/2024 10:20 AM EDT THINPREP IMAGING PAP AND HPV MRNA E6/E7, WITH CT/NG, TRICHOMONAS Routine 06/12/2022 12:09 PM EDT from Last 3 Months or Most Recently Relevant to Health Maintenance Results * (ABNORMAL) Urinalysis, Complete, with Reflex to Culture (05/26/2025 10:31 AM EDT) Color Urine Dark Yellow [facility] Appearance Urine Clear [facility] PH 6.0 5.0 - 9.0 [facility] Glucose Urine UA Negative Negative mg/dL [facility] Urine Blood Negative Negative [facility] Specific [place] - Urine >=1.030(H) 1.005 - 1.025 [facility] Urine Protein Negative Neg-Trace mg/dL [facility] Urine Ketones Trace Negative mg/dL [facility] Nitrite Urine Negative Negative [facility] Leukocyte Esterase Urine Negative Negative [facility] RBC Urine 0-2 0 - 2 /HPF [facility] Urine WBC 0-5 0 - 5 /HPF [facility] Urine Squamous Epithelial Cell 6-10 0 - 2 /HPF [facility] Urine Bacteria Trace None Seen [facility] Hyaline Casts, Urine 0-2 0 - 2 /LPF [facility] Urine 05/26/2025 10:3 1 AM EDT 05/26/2025 12:52 PM EDT Narrative [facility] - 05/26/2025 1:27 PM EDT Urine, Clean Catch Yecenia Mauro MD LAB URINE ORDERABLES Final Res ult Performing Organization Address [facility] Co de Phone Number [facility] [address] [place] [phone] * (ABNORMAL) TSH W/Reflex to FT4 (05/26/2025 10:31 AM EDT) Pathologist [facility] TSH reflex Free T4 <0.01(L) 0.32 - 4.0 uIU/mL [facility] Blood Venous blood specimen / Unknown 05/26/2025 10:31 AM EDT 05/26/2025 12:50 PM EDT Yecenia Mauro MD LAB BLOOD ORDERABLES Final Res ult Performing Organization Address [facility] Co de Phone Number [facility] [address] [place] [phone] * CBC auto differential (05/26/2025 10:31 AM EDT) [facility] White Blood Count 5.1 4.8 - 10.8 X10*3/uL [facility] Red Blood Count 4.81 4.20 - 5.50 X10*6/uL [facility] Hemoglobin 13.6 12.0 - 16.0 g/dl [facility] Hematocrit 41.4 37.0 - 47.0 % [facility] Mean Corpuscular Volume 86.1 80.0 - 98.0 fL [facility] Mean Corpuscular Hemoglobin 28.3 27.0 - 33.0 pg [facility] Mean Corpuscular HGB Conc 32.9 31.0 - 35.0 g/dl [facility] Red Cell Distribution Width 12.0 11.0 - 16.0 % [facility] Platelet Count 254 160 - 400 X10*3/uL [facility] Mean Platelet Volume 12.3 9.4 - 12.3 fL [facility] Neutrophils Percent Auto 57.1 45 - 73 % [facility] Imm Gran Pct Auto 0.2 0.0 - 0.4 % [facility] Lymphocytes Percent Auto 33.3 20 - 40 % [facility] Monocytes Percent Auto 7.2 2 - 11 % [facility] Eosinophils Percent Auto 1.8 0 - 4 % [facility] Basophils Percent Auto 0.4 0 - 2 % [facility] NRBC Pct Auto 0.0 0.0 - 0.2 /100WBC [facility] Neutrophils Absolute Auto 2.9 2.0 - 8.3 x10*3/uL [facility] Imm Gran Abs Auto 0.01 0.00 - 0.03 X10*3/uL [facility] Lymphocytes Absolute Auto 1.7 1.2 - 4.9 X10*3/uL [facility] Monocytes Absolute Auto 0.4 0.1 - 1.2 X10*3/uL [facility] Eosinophils Absolute Auto 0.1 0.0 - 0.4 X10*3/uL [facility] Basophils Absolute Auto 0.0 0.0 - 0.2 X10*3/uL [facility] NRBC Abs Auto 0.000 0.0 - 0.012 X10*3/uL [facility] Blood Venous blood specimen / Unknown 05/26/2025 10:31 AM EDT 05/26/2025 12:50 PM EDT us Yecenia Mauro MD LAB BLOOD ORDERABLES Final Res ult [facility] [address] [place], [place] [phone] * Hepatitis C Antibody with Reflex to HCV, RNA, Quantitative, Real-Time PCR (05/26/2025 10:31 AM EDT) Hepatitis C Antibody Nonreactive Nonreactive [facility] Comment:Antibodies to HCV no t detected; does not exclude early acuteHCV infection. Blood Venous blood specimen / Unknown 05/26/2025 10:31 AM EDT 05/26/2025 12:50 PM EDT Yecenia Mauro MD LAB BLOOD ORDERABLES Final Res ult Performing Organization Address [facility]/ZIP Co de Phone Number [facility] [address] [place] [phone] * T4, Free (05/26/2025 10:31 AM EDT) Free T4 (Free Thyroxine) 1.73 0.71 - 1.85 ng/dL [facility] 05/26/2025 10:3 1 AM EDT 05/26/2025 12:50 PM EDT Yecenia Mauro MD LAB BLOOD ORDERABLES Final Res ult Performing Organization Address [facility] Co de Phone Number [facility] [address] [place] [phone] * Lipase (05/26/2025 10:31 AM EDT) Pathologist [facility] Lipase 49 8 - 78 U/L [facility] Blood Venous blood specimen / Unknown 05/26/2025 10:31 AM EDT 05/26/2025 12:50 PM EDT Yecenia Mauro MD LAB BLOOD ORDERABLES Final Res ult Performing Organization Address [facility] Co de Phone Number [facility] [address] [place] [phone] * (ABNORMAL) Comprehensive Metabolic Panel (05/26/2025 10:31 AM EDT) Sodium 141 135 - 145 mmol/L [facility] Potassium 4.2 3.3 - 5.1 mmol/L [facility] Chloride 105 96 - 108 mmol/L [facility] Carbon Dioxide 30(H) 22 - 29 mmol/L [facility] Anion Gap 10(L) 12 - 20 [facility] Urea Nitrogen (BUN) 12 9 - 16 mg/dL [facility] Creatinine, Serum 0.55 0.5 - 1.4 mg/dL [facility] Estimated Glomerular Filt Rate >60 [facility] Comment:Chronic Kidney Disea se: Estimated GFR < 60 mL/min/[id number] Kidney Disease: Estimated GFR < 15 mL/min/1.73m2 Glucose 138(H) 60 - 115 mg/dL [facility] Calcium 10.0 8.4 - 10.2 mg/dL [facility] Bilirubin, Total 0.5 0.0 - 1.0 mg/dL [facility] Aspartate Amino Transferase 25 5 - 31 U/L [facility] Alanine Aminotransferase 25 0 - 31 U/L [facility] Total Protein 7.6 6.5 - 8.0 g/dL [facility] Albumin Level 4.7 3.5 - 5.0 g/dL [facility] Alkaline Phosphatase 57 39 - 117 U/L [facility] Blood Venous blood specimen / Unknown 05/26/2025 10:31 AM EDT 05/26/2025 12:50 PM EDT us Yecenia Mauro MD LAB BLOOD ORDERABLES Final Res ult [facility] [address] [place] [phone] * Albumin, Random Urine W/Creatinine (05/26/2025 10:13 AM EDT) Creatinine, Urine 156.56 mg/dL [facility] Microalbumin Urine 8.0 mg/L [facility] Microalbum Creatinine Ratio Ur 5.1 <30 ug/mg cr [facility] Comment:Albumin/Creatinine R atio Reference Ranges: Normal: < 30 ug/mg creatinine Microalbuminuria: 30 - 300 ug/mg creatinineClinical Albuminuria: > 300 ug/mg creatinine Urine (Urine, Random) 05/26/2025 10:13 AM EDT 05/26/2025 12:52 PM EDT Yecenia Mauro MD LAB URINE ORDERABLES Final Res ult [facility] [address] [place] [phone] * (ABNORMAL) POCT Hgb A1c (05/26/2025 9:44 AM EDT) Hemoglobin A1C 7.2(A) 4.0 - 5.7 % QC Media Lot # [id number] Lot# Expiration Date 5, Blood 05/26/2025 9:44 AM EDT Yecenia Mauro MD POINT OF CARE TEST ENTER/EDIT ORDERABLES Final Result * POCT Glucose (05/26/2025 9:42 AM EDT) Glucose Blood, POC 168 60 - 200 mg/dL [employer] Lot # [id number] Lot# Expiration Date 3,,026 Blood Capillary blood specimen / Unknown 05/26/2025 9:42 AM EDT Yecenia Mauro MD POINT OF CARE TEST ENTER/EDIT ORDERABLES Final Result * Lipid Panel, Standard (09/27/2024 10:58 AM EST) Triglycerides 112 <150 mg/dL [facility] Comment:Desirable Triglyceri de: less than 150 mg/dLBorderline High Triglyceride 150-199 mg/dLHigh Triglyceride: 200-499 mg/dLVery High Triglyceride: greater than or equal to 5OO mg/dL Cholesterol 181 <200 mg/dL [facility] Comment:Desirable Cholestero l: less than 200 mg/dLBorderline High Cholesterol: 200-239 mg/dLHigh Cholesterol: greater than 239 mg/dL LDL Cholesterol Calculated 99 <100 mg/dL [facility] Comment:Desirable LDL: less than 100 mg/dLNear Optimal/Above Optimal LDL: 110- 129 mg/dLBorderline High LDL: 130-159 mg/dLHigh LDL: 160-189 mg/dLVery High LDL: greater than or equal to 190 mg/dL HDL Cholesterol 60 >40 mg/dL [facility] Comment:Desirable HDL: great er than 40 mg/dL Note: This HDL assay may give artificially low results in patients with liver disease. Blood Venous blood specimen / Unknown 09/27/2024 10:58 AM EST 09/27/2024 1:02 PM EST us Yecenia Mauro MD LAB BLOOD ORDERABLES Final Res ult [facility] [address] [place] [phone] * BI Mammogram Screening Tomosynthesis Bilateral (02/02/2024 10:20 AM EDT) Anatomical Region Laterality Modality Breast Bilateral Mammography 02/02/2024 10:2 0 AM EDT Narrative 03/02/2024 4:47 PM EDT [address] [place] [address] Mammography Report Signed Patient: Adriana Smith MR#: [id number] : 1975 Acct:[id number] Age/Sex: 48 / F ADM Date: 02/02/24 Loc: HO.MAMMO Attending Dr: Yecenia Mauro MD Ordering Physician: Yecenia Mauro Results: 1Negative Date of Service: 02/02/24 Follow Up: 1 Year From Orig ina Mammogram Procedure(s): MM tomosynthesis screening BI Accession Number(s): [id number] cc: Yecenia Mauro EXAMINATION: MM SCREENING DIGITAL BREAST TOMOSYNTHESIS, BILATERAL CLINICAL INFORMATION: Screening. Asymptomatic. COMPARISON: Mammography: This study is compared with prior exams dating back to 2019. TECHNIQUE: Digital breast tomosynthesis is performed in both the craniocaudal and mediolateral oblique views along with computer-aided detection (CAD). Synthesized 2D images are generated from the tomosynthesis. FINDINGS: The breasts are heterogeneously dense, which may obscure small masses (ACR BI-RADS breast composition Category c). There are no significant masses, abnormal calcifications, or other abnormalities. MM/MM tomosynthesis screening BI IMPRESSION: No mammographic evidence of malignancy. ASSESSMENT: BI-RADS BI-RADS 1 - Negative RECOMMENDATION: Routine annual mammography screening. 1 year F/U This examination should not preclude the clinical evaluation of a suspicious palpable abnormality. This patient's information was entered into a reminder system with a target due date for their next mammogram. Dictated By: Dionne Dumont MD Signed By: <Electronically signed by Dionne Dumont MD in OV> 03/02/24 1643 DD/ 1020 TD/TT: Commercial Account Officer: Procedure Note Donotuseinterpreter, Image - 03/02/2024 [facility] [address] [place] [address] Mammography Report Signed Patient: Angelica SmithR#: [id number] : 1975Acct:[id number] Age/Sex: 48 / FADM Date: 02/02/24 Loc: MAMMO Attending Dr: Yecenia Mauro MD Ordering Physician: Kayleen Mauroults: 1Negative Date of Service: 02/02/24Follow Up: 1 Year From Orig inal Mammogram Procedure(s): MM tomosynthesis screening BI Accession Number(s): [id number] cc: Yecenia Mauro EXAMINATION: MM SCREENING DIGITAL BREAST TOMOSYNTHESIS, BILATERAL CLINICAL INFORMATION: Screening. Asymptomatic. COMPARISON: Mammography: This study is compared with prior exams dating back to 2019. TECHNIQUE: Digital breast tomosynthesis is performed in both the craniocaudal and mediolateral oblique views along with computer-aided detection (CAD). Synthesized 2D images are generated from the tomosynthesis. FINDINGS: The breasts are heterogeneously dense, which may obscure small masses (ACR BI-RADS breast composition Category c). There are no significant masses, abnormal calcifications, or other abnormalities. MM/MM tomosynthesis screening BI IMPRESSION: No mammographic evidence of malignancy. ASSESSMENT: BI-RADS BI-RADS 1 - Negative RECOMMENDATION: Routine annual mammography screening. 1 year F/U This examination should not preclude the clinical evaluation of a suspicious palpable abnormality. This patient's information was entered into a reminder system with a target due date for their next mammogram. Dictated By: Dionne Dumont MD Signed By: <Electronically signed by Dionne Dumont MD in OV> 03/02/24 1643 DD/ 1020 TD/TT: Commercial Account Officer: Yecenia Mauro MD IMG BI PROCEDURES Final Result * THINPREP TIS PAP AND HPV mRNA E6/E7, CT/NG, TRICH (06/12/2022 12:09 PM EDT) Chlamydia trachomatis RNA, TMA, Urogenital NOT DETECTED NOT DETECTED [facility] Clinical Information: Abnormal bleeding [facility] COMMENT SEE COMMENT CONVERTE D [facility] Comment: The analytical performance characteristics of this assay, when used to test SurePath(TM) specimens have been determined by [facility]. The modifications have not been cleared or approved by the FDA. This assay has been validated pursuant to the CLIA regulations and is used for clinical purposes. For additional information, please refer to https://education.Crowd Sense/faq/AHC867 (This link is being provided for information/ educational purposes only.) COMMENT SEE COMMENT CONVERTE D [facility] Comment: EXPLANATORY NOTE: The Pap is a screening test for cervical cancer. It is not a diagnostic test and is subject to false negative and false positive results. It is most reliable when a satisfactory sample, regularly obtained, is submitted with relevant clinical findings and history, and when the Pap result is evaluated along with historic and current clinical information. COMMENT: This Pap test has been evaluated with computer assisted technology. CONVERTED [facility] Sand Bobber: SEE COMMENT CONVERTED [facility] Comment: PAUL SHOEMAKER(ASCP) CT screening location: [place] [address] HPV nRNA E6/E7 Not Detected Not Detected CON[facility]ED [facility] Comment: Methodology: Medicine Teacher-Mediated Amplification This assay detects E6/E7 viral messenger RNA (mRNA) from 14 high-risk HPV types (16,18,31,33,35,39,45,51,52,56,58,59,66,68). Cervical sources are required for HPV testing. If a vaginal source from a patient who has had a total hysterectomy with removal of cervix was submitted, please contact the testing laboratory for alternative testing options. For additional information, please refer to http://[employer]atell.Crowd Sense/faq/VPA633k6 (This link if provided for information/ educational purposes only.) Interpretation/Re sult: Negative for intraepithelial lesion or malignancy. [facility] LMP: NONE GIVEN [facility] Neisseria gonorrhoeae RNA, TMA, Urogenital NOT DETECTED NOT DETECTED [facility] Prev. BX: NONE GIVEN [facility] Prev. PAP: NONE GIVEN CONVERTE D [facility] Review Sand Bobber: SEE COMMENT [facility] Comment: GSG, CT(ASCP) CT screening location: [place] [address] SOURCE: None given [facility] Statement Of Adequacy: SEE COMMENT [facility] Comment: Satisfactory for evaluation. Endocervical/transformation zone component absent. Age and/or menstrual status not provided Trichomonas vaginalis, QL, TMA, PAP Vial NOT DETECTED NOT DETECTED [facility] Comment: The analytical performance characteristics of this assay have been determined by [facility]. The modifications have not been cleared or approved by the FDA. This assay has been validated pursuant to the CLIA regulations and is used for clinical purposes. For additional information, please refer to http://[employer]atell.Crowd Sense/ faq/Trichomonastma (This link is being provided for information/ educational purposes only.) 06/12/2022 12:0 9 PM EDT Ami Shah CNM LAB PATHOLOGY ORDERABLES Final Result [facility] from Last 3 Months or Most Recently Relevant to Health Maintenance Insurance [facility] C3 Care Teams Mold Checker Relationship Specialty Start Date End Date Yecenia Mauro MD [address] [place] [id number] PCP - General Family Medicine 04/09/21
--- OUTSIDE RECORDS SUMMARY | 2025-06-07 11:24 | XMS_ITS | Encounter Summary ---
Author Organization [employer] Address [address] [facility] 7t [place] [address] Care Team Providers Care Transaction Processor Name Role Phone Yecenia Mauro MD Primary Care Provider [phone] Reason for Visit * Reason Comments Med Refill Encounter Details Date Type Department Care Team ([facility] st Contact Info) Description 11/22/2024 Refill [facility] P[facility] [address] [place], [place] [phone] Anel Ledesma DO [address] [place] [address] Type 2 diabetes mellitus without complication, without long-term current use of insulin ([facility]) Social History Tobacco Use Types [...] documented as of this encounter Care Teams Transaction Processor Relationship Specialty Start Date End Date Yecenia Mauro MD [address] [place] [address] PCP - General Family Medicine 04/09/21 documented as of this encounter
--- OUTSIDE RECORDS SUMMARY | 2025-06-07 11:24 | XMS_ITS | Encounter Summary ---
Author Organization [employer] Address [address] [facility] 7t [place] [address] Care Team Providers Care Construction Executive Name Role Phone Yecenia Mauro MD Primary Care Provider [phone] Reason for Visit * Reason Onset Date Comments Referral 08/06/2023 Encounter Details Date Type Department Care Team ([facility] Contact Info) Description 08/06/2023 Telephone [facility] MEDICINE [address] [place], [place] [phone] Yecenia Mauro MD [address] [place] [address] Referral Social History Tobacco Use Types Packs/Day Years [...] encounter Miscellaneous Notes * Telephone Encounter - Tyson Montoya - 08/06/2023 9:52 AM EST Tc from patient requesting a referral for baker head states was being seen in [place] and wouldlike to be seen there again however commercial real estate underwriter does not see referral on patients chart please clarify. documented in this encounter Plan of Treatment Not on file documented as of this encounter Visit Diagnoses Not on filedocumented in this encounter Care Teams Construction Executive Relationship Specialty Start Date End Date Yecenia Mauro MD [address] [place] [address] PCP - General Family Medicine 04/09/21 documented as of this encounter
== END 2025-06-07 09:43 | disposition home or self-care (01) ==
LOC: HO.US 09:42
PROVIDERS: PCP General Practice; Visit Provider General Practice
DX: R10.11 Right upper quadrant pain (principal)
CPT/HCPCS: 76775

== ENCOUNTER → 2025-06-07 09:44 | Outpatient (BNV) | payer MEDICAID, SELFPAY | PROVIDERS: PCP General Practice; Visit Provider Radiology Diagnostic Radiology | DX: R10.11 Right upper quadrant pain (principal) | CPT/HCPCS: 76775 ==

== ENCOUNTER 2025-06-20 15:22 | Outpatient (AMB) | payer MEDICAID, SELFPAY ==
[2025-06-20 15:33] VITALS: BP 136/90; PULSE 99; O2SAT 99; BMI 24.9
--- NOTE | 2025-06-20 15:33 | A.OFFVIS_ITS ---
Vital Signs 06/20/25 15:33 Height 5 ft 5 in Weight 149 lb 14.629 oz BMI 24.9 BP 136/90 H Blood Pressure Location Rt brachial Position Sitting Pulse 99 Pulse Source Pulse Oximeter Pulse Oximetry (%) 99 Oxygen Delivery Method Room Air Intake Visit Reasons: Hyperthyroidism Intake Note: NEW Patient presents here today to establish treatment for Hyperthyroidism: Gun Welder Required: Yes Gun Welder Language: Health And Safety Inspector Services: Gun Welder Offered & Declined (DR Giang Speak Fluent Burundian) Accompanied by: Self / Same As Patient Allergies penicillin G (PENICILLIN G) Allergy (Unknown, Verified 06/20/25 15:34) RASH, swelling, rash Medication List - Last Reconciled 06/20/25 by Wong Blank MD albuterol sulfate 90 mcg/actuation 1 inh inhalation DAILY PRN bisacodyl 5 mg PO DAILY PRN gqwftabmuq-klsftdvszawjj-tqfq 50-325-40 mg 1 tab PO Q12H PRN cholecalciferol (vitamin D3) 50 mcg PO DAILY dicyclomine 10 mg PO BID fluticasone propionate 50 mcg/actuation 2 sprays intranasal DAILY PRN ibuprofen 800 mg PO TID PRN metformin 500 mg PO BID PRN omeprazole 40 mg PO DAILY@0630 PRN ondansetron HCl 4 mg PO QID PRN rivaroxaban (Xarelto) 20 mg PO DAILY rivaroxaban (Xarelto) 20 mg PO DAILY PRN ursodiol 300 mg PO BID HPI Comments Details: 49 years old female type 2 diabetes, hypertension, fibromyalgia, vitamin-D deficiency, GERD, antiphospholipid syndrome, seen in the office for evaluation of hyperthyroidism. She reports a long-standing intolerance to heat, which has become more pronounced during her current stay in [place]. She describes being unable to tolerate high temperatures, stating, ?I can?t stand the heat,? and that this has always been an issue, but is now ?horrible? while on vacation. Over the past several months, she has experienced increased fatigue, excessive sleepiness, and diffuse body aches. She notes that she has always been a very active person, so these symptoms are unusual for her. She also reports significant unintentional weight loss, despite previously being on atorvastatin (which she has since discontinued). She denies any recent changes in appetite. She has noticed increased hair loss and brittle nails over the past several weeks. In response, she began taking biotin supplements about three weeks ago but has since stopped. She is not currently using any biotin-containing shampoos or supplements. She reports that her last period was 2.5 years ago. She reports family history of thyroid issues, but no thyroid cancer. Review of Systems: General: Fatigue, unintentional weight loss, increased sleepiness Skin/Hair/Nails: Hair loss, brittle nails HEENT: No neck swelling, no dysphagia, no hoarseness Cardiac: No palpitations, no chest pain Respiratory: No shortness of breath GI: No diarrhea, no increased appetite Neuro: No tremor, no anxiety, no focal deficits Musculoskeletal: Myalgias Other: Reports feeling that something gets stuck in her throat when she eats, including water Physical exam General: Well appearing. NAD. Neck/Thyroid: Thyroid palpable, no nodules. Eyes: No conjunctival injection, not lid lag or proptosis CV: RRR, no murmur. No edema. Resp:Lungs clear to auscultation bilaterally Abdomen: Soft, nontender. nondistended Extremities/Neuro: No weakness or tremor of outstretched hands Laboratory Tests 09/27/24 04/18/25 05/26/25 10:58 13:26 10:31 Sodium 144 141 Potassium 3.8 4.2 TSH < 0.01 L < 0.01 L Free T4 1.57 1.73 [facility] Medical History Diabetes Gingivitis Fibromyalgia HTN (hypertension) Abnormal uterine bleeding History of gestational diabetes GERD (gastroesophageal reflux disease) Vitamin D deficiency Migraine Asthma Fibromyalgia Antiphospholipid antibody syndrome Surgical History History of laparoscopic cholecystectomy (01/30/23) History of elbow surgery History of delivery Family History Maternal Uncle Colon cancer Paternal Uncle Cancer of internal nose Social History Household Members: Spouse and Children Housing: House Are you a primary assurance services manager health care to a significant other at home: No Do you presently have visiting nurse or other home services: No Alcohol intake: never Patient Tobacco Use Status: Never used Tobacco service: No Current occupational status: employed Physical Exam Vital Signs: Last Vital Signs Pulse 99 06/20/25 15:33 BP 136/90 H 06/20/25 15:33 Pulse Ox 99 06/20/25 15:33 Oxygen Delivery Method Room Air 06/20/25 15:33 BMI result Body Mass Index 24.9 Assessment & Plan Assessment & Plan (1) Hyperthyroidism: Code(s): E05.90 - Thyrotoxicosis, unspecified without thyrotoxic crisis or storm Category: Medical Plan: Thyrotoxicosis (likely hyperthyroidism) Clinical symptoms: heat intolerance, fatigue, myalgias, hair/nail changes, unintentional weight loss TSH suppressed on two occasions, with free T4 in the upper limit of normal both times. Etiology to be determined (Graves? disease, toxic nodular goiter, thyroiditis), it is also possible that TSH was suppressed in the setting of biotin use, but this is less likely as patient also have symptoms. As she is currently not take biotin anymore, it is reasonable to repeat. Plan Discussed the nature of hyperthyroidism, potential causes, and the importance of follow-up Order free T4, total T3, TSI (thyroid-stimulating immunoglobulin), TPO (thyroid peroxidase) antibodies, and TRAb (TSH receptor antibody) Order thyroid ultrasound to assess for nodules, goiter, or other structural abnormalities Consider radioactive iodine uptake scan if etiology remains unclear after initial workup Plan 45 minutes spent reviewing previous records, labs, imaging, education and documenting in the chart Orders: Orders TSH reflex Free T4 Today E05.90 - Thyrotoxicosis, unspecified without thyrotoxic crisis or storm US thyroid Today E05.90 - Thyrotoxicosis, unspecified without thyrotoxic crisis or storm Triiodothyronine T3 Total Today E05.90 - Thyrotoxicosis, unspecified without thyrotoxic crisis or storm Thyroid Stimulating Immunoglob Today E05.90 - Thyrotoxicosis, unspecified without thyrotoxic crisis or storm Thyrotropin Receptor Antibody Today E05.90 - Thyrotoxicosis, unspecified without thyrotoxic crisis or storm Thyroid Peroxidase Antibodies Today E05.90 - Thyrotoxicosis, unspecified without thyrotoxic crisis or storm Coding Level of Care Code New Pt Level 4 (92109) Diagnoses Hyperthyroidism E05.90
--- OUTSIDE RECORDS SUMMARY | 2025-06-20 18:10 | XMS_ITS | Encounter Summary ---
Author Organization [employer] [facility] Address [address] [facility] 7t [place] [address] Care Team Providers Care Workday Senior Associate Name Role Phone Yecenia Mauro MD Primary Care Provider [phone] Reason for Visit * Reason Comments Med Change Request Encounter Details Date Type Department Care Team ([facility] Contact Info) Description 09/02/2022 Refill [facility] MED[facility]INE [address] [place], [place] [phone] Rhianna Samaniego FNP Type 2 diabetes mellitus without complication, without long-term current use of insulin ([facility]) Social History Tobacco Use Types Packs/Day Years [...] complication, without long-term current use of insulin ([facility]) documented in this encounter Care Teams Workday Senior Associate Relationship Specialty Start Date End Date Yecenia Mauro MD [address] [place] [address] PCP - General Family Medicine 04/09/21 documented as of this encounter
--- OUTSIDE RECORDS SUMMARY | 2025-06-20 18:10 | XMS_ITS | Encounter Summary ---
Author Organization [employer] Address [address] [facility] 7t [place] [address] Care Team Providers Care Hematology Nurse Name Role Phone Yecenia Mauro MD Primary Care Provider [phone] Reason for Visit * Reason Onset Date Comments Lab Orders 10/02/2022 Encounter Details Date Type Department Care Team ([facility] st Contact Info) Description 10/02/2022 Telephone [facility] MEDICINE [address] [place], [place] [phone] Yecenia Mauro MD [address] [place] [address] Lab Orders Social History Tobacco Use Types [...] Miscellaneous Notes * Telephone Encounter - Dion oLco - 10/02/2022 4:12 PM EST Tc from pt requesting a call back regarding MRI order. States gets anxiety attacks going into the MRI tunnel machine. Pt is requesting to have an alternative way to have MRI done Please contact pt at [phone] documented in this encounter Plan of Treatment Not on file documented as of this encounter Visit Diagnoses Not on filedocumented in this encounter Care Teams Hematology Nurse Relationship Specialty Start Date End Date Yecenia Mauro MD [address] [place] [phone] PCP - General Family Medicine 04/09/21 documented as of this encounter
--- OUTSIDE RECORDS SUMMARY | 2025-06-20 18:10 | XMS_ITS | Encounter Summary ---
Author Organization [employer] Address [address] [facility] [address]t [place] [address] Care Team Providers Care Steamfitter Name Role Phone Yecenia Mauro MD Primary Care Provider [phone] Reason for Visit * Reason Onset Date Comments Med Refill 06/20/2025 Encounter Details Date Type Department Care Team ([facility] st Contact Info) Description 06/20/2025 Refill [facility] MED[facility]INE [address] [place], [place] [phone] Yecenia Mauro MD [address] [place] [address] Migraine without status migrainosus, not intractable, unspecified [...] the past 12 months, has t he State, gas, oil or water [employer] threatened to shut off services in your [...] encounter Miscellaneous Notes * Telephone Encounter - Brittani Otero LPN - 06/20/2025 3:11 PM EST cyclobenzaprine (Flexeril) 5 MG is not pended as therapy completed.Last seen 05.26.25 * Telephone Encounter - Sandeep Edmondson - 06/20/2025 3:08 PM EST TC from pt requesting medication refill. Medications needing refill : cyclobenzaprine (Flexeril) 5 MG tablet [[id number]] DISCONTINUED tqmlnzgvwm-huylvnronhjhk-zoxhhiak 50-325-40 MG tablet To be sent to: [facility]/pharmacy #[id number] - [address] documented in this encounter Plan of Treatment Not on file documented as of this encounter Visit Diagnoses Diagnosis Migraine without status migrainosus, not intractable, unspecified migraine type documented in this encounter Additional Health Concerns Assessment Noted Time PHQ-9 Depression Total Score: 1 05/26/20 25 9:45 AM EDT documented as of this encounter Care Teams Steamfitter Relationship Specialty Start Date End Date Yecenia Mauro MD [address] [place] [address] PCP - General Family Medicine 04/09/21 documented as of this encounter
--- OUTSIDE RECORDS SUMMARY | 2025-06-20 18:10 | XMS_ITS | Encounter Summary ---
Author Organization [employer] Address [address] [facility] 7t [place] [address] Care Team Providers Care Food Aide Name Role Phone Yecenia Mauro MD Primary Care Provider [phone] Encounter Details Date Type Department Care Team (Late st Contact Info) Description 08/23/2024 Orders Only [facility] MEDICINE [address] [place], [place] [phone] Yecenia Mauro MD [address] [place], [place] [phone] Chronic migraine with aura and with status [...] documented as of this encounter Care Teams Food Aide Relationship Specialty Start Date End Date Yecenia Mauro MD [address] [place] [address] PCP - General Family Medicine 04/09/21 documented as of this encounter
--- OUTSIDE RECORDS SUMMARY | 2025-06-20 18:10 | XMS_ITS | Encounter Summary ---
Author Organization [employer] Address [address] [facility] 7t [place] [address] Care Team Providers Care Pmp Project Manager Name Role Phone Yecenia Mauro MD Primary Care Provider [phone] Reason for Visit * Reason Onset Date Comments Referral 08/06/2023 Encounter Details Date Type Department Care Team ([facility] Contact Info) Description 08/06/2023 Telephone [facility] MEDICINE [address] [place], [place] [phone] Yecenia Mauro MD [address] [place] [address] Referral Social History Tobacco Use Types Packs/Day [...] Tc from patient requesting a referral for lead pharmacy technician states was being seen in [place] and wouldlike to be seen there again however proposal lead writer does not see referral on patients chart please clarify. documented in this encounter Plan of Treatment Not on file documented as of this encounter Visit Diagnoses Not on filedocumented in this encounter Care Teams Pmp Project Manager Relationship Specialty Start Date End Date Yecenia Mauro MD [address] [place] [address] PCP - General Family Medicine 04/09/21 documented as of this encounter
--- OUTSIDE RECORDS SUMMARY | 2025-06-20 18:10 | XMS_ITS | Encounter Summary ---
Author Organization [employer] [facility] Address [address] [facility] [address] [place] [address] Care Team Providers Care Paediatrician Name Role Phone Yecenia Mauro MD Primary Care Provider [phone] Reason for Visit * Reason Comments Med Refill Encounter Details Date Type Department Care Team ([facility] st Contact Info) Description 03/23/2023 Refill [facility] MED & PEDS [address] [place], [place] [phone] Anel Ledesma DO [address] [place] [address] Social History Tobacco Use Types Packs/Day Years [...] on filedocumented in this encounter Care Teams Paediatrician Relationship Specialty Start Date End Date Yecenia Mauro MD [address] [place], [place] [phone] PCP - General Family Medicine 04/09/21 documented as of this encounter
--- OUTSIDE RECORDS SUMMARY | 2025-06-20 18:10 | XMS_ITS | Encounter Summary ---
Author Organization [employer] Address [address] [facility] 7t [place] [address] Care Team Providers Care Rn Traveling Name Role Phone Yecenia Mauro MD Primary Care Provider [phone] Reason for Visit * Reason Comments Med Refill Encounter Details Date Type Department Care Team ([facility] st Contact Info) Description 01/05/2024 Refill [facility] MEDICINE [address] [place], [place] [phone] Yecenia Mauro MD [address] [place], [place] [phone] Migraine without status migrainosus, not intractable, unspecified [...] documented as of this encounter Care Teams Rn Traveling Relationship Specialty Start Date End Date Yecenia Mauro MD [address] [place] [address] PCP - General Family Medicine 04/09/21 documented as of this encounter
--- OUTSIDE RECORDS SUMMARY | 2025-06-20 18:10 | XMS_ITS | Encounter Summary ---
Author Organization [employer] Address [address] [facility] 7t [place] [address] Care Team Providers Care Grades 1 Thru 6 Home Teacher Name Role Phone Yecenia Mauro MD Primary Care Provider [phone] Reason for Visit * Reason Onset Date Comments Results 12/16/2023 Encounter Details Date Type Department Care Team ([facility] Contact Info) Description 12/16/2023 Telephone [facility] MEDICINE [address] [place], [place] [phone] Yecenia Mauro MD [address] [place], [place] [phone] Results Social History Tobacco Use Types Packs/Day [...] documented as of this encounter Care Teams Grades 1 Thru 6 Home Teacher Relationship Specialty Start Date End Date Yecenia Mauro MD [address] [place] [address] PCP - General Family Medicine 04/09/21 documented as of this encounter
--- OUTSIDE RECORDS SUMMARY | 2025-06-20 18:10 | XMS_ITS | Encounter Summary ---
Author Organization [employer] Address [address] [facility] 7t [place] [address] Care Team Providers Care Oilfield Plant And Field Operator Name Role Phone Yecenia Mauro MD Primary Care Provider [phone] Reason for Referral * Consultation (Urgent) - Authorized Specialty Diagnoses / Procedures Referred By Contac t Referred To Contact Endocrinology Diagnoses Hyperthyroidism Yecenia Mauro MD [address] [place] [address] Phone: tel: fax: [facility] [address] [place] [address] Phone: tel: fax: Referral ID Status Reason Start Date Expiration Date Visits Requested Visits Authorized [id number] Authorized Specialty Services Required 06/12/2026 6 6 Encounter Details Date Type Department Care Team (Late st Contact Info) Description 06/12/2025 Orders Only [facility] MEDICINE [address] [place] [address] Yecenia Mauro MD [address] [place], [place] [phone] Hyperthyroidism (Primary Dx) Social History Tobacco Use Types [...] your housing situation today? I have genny roland 06/01/[address] you li [...] of this encounter Plan of Treatment Scheduled Referrals Name Type Priority Associated Diagnoses Order Schedule Referral to Endocrinology Outpatient Referral Urgent Hyperthyroidism Expected: 06/12/2025 (Approximate), Expires: 06/12/2026 documented as of this encounter Visit Diagnoses Diagnosis Hyperthyroidism- Primary Thyrotoxicosis without mention of goiter or other cause, without mention of thyrotoxic crisis or storm documented in this encounter Additional Health Concerns Assessment Noted Time PHQ-9 Depression Total Score: 1 05/26/20 25 9:45 AM EDT documented as of this encounter Care Teams Oilfield Plant And Field Operator Relationship Specialty Start Date End Date Yecenia Mauro MD [address] [place] [id number] PCP - General Family Medicine 04/09/21 documented as of this encounter
--- OUTSIDE RECORDS SUMMARY | 2025-06-20 18:10 | XMS_ITS | Encounter Summary ---
Author Organization [employer] Address [address] [facility] 7[address] [place] [address] Care Team Providers Care Spice Fumigator Name Role Phone Yecenia Mauro MD Primary Care Provider [phone] Reason for Visit * Reason Onset Date Comments Med Change Request Care Coordination 08/27/2022 Encounter Details Date Type Department Care Team (Late st Contact Info) Description 08/27/2022 Refill [facility] MEDICINE [address] [place] [address] Rhianna Samaniego FNP Type 2 diabetes mellitus without complication, without long-term current use of insulin ([facility]) Social History Tobacco Use Types Packs/Day Years [...] - 08/28/2022 4:46 PM EST T/C to [phone] through Imagi[employer]. id - [id number] for message below. Pt. Wants to send metformin rx to [facility] for 3 months supply because it is near to her house and will pickling solution maker glucometer from [facility] pharmacy. please review and advise if needed. Please call Pt and notify her that Metformin required a high quantity of pills. PCP sent new Rx. Glucometer was not covered by insurance at [facility] Provider sent another glucometer to [facility] Pharmacy and Metformin to [facility] Pharmacy to ease pickling solution maker. [facility] that [facility] by insurance. Please check at pharmacy tomorrow 08/29/22 to pickling solution maker Metformin and Glucometer documented in this encounter Plan of Treatment Not on file documented as of this encounter Visit Diagnoses Diagnosis Type 2 diabetes mellitus without complication, without long-term current use of insulin (HCC) documented in this encounter Care Teams Spice Fumigator Relationship Specialty Start Date End Date Yecenia Mauro MD [address] [place] [address] PCP - General Family Medicine 04/09/21 documented as of this encounter
--- OUTSIDE RECORDS SUMMARY | 2025-06-20 18:10 | XMS_ITS | Encounter Summary ---
Author Organization [employer] Address [address] [facility] 7[address] [place] [address] Care Team Providers Care Ordinary Seaman Name Role Phone Yecenia Mauro MD Primary Care Provider [phone] Reason for Visit * Reason Onset Date Comments Med Refill 08/23/2024 Encounter Details Date Type Department Care Team ([facility] st Contact Info) Description 08/23/2024 Telephone [facility] MEDICINE [address] [place], [place] [phone] Yecenia Mauro MD [address] [place] [address] Med Refill Social History Tobacco Use Types [...] 10:23 AM EST Trulicity was sent to [id number] on 08/02/24 with 1 refill other medications pended to PCP. * Telephone Encounter - Morelia Potter - 08/23/2024 10:16 AM EST TC from pt requesting medication refill. Medications needing refill : - Trulicity 0.75 MG/0.5ML solution auto-injector - isuvsniyvt-irispdnzjpser-tklgaatz 50-325-40 MG tablet - ketoconazole (NIZOral) 2 % shampoo To be sent to: [id number] - [address] documented in this encounter Plan of Treatment Not on file documented as of this encounter Visit Diagnoses Not on filedocumented in this encounter Additional Health Concerns Assessment Noted Time PHQ-9 Depression Total Score: 0 09/18/19 24 1:08 PM EST documented as of this encounter Care Teams Ordinary Seaman Relationship Specialty Start Date End Date Yecenia Mauro MD [address] [place] [address] PCP - General Family Medicine 04/09/21 documented as of this encounter
--- OUTSIDE RECORDS SUMMARY | 2025-06-20 18:10 | XMS_ITS | Encounter Summary ---
Author Organization [employer] Address [address] [facility] 7[address] [place] [address] Care Team Providers Care Finance Professor Name Role Phone Yecenia Mauro MD Primary Care Provider [phone] Encounter Details Date Type Department Care Team (Late st Contact Info) Description 11/17/2024 Orders Only [facility] MEDICINE [address] [place], [place] [phone] Yecenia Mauro MD 230 [place] [address] Osteoma of skull (Primary Dx); Type 2 diabetes mellitus without complication, without long-term current use of insulin ([facility]) Social History Tobacco Use Types Packs/Day Years [...] Free T4 <0.01(L) 0.32 - 4.0 uIU/mL [facility] Blood Venous blood specimen / Unknown 05/26/2025 10:31 AM EDT 05/26/2025 12:50 PM EDT us Yecenia Mauro MD LAB BLOOD ORDERABLES Final Res ult [facility] [address] [place] [phone] documented in this encounter Visit Diagnoses Diagnosis Osteoma of skull- Primary Benign neoplasm of bones of skull and face Type 2 diabetes mellitus without complication, without long-term current use of insulin (HCC) documented in this encounter Additional Health Concerns Assessment Noted Time PHQ-9 Depression Total Score: 0 09/18/19 24 1:08 PM EST documented as of this encounter Care Teams Finance Professor Relationship Specialty Start Date End Date Yecenia Mauro MD [address] [place] [address] PCP - General Family Medicine 04/09/21 documented as of this encounter
--- OUTSIDE RECORDS SUMMARY | 2025-06-20 18:10 | XMS_ITS | Clinical Summary ---
Author Organization [facility] Address [address] [place] [address] Phone Care Team Providers Care Steel Wheel Engraver Name Role Phone Physician, No Pcp Primary [...] topic Insurance MEDICAID - [place] Care Teams Steel Wheel Engraver Relationship Specialty Start Date End Date Physician, No Pcp PCP - General 08/23/24
--- OUTSIDE RECORDS SUMMARY | 2025-06-20 18:10 | XMS_ITS | Encounter Summary ---
Author Organization [employer] Address [address] [facility] 7[address] [place] [address] Care Team Providers Care Dyed Yarn Operator Name Role Phone Yecenia Mauro MD Primary Care Provider [phone] Encounter Details Date Type Department Care Team ([facility] st Contact Info) Description 02/11/2023 Orders Only [facility] [address] [place] [phone] Nguyễn Castelan MD [address] [place] [phone] Microscopic hematuria (Primary Dx) Social History Tobacco [...] Primary documented in this encounter Care Teams Dyed Yarn Operator Relationship Specialty Start Date End Date Yecenia Mauro MD [address] [place] [phone] PCP - General Family Medicine 04/09/21 documented as of this encounter
--- OUTSIDE RECORDS SUMMARY | 2025-06-20 18:10 | XMS_ITS | Encounter Summary ---
Author Organization [employer] Address [address] [facility] 7[address] [place] [address] Care Team Providers Care Office Services Representative Name Role Phone Yecenia Mauro MD Primary Care Provider [phone] Encounter Details Date Type Department Care Team (Late st Contact Info) Description 08/07/2023 Orders Only [facility] MEDICINE [address] [place], [place] [phone] Yecenia Mauro MD [address] [place], [place] [phone] Abnormal uterine bleeding (Primary Dx) Social History [...] t he electric, gas, oil or water [employer] threatened to shut off services in your [...] tract documented in this encounter Care Teams Office Services Representative Relationship Specialty Start Date End Date Yecenia Mauro MD [address] [place] [phone] PCP - General Family Medicine 04/09/21 documented as of this encounter
--- OUTSIDE RECORDS SUMMARY | 2025-06-20 18:11 | XMS_ITS | Encounter Summary ---
Author Organization [employer] Address [address] [facility] 7t [place] [address] Care Team Providers Care Room Server Name Role Phone Yecenia Mauro MD Primary Care Provider [phone] Reason for Visit * Reason Comments Med Refill Encounter Details Date Type Department Care Team ([facility] st Contact Info) Description 11/22/2024 Refill [facility] CHC MED & PEDS [address] [place], [place] [phone] Anel Ledesma DO [address] [place] [address] Type 2 diabetes mellitus without complication, without long-term current use of insulin ([facility]) Social History Tobacco Use Types [...] documented as of this encounter Care Teams Room Server Relationship Specialty Start Date End Date Yecenia Mauro MD [address] [place] [phone] PCP - General Family Medicine 04/09/21 documented as of this encounter
--- OUTSIDE RECORDS SUMMARY | 2025-06-20 18:11 | XMS_ITS | Clinical Summary ---
Author Organization [employer] Address [address] [facility] [address] [place] [address] Care Team Providers Care Cleaner Signs Name Role Phone Yecenia Mauro MD Primary Care Provider Allergies Active Allergy Reactions Criticality Noted Date [...] 22 Active Blood Glucose Monitoring Suppl (FreeStyle [place]) kitIndications: Type 2 diabetes mellitus without complication, [...] normal Hg Prefers to continue followup at [facility], next appt in 08/19/23 Continue progesterone and transxemic acid for now Assessment & Plan (04/03/2023 8:03 AM EDT): benign path results from EMB No further reoccurrence of heavy bleeding Prefers to continue followup at [facility] Assessment & Plan (09/30/2022 3:50 PM EST): followup with [facility] snailer next week for path results from EMB [...] Dr Casper for Neurology Limited use of [facility] MRI 10/2022 at [facility] New scarring with the high left paramedian [...] 10/2022 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 [address] Siegel for neuro Very limited use of Fioricet Resolved Problems Problem Noted Date Diagnosed Date Resolved Date Diabetes due to undrl condit ion w oth diabetic neuro comp 04/01/2023 05/26/2025 Obesity 09/30/2022 05/26/2025 Encounters Date Type Department Care Team Description 06/20/2025 Refill [facility] [address] [place] [address] Yecenia Mauro MD Migraine without status migrainosus, not intractable, unspecified migraine type 06/12/2025 Results Follow-Up [facility] [address], [place] [phone] Yecenia Mauro MD TSH W/Reflex to FT4 06/12/2025 Orders Only [facility] [address] [place] [address] Yecenia Mauro MD Hyperthyroidism (Primary Dx) 05/26/2025 9:45 AM EDT Office Visit [facility] [address] [place] [phone] Yecenia Mauro MD Type 2 diabetes mellitus without complication, without long-term current use of insulin (HCC) (Primary Dx); Encounter for screening mammogram for malignant neoplasm of breast; Hyperthyroidism; Right upper quadrant abdominal pain; Benign essential HTN; Antiphospholipid antibody syndrome (CMS/HCC); History of cholecystectomy; Postmenopausal; Chronic migraine without aura without status migrainosus, not intractable 05/26/2025 Orders Only [facility] [address] [place] [address] Yecenia Mauro MD 05/26/2025 Travel 05/25/[address] [address] Yecenia Mauro MD Chart Prep 05/18/2025 Patient Outreach [address] [address] Parvin Yadav Pre-visit Planning (SDOH screening completed on 09/15/2024) 04/19/[address] [address] Yecenia Mauor MD Migraine without status migrainosus, not intractable, unspecified migraine type 04/01/[address] [address] Yecenia Mauro MD from Last 3 Months Immunizations Immunization Administration [...] your housing situation today? I have genny watknis 06/01/[address] you li [...] Procedure Name Priority Date/Time Associated Diagnosis Comments US RENAL COMPLETE Urgent 06/08/2025 12: 07 PM EDT Right upper quadrant abdominal pain T4, FREE Routine 05/26/2025 10:31 AM EDT [...] long-term current use of insulin (HCC) POCT GLUCOSE Routine 05/26/2025 9:42 AM EDT Type 2 diabetes mellitus without complication, without long-term current use of insulin (HCC) LIPID PANEL, STANDARD Routine 09/27/2024 10:58 AM EST Type 2 diabetes mellitus without complication, without long-term current use of insulin (CMS/HCC) BI MAMMOGRAM SCREENING TOMOSYNTHESIS BILATERAL Routine 02/02/2024 10:20 AM EDT THINPREP IMAGING PAP AND HPV MRNA E6/E7, WITH CT/NG, TRICHOMONAS Routine 06/12/2022 12:09 PM EDT from Last 3 Months or Most Recently Relevant to Health Maintenance Results * US Renal Complete (06/08/2025 12:07 PM EDT) Anatomical Region Laterality Modality Kidney Ultrasound 06/08/2025 12:0 7 PM EDT Narrative 06/08/2025 12:08 PM EDT [address] [address] Ultrasound Report Signed Patient: Adriana Smith MR#: [id number] : 1975 Acct:[id number] Age/Sex: 49 / F ADM Date: 06/07/25 Loc: HO.US Attending Dr: Yecenia Mauro MD Ordering Physician: Yecenia Mauro Date of Service: 06/07/25 Procedure(s): US renal BI Accession Number(s): [id number] cc: Yecenia Mauro Reason for Exam: R sided pain, colicky CLINICAL HISTORY: R sided pain, colicky US renal with Color Doppler Comparison: None Findings: Right kidney normal size and echotexture, 10.4 cm length. No hydronephrosis calculus or mass. Normal color flow. Left kidney normal size and echotexture, 10.5 cm length. No hydronephrosis calculus or mass. Normal color flow. Impression: 1. Normal renal ultrasound This document has been electronically signed by: Quoc Palmer MD on 06/08/2025 12:07:15 Dictated By: Quoc Palmer MD Signed By: <Electronically signed by Quoc Palmer MD in OV> 06/08/25 1208 DD/ 120 TD/TT: 06/08/25 120 Color Strainer: Procedure Note Donotuseinterpreter, Image - 06/08/2025 [place] [address] Ultrasound Report Signed Patient: Martin Smith#: [id number] : 1975Acct:[id number] Age/Sex: 49 / FADM Date: 06/07/25 Loc: HO.US Attending Dr: Yecenia Mauro MD Ordering Physician: Yecenia Mauro Date of Service: 06/07/25 Procedure(s): US renal BI Accession Number(s): [id number] cc: Yecenia Mauro Reason for Exam: R sided pain, colicky CLINICAL HISTORY: R sided pain, colicky US renal with Color Doppler Comparison: None Findings: Right kidney normal size and echotexture, 10.4 cm length. No hydronephrosis calculus or mass. Normal color flow. Left kidney normal size and echotexture, 10.5 cm length. No hydronephrosis calculus or mass. Normal color flow. Impression: 1. Normal renal ultrasound This document has been electronically signed by: Quoc Palmer MD on 06/08/2025 12:07:15 Dictated By: Quoc Palmer MD Signed By: <Electronically signed by Quoc Palmer MD in OV> 06/08/25 1208 DD/ 1207 TD/TT: 06/08/25 1207 Color Strainer: Yecenia Mauro MD IMG US PROCEDURES Edited Resul t - Final * (ABNORMAL) Urinalysis, Complete, with Reflex to Culture (05/26/2025 10:31 AM EDT) Color Urine Dark Yellow [facility] Appearance Urine Clear [facility] PH 6.0 5.0 - 9.[address] [facility] Glucose Urine UA Negative Negative mg/dL [facility] Urine Blood Negative Negative [facility] Specific Stanley - Urine >=1.030(H) 1.005 - 1.[address] [facility] Urine Protein Negative Neg-Trace mg/dL [facility] Urine Ketones Trace Negative mg/dL [facility] Nitrite Urine Negative Negative [facility] Leukocyte Esterase Urine Negative Negative [facility] RBC Urine 0-2 0 - 2 /HPF [facility] Urine WBC 0-5 0 - 5 /HPF [facility] Urine Squamous Epithelial Cell 6-10 0 - 2 /HPF [facility] Urine Bacteria Trace None Seen [facility] Hyaline Casts, Urine 0-2 0 - 2 /LPF [facility] Urine 05/26/2025 10:3 1 AM EDT 05/26/2025 12:52 PM EDT Narrative [facility] - 05/26/2025 1:27 PM EDT Urine, Clean Catch Yecenia Mauro MD LAB URINE ORDERABLES Final Res ult [facility] [address] [place] [phone] * (ABNORMAL) TSH W/Reflex to FT4 (05/26/2025 10:31 AM EDT) TSH reflex Free T4 <0.01(L) 0.32 - 4.0 uIU/mL [facility] Blood Venous blood specimen / Unknown 05/26/2025 10:31 AM EDT 05/26/2025 12:50 PM EDT us Yecenia Mauro MD LAB BLOOD ORDERABLES Final Res ult [facility] [address] [place] [address] [phone] * CBC auto differential (05/26/2025 10:31 AM EDT) White Blood Count 5.1 4.8 - 10.8 X10*3/uL [facility] Red Blood Count 4.81 4.20 - 5.50 X10*6/uL [facility] Hemoglobin 13.6 12.0 - 16.0 g/dl [facility] Hematocrit 41.4 37.0 - 47.0 % [facility] Mean Corpuscular Volume 86.1 80.0 - 98.[address] [facility] Mean Corpuscular Hemoglobin 28.3 27.0 - 33.[address] [facility] Mean Corpuscular HGB Conc 32.9 31.0 - 35.0 g/dl [facility] Red Cell Distribution Width 12.0 11.0 - 16.0 % [facility] Platelet Count 254 160 - 400 X10*3/uL [facility] Mean Platelet Volume 12.3 9.4 - 12.[address] [facility] Neutrophils Percent Auto 57.1 45 - 73 % [facility] Imm Gran Pct Auto 0.2 0.0 - 0.4 % [facility] Lymphocytes Percent Auto 33.3 20 - 40 % [facility] Monocytes Percent Auto 7.2 2 - 11 % [facility] Eosinophils Percent Auto 1.8 0 - 4 % [facility] Basophils Percent Auto 0.4 0 - 2 % [facility] NRBC Pct Auto 0.0 0.0 - 0.2 /100WBC [facility] Neutrophils Absolute Auto 2.9 2.0 - 8.3 x10*3/uL [facility] Imm Gran Abs Auto 0.01 0.00 - 0.03 X10*3/uL [facility] Lymphocytes Absolute Auto 1.7 1.2 - 4.9 X10*3/uL [facility] Monocytes Absolute Auto 0.4 0.1 - 1.2 X10*3/uL [facility] Eosinophils Absolute Auto 0.1 0.0 - 0.4 X10*3/uL [facility] Basophils Absolute Auto 0.0 0.0 - 0.2 X10*3/uL [facility] NRBC Abs Auto 0.000 0.0 - 0.012 X10*3/uL [facility] Blood Venous blood specimen / Unknown 05/26/2025 10:31 AM EDT 05/26/2025 12:50 PM EDT Yecenia Mauro MD LAB BLOOD ORDERABLES Final Res ult Performing Organization Address [facility] [[email or web address]] Co de Phone Number [facility] [address] [place] [phone] * Hepatitis C Antibody with Reflex to HCV, RNA, Quantitative, Real-Time PCR (05/26/2025 10:31 AM EDT) [facility] Hepatitis C Antibody Nonreactive Nonreactive [facility] Comment:Antibodies to HCV no t detected; does not exclude early acuteHCV infection. Blood Venous blood specimen / Unknown 05/26/2025 10:31 AM EDT 05/26/2025 12:50 PM EDT Yecenia Mauro MD LAB BLOOD ORDERABLES Final Res ult Performing Organization Address [facility] [[email or web address]] Co de Phone Number [facility] [address] [place] [phone] * T4, Free (05/26/2025 10:31 AM EDT) Free T4 (Free Thyroxine) 1.73 0.71 - 1.85 ng/dL [facility] 05/26/2025 10:3 1 AM EDT 05/26/2025 12:50 PM EDT Yecenia Mauro MD LAB BLOOD ORDERABLES Final Res ult Performing Organization Address [facility]/ZIP Co de Phone Number [facility] [address] [place] [phone] * Lipase (05/26/2025 10:31 AM EDT) Pathologist [facility] Lipase 49 8 - 78 U/L [facility] Blood Venous blood specimen / Unknown 05/26/2025 10:31 AM EDT 05/26/2025 12:50 PM EDT Yecenia Mauro MD LAB BLOOD ORDERABLES Final Res ult Performing Organization Address City/[facility]/ZIP Co de Phone Number [facility] [address] [place] [phone] * (ABNORMAL) Comprehensive Metabolic Panel (05/26/2025 10:31 AM EDT) Pathologist [facility] Sodium 141 135 - 145 mmol/L [facility] Potassium 4.2 3.3 - 5.1 mmol/L [facility] Chloride 105 96 - 108 mmol/L [facility] Carbon Dioxide 30(H) 22 - 29 mmol/L [facility] Anion Gap 10(L) 12 - [address] [facility] Urea Nitrogen (BUN) 12 9 - 16 mg/dL [facility] Creatinine, Serum 0.55 0.5 - 1.4 mg/dL [facility] Estimated Glomerular Filt Rate >[address] [facility] Comment:Chronic Kidney Disea se: Estimated GFR < 60 mL/min/[id number] Kidney Disease: Estimated GFR < 15 mL/min/1.73m2 Glucose 138(H) 60 - 115 mg/dL [facility] Calcium 10.0 8.4 - 10.2 mg/dL [facility] Bilirubin, Total 0.5 0.0 - 1.0 mg/dL [facility] Aspartate Amino Transferase 25 5 - 31 U/L [facility] Alanine Aminotransferase 25 0 - 31 U/L [facility] Total Protein 7.6 6.5 - 8.0 g/dL [facility] Albumin Level 4.7 3.5 - 5.0 g/dL [facility] Alkaline Phosphatase 57 39 - 117 U/L [facility] Blood Venous blood specimen / Unknown 05/26/2025 10:31 AM EDT 05/26/2025 12:50 PM EDT Yecenia Mauro MD LAB BLOOD ORDERABLES Final Res ult Performing Organization Address [facility] de Phone Number [facility] [address] [place] [phone] * Albumin, Random Urine W/Creatinine (05/26/2025 10:13 AM EDT) Creatinine, Urine 156.56 mg/dL [facility] Microalbumin Urine 8.0 mg/L [facility] Microalbum Creatinine Ratio Ur 5.1 <30 ug/mg cr [facility] Comment:Albumin/Creatinine R atio Reference Ranges: Normal: < 30 ug/mg creatinine Microalbuminuria: 30 - 300 ug/mg creatinineClinical Albuminuria: > 300 ug/mg creatinine Urine (Urine, Random) 05/26/2025 10:13 AM EDT 05/26/2025 12:52 PM EDT Yecenia Mauro MD LAB URINE ORDERABLES Final Res ult Performing Organization Address [facility] de Phone Number [facility] [address] [place] [phone] * (ABNORMAL) POCT Hgb A1c (05/26/2025 9:44 AM EDT) Hemoglobin A1C 7.2(A) 4.0 - 5.7 % QC Media Lot # [id number] Lot# Expiration Date 5,027 Blood 05/26/2025 9:44 AM EDT Yecenia Mauro MD POINT OF CARE TEST ENTER/EDIT ORDERABLES Final Result * POCT Glucose (05/26/2025 9:42 AM EDT) Pathologist [facility] Glucose Blood, POC 168 60 - 200 mg/dL [employer] Lot # [id number] Lot# Expiration Date 3,,026 Blood Capillary blood specimen / Unknown 05/26/2025 9:42 AM EDT Yecenia Mauro MD POINT OF CARE TEST ENTER/EDIT ORDERABLES Final Result * Lipid Panel, Standard (09/27/2024 10:58 AM EST) Pathologist [facility] Triglycerides 112 <150 mg/dL [facility] Comment:Desirable Triglyceri de: less than 150 mg/dLBorderline High Triglyceride 150-199 mg/dLHigh Triglyceride: 200-499 mg/dLVery High Triglyceride: greater than or equal to 5OO mg/dL Cholesterol 181 <200 mg/dL [facility] Comment:Desirable Cholestero l: less than 200 mg/dLBorderline High Cholesterol: 200-239 mg/dLHigh Cholesterol: greater than 239 mg/dL LDL Cholesterol Calculated 99 <100 mg/dL [facility] Comment:Desirable LDL: less than 100 mg/dLNear Optimal/Above Optimal LDL: 110- 129 mg/dLBorderline High LDL: 130-159 mg/dLHigh LDL: 160-189 mg/dLVery High LDL: greater than or equal to 190 mg/dL HDL Cholesterol 60 >40 mg/dL [facility] Comment:Desirable HDL: great er than 40 mg/dL Note: This HDL assay may give artificially low results in patients with liver disease. Blood Venous blood specimen / Unknown 09/27/2024 10:58 AM EST 09/27/2024 1:02 PM EST us Yecenia Mauro MD LAB BLOOD ORDERABLES Final Res ult [facility] [address] [place] [address] [phone] * BI Mammogram Screening Tomosynthesis Bilateral (02/02/2024 10:20 AM EDT) Anatomical Region Laterality Modality Breast Bilateral Mammography 02/02/2024 10:2 0 AM EDT Narrative 03/02/2024 4:47 PM EDT [address] [place] [address] Mammography Report Signed Patient: Adriana Smith MR#: [id number] : 1975 Acct:[id number] Age/Sex: 48 / F ADM Date: 02/02/24 Loc: HO.MAMMO Attending Dr: Yecenia Mauro MD Ordering Physician: Yecenia Mauro Results: 1Negative Date of Service: 02/02/24 Follow Up: 1 Year From Orig inal Mammogram Procedure(s): MM tomosynthesis screening BI Accession Number(s): [id number] cc: Yecenia Mauro EXAMINATION: MM SCREENING DIGITAL [...] by Dionne Dumont MD in OV> 03/02/24 164 DD/ 1020 TD/TT: Color Strainer: Procedure Note Donotuseinterpreter, Image - 03/02/2024 [facility] [address] [place], [place] [address] Mammography Report Signed Patient: Angelica SmithR#: [id number] : 1975Acct:[id number] Age/Sex: 48 / FADM Date: 02/02/24 Loc: STACIE Attending Dr: Yecenia Mauro MD Ordering Physician: Kayleen Mauroults: 1Negative Date of Service: 02/02/24Follow Up: 1 Year From Orig inal Mammogram Procedure(s): MM tomosynthesis screening BI Accession Number(s): [id number] cc: Yecenia Mauro EXAMINATION: MM SCREENING DIGITAL [...] in OV> 03/02/24 1643 DD/ 1020 TD/TT: Color Strainer: Yecenia Mauro MD IMG BI PROCEDURES Final Result * THINPREP TIS PAP AND HPV mRNA E6/E7, CT/NG, TRICH (06/12/2022 12:09 PM EDT) Chlamydia trachomatis RNA, TMA, Urogenital NOT DETECTED NOT DETECTED [facility] Clinical Information: Abnormal bleeding [facility] COMMENT SEE COMMENT [facility] Comment: The analytical performance characteristics of this assay, when used to test SurePath(TM) specimens have been determined by [email or web address]. The modifications have not been cleared or approved by the FDA. This assay has been validated pursuant to the CLIA regulations and is used for clinical purposes. For additional information, please refer to https://R17.[employer]/faq/MCG117 (This link is being provided for information/ educational purposes only.) COMMENT SEE COMMENT [facility] Comment: EXPLANATORY NOTE: The Pap is a [...] been evaluated with computer assisted technology. CONVERTED [facility] Machine Operator Transplanter: SEE COMMENT [facility] Comment: PAUL SHOEMAKER(ASCP) CT screening location: [place] [address] HPV nRNA E6/E7 Not Detected Not Detected CONVERTED [facility] Comment: Methodology: Lab Nurse-Mediated Amplification This assay detects E6/E7 viral messenger RNA (mRNA) from 14 high-risk HPV types (16,18,31,33,35,39,45,51,52,56,58,59,66,68). Cervical sources are required for HPV testing. If a vaginal source from a patient who has had a total hysterectomy with removal of cervix was submitted, please contact the testing laboratory for alternative testing options. For additional information, please refer to http://R17.[employer]/faq/PMX399c3 (This link if provided for information/ educational purposes only.) Interpretation/Re sult: Negative for intraepithelial lesion or malignancy. [facility] LMP: NONE GIVEN [facility] Neisseria gonorrhoeae RNA, TMA, Urogenital NOT DETECTED NOT DETECTED [facility] Prev. BX: NONE GIVEN [facility] Prev. PAP: NONE GIVEN CONVERTE D [facility] Review Machine Operator Transplanter: SEE COMMENT [facility] Comment: GSG, CT(ASCP) CT screening location: [place] [address] SOURCE: None given [facility] Statement Of Adequacy: SEE COMMENT [facility] Comment: Satisfactory for evaluation. Endocervical/transformation zone component absent. Age and/or menstrual status not provided Trichomonas vaginalis, QL, TMA, PAP Vial NOT DETECTED NOT DETECTED [facility] Comment: The analytical performance characteristics of this assay have been determined by [email or web address]. The modifications have not been cleared or approved by the FDA. This assay has been validated pursuant to the CLIA regulations and is used for clinical purposes. For additional information, please refer to http://education.[employer]/ faq/Trichomonastma (This link is being provided for information/ educational purposes only.) 06/12/2022 12:0 9 PM EDT Ami Shah CNM LAB PATHOLOGY ORDERABLES Final Result [facility] from Last 3 Months or Most Recently Relevant to Health Maintenance Insurance [facility] C3 * Guarantor: Adriana Smith Account Type Relation to Patient Date of Phone Billing Address Personal/Family Self [address] [place] [id number] Care Teams Cleaner Signs Relationship Specialty Start Date End Date Yecenia Mauro MD [address] [place] [phone] PCP - General Family Medicine 04/09/21
--- OUTSIDE RECORDS SUMMARY | 2025-06-20 18:11 | XMS_ITS | Encounter Summary ---
Author Organization [employer] Address [address] [facility] [address] [place] [address] Care Team Providers Care Drum Filler Name Role Phone Yecenia Mauro MD Primary Care Provider [phone] Encounter Details Date Type Department Care Team (Late st Contact Info) Description 09/09/2023 Orders Only [facility] [address] [place], [place] [phone] Yecenia Mauro MD [address] [place], [place] [phone] Constipation, unspecified constipation type (Primary Dx) Social [...] t he electric, gas, oil or water [employer] threatened to shut off services in your [...] Primary documented in this encounter Care Teams Drum Filler Relationship Specialty Start Date End Date Yecenia Mauro MD [address] [place] [phone] PCP - General Family Medicine 04/09/21 documented as of this encounter
--- OUTSIDE RECORDS SUMMARY | 2025-06-20 18:11 | XMS_ITS | Encounter Summary ---
Author Organization [employer] Address [address] [facility] [address]t [place] [address] Care Team Providers Care Air Drier Machine Operator Name Role Phone Yecenia Mauro MD Primary Care Provider [phone] Reason for Visit * Reason Onset Date Comments Med Refill 12/22/2024 Encounter Details Date Type Department Care Team ([facility] st Contact Info) Description 12/22/2024 Telephone [facility] [address] [place], [place] [phone] Yecenia Mauro MD [address] [place] [address] Med Refill Social History Tobacco Use Types [...] the past 12 months, has t he [employer], [employer], oil or water [employer] threatened to shut off services in your [...] requesting medication refill. Medications needing refill : [id number] 50-325-40 MG tablet To be sent to: [facility]/pharmacy #[id number] - [place], [place] - [address] [place] [address] documented in this encounter Plan of Treatment Not on file documented as of this encounter Visit Diagnoses Not on filedocumented in this encounter Additional Health Concerns Assessment Noted Time PHQ-9 Depression Total Score: 0 09/18/19 24 1:08 PM EST documented as of this encounter Care Teams Air Drier Machine Operator Relationship Specialty Start Date End Date Yecenia Mauro MD [address] [place] [address] PCP - General Family Medicine 04/09/21 documented as of this encounter
== END 2025-06-20 16:20 | disposition home or self-care (01) ==
LOC: HO.ENCR 15:22
PROVIDERS: PCP General Practice; Visit Provider Student in an Organized Health Care Education/Training Program
DX: E05.90 Thyrotoxicosis, unspecified without thyrotoxic crisis or storm (principal)
CPT/HCPCS: 99204

== ENCOUNTER → 2025-06-20 15:22 | Outpatient (BNVA) | payer MEDICAID, SELFPAY | PROVIDERS: PCP General Practice; Visit Provider Student in an Organized Health Care Education/Training Program | DX: E05.90 Thyrotoxicosis, unspecified without thyrotoxic crisis or storm (principal) | CPT/HCPCS: 99202 ==

== ENCOUNTER 2025-08-16 10:56 | Outpatient (REF) | payer MEDICAID, SELFPAY ==
--- NOTE | ~2025-08-16 | US_ITS ---
EXAMINATION: US THYROID CLINICAL INFORMATION: Thyrotoxicosis COMPARISON: None available. TECHNIQUE: Linear transducer grayscale and color Doppler examination with attention to the region of the thyroid. FINDINGS: SIZE: Measurements of the thyroid lobes and nodules are given in sagittal, anteroposterior and transverse dimensions respectively. Right Thyroid Lobe: 5.2 x 2.4 x 1.8 cm, volume 11.7 mL. Parenchyma: The gland echotexture is heterogeneous. Thyroid vascularity is hypervascular. Left Thyroid Lobe: 3.9 x 1.7 x 1.6 cm, volume 5.5 mL. Parenchyma: The gland echotexture is heterogeneous. Thyroid vascularity is hypervascular. Isthmus: 0.5 cm in maximum AP dimension. Estimated total number of nodules greater than or equal to 1 cm: 0. Direct Chill Caster nodules are described as follows: NODES: There is a 1.3 x 0.6 x 0.8 cm abnormal-appearing lymph node with punctate calcification absent fatty hilum and normal vascular flow in the right neck. US/US thyroid IMPRESSION: Heterogenous, hypervascular gland with borderline enlarged right thyroid lobe. No focal nodule seen. Abnormal appearing right neck lymph node with a maximum measurement of 1.3 cm and normal flow. Recommend follow-up ultrasound right neck lymph node and thyroid gland in 3-6 months ACR TI-RADS RECOMMENDATION REFERENCE: Ultrasound-guided fine-needle aspiration, followup ultrasound, no further follow up. * TR1 (0 point) and TR2 (2 points): No FNA or follow up. * TR3 (3 points): FNA if more than or equal to 2.5 cm in maximum dimension, followup ultrasound in 1, 3 and 5 years if 1.5 to 2.4 cm in maximum dimension. * TR4 (4-6 points): FNA if more than or equal to 1.5 cm in maximum dimension, followup ultrasound in 1, 2, 3 and 5 years if 1 to 1.4 cm in maximum dimension. * TR5 (more than or equal to 7 points): FNA if more than or equal to 1 cm in maximum dimension, followup ultrasound every year for 5 years if 0.5 to 0.9 cm in maximum dimension. * TR3, TR4 or TR5 nodules that are below the size threshold for followup receive no follow up. Electronically signed by: Rich Hess MD 08/16/2025 11:41 AM EST
--- OUTSIDE RECORDS SUMMARY | 2025-08-16 12:29 | XMS_ITS | Encounter Summary ---
Author Organization [employer] Address [address] [facility] 7t [place] [address] Care Team Providers Care Printing And Stamping Supervisor Name Role Phone Yecenia Mauro MD Primary Care Provider Encounter Details Date Type Department Care Team (Late st Contact Info) Description 09/09/2023 Orders Only [facility] [address] [place], [place] [phone] Yecenia Mauro MD [address] [place], [place] [phone] Constipation, unspecified constipation type (Primary Dx) Social [...] t he electric, gas, oil or water [employer] threatened to shut off services in [...] as of this encounter Plan of Treatment Upcoming Encounters Date Type Department Care Team (Late st Contact Info) Description 10/20/2025 9:45 AM EST Office Visit [facility] [address] [place] [address] [phone] Yecenia Mauro MD [address] [place] [phone] documented as of this encounter Visit Diagnoses Diagnosis Constipation, unspecified constipation type- Primary documented in this encounter Care Teams Printing And Stamping Supervisor Relationship Specialty Start Date End Date Yecenia Mauro MD [address] [place] [phone] PCP - General Family Medicine 04/09/21 documented as of this encounter
--- OUTSIDE RECORDS SUMMARY | 2025-08-16 12:29 | XMS_ITS | Encounter Summary ---
Author Organization [employer] Address 75 [facility] 7t [place] [address] Care Team Providers Care Forest Botany Instructor Name Role Phone Yecenia Mauro MD Primary Care Provider [phone] Reason for Visit * Reason Comments Med Refill Encounter Details Date Type Department Care Team ([facility] st Contact Info) Description 11/22/2024 Refill [facility] [address] [place], [place] [phone] Anel Ledesma DO [address] [place] [address] Type 2 diabetes mellitus without complication, without long-term current use of insulin ([facility]) Social History Tobacco Use Types [...] the past 12 months, has t he [employer], gas, oil or water company threatened to [...] Description 10/20/2025 9:45 AM EST Office Visit [facility] [address] [place] [phone] Yecenia Mauro MD [address] [place] [phone] documented as of this encounter Visit Diagnoses Diagnosis Type 2 diabetes mellitus without complication, without long-term current use of insulin (HCC) documented in this encounter Additional Health Concerns Assessment Noted Time PHQ-9 Depression Total Score: 0 09/18/19 24 1:08 PM EST documented as of this encounter Care Teams Forest Botany Instructor Relationship Specialty Start Date End Date Yecenia Mauro MD [address] [place] [phone] PCP - General Family Medicine 04/09/21 documented as of this encounter
--- OUTSIDE RECORDS SUMMARY | 2025-08-16 12:29 | XMS_ITS | Encounter Summary ---
Author Organization [employer] Address 75 [facility] 7t [place] [address] Care Team Providers Care Spa Concierge Name Role Phone Yecenia Mauro MD Primary Care Provider [phone] Encounter Details Date Type Department Care Team (Late st Contact Info) Description 08/07/2023 Orders Only [facility] [address] [place], [place] [phone] Yecenia Mauro MD [address] [place], [place] [phone] Abnormal uterine bleeding (Primary Dx) Social History [...] t he electric, gas, oil or water [employer] threatened to shut off services in your [...] Description 10/20/2025 9:45 AM EST Office Visit [facility] [address] [place] [phone] Yecenia Mauro MD [address] [place] [phone] documented as of this encounter Visit Diagnoses Diagnosis Abnormal uterine bleeding- Primary Unspecified disorder of menstruation and other abnormal bleeding from female genital tract documented in this encounter Care Teams Spa Concierge Relationship Specialty Start Date End Date Yecenia Mauro MD [address] [place] [phone] PCP - General Family Medicine 04/09/21 documented as of this encounter
--- OUTSIDE RECORDS SUMMARY | 2025-08-16 12:29 | XMS_ITS | Encounter Summary ---
Author Organization [employer] Address 75 [facility] 7t [place] [address] Care Team Providers Care Electrician Journeyman Wireman Name Role Phone Yecenia Mauro MD Primary Care Provider Reason for Visit * Reason Onset Date Comments Med Change Request Care Coordination 08/27/2022 Encounter Details Date Type Department Care Team (Late st Contact Info) Description 08/27/[address] [facility] [address] [place] [address] Rhianna Samaniego FNP Type 2 diabetes mellitus without complication, without long-term current use of insulin ([facility]) Social History Tobacco Use Types Packs/Day [...] - 08/28/2022 4:46 PM EST T/C to [phone] through [employer] id - [id number] for message below. Pt. Wants to send metformin rx to [facility] for 3 months supply because it is near to her house and will pickle maker glucometer from [facility] pharmacy. please review and advise if needed. Please call Pt and notify her that Metformin required a high quantity of pills. PCP sent new Rx. Glucometer was not covered by insurance at [facility] Provider sent another glucometer to [facility] Pharmacy and Metformin to [facility] Pharmacy to ease pickle maker. [facility] by insurance. Please check at pharmacy tomorrow 08/29/22 to pickle maker Metformin and Glucometer documented in this encounter Plan of Treatment Upcoming Encounters Date Type Department Care Team (Late st Contact Info) Description 10/20/2025 9:45 AM EST Office Visit [facility] [address] [place] [phone] Yecenia Mauro MD [address] [place] [phone] documented as of this encounter Visit Diagnoses Diagnosis Type 2 diabetes mellitus without complication, without long-term current use of insulin (HCC) documented in this encounter Care Teams Electrician Journeyman Wireman Relationship Specialty Start Date End Date Yecenia Mauro MD [address] [place] [phone] PCP - General Family Medicine 04/09/21 documented as of this encounter
--- OUTSIDE RECORDS SUMMARY | 2025-08-16 12:29 | XMS_ITS | Encounter Summary ---
Author Organization [employer] Address 75 [facility] 7t [place] [address] Care Team Providers Care Label Printer Name Role Phone Yecenia Mauro MD Primary Care Provider [phone] Reason for Visit * Reason Onset Date Comments Med Refill 12/22/2024 Encounter Details Date Type Department Care Team ([facility] st Contact Info) Description 12/22/2024 Telephone [facility] [address] [place], [place] [phone] Yecenia Mauro MD [address] [place] [address] Med Refill Social History Tobacco Use Types [...] the past 12 months, has t he [employer], gas, oil or water [employer] threatened to shut off services in your [...] requesting medication refill. Medications needing refill : [id number] 50-325-40 MG tablet To be sent to: [facility]/pharmacy #[id number] - [place], [place] - [address] [place] [address] documented in this encounter Plan of Treatment Upcoming Encounters Date Type Department Care Team (Late st Contact Info) Description 10/20/2025 9:45 AM EST Office Visit [facility] [address] [place] [address] Yecenia Mauro MD [address] [place] [address] documented as of this encounter Visit Diagnoses Not on filedocumented in this encounter Additional Health Concerns Assessment Noted Time PHQ-9 Depression Total Score: 0 09/18/19 24 1:08 PM EST documented as of this encounter Care Teams Label Printer Relationship Specialty Start Date End Date Yecenia Mauro MD [address] [place] [address] PCP - General Family Medicine 04/09/21 documented as of this encounter
--- OUTSIDE RECORDS SUMMARY | 2025-08-16 12:29 | XMS_ITS | Clinical Summary ---
Author Organization [facility] Address [address] [place] [address] Phone Care Team Providers Care Electromechanical Equipment Tester Name Role Phone Physician, No Pcp Primary [...] topic Insurance MEDICAID - [place] Care Teams Electromechanical Equipment Tester Relationship Specialty Start Date End Date Physician, No Pcp PCP - General 08/23/24
--- OUTSIDE RECORDS SUMMARY | 2025-08-16 12:29 | XMS_ITS | Encounter Summary ---
Author Organization [employer] Address 75 [facility] 7t [place] [address] Care Team Providers Care Microfilm Clerk Name Role Phone Yecenia Mauro MD Primary Care Provider [phone] Reason for Referral * Consultation (Urgent) - Closed Specialty Diagnoses / Procedures Referred By Contac t Referred To Contact Endocrinology Diagnoses Hyperthyroidism Yecenia Mauro MD [address] [place] [address] Phone: tel: fax: [facility] [place] [facility] [address] [place] [address] Phone: tel: fax: Referral ID Status Reason Start Date Expiration Date V isits Requested Visits Authorized [id number] Closed Specialty Services Required 06/12/2025 06/12/2026 6 6 Encounter Details Date Type Department Care Team (Late st Contact Info) Description 06/12/2025 Orders Only [facility] [address] [place] [phone] Yecenia Mauro MD [address] [place], [place] [phone] Hyperthyroidism (Primary Dx) Social History Tobacco Use [...] Description 10/20/2025 9:45 AM EST Office Visit [facility] [address] [place] [address] Yecenia Mauro MD [address] [place] [address] Scheduled Referrals Name Type Priority Associated Diagnoses [...] documented as of this encounter Care Teams Microfilm Clerk Relationship Specialty Start Date End Date Yecenia Mauro MD [address] [place] [address] PCP - General Family Medicine 04/09/21 documented as of this encounter
--- OUTSIDE RECORDS SUMMARY | 2025-08-16 12:29 | XMS_ITS | Encounter Summary ---
Author Organization [employer] Address 75 [facility] 7t [place] [address] Care Team Providers Care Fish Hatchery Superintendent Name Role Phone Yecenia Mauro MD Primary Care Provider [phone] Reason for Visit * Reason Onset Date Comments Lab Orders 10/02/2022 Encounter Details Date Type Department Care Team ([facility] st Contact Info) Description 10/02/2022 Telephone [facility] [address] [place], [place] [phone] Yecenia Mauro MD [address] [place] [address] Lab Orders Social History Tobacco Use Types [...] have MRI done Please contact pt at [phone] documented in this encounter Plan of Treatment Upcoming Encounters Date Type Department Care Team (Late st Contact Info) Description 10/20/2025 9:45 AM EST Office Visit [facility] [address] [place], [place] [phone] Yecenia Mauro MD [address] [place] [phone] documented as of this encounter Visit Diagnoses Not on filedocumented in this encounter Care Teams Fish Hatchery Superintendent Relationship Specialty Start Date End Date Yecenia Mauro MD [address] [place] [address] [phone] PCP - General Family Medicine 04/09/21 documented as of this encounter
--- OUTSIDE RECORDS SUMMARY | 2025-08-16 12:29 | XMS_ITS | Encounter Summary ---
Author Organization [employer] [facility] Address [address] [facility] 7t [place] [address] Care Team Providers Care Forest Ecologist Name Role Phone Yecenia Mauro MD Primary Care Provider [phone] Reason for Visit * Reason Comments Med Change Request Encounter Details Date Type Department Care Team ([facility] Contact Info) Description 09/02/2022 Refill [facility] [address] [place] [address] [phone] Rhianna Samaniego FNP Type 2 diabetes mellitus without complication, without long-term current use of insulin ([facility]) Social History Tobacco Use Types Packs/Day [...] Upcoming Encounters Date Type Department Care Team ([facility] Contact Info) Description 10/20/2025 9:45 AM EST Office Visit [facility] [address] [place] [address] [phone] Yecenia Mauro MD [address] [place] [phone] documented as of this encounter Visit Diagnoses Diagnosis Type 2 diabetes mellitus without complication, without long-term current use of insulin (HCC) documented in this encounter Care Teams Forest Ecologist Relationship Specialty Start Date End Date Yecenia Mauro MD [address] [place] [phone] PCP - General Family Medicine 04/09/21 documented as of this encounter
--- OUTSIDE RECORDS SUMMARY | 2025-08-16 12:29 | XMS_ITS | Clinical Summary ---
Author Organization [employer] Address [address] [facility] [address] [place] [address] Care Team Providers Care Retail Solar Advisor Name Role Phone Yecenia Mauro MD Primary Care Provider [phone] Allergies Active Allergy Reactions Criticality Noted Date [...] 1 HOUR BEFORE TRAVEL WITH EVENING MEAL 2 Active Blood Glucose Monitoring Suppl (FreeStyle [place]) kitIndications:T ype 2 diabetes mellitus without complication, without long-term current use of insulin ([facility]) USE TO TEST BLOOD SUGAR 2 TIMES DAILY 1 kit 3 Active Lancets 30G miscIndications: Type 2 diabetes mellitus without complication, without long-term current use of insulin ([facility]) Apply 1 each topically 2 times daily. Freestyle Lite brand 100 each 11 3 Active Pulmicort Flexhaler 180 MCG/ACT inhaler Inhale 1 puff 2 times daily. 4 Active Spacer/Aero-Hold ing Chambers (OptiChamber Shanna) misc USE DIRECTED 4 Active Flovent HFA 110 MCG/ACT inhaler INHALE 2 PUFFS 2 TIMES A DAY 4 Active Dulaglutide (Trulicity) 1.5 MG/0.5ML solution auto-injector Inject 1.5 mg under the skin 1 (one) time per week. 2 mL 11 5 Active cholecalciferol VITAMIN D (Vitamin D-3) 50 MCG (1999 [place]) capsuleIndicatio ns:Vitamin D deficiency TAKE 1 CAPSULE (50 MCG) BY MOUTH IN THE MORNING 90 capsule 3 5 Active FREESTYLE LITE test stripIndications :Type 2 diabetes mellitus without complication, without long-term current use of insulin (HCC) USE TO TEST BLOOD SUGAR TWICE A DAY 100 strip 11 5 Active ketoconazole (NIZOral) 2 % shampooIndicatio ns:Seborrheic dermatitis APPLY TOPICALLY EVERY DAY TO THE SCALP WEEKLY, LATHER, LEAVE IN PLACE 5 MINS & RINSE OFF W/ WATER 120 mL 5 Active lidocaine (Lidoderm) 5 % patch APPLY 1 PATCH TOPICALLY IN THE MORNING. LEAVE ON 12 HOURS, AND OFF 12 HOURS 30 patch 3 5 Active ibuprofen 600 MG tablet TAKE 1 TABLET BY MOUTH EVERY 6 TO 8 HOURS 5 Active PARoxetine (Paxil) 10 MG tabletIndication s:Postmenopausal Take 1 tablet (10 mg) by mouth at bedtime. 90 tablet 3 5 05/26/20 26 Active butalbital-aceta minophen-caffein e 50-325-40 MG tabletIndication s:Migraine without status migrainosus, not intractable, unspecified migraine type TAKE 1 TABLET BY MOUTH EVERY 12 HOURS. NOT TO EXCEED 8 TABLETS PER MONTH 8 tablet 3 5 Active Active Problems Problem Noted Date Diagnosed Date [...] Assessment & Plan (08/07/2023 11:14 AM EST): Prn Xarelto for travel Assessment & Plan (04/03/2023 8:03 AM EDT): Prn Xarelto for travel Abnormal uterine bleeding (AUB) 06/30/2022 Assessment & Plan (12/16/2023 9:37 AM EDT): Anemic again, with Hg of 10.7 Zofran prn Assessment & Plan (08/07/2023 11:13 AM EST): benign path results from [facility] current reoccurrence of heavy bleeding with normal Hg Prefers to continue followup at [facility], next appt in 08/19/23 Continue progesterone and transxemic acid for now Assessment & Plan (04/03/2023 8:03 AM EDT): benign path results from [facility] No further reoccurrence of heavy bleeding Prefers to continue followup at [facility] Assessment & Plan (09/30/2022 3:50 PM EST): followup with [facility] child caregiver next week for path results from [facility] [...] Dr Casper for Neurology Limited use of Fioricet MRI 10/2022 at [facility] New scarring with the high left paramedian [...] Encounters Date Type Department Care Team Description 08/16/2025 Orders Only [facility] External Provider, [facility] 06/20/[address] [address] Yecenia Mauro MD Migraine without status migrainosus, not intractable, unspecified migraine type 06/12/2025 Results Follow-Up [address] [address] Yecenia Mauro MD TSH W/Reflex to FT4 06/12/2025 Orders Only [address] [address] Yecenia Mauro MD Hyperthyroidism (Primary Dx) 05/26/2025 9:45 AM EDT Office Visit [address] [address] Yecenia Mauro MD Type 2 diabetes mellitus without complication, without long-term current use of insulin (HCC) (Primary Dx); Encounter for screening mammogram for malignant neoplasm of breast; Hyperthyroidism; Right upper quadrant abdominal pain; Benign essential HTN; Antiphospholipid antibody syndrome (CMS/HCC); History of cholecystectomy; Postmenopausal; Chronic migraine without aura without status migrainosus, not intractable 05/26/2025 Orders Only [address] [address] Yecenia Mauro MD 05/26/2025 Travel 05/25/[address] [address] Yecenia Mauro MD Chart Prep 05/18/2025 Patient Outreach [address] [address] Parvin Yadav Pre-visit Planning ([facility] screening completed on 09/15/2024) from Last 3 [...] 05/26/2025 9:40 AM EDT Plan of Treatment Upcoming Encounters Date Type Department Care Team (Late st Contact Info) Description 10/20/2025 9:45 AM EST Office Visit [facility] [address], [place] [phone] Yecenia Mauro MD [address], [place] [phone] Health Maintenance Due Date Last Done Comments CT Colonography 1975 Colonoscopy 1973 Colorectal Cancer Screening 1973 FIT DNA/Cologuard 1975 FIT 1975 FOBT 1975 HIV Screening 1975 Sigmoidoscopy 1975 Eye Exam 1983 Hepatitis B Vaccines (1 of 3 - 19+ 3-dose series) 1992 Pneumococcal Vaccine: 50+ Years (1 of 2 - PCV) 1992 RSV Patients and Patients Aged 60 years or older (1 - Risk 50-74 years 1-dose series) 2023 Zoster Vaccines (1 of 2) 2023 Mammogram 02/01/2025 02/02/2024, 09/17, 09/30/2022, Additional history exists COVID-19 Vaccine ( season) 2025 08/22/2022, 09/03/2021, 11/12/2020 Influenza Vaccine (#1) 2025 Pap Smear 06/12/2025 06/12/2022 Diabetes: Hemoglobin A1C 08/26/202505/26/2 025, 09/27/2024, 05/13/2024, Additional history exists SDOH Screening 09/15/2025 09/15/2024 Lipid Panel 09/27/2025 09/27/2024, 04/2 04/2024, 08/22/2022, Additional history exists Alcohol/Substance Use Screening 10/03/2025 10/03/2024 Family Planning (PISQ) 10/03/2025 10/03/2024 Depression Screening 05/26/2026 05/26/2025, 05/26/20 25 Diabetes: Foot Exam 05/26/2026 05/26/2025, 05/26/2025, 05/26/2025, Additional history exists Diabetes: Urine Protein Screening 05/26/2026 05/26/2025, 12/14/2023, 08/22/2022, Additional history exists Disability Screening 05/26/2026 05/26/2025 Tobacco Screening 05/26/2026 05/26/2025 Cervical Cancer Screening 06/12/2027 HPV/Cotest 06/12/2027 06/12/2022 DTaP/Tdap/Td Vaccines (2 - Td or Tdap) 09/29/2032 09/29/2022 Hepatitis C Screening Completed 05/26/2025 HIB Vaccines [...] Name Priority Date/Time Associated Diagnosis Comments US THYROID Routine 08/16/2025 11:08 AM EST US RENAL COMPLETE Urgent 06/08/2025 12: 07 [...] current use of insulin (HCC) POCT GLUCOSE (CPT-53614) Routine 05/26/2025 9:42 AM EDT Type 2 [...] Relevant to Health Maintenance Results * US Thyroid (08/16/2025 11:08 AM EST) Anatomical Region Laterality Modality Head, Neck Ultrasound 08/16/2025 11:0 8 AM EST Narrative 08/16/2025 11:44 AM EST [place] [address] Ultrasound Report Signed Patient: Adriana Smith MR#: [id number] : 1975 Acct:[id number] Age/Sex: 50 / F ADM Date: 08/16/25 Loc: HO.US Attending Dr: Wong Blank MD Ordering Physician: Wong Ugalde MD Date of Service: 08/16/25 Procedure(s): US thyroid Accession Number(s): [id number] cc: Wong Ugalde MD; Yecenia Mauro Reason for Exam: E05.90 - Thyrotoxicosis, unspecified without thyrotoxic crisis or storm EXAMINATION: US THYROID CLINICAL INFORMATION: Thyrotoxicosis COMPARISON: None available. TECHNIQUE: Linear transducer grayscale and color Doppler examination with attention to the region of the thyroid. FINDINGS: SIZE: Measurements of the thyroid lobes and nodules are given in sagittal, anteroposterior and transverse dimensions respectively. Right Thyroid Lobe: 5.2 x 2.4 x 1.8 cm, volume 11.7 mL. Parenchyma: The gland echotexture is heterogeneous. Thyroid vascularity is hypervascular. Left Thyroid Lobe: 3.9 x 1.7 x 1.6 cm, volume 5.5 mL. Parenchyma: The gland echotexture is heterogeneous. Thyroid vascularity is hypervascular. Isthmus: 0.5 cm in maximum AP dimension. Estimated total number of nodules greater than or equal to 1 cm: 0. [employer] nodules are described as follows: NODES: There is a 1.3 x 0.6 x 0.8 cm abnormal-appearing lymph node with punctate calcification absent fatty hilum and normal vascular flow in the right neck. US/US thyroid IMPRESSION: Heterogenous, hypervascular gland with borderline enlarged right thyroid lobe. No focal nodule seen. Abnormal appearing right neck lymph node with a maximum measurement of 1.3 cm and normal flow. Recommend follow-up ultrasound right neck lymph node and thyroid gland in 3-6 months ACR TI-RADS RECOMMENDATION REFERENCE: Ultrasound-guided fine-needle aspiration, followup ultrasound, no further follow up. * TR1 (0 point) and TR2 (2 points): No FNA or follow up. * TR3 (3 points): FNA if more than or equal to 2.5 cm in maximum dimension, followup ultrasound in 1, 3 and 5 years if 1.5 to 2.4 cm in maximum dimension. * TR4 (4-6 points): FNA if more than or equal to 1.5 cm in maximum dimension, followup ultrasound in 1, 2, 3 and 5 years if 1 to 1.4 cm in maximum dimension. * TR5 (more than or equal to 7 points): FNA if more than or equal to 1 cm in maximum dimension, followup ultrasound every year for 5 years if 0.5 to 0.9 cm in maximum dimension. * TR3, TR4 or TR5 nodules that are below the size threshold for followup receive no follow up. Electronically signed by: Rich Hess MD 08/16/2025 11:41 AM EST Dictated By: Rich Hess MD Signed By: <Electronically signed by Rich Hess MD in OV> 08/16/25 1141 DD/ 1108 TD/TT: 08/16/25 1114 Truck Safety Inspector: [facility] Procedure Note Donotuseinterpreter, Image - 08/16/[address] [address] Ultrasound Report Signed Patient: Martin Smith#: [id number] : 1975Acct:[id number] Age/Sex: 50 / FADM Date: 08/16/25 Loc: HO.US Attending Dr: Wong Blank MD Ordering Physician: Wong Ugalde MD Date of Service: 08/16/25 Procedure(s): US thyroid Accession Number(s): [id number] cc: Wong Ugalde MD; Yecenia Mauro Reason for Exam: E05.90 - Thyrotoxicosis, unspecified without thyrotoxiccrisis or storm EXAMINATION: US THYROID CLINICAL INFORMATION: Thyrotoxicosis COMPARISON: None available. TECHNIQUE: Linear transducer grayscale and color Doppler examination with attention to the region of the thyroid. FINDINGS: SIZE: Measurements of the thyroid lobes and nodules are given in sagittal, anteroposterior and transverse dimensions respectively. Right Thyroid Lobe: 5.2 x 2.4 x 1.8 cm, volume 11.7 mL. Parenchyma: The gland echotexture is heterogeneous. Thyroid vascularity is hypervascular. Left Thyroid Lobe: 3.9 x 1.7 x 1.6 cm, volume 5.5 mL. Parenchyma: The gland echotexture is heterogeneous. Thyroid vascularity is hypervascular. Isthmus: 0.5 cm in maximum AP dimension. Estimated total number of nodules greater than or equal to 1 cm: 0. [employer] nodules are described as follows: NODES: There is a 1.3 x 0.6 x 0.8 cm abnormal-appearing lymph node with punctate calcification absent fatty hilum and normal vascular flow in the right neck. US/US thyroid IMPRESSION: Heterogenous, hypervascular gland with borderline enlarged right thyroid lobe. No focal nodule seen. Abnormal appearing right neck lymph node with a maximum measurement of 1.3 cm and normal flow. Recommend follow-up ultrasound right neck lymph node and thyroid gland in 3-6 months ACR TI-RADS RECOMMENDATION REFERENCE: Ultrasound-guided fine-needle aspiration, followup ultrasound, no further follow up. * TR1 (0 point) and TR2 (2 points): No FNA or follow up. * TR3 (3 points): FNA if more than or equal to 2.5 cm in maximum dimension, followup ultrasound in 1, 3 and 5 years if 1.5 to 2.4 cm in maximum dimension. * TR4 (4-6 points): FNA if more than or equal to 1.5 cm in maximum dimension, followup ultrasound in 1, 2, 3 and 5 years if 1 to 1.4 cm in maximum dimension. * TR5 (more than or equal to 7 points): FNA if more than or equal to 1 cm in maximum dimension, followup ultrasound every year for 5 years if 0.5 to 0.9 cm in maximum dimension. * TR3, TR4 or TR5 nodules that are below the size threshold for followup receive no follow up. Electronically signed by: Rich Hess MD 08/16/2025 11:41 AM EST Dictated By: Rich Hess MD Signed By: <Electronically signed by Rich Hess MD in OV> 08/16/25 1141 DD/ 1108 TD/TT: 08/16/25 1114 Truck Safety Inspector: LUCY us [facility] External Provider IMG US PROCEDURES Final Result * US Renal Complete (06/08/2025 12:07 PM EDT) Anatomical Region Laterality Modality Kidney Ultrasound 06/08/2025 12:0 7 PM EDT Narrative 06/08/2025 12:08 PM EDT [place] [address] Ultrasound Report Signed Patient: Adriana Smith MR#: [id number] : 1975 Acct:[id number] Age/Sex: 49 / F ADM Date: 06/07/25 Loc: HO.US Attending Dr: Yecenia Mauro MD Ordering Physician: Yecenia Mauro Date of Service: 06/07/25 Procedure(s): US renal BI Accession Number(s): [id number] cc: Yecenia Mauro Reason for Exam: R [...] signed by Quoc Palmer MD in OV> 06/08/251207 DD/ 06 TD/TT: 06/08/251206 Truck Safety Inspector: Procedure Note Donotuseinterpreter, Image - 06/08/2025 [place] [address] Ultrasound Report Signed Patient: Martin Smith#: [id number] : 1975Acct:[id number] Age/Sex: 49 / FADM Date: 06/07/25 Loc: HO.US Attending Dr: Yecenia Mauro MD Ordering Physician: Yecenia Mauro Date of Service: 06/07/25 Procedure(s): US renal BI Accession Number(s): [id number] cc: Yecenia Mauro Reason for Exam: R [...] signed by Quoc Palmer MD in OV> 06/08/251207 DD/ 06 TD/TT: 06/08/251206 Truck Safety Inspector: us Yecenia Mauro MD IMG US PROCEDURES Edited Resul t - Final * (ABNORMAL) Urinalysis, Complete, with Reflex to Culture (05/26/2025 10:31 AM EDT) Color Urine Dark Yellow [facility] Appearance Urine Clear [facility] PH 6.0 5.0 - 9.0 [facility] Glucose Urine UA Negative Negative mg/dL [facility] Urine Blood Negative Negative [facility] Specific [place] - Urine >=1.030(H) 1.005 - 1.025 [facility] Urine Protein Negative Neg-Trace mg/dL [facility] Urine Ketones Trace Negative mg/dL [facility] Nitrite Urine Negative Negative [facility] Leukocyte Esterase Urine Negative Negative [facility] RBC Urine 0-2 0 - 2 /HPF [facility] Urine WBC 0-5 0 - 5 /HPF [facility] Urine Squamous Epithelial Cell 6-10 0 - 2 /HPF [facility] Urine Bacteria Trace None Seen [facility] Hyaline Casts, Urine 0-2 0 - 2 /LPF [facility] Urine 05/26/2025 10:3 1 AM EDT 05/26/2025 12:52 PM EDT Narrative [facility] - 05/26/2025 1:27 PM EDT Urine, Clean Catch Yecenia Mauro MD LAB URINE ORDERABLES Final Res ult Performing Organization Address [facility] de Phone Number [facility] [address] [place] [phone] * (ABNORMAL) TSH W/Reflex to FT4 (05/26/2025 10:31 AM EDT) TSH reflex Free T4 <0.01(L) 0.32 - 4.0 uIU/mL [facility] Blood Venous blood specimen / Unknown 05/26/2025 10:31 AM EDT 05/26/2025 12:50 PM EDT Yecenia Mauro MD LAB BLOOD ORDERABLES Final Res ult Performing Organization Address City/[facility] Co de Phone Number [facility] [address] [place] [phone] * CBC auto differential (05/26/2025 10:31 AM EDT) White Blood Count 5.1 4.8 - 10.8 X10*3/uL [facility] Red Blood Count 4.81 4.20 - 5.50 X10*6/uL [facility] Hemoglobin 13.6 12.0 - 16.0 g/dl [facility] Hematocrit 41.4 37.0 - 47.0 % [facility] Mean Corpuscular Volume 86.1 80.0 - 98.0 fL [facility] Mean Corpuscular Hemoglobin 28.3 27.0 - 33.0 pg [facility] Mean Corpuscular HGB Conc 32.9 31.0 - 35.0 g/dl [facility] Red Cell Distribution Width 12.0 11.0 - 16.0 % [facility] Platelet Count 254 160 - 400 X10*3/uL [facility] Mean Platelet Volume 12.3 9.4 - 12.3 fL [facility] Neutrophils Percent Auto 57.1 45 - 73 % [facility] Imm Gran Pct Auto 0.2 0.0 - 0.4 % [facility] Lymphocytes Percent Auto 33.3 20 - 40 % [facility] Monocytes Percent Auto 7.2 2 - 11 % [facility] Eosinophils Percent Auto 1.8 0 - 4 % [facility] Basophils Percent Auto 0.4 0 - 2 % [facility] NRBC Pct Auto 0.0 0.0 - 0.2 /100WBC [facility] Neutrophils Absolute Auto 2.9 2.0 - 8.3 x10*3/uL [facility] Imm Gran Abs Auto 0.01 0.00 - 0.03 X10*3/uL [facility] Lymphocytes Absolute Auto 1.7 1.2 - 4.9 X10*3/uL [facility] Monocytes Absolute Auto 0.4 0.1 - 1.2 X10*3/uL [facility] Eosinophils Absolute Auto 0.1 0.0 - 0.4 X10*3/uL [facility] Basophils Absolute Auto 0.0 0.0 - 0.2 X10*3/uL [facility] NRBC Abs Auto 0.000 0.0 - 0.012 X10*3/uL [facility] Blood Venous blood specimen / Unknown 05/26/2025 10:31 AM EDT 05/26/2025 12:50 PM EDT Yecenia Mauro MD LAB BLOOD ORDERABLES Final Res ult Performing Organization Address City/[facility]/ZIP Co de Phone Number [facility] [address] [place] [phone] * Hepatitis C Antibody with Reflex to HCV, RNA, Quantitative, Real-Time PCR (05/26/2025 10:31 AM EDT) Hepatitis C Antibody Nonreactive Nonreactive [facility] Comment:Antibodies to HCV no t detected; does not exclude early acuteHCV infection. Blood Venous blood specimen / Unknown 05/26/2025 10:31 AM EDT 05/26/2025 12:50 PM EDT Yecenia Mauro MD LAB BLOOD ORDERABLES Final Res ult Performing Organization Address [facility]/ZIP Co de Phone Number [facility] [address] [place] [phone] * T4, Free (05/26/2025 10:31 AM EDT) Free T4 (Free Thyroxine) 1.73 0.71 - 1.85 ng/dL [facility] 05/26/2025 10:3 1 AM EDT 05/26/2025 12:50 PM EDT Yecenia Mauro MD LAB BLOOD ORDERABLES Final Res ult Performing Organization Address City/[facility]/ZIP Co de Phone Number [facility] [address] [place] [phone] * Lipase (05/26/2025 10:31 AM EDT) Lipase 49 8 - 78 U/L [facility] Blood Venous blood specimen / Unknown 05/26/2025 10:31 AM EDT 05/26/2025 12:50 PM EDT us Yecenia Mauro MD LAB BLOOD ORDERABLES Final Res ult [facility] [address] [place] [phone] * (ABNORMAL) Comprehensive Metabolic Panel (05/26/2025 10:31 AM EDT) Sodium 141 135 - 145 mmol/L [facility] Potassium 4.2 3.3 - 5.1 mmol/L [facility] Chloride 105 96 - 108 mmol/L [facility] Carbon Dioxide 30(H) 22 - 29 mmol/L [facility] Anion Gap 10(L) 12 - 20 [facility] Urea Nitrogen (BUN) 12 9 - 16 mg/dL [facility] Creatinine, Serum 0.55 0.5 - 1.4 mg/dL [facility] Estimated Glomerular Filt Rate >60 [facility] Comment:Chronic Kidney Disea se: Estimated GFR < 60 mL/min/[id number] Kidney Disease: Estimated GFR < 15 mL/min/1.73m2 Glucose 138(H) 60 - 115 mg/dL [facility] Calcium 10.0 8.4 - 10.2 mg/dL [facility] Bilirubin, Total 0.5 0.0 - 1.0 mg/dL [facility] Aspartate Amino Transferase 25 5 - 31 U/L [facility] Alanine Aminotransferase 25 0 - 31 U/L [facility] Total Protein 7.6 6.5 - 8.0 g/dL [facility] Albumin Level 4.7 3.5 - 5.0 g/dL [facility] Alkaline Phosphatase 57 39 - 117 U/L [facility] Blood Venous blood specimen / Unknown 05/26/2025 10:31 AM EDT 05/26/2025 12:50 PM EDT Yecenia Mauro MD LAB BLOOD ORDERABLES Final Res ult Performing Organization Address [facility] Co de Phone Number [facility] [address] [place] [phone] * Albumin, Random Urine W/Creatinine (05/26/2025 10:13 AM EDT) Creatinine, Urine 156.56 mg/dL [facility] Microalbumin Urine 8.0 mg/L [facility] Microalbum Creatinine Ratio Ur 5.1 <30 ug/mg cr [facility] Comment:Albumin/Creatinine R atio Reference Ranges: Normal: < 30 ug/mg creatinine Microalbuminuria: 30 - 300 ug/mg creatinineClinical Albuminuria: > 300 ug/mg creatinine Urine (Urine, Random) 05/26/2025 10:13 AM EDT 05/26/2025 12:52 PM EDT Yecenia Mauro MD LAB URINE ORDERABLES Final Res ult Performing Organization Address [facility] de Phone Number [facility] [address] [place] [phone] * (ABNORMAL) POCT Hgb A1c (05/26/2025 [...] Media Lot # [id number] Lot# Expiration Date 3,026 Blood Capillary blood specimen / Unknown 05/26/2025 9:42 AM EDT Yecenia Mauro MD POINT OF CARE TEST ENTER/EDIT ORDERABLES Final Result * Lipid Panel, Standard (09/27/2024 10:58 AM EST) Triglycerides 112 <150 mg/dL [facility] Comment:Desirable Triglyceri de: less than 150 mg/dLBorderline High Triglyceride 150-199 mg/dLHigh Triglyceride: 200-499 mg/dLVery High Triglyceride: greater than or equal to 5OO mg/dL Cholesterol 181 <200 mg/dL [facility] Comment:Desirable Cholestero l: less than 200 mg/dLBorderline High Cholesterol: 200-239 mg/dLHigh Cholesterol: greater than 239 mg/dL LDL Cholesterol Calculated 99 <100 mg/dL [facility] Comment:Desirable LDL: less than 100 mg/dLNear Optimal/Above Optimal LDL: 110- 129 mg/dLBorderline High LDL: 130-159 mg/dLHigh LDL: 160-189 mg/dLVery High LDL: greater than or equal to 190 mg/dL HDL Cholesterol 60 >40 mg/dL [facility] Comment:Desirable HDL: great er than 40 mg/dL Note: This HDL assay may give artificially low results in patients with liver disease. Blood Venous blood specimen / Unknown 09/27/2024 10:58 AM EST 09/27/2024 1:02 PM EST Yecenia Mauro MD LAB BLOOD ORDERABLES Final Res ult [facility] [address] [facility] [place] [phone] * BI Mammogram Screening Tomosynthesis Bilateral (02/02/2024 10:20 AM EDT) Anatomical Region Laterality Modality Breast Bilateral Mammography 02/02/2024 10:2 0 AM EDT Narrative 03/02/2024 4:47 PM EDT [facility] [address] [place] [address] Mammography Report Signed Patient: Adriana Smith MR#: [id number] : 1975 Acct:[id number] Age/Sex: 48 / F ADM Date: 02/02/24 Loc: STACIE Attending Dr: Yecenia Mauro MD Ordering Physician: Yecenia Mauro Results: 1Negative Date of Service: 02/02/24 Follow Up: 1 Year From Orig inal Mammogram Procedure(s): MM tomosynthesis screening BI Accession Number(s): [id number] cc: Yecenia Mauro EXAMINATION: MM SCREENING DIGITAL [...] Dumont MD Signed By: <Electronically signed by Dinone Dumont MD in OV> 03/02/24 1643 DD/ 1020 TD/TT: Truck Safety Inspector: Procedure Note Donotuseinterpreter, Image - 03/02/2024 [facility] [address] [place] [address] Mammography Report Signed Patient: Angelica SmithR#: [id number] : 1975Acct:[id number] Age/Sex: 48 / FADM Date: 02/02/24 Loc: STACIE Attending Dr: Yecenia Mauro MD Ordering Physician: Kayleen Mauroults: 1Negative Date of Service: 02/02/24Follow Up: 1 Year From Orig inal Mammogram Procedure(s): MM tomosynthesis screening BI Accession Number(s): [id number] cc: Yecenia Mauro EXAMINATION: MM SCREENING DIGITAL [...] in OV> 03/02/24 1643 DD/ 1020 TD/TT: Truck Safety Inspector: Yecenia Mauro MD IMG BI PROCEDURES Final Result * THINPREP TIS PAP AND HPV mRNA E6/E7, CT/NG, TRICH (06/12/2022 12:09 PM EDT) Chlamydia trachomatis RNA, TMA, Urogenital NOT DETECTED NOT DETECTED CONVERTED LEGACY LABS Clinical Information: Abnormal bleeding CONVERTED LEGACY LABS COMMENT SEE COMMENT [facility]VERTE D [facility]GAC[facility] Comment: The analytical performance characteristics of this assay, when used to test SurePath(TM) specimens have been determined by [facility]. The modifications have not been cleared or approved by the FDA. This assay has been validated pursuant to the CLIA regulations and is used for clinical purposes. For additional information, please refer to https://education.[employer]/faq/PSC309 (This link is being provided for information/ educational purposes only.) COMMENT SEE COMMENT [facility] Comment: EXPLANATORY NOTE: The Pap is a screening test for cervical cancer. It is not a diagnostic test and is subject to false negative and false positive results. It is most reliable when a satisfactory sample, regularly obtained, is submitted with relevant clinical findings and history, and when the Pap result is evaluated along with historic and current clinical information. Comment: This Pap test has been evaluated with computer assisted technology. CONVERTED LEGACY LABS Physicist [place]: SEE COMMENT CONVERTED LEGACY LABS Comment: DMM, CT(ASCP) CT screening location: [place] [address] HPV nRNA E6/E7 Not Detected Not Detected CONVERTED LEGACY LABS Comment: Methodology: Sewing Trimmer-Mediated Amplification This assay detects E6/E7 viral messenger RNA (mRNA) from 14 high-risk HPV types (16,18,31,33,35,39,45,51,52,56,58,59,66,68). Cervical sources are required for HPV testing. If a vaginal source from a patient who has had a total hysterectomy with removal of cervix was submitted, please contact the testing laboratory for alternative testing options. For additional information, please refer to http://nvite.[employer]/faq/XDA138w1 (This link if provided for information/ educational purposes only.) Interpretation/Re sult: Negative for intraepithelial lesion or malignancy. CONVERTED LEGACY LABS LMP: NONE GIVEN CONVERTED LEGACY LABS Neisseria gonorrhoeae RNA, TMA, Urogenital NOT DETECTED NOT DETECTED CONVERTED LEGACY LABS Prev. BX: NONE GIVEN CONVERTED LEGACY LABS Prev. PAP: NONE GIVEN [facility]VERTE D LEGACY LABS Review Physicist [place]: SEE COMMENT CONVERTED LEGACY LABS Comment: GSG, CT(ASCP) CT screening location: [place] [address] SOURCE: None given CONVERTED LEGACY LABS Statement Of Adequacy: SEE COMMENT CONVERTED LEGACY LABS Comment: Satisfactory for evaluation. Endocervical/transformation zone component absent. Age and/or menstrual status not provided Trichomonas vaginalis, QL, TMA, PAP Vial NOT DETECTED NOT DETECTED CONVERTED LEGACY LABS Comment: The analytical performance characteristics of this assay have been determined by [facility]. The modifications have not been cleared or approved by the FDA. This assay has been validated pursuant to the CLIA regulations and is used for clinical purposes. For additional information, please refer to http://education.[employer].[place]/ faq/Trichomonastma (This link is being provided for information/ educational purposes only.) 06/12/2022 12:0 9 PM EDT Ami [facility] LAB PATHOLOGY ORDERABLES Final Result CONVERTED LEGACY LABS from Last 3 Months or Most Recently Relevant to Health Maintenance Insurance [address] [place], [place] [address] C[employer] Care Teams Retail Solar Advisor Relationship Specialty Start Date End Date Yecenia Mauro MD [address] [place] [address] PCP - General Family Medicine 04/09/21
--- OUTSIDE RECORDS SUMMARY | 2025-08-16 12:29 | XMS_ITS | Encounter Summary ---
Author Organization [employer] Address [address] [facility] 7t [place] [address] Care Team Providers Care Interstate Bus Dispatcher Name Role Phone Yecenia Mauro MD Primary Care Provider [phone] Encounter Details Date Type Department Care Team (Late st Contact Info) Description 11/17/2024 Orders Only [facility] [address] [place], [place] [phone] Yecenia Mauro MD [address] [place] [address] Osteoma of skull (Primary Dx); Type 2 diabetes mellitus without complication, without long-term current use of insulin ([facility]) Social History Tobacco Use Types Packs/Day Years [...] the past 12 months, has t he [employer], gas, oil or water company threatened to [...] Description 10/20/2025 9:45 AM EST Office Visit [facility] [address] [place] [address] Yecenia Mauro MD [address] [place] [address] documented as of this encounter Procedures Procedure Name Priority Date/Time Associated Diagnosis Comments TSH W/REFLEX TO FT4 Routine 05/26/2025 1 0:31 AM EDT Type 2 diabetes mellitus without complication, without long-term current use of insulin (HCC) documented in this encounter Results * (ABNORMAL) TSH W/Reflex to FT4 (05/26/2025 10:31 AM EDT) TSH reflex Free T4 <0.01(L) 0.32 - 4.0 uIU/mL [facility] Blood Venous blood specimen / Unknown 05/26/2025 10:31 AM EDT 05/26/2025 12:50 PM EDT us Yecenia Mauro MD LAB BLOOD ORDERABLES Final Res ult [facility] [address] [place] [address] [phone] documented in this encounter Visit Diagnoses Diagnosis Osteoma of skull- Primary Benign neoplasm of bones of skull and face Type 2 diabetes mellitus without complication, without long-term current use of insulin (HCC) documented in this encounter Additional Health Concerns Assessment Noted Time PHQ-9 Depression Total Score: 0 09/18/19 24 1:08 PM EST documented as of this encounter Care Teams Interstate Bus Dispatcher Relationship Specialty Start Date End Date Yecenia Mauro MD [address] [place] [phone] PCP - General Family Medicine 04/09/21 documented as of this encounter
--- OUTSIDE RECORDS SUMMARY | 2025-08-16 12:29 | XMS_ITS | Encounter Summary ---
Author Organization [facility] Address [address] [facility] 7t [place] [address] Care Team Providers Care Administrative Aide Name Role Phone Yecenia Mauro MD Primary Care Provider [phone] Reason for Visit * Reason Comments Med Refill Encounter Details Date Type Department Care Team (Late Contact Info) Description 03/23/2023 Refill [facility] [address] [place], [place] [phone] Anel Ledesma DO [address] [place] [address] Social History Tobacco Use Types Packs/Day Years [...] Encounters Date Type Department Care Team (Late Contact Info) Description 10/20/2025 9:45 AM EST Office Visit [facility] [address] [place] [address] Yecenia Mauro MD [address] [place] [address] documented as of this encounter Visit Diagnoses Not on filedocumented in this encounter Care Teams Administrative Aide Relationship Specialty Start Date End Date Yecenia Mauro MD [address] [place] [address] PCP - General Family Medicine 04/09/21 documented as of this encounter
--- OUTSIDE RECORDS SUMMARY | 2025-08-16 12:29 | XMS_ITS | Encounter Summary ---
Author Organization [employer] Address [address] [facility] 7t [place] [address] Care Team Providers Care Sidewalk Inspector Name Role Phone Yecenia Mauro MD Primary Care Provider [phone] Encounter Details Date Type Department Care Team (Late st Contact Info) Description 08/16/2025 Orders Only [facility] External Provider, [facility] Social History Tobacco Use Types Packs/Day Years [...] Description 10/20/2025 9:45 AM EST Office Visit [facility] [address] [place], [place] [phone] Yecenia Mauro MD [address] [place] [address] documented as of this encounter Procedures Procedure Name Priority Date/Time Associated Diagnosis Comments US THYROID Routine 08/16/2025 11:08 AM EST documented in this encounter Results * US Thyroid (08/16/2025 11:08 AM EST) Anatomical Region Laterality Modality Head, Neck Ultrasound 08/16/2025 11:0 8 AM EST Narrative 08/16/2025 11:44 AM EST [address] [address] Ultrasound Report Signed Patient: Adriana Smith MR#: [id number] : 1975 Acct:[id number] Age/Sex: 50 / F ADM Date: 08/16/25 Loc: HO.US Attending Dr: Wong Blank MD Ordering Physician: Wong Ugalde MD Date of Service: 08/16/25 Procedure(s): US thyroid Accession Number(s): [id number] cc: Wong Ugalde MD; Yecenia Mauro Reason [...] than or equal to 1 cm: 0. [facility] Director nodules are described as follows: NODES: There [...] 08/16/25 1141 DD/ 1108 TD/TT: 08/16/25 1114 Salsa Dance Instructor: [facility] Procedure Note Donotuseinterpreter, Image - 08/16/2025 [place] [address] Ultrasound Report Signed Patient: Martin Smith#: [id number] : 1975Acct:[id number] Age/Sex: 50 / FADM Date: 08/16/25 Loc: HO.US Attending Dr: Wong Blank MD Ordering Physician: Wong Ugalde MD Date of Service: 08/16/25 Procedure(s): US thyroid Accession Number(s): [id number] cc: Wong Ugalde MD; Yecenia Mauro Reason [...] than or equal to 1 cm: 0. [facility] Director nodules are described as follows: NODES: There [...] by: Rich Hess MD 08/16/2025 11:41 AM [facility] Dictated By: Rich Hess MD Signed By: <Electronically signed by Rich Hess MD in OV> 08/16/25 1141 DD/ 1108 TD/TT: 08/16/25 1114 Salsa Dance Instructor: [facility] External Provider IMG US PROCEDURES Final Result documented in this encounter Visit Diagnoses Not on filedocumented in this encounter Additional Health Concerns Assessment Noted Time PHQ-9 Depression Total Score: 1 05/26/20 25 9:45 AM EDT documented as of this encounter Care Teams Sidewalk Inspector Relationship Specialty Start Date End Date Yecenia Mauro MD [address] [place] [phone] PCP - General Family Medicine 04/09/21 documented as of this encounter
--- OUTSIDE RECORDS SUMMARY | 2025-08-16 12:29 | XMS_ITS | Encounter Summary ---
Author Organization [employer] Address [address] [facility] 7t [place] [address] Care Team Providers Care Central Office Installer Name Role Phone Yecenia Mauro MD Primary Care Provider [phone] Reason for Visit * Reason Onset Date Comments Results 12/16/2023 Encounter Details Date Type Department Care Team ([facility] Contact Info) Description 12/16/2023 Telephone [facility] [address] [place], [place] [phone] Yecenia Mauro MD [address] [place], [place] [phone] Results Social History Tobacco Use Types Packs/Day [...] Description 10/20/2025 9:45 AM EST Office Visit [facility] [address] [place] [address] Yecenia Mauro MD [address] [place] [address] documented as of this encounter Visit Diagnoses Not on filedocumented in this encounter Additional Health Concerns Assessment Noted Time PHQ-9 Depression Total Score: 0 09/18/19 24 1:08 PM EST documented as of this encounter Care Teams Central Office Installer Relationship Specialty Start Date End Date Yecenia Mauro MD [address] [place] [address] PCP - General Family Medicine 04/09/21 documented as of this encounter
--- OUTSIDE RECORDS SUMMARY | 2025-08-16 12:29 | XMS_ITS | Encounter Summary ---
Author Organization [employer] Address [address] [facility] 7t [place] [address] Care Team Providers Care Commercial Review Appraiser Name Role Phone Yecenia Mauro MD Primary Care Provider Reason for Visit * Reason Comments Med Refill Encounter Details Date Type Department Care Team ([facility] st Contact Info) Description 01/05/2024 Refill [facility] [address] [place], [place] [phone] Yecenia Mauro MD [address] [place], [place] [phone] Migraine without status migrainosus, not intractable, unspecified [...] 9:45 AM EST Office Visit [facility] [address] [place] [phone] Yecenia Mauro MD [address] [place] [address] documented as of this encounter Visit Diagnoses Diagnosis Migraine without status migrainosus, not intractable, unspecified migraine type documented in this encounter Additional Health Concerns Assessment Noted Time PHQ-9 Depression Total Score: 0 09/18/19 24 1:08 PM EST documented as of this encounter Care Teams Commercial Review Appraiser Relationship Specialty Start Date End Date Yecenia Mauro MD [address] [place] [phone] PCP - General Family Medicine 04/09/21 documented as of this encounter
--- OUTSIDE RECORDS SUMMARY | 2025-08-16 12:29 | XMS_ITS | Encounter Summary ---
Author Organization [employer] Address [address] [facility] 7t [place] [address] Care Team Providers Care Resource Conservation Manager Name Role Phone Yecenia Mauro MD Primary Care Provider [phone] Reason for Visit * Reason Onset Date Comments Med Refill 08/23/2024 Encounter Details Date Type Department Care Team ([facility] st Contact Info) Description 08/23/2024 Telephone [facility] [address] [place], [place] [phone] Yecenia Mauro MD [address] [place] [address] Med Refill Social History Tobacco Use Types [...] 10:23 AM EST Trulicity was sent to [id number] on 08/02/24 with 1 refill other medications pended to PCP. * Telephone Encounter - Morelia Potter - 08/23/2024 10:16 AM EST TC from pt requesting medication refill. Medications needing refill : - Trulicity 0.75 MG/0.5ML solution auto-injector - algpxppxzy-gtqnmoseiebnn-wlbzwlcz 50-325-40 MG tablet - ketoconazole (NIZOral) 2 % shampoo To be sent to: [facility] - [place], [place] - [address] [place] [address] documented in this encounter Plan of Treatment Upcoming Encounters Date Type Department Care Team (Late st Contact Info) Description 10/20/2025 9:45 AM EST Office Visit [facility] [address] [place], [place] [phone] Yecenia Mauro MD [address] [place], [place] [phone] documented as of this encounter Visit Diagnoses Not on filedocumented in this encounter Additional Health Concerns Assessment Noted Time PHQ-9 Depression Total Score: 0 09/18/19 24 1:08 PM EST documented as of this encounter Care Teams Resource Conservation Manager Relationship Specialty Start Date End Date Yecenia Mauro MD [address] [place] [address] PCP - General Family Medicine 04/09/21 documented as of this encounter
--- OUTSIDE RECORDS SUMMARY | 2025-08-16 12:29 | XMS_ITS | Encounter Summary ---
Author Organization [employer] Address [address] [facility] 7t [place] [address] Care Team Providers Care Administrative Support Assistant Name Role Phone Yecenia Mauro MD Primary Care Provider [phone] Reason for Visit * Reason Onset Date Comments Referral 08/06/2023 Encounter Details Date Type Department Care Team ([facility] Contact Info) Description 08/06/2023 Telephone [facility] [address] [place], [place] [phone] Yecenia Mauro MD [address] [place] [address] Referral Social History Tobacco Use Types Packs/Day [...] Tc from patient requesting a referral for [facility] states was being seen in [place] and wouldlike to be seen there again however account underwriter does not see referral on patients chart please clarify. documented in this encounter Plan of Treatment Upcoming Encounters Date Type Department Care Team (Late st Contact Info) Description 10/20/2025 9:45 AM EST Office Visit [facility] [address] [place] [address] Yecenia Mauro MD [address] [place] [address] documented as of this encounter Visit Diagnoses Not on filedocumented in this encounter Care Teams Administrative Support Assistant Relationship Specialty Start Date End Date Yecenia Mauro MD [address] [place] [address] PCP - General Family Medicine 04/09/21 documented as of this encounter
--- OUTSIDE RECORDS SUMMARY | 2025-08-16 12:29 | XMS_ITS | Encounter Summary ---
Author Organization [employer] Address [address] [facility] 7t [place] [address] Care Team Providers Care Wardrobe Supervisor Name Role Phone Yecenia Mauro MD Primary Care Provider [phone] Encounter Details Date Type Department Care Team (Late Contact Info) Description 02/11/2023 Orders Only [facility] [address] [place] [address] [phone] Nguyễn Castelan MD [address] [place] [address] [phone] Microscopic hematuria (Primary Dx) Social History Tobacco [...] Description 10/20/2025 9:45 AM EST Office Visit [facility] [address] [place] [address] [phone] Yecenia Mauro MD [address] [place] [address] [phone] Scheduled Orders Name Type Priority Associated Diagnoses Orde r Schedule Urinalysis Complete Lab Routine Microscopic hematuria Expected: 02/11/2023 (Approximate), Expires: 02/12/2024 documented as of this encounter Visit Diagnoses Diagnosis Microscopic hematuria- Primary documented in this encounter Care Teams Wardrobe Supervisor Relationship Specialty Start Date End Date Yecenia Mauro MD [address] [place] [address] PCP - General Family Medicine 04/09/21 documented as of this encounter
--- OUTSIDE RECORDS SUMMARY | 2025-08-16 12:29 | XMS_ITS | Encounter Summary ---
Author Organization [employer] Address [address] [facility] 7t [place] [address] Care Team Providers Care Service Tech/Welder Name Role Phone Yecenia Mauro MD Primary Care Provider [phone] Encounter Details Date Type Department Care Team (Late st Contact Info) Description 08/23/2024 Orders Only [facility] [address] [place], [place] [phone] Yecenia Mauro MD 230 [place], [place] [phone] Chronic migraine with aura and with status [...] Description 10/20/2025 9:45 AM EST Office Visit [facility] 230 [place] [address] Yecenia Mauro MD [address] [place] [address] documented as of this encounter Visit Diagnoses Diagnosis Chronic migraine with aura and with status migrainosus, not intractable documented in this encounter Additional Health Concerns Assessment Noted Time PHQ-9 Depression Total Score: 0 09/18/19 24 1:08 PM EST documented as of this encounter Care Teams Service Tech/Welder Relationship Specialty Start Date End Date Yecenia Mauro MD [address] [place] [address] [phone] PCP - General Family Medicine 04/09/21 documented as of this encounter
[2025-08-16 13:43] LABS: Free T4 (Free Thyroxine) 1.04 ng/dL (0.71-1.85)
== END 2025-08-16 10:57 | disposition home or self-care (01) ==
LOC: HO.US 10:56
PROVIDERS: PCP General Practice; Visit Provider Student in an Organized Health Care Education/Training Program
DX: E05.90 Thyrotoxicosis, unspecified without thyrotoxic crisis or storm (principal); Z01.84 Encounter for antibody response examination
CPT/HCPCS: 36415; 76536; 83520; 84439; 84443; 84445; 84480; 86376

== ENCOUNTER → 2025-08-16 10:58 | Outpatient (BNV) | payer MEDICAID, SELFPAY | PROVIDERS: PCP General Practice; Visit Provider Radiology Diagnostic Radiology | DX: E04.9 Nontoxic goiter, unspecified (principal); R59.0 Localized enlarged lymph nodes | CPT/HCPCS: 76536 ==